=== PATIENT | female | born 1930 | race Caucasian/White ===

== ENCOUNTER 2018-01-26 18:44 | Inpatient (IN) | payer MEDICARE ==
[2018-01-26] MEDS ORDERED: Albuterol Sulfate 2.5 mg/3 ml Neb ONE ×2 (19:44→19:45)
[2018-01-26] MEDS ORDERED: predniSONE 20 MG TAB ONE (19:54)
--- NOTE | 2018-01-26 20:05 | RAD ---
UPRIGHT PORTABLE CHEST ONE VIEW: HISTORY: An 87-year-old female with a history of cough and shortness of breath. COMPARISON: No prior studies. FINDINGS: Minimal cardiomegaly. Mild bilateral vascular congestion with some increased linear and interstitial markings bilaterally, nonspecific. Evidence for hiatal hernia. No confluent pneumonia. IMPRESSION: 1. Cardiomegaly with mild vascular congestion. 2. Old granulomatous disease. 3. Evidence for a hiatal hernia. 4. Atherosclerosis of the aorta. POS: [facility]
[2018-01-26 21:19] LABS: Hemoglobin 9.7 g/dL (12.0-16.0); Mean Corpuscular HGB CONC 29.7 g/dL (32.0-36.0); Mean Corpuscular Hemoglobin 23.7 pg (27.0-31.0); Mean Corpuscular Volume 79.7 fL (78.0-98.0); Mean Platelet Volume 9.7 fL (7.4-10.4); Platelet Count 125 thou/uL (130-400); RBC Distribution Width 15.4 % (11.5-14.5); Red Blood Cell (RBC) Count 4.11 mill/uL (4.20-5.40)
[2018-01-26 21:37] LABS: #Lymphocytes 1.1 thou/uL (1.20-3.40); #Monocytes 0.5 thou/uL (0.11-0.59); #Neutrophils 3.3 thou/uL (1.40-6.50); %Eosinophils 0.7 % (0.0-10.0); %Lymphocytes 22.1 % (21.0-51.0); %Monocytes 10.7 % (0.0-10.0); %Neutrophils 66.6 % (42.0-75.0); Anisocytosis SLIGHT = 6-15 cells (100X) (0-5/hpf); MDiff Complete? YES; PLT Morphology Comment Appears Decreased; Poikilocytosis SLIGHT = 6-15 cells (100X) (0-5/hpf)
[2018-01-26 21:38] LABS: ALT (SGPT) 11 U/L (8-55); AST (SGOT) 17 U/L (5-34); Albumin 3.9 g/dL (3.4-4.8); Alkaline Phosphatase 79 U/L (40-150); Anion Gap 15 mmol/L (10-20); BUN (Urea Nitrogen) 9 mg/dL (9.8-20.1); Calc. Creatinine Clearance 0 mL/min (70-130); Calcium 9.3 mg/dL (7.8-10.44); Carbon Dioxide 21 mmol/L (23-31); Chloride 106 mmol/L (98-107); Estimated GFR-MDRD 79; Globulin 2.5 g/dL (2.4-3.5); Glucose 143 mg/dL (83-110); Potassium 3.8 mmol/L (3.5-5.1); Protein, Total 6.4 g/dL (6.0-8.3); Sodium 138 mmol/L (136-145)
[2018-01-26 21:42] LABS: Troponin I Less than 0.010 ng/mL (< 0.028)
[2018-01-26] MEDS ORDERED: Furosemide 20 MG/2 ML VIAL ONE (22:38)
[2018-01-27 00:15] LABS: Troponin I 0.017 ng/mL (< 0.028)
[2018-01-27 00:38] VITALS: BMI 44.3
[2018-01-27 03:39] LABS: Troponin I 0.033 ng/mL (< 0.028)
[2018-01-27] MEDS: Benzonatate 100 MG CAP PO PRN ×3 (07:14→20:56)
[2018-01-27] MEDS ORDERED: traMADol HCl 50 MG TAB PO PRN (09:16)
[2018-01-27] MEDS ORDERED: Aspirin 81 mg Enteric Coated Tablet PO SCH (10:00)
[2018-01-27] MEDS: methylPREDNISolone Sod Succ/PF 125 MG/2 ML VIAL IVP SCH ×3 (10:09→22:52)
[2018-01-27] MEDS ORDERED: Furosemide 40 MG/4 ML VIAL SLOW IVP SCH (11:00)
[2018-01-27 11:23] LABS: Troponin I 0.066 ng/mL (< 0.028)
--- NOTE | 2018-01-27 11:49 | HP ---
DATE OF ADMISSION: 01/26/2018 PRIMARY CARE PHYSICIAN: Dr. Babin CHIEF COMPLAINT: Cough, shortness of breath, worse with exertion and generalized weakness. HISTORY OF PRESENT ILLNESS: Ms. Gamble is a pleasant 87-year-old female who presented to the emergency room on 01/26/2018 for cough that started yesterday morning, nonproductive, shortness of breath, which was exacerbated by exertion and generalized weakness. The patient's niece reports that she had bronchitis recently and believes that her aunt may have caught it from her. The patient denies any sore throat or rhinorrhea, just reports that she has got lower leg edema, which is worse than normal. Denies any chest pain. The patient reports that she takes Lasix at home for chronic lymphedema. Denies history of CHF. The patient was found to have wheezes diffusely, pulse ox in 90-91 on room air. She was placed on 2 liters nasal cannula in the emergency room. She was admitted to the observation unit for further evaluation. PAST MEDICAL HISTORY: Hypertension, hyperlipidemia, lymphedema, hypothyroidism. PAST SURGICAL HISTORY: Appendectomy, hysterectomy. FAMILY HISTORY: Noncontributory. SOCIAL HISTORY: The patient lives at home, lives with her niece. Denies smoking history. Denies alcohol or drug use. REVIEW OF SYSTEMS: CONSTITUTIONAL: The patient denies chills, denies a low grade fever yesterday. Reports some generalized weakness. EYES: Denies any eye pain or vision changes. ENT: Denies rhinorrhea, sore throat, voice changes. CARDIOVASCULAR: Denies any chest pain or palpitations. RESPIRATORY: The patient reports a nonproductive cough or shortness of breath. GASTROINTESTINAL: Denies any abdominal pain, nausea, vomiting, diarrhea, constipation. GENITOURINARY: FEMALE: Denies any dysuria or increased frequency. MUSCULOSKELETAL: Denies any back pain, fall, or injury. SKIN: Denies rash or skin changes. NEUROLOGIC: Denies a headache, any mental status changes, paresthesias, sensory changes. HEME/LYMPHATIC: Denies any abnormal blood clotting. IMMUNOLOGIC: The patient denies any frequent infections. PHYSICAL EXAMINATION: VITAL SIGNS: Temperature 97.9, pulse 83, respirations 18, blood pressure 136/71 , pulse ox 91 on room air, 94 on 2 liters. CONSTITUTIONAL: The patient appears in no distress. She is oriented to person , place, and time. HEAD: Normocephalic, atraumatic. EYES: Pupils are equally round and reactive to light. Extraocular muscles are intact. No nystagmus. ENT: Mouth exam is normal. Mucous membranes are moist. Neck is supple, normal range of motion. Trachea is midline. RESPIRATORY: Chest, diffuse wheezing, no respiratory distress, no accessory muscle use. CARDIOVASCULAR: Heart, rate and rhythm. Heart sounds are normal. ABDOMEN: FEMALE: Abdomen is soft, nontender. Bowel sounds are heard x4. BACK: Normal inspection, normal range of motion, no tenderness. EXTREMITIES: Normal inspection, normal range of motion. Motor strength is normal. Sensation is intact. Radial pulses normal. Lower extremities, normal range of motion. Motor strength is normal. Sensation intact. +2 edema noted to lower extremities. NEUROLOGIC: The patient is alert to person, place, and time. Speech is normal. No focal or sensory deficits. SKIN: Dry, warm, and normal in color. PSYCHIATRIC: The patient is a normal affect. LABORATORY DATA: EKG in the emergency room showed a normal sinus rhythm, beats per minute, 92. ST segments normal, T waves normal, axis normal. Labs and x- ray; the patient had a chest x-ray, which showed cardiomegaly with mild vascular congestion, evidence of hiatal hernia, atherosclerosis of the aorta. Labs, sodium 138, potassium 3.8, chloride 106, carbon dioxide 21, anion gap is 15, BUN is 9, creatinine is 0.70, estimated GFR is 79, glucose 143, AST is 17, ALT is 11. Troponin, first two are undetectable, third one elevated at 0.033. BNP is 201.5. White blood cell count is 5, hemoglobin 9.7, hematocrit 32.8, and platelet count is 125. ASSESSMENT AND PLAN: 1. Congestive heart failure exacerbation: We will give some Lasix. Order an echocardiogram. Consult Cardiology. 2. Bronchitis. We will order neb treatments, Solu-Medrol. 3. Hyperlipidemia. We will continue home medications. 4. Hypothyroidism. We will continue home medications. 5. Deep venous thrombosis and gastrointestinal prophylaxis will be started. Hospital course will depend on clinical findings. [facility]ITAL[facility]
[2018-01-27] MEDS ORDERED: methylPREDNISolone Sod Succ/PF 125 MG/2 ML VIAL IVP SCH (12:00)
[2018-01-27] MEDS ORDERED: Sterile Water 10 ML ONE (16:11)
--- NOTE | 2018-01-27 16:16 | PDOC.EVN ---
Event Note - Event Note Event Note: Reviewed chart, saw patient. Collaborated with Lucia Lyn SENIOR WRITER. Agree with assessment and plan as documented.
--- NOTE | 2018-01-27 16:54 | PDOC.EVN ---
Event Note - Event Note Event Note: Patient went into A fib with RVR, Stat EKG ordered, Cardizem 10mg IVP now, Cardizem drip 5mg/hr, BP 136/[address] Domingo already consulted and asked us to bolus and start cardizem. She will see patient.
[2018-01-27] MEDS ORDERED: Digoxin 0.5 MG/2 ML AMP SLOW IVP SCH (17:00)
[2018-01-27] MEDS ORDERED: Diltiazem 125 MG in Sodium Chloride 0.9% 100 ML IVPB SCH (17:00)
[2018-01-27 18:30] LABS: Free T4 (Free Thyroxine) 1.07 ng/dL (0.70-1.48); Thyroid Stimulating Hormone 0.4151 uIU/mL (0.35-4.94)
[2018-01-27] MEDS: Atorvastatin Calcium 40 MG TAB PO SCH (21:15)
[2018-01-28] MEDS: Levothyroxine Sodium 100 MCG TAB PO SCH (03:01)
[2018-01-28] MEDS: Benzonatate 100 MG CAP PO PRN ×3 (03:01→22:06)
[2018-01-28] MEDS: methylPREDNISolone Sod Succ/PF 125 MG/2 ML VIAL IVP SCH ×3 (04:09→17:12)
[2018-01-28] MEDS ORDERED: Furosemide 40 MG TAB PO SCH (09:00)
[2018-01-28] MEDS: Potassium Chloride 20 MEQ TAB PO SCH (09:09)
[2018-01-28] MEDS: Aspirin 81 mg Enteric Coated Tablet PO SCH (09:10)
[2018-01-28] MEDS: Diltiazem 125 MG in Sodium Chloride 0.9% 100 ML IVPB SCH (09:11)
[2018-01-28] MEDS ORDERED: Furosemide 40 MG/4 ML VIAL SLOW IVP SCH (09:15)
--- NOTE | 2018-01-28 09:15 | PDOC.CTH ---
<Jelena Rivera - Last Filed: 01/28/18 14:15> Cardiology Progress Note - Subjective The pt seen and examined. No overnight events. She complains of worsening of SOB this AM. - Objective Vital Signs Temp Pulse Resp BP BP Pulse Ox 01/28/18 07:43 97.8 F 72 20 136/63 98 01/28/18 07:38 92 L 01/28/18 07:36 72 20 92 L 01/28/18 03:02 96.6 F L 117 H 18 136/81 94 L Weight 262 lb 11.2 oz 01/27/18 01/28/18 01/29/18 06:59 06:59 06:59 Intake Total 200 1230.8 Output Total 250 2100 Balance -50 -869.2 - Physical Examination General/Neuro: alert & oriented x3 Neck: no JVD present Lungs: other: (wheezing) Heart: RRR Abdomen: soft Extremities: other: (No edema) - Telemetry Telemetry Rhythm: SR - Labs Result Diagrams: 01/28/18 12:43 01/28/18 12:43 Troponin/CKMB Troponin I 0.066 ng/mL (< 0.028) H 01/27/18 10:50 - Assessment/Plan 1. Acute on Chronic Diastolic HF - wheezing and complains of worsening of SOB today. another Lasix IV 40mg today and start Lasix 40mg PO BID from this PM. Start Coreg 3.125mg BID from this AM. On RUSSELL. 2. New onset Afib from 01/27/18 and converted back to SR around 0330 on - Remains in SR with Cardizem 10mg/h; will start Coreg 3.125mg BID from this AM; on ASA 81mg qd. 3. Mod /severe MR - Echo result is pending at this time 4. Hyperlipidemia - on Statin 5. Hypothyroidism 6. Bronchitis - managed by PCP SIMON reviewed * Will start Eliquis 5mg BID for Afib. Review of Systems - Review of Systems Constitutional: reports: weakness EENTM: reports: no symptoms reported Respiratory: reports: see HPI Cardiac (ROS): reports: no symptoms reported ABD/GI: reports: no symptoms reported : reports: no symptoms reported Musculoskeletal: reports: no symptoms reported <Shantelle Domingo - Last Filed: 01/28/18 22:23> Cardiology Progress Note - Objective Vital Signs Temp Pulse Resp BP Pulse Ox 01/28/18 17:05 72 22 H 119/80 95 01/28/18 12:13 76 20 01/28/18 11:23 98.4 F 88 22 H 129/60 94 L Weight 262 lb 11.2 oz 01/27/18 01/28/18 01/29/18 06:59 06:59 06:59 Intake Total 200 1230.8 1040 Output Total 250 2100 500 Balance -50 -869.2 540 - Labs Result Diagrams: 01/28/18 17:24 01/28/18 17:24 Troponin/CKMB Troponin I 0.066 ng/mL (< 0.028) H 01/27/18 10:50 - Assessment/Plan pt.seen and eval.byme.I agree with the A/Pby the INTERNAL MEDICINE PHYSICIAN.She does not tolerate the atrial fibrillation well.This is likely worsened by the and MR.?if she is a candidatefor TAVR.
[2018-01-28] MEDS ORDERED: Carvedilol 3.125 MG TAB PO SCH (10:00)
[2018-01-28 12:49] LABS: #Lymphocytes 0.7 thou/uL (1.20-3.40); #Monocytes 0.4 thou/uL (0.11-0.59); #Neutrophils 6.7 thou/uL (1.40-6.50); %Basophils 0.4 % (0.0-1.0); %Eosinophils 0.3 % (0.0-10.0); %Lymphocytes 8.9 % (21.0-51.0); %Monocytes 5.1 % (0.0-10.0); %Neutrophils 85.3 % (42.0-75.0); Hemoglobin 9.8 g/dL (12.0-16.0); Mean Corpuscular HGB CONC 31.1 g/dL (32.0-36.0); Mean Corpuscular Hemoglobin 24.6 pg (27.0-31.0); Mean Corpuscular Volume 79.1 fL (78.0-98.0); Mean Platelet Volume 9.8 fL (7.4-10.4); Platelet Count 138 thou/uL (130-400); RBC Distribution Width 15.6 % (11.5-14.5); Red Blood Cell (RBC) Count 3.97 mill/uL (4.20-5.40); White Blood Cell (WBC) Count 7.8 thou/uL (4.8-10.8)
[2018-01-28 13:09] LABS: Anion Gap 15 mmol/L (10-20); BUN (Urea Nitrogen) 21 mg/dL (9.8-20.1); Calc. Creatinine Clearance 88 mL/min (70-130); Calcium 9.8 mg/dL (7.8-10.44); Carbon Dioxide 22 mmol/L (23-31); Chloride 105 mmol/L (98-107); Estimated GFR-MDRD 65; Glucose 143 mg/dL (83-110); Potassium 3.8 mmol/L (3.5-5.1); Sodium 138 mmol/L (136-145)
--- NOTE | 2018-01-28 13:30 | PDOC.PN ---
- Subjective Encounter Start Date: 01/28/18 (f/u dyspnea) Encounter Start Time: 13:28 Subjective: Pt reports breathing is not as good today. Denies any chest tightness -: or pain. Denies n/v. Zabfvtge-qm-[id number] notes it as well - Objective Vital Signs & Weight: Vital Signs (12 hours) Temp Pulse Resp BP BP Pulse Ox 01/28/18 12:13 76 20 01/28/18 11:23 98.4 F 88 22 H 129/60 94 L 01/28/18 07:43 97.8 F 72 20 136/63 98 01/28/18 07:38 92 L 01/28/18 07:36 72 20 92 L 01/28/18 03:02 96.6 F L 117 H 18 136/81 94 L Weight Weight 262 lb 11.2 oz I&O: 01/27/18 01/28/18 01/29/18 06:59 06:59 06:59 Intake Total 200 1230.8 Output Total 250 2100 Balance -50 -869.2 Result Diagrams: 01/28/18 17:24 01/28/18 17:24 EKG Reviewed by me: Yes (intermittent a fit, currently in sinus 75.) Phys Exam - Physical Examination Constitutional: NAD prolonged exhalation/wheezing, no audible rales/rhonchi Cardiovascular: RRR 3/6 FERNANDO throughout Gastrointestinal: soft, non-tender, no distention, positive bowel sounds Musculoskeletal: no edema Neurological: non-focal, moves all 4 limbs Psychiatric: normal affect, A&O x 3 Dx/Plan (1) Shortness of breath Code(s): R06.02 - SHORTNESS OF BREATH Status: Acute (2) Paroxysmal atrial fibrillation Code(s): I48.0 - PAROXYSMAL ATRIAL FIBRILLATION Status: Acute (3) Diastolic heart failure Code(s): I50.30 - UNSPECIFIED DIASTOLIC (CONGESTIVE) HEART FAILURE Status: Acute Qualifiers: Heart failure chronicity: acute on chronic Qualified Code(s): I50.33 - Acute on chronic diastolic (congestive) heart failure (4) Severe mitral regurgitation Code(s): I34.0 - NONRHEUMATIC MITRAL (VALVE) INSUFFICIENCY Status: Chronic (5) Hyperlipidemia Code(s): E78.5 - HYPERLIPIDEMIA, UNSPECIFIED Status: Chronic Qualifiers: Hyperlipidemia type: unspecified Qualified Code(s): E78.5 - Hyperlipidemia , unspecified (6) Hypothyroid Code(s): E03.9 - HYPOTHYROIDISM, UNSPECIFIED Status: Chronic Qualifiers: Hypothyroidism type: unspecified Qualified Code(s): E03.9 - Hypothyroidism , unspecified (7) Anemia Code(s): D64.9 - ANEMIA, UNSPECIFIED Status: Chronic - Plan * Appreciate Cardiology consult - pt on cardizem, addition of coreg today, and received another dose of lasix IV with plan to change to PO lasix * Will discuss anticoagulation with Cardiology as pt only on low dose aspirin now * Pt remains fairly tachypneic - check d-dimer and anticipate VQ or CT-A if positive * continue IV steroids and scheduled nebs. * continue home meds as ordered * * dvt prophy - scd's * gi prophy - not indicated * code status full - confirmed with patient and ashyyoob-hu-wnl present. * * 21:30- VQ scan unremarkable and pt started on eliquis by cardiology. Breathing without significant change despite steroids, diuresis, nebs. Will consult Pulmonology in AM for further recommendations. Pt tearful this evening - states she is tired and wants to go home. will change nebs to While awake, and RN to assist with protecting pt's sleep and minimizing unnecessary disruptions. Will change solumedrol to prednisone in AM.
--- NOTE | 2018-01-28 14:44 | CON ---
DATE OF CONSULTATION: 01/27/2018 ROOM #[id number] PRIMARY CARE PHYSICIAN: Ace Babin MD. PRIMARY MANAGER RAIL: Henok Rider MD. REFERRING PHYSICIAN: Ms. Tracy Manzanares. REASON FOR CARDIOLOGY CONSULTATION: Shortness of breath, CHF exacerbation, elevated troponin. HISTORY OF PRESENT ILLNESS: Ms. Gamble is a very pleasant 87-year-old female with a sig nificant history of hypertension, history of DVT in 2014, hyperlipidemia, aortic valve stenosis and m itral valve regurgitation, and lymphedema in the bilateral lower extremities. Her niece reports that the patient was doing well until yesterday morning when she started having shortness of breath and c ough , morning. She was complaining of severe worsening coughing and ach iness. They tried to reach the patient's primary care doctor, which was yesterday, so the ramu ent decided to present to the emergency department today for further evaluation and treatment. Patie nt denied any cardiac complaints. She pillows. She denies shortness of breath except that sin ce 2 days ago, abdominal bloating, decreasing of appetite, edema in the lower extremities. The patient lives with her niece who is watching the patient's salt intake. She usually drinks a glass of fluid a day. She does not exercise, she has a sedative lifestyle. The niece noticed the patient complains of fatigue possibly due to lack of sleep at night and tired and sleeping at the daytime. The patient had a stress test in 2013, which shows no reversible ischemia. Patient had a vein study in 2013, shows positive varicose vein to the left lower extremities. The patient has a long history of aortic valve stenosis. Last echo was done in August 2017, which shows EF of 60-65%, normal LV size and function, severe mitral valve regurgitation, moderate aortic valve stenosis, moderate aortic valv e regurgitation, zjyczzpo-ni-gbsocp tricuspid regurgitation, moderate pulmonary valve regurgitation, aortic valve mean gradient 19.18. PAST MEDICAL HISTORY: 1. Hypertension. 2. Aortic valve stenosis. 3. Mitral valve regurgitation. 4. Hyperlipidemia. 5. History of DVT in 2014. 6. Hypothyroidism. 7. . PAST SURGICAL HISTORY: 1. Total hysterectomy. 2. Right varicose vein ablation in 2010. 3. Right carpal tunnel surgery in 2014. 4. Bilateral cataract surgery in 2014. 5. Appendectomy. 6. Left wrist fracture and plate placement. FAMILY HISTORY: The patient's older sister due to CVA and congestive heart failure. Norberto haines's mother due to the complication from congestive heart failure. Patient's younger sister due to cancer. She also has a history of diabetes. Patient's paternal side has no signific ant cardiac related diseases. SOCIAL HISTORY: Patient lives with her niece. Again, patient has sedative lifestyle. She uses a wa lker for stability. She denies ETOH, tobacco, or illicit drug abuse. She drinks one tea a day and a glass of fluid a day. REVIEW OF SYSTEMS: A 12-point review of systems is negative, unless otherwise mentioned in the HPI. PHYSICAL EXAMINATION: VITAL SIGNS: Blood pressure 134/74, temperature 97.6, pulse is 96 sinus rhythm, respiratory rate 20, and O2 sat 97% with 2 liters nasal cannula. GENERAL: Patient is alert and oriented x4, not in acute distress. HEAD: Normocephalic, atraumatic. EYES: Extraocular muscle movement intact. ENT AND MOUTH: Oral and nasal mucosa are moist without lesion. NECK: Normal range of motion. No JVD. Supple. RESPIRATORY: bilateral especially to the left side, but no wheezing or rales noted. CARDIOVASCULAR: Regular rate and rhythm. Normal S1 and S2. There is no S3 or S4. murmur to right mid sternal border systolic, but unable to auscultate heart sound to the left fifth cost al area due to the patient's obesity. EXTREMITIES: A 2+ pulses in the upper and lower bilateral extremities. No significant edema in the lower extremities. The patient is able to move all extremities without difficulties. The patient de nied any calcifications. SKIN: No hematoma, lesion, or rash noted. NEUROLOGIC: The patient is alert and oriented x4, nonfocal. PSYCHIATRIC: The patient's mood is appropriate. IMAGING STUDIES: The patient's 12-lead EKG at the ER showed sinus rhythm with no significant ST elev ation or T-wave depression. Patient's chest x-ray shows cardiomegaly with mild vascular congestion, old granulomatous disease, evidence of hiatal hernia, atherosclerosis of aorta. LABORATORY DATA: WBC 5.0, hemoglobin 9.7, hematocrit 32.8, platelets 125. Sodium of 138, potassium of 3.8, creatinine 0.7, AST 17, ALT 11. Troponins are 0.017, 0.033 and 0.066. BNP is 201.5. ASSESSMENT AND PLAN: 1. Elevated troponin, demand ischemia secondary to the severe cough from bronchitis/flu. Inf luenza test was negative, so the patient has a severe bronchitis and no EKG change at this moment. W e would like to continue to monitor. 2. Possible congestive heart failure. The patient's BNP is slightly elevated. Patient is going to have another echocardiogram today to determine whether the patient has congestive heart failure . 3. Aortic valve stenosis and severe mitral valve regurgitation. The echocardiogram in August 2017 as an outpatient shows the patient has moderate aortic valve stenosis and severe mitral valve regurgitat ion. Patient is going to have another echocardiogram today. Patient's symptoms of the chronic fatig ue could be possibly from this result or something else. We would like to find out to determine with echocardiogram. At this moment, the patient's condition is stable. 4. Hypertension. Patient's blood pressure is stable at this moment with current medication. 5. Hypothyroidism. The patient is on levothyroxine. 6. Hyperlipidemia. The patient is on atorvastatin 40 mg once a day. 7. Bronchitis. Patient's influenza test was negative. Patient is on Solu-Medrol every 6 hours, whi ch managed by primary care doctor. 8. Anemia. Hemoglobin level is 9.7, which was more than 10 in March 2017, which might cause the p atient's chronic fatigue. We would like to continue to monitor. Thank you for allowing the Cardiology Service to participate in the care of this patient. We will fo llow along the patient care team and make further recommendation as appropriate.
--- NOTE | 2018-01-28 14:46 | ADD-CON ---
ADDENDUM DATE OF CONSULTATION: 01/27/2018 INDICATION FOR CONSULTATION: An 87-year-old female with a history of aortic valve stenosis who prese nted with coughing, shortness of breath and overall just not feeling well. She denied any fevers, bu t she has been more short of breath than usual. She does have anemia. She was noted to have an elev ated BNP and was felt to have a CHF exacerbation. We were asked to see her. HISTORY OF PRESENT ILLNESS: This is a very unfortunate 87-year-old female who has been followed by Desi Rider for quite some time. She did have a recent echocardiogram in 08/2017, which showed a mod erate aortic valve stenosis as well as moderate aortic valve regurgitation, but a normal left ventric ular systolic function. She also had vbguosle-fo-bcffxe tricuspid valve regurgitation and severe curt ral valve regurgitation. She denies any chest pain. She does have shortness of breath and this has continued to worsen as she has developed this cough. She has also had a family member who recently h ad an upper respiratory tract infection. She also has a history of diastolic dysfunction. At this t rhys, her BNP was elevated. She is obese. The enzymes are negative for any evidence of myocardial in farction. For her past medical history, social history, family history, review of systems, medications, and all ergies, please refer to the notes dictated by the nurse practitioner, Jelena. PHYSICAL EXAMINATION: GENERAL: Reveals an elderly female, who is in no acute distress at this time. She is alert and orie nted. VITAL SIGNS: Stable. HEENT: Shows head to be normocephalic, atraumatic. Her carotid pulses are present. I cannot hear a ny bruits. RESPIRATORY: Her chest has some late expiratory wheezing. I did not hear any significant rales or r honchi at this time. CARDIOVASCULAR: Reveals a harsh systolic murmur heard over the entire precordium, loudest over the a ortic area. Also significant murmur at the apex, but this appears to be a radiation from the aortic area. There were no heaves or thrills noted. She appears to have a regular rhythm at this time. ABDOMEN: Shows morbid obesity. Positive bowel sounds are present. I cannot palpate any masses. Sh e has no tenderness. EXTREMITIES: Showed 1+ lower extremity edema. Pedal pulses are present. NEUROLOGIC: She appears to be intact. IMPRESSION AND PLAN: 1. Congestive heart failure exacerbation associated with upper respiratory tract infection. She is scheduled to have another echocardiogram performed. This has not yet been done. We will need to loo k at that to determine whether or not the aortic valve stenosis has worsened. Would continue her ant ibiotics. We will continue low dose of diuretics. She does appear to be slightly volume overloaded, but we would be careful not to lower the blood pressure with her aortic valve stenosis. 2. Hypertension. This is under reasonable control at this time. 3. History of diastolic dysfunction. This will also contribute to her shortness of breath and eleva vanessa BNP. We will continue to follow her very carefully. We will treat her appropriately and hopeful ly she will improve in her symptoms over the next few days. If the aortic valve stenosis has worsene d, she may be a candidate to undergo a TAVR procedure. We will discuss this with Dr. Rider when tyrese dutton returns on Monday. 4. Please note she does have hypercholesterolemia. Would continue her statin medications. She had been on atorvastatin in the past. 5. She also has hypothyroidism. We will need to continue her levothyroxine.
--- NOTE | 2018-01-28 17:00 | NM ---
NUCLEAR MEDICINE VENTILATION PERFUSION SCAN: History: Shortness of breath, elevated D-Dimer. Technique: Patient was administered 6.5 mCi Technetium 99M MAA intravenously. FINDINGS: There is essentially homogeneous distribution of the radiotracer in the lung parenchyma. No significa nt defects. IMPRESSION: Essentially homogeneous distribution of the radiotracer. POS: [facility]
[2018-01-28] MEDS: Furosemide 40 MG TAB PO SCH (17:12)
[2018-01-28] MEDS: Carvedilol 3.125 MG TAB PO SCH (17:13)
--- NOTE | 2018-01-28 17:19 | RAD ---
CHEST TWO VIEWS: History: Correlate with VQ scan. Comparison: 01-26-18 FINDINGS: Enlarged cardiac silhouette. Increased density projects over the cardiac silhouette due to hiatal her shannan. There is atherosclerosis of the aorta. Pulmonary vessels are prominent. Hyperinflation with superintendent pressure juarez changes. No consolidation or mass. No pneumothorax or osseous abnormality. IMPRESSION: 1. Cardiomegaly. 2. Hiatal hernia. POS: [facility]
--- NOTE | 2018-01-28 17:23 | PDOC.PN ---
- Subjective Encounter Start Date: 01/27/18 Encounter Start Time: 14:00 (late entry) patient seen re: CHF exacerbation and elevated troponin. No chest pain. - Objective Resuscitation Status: Resuscitation Status FULL:Full Resuscitation MAR Reviewed: Yes Vital Signs & Weight: Vital Signs (12 hours) Temp Pulse Resp BP Pulse Ox 01/28/18 17:05 72 22 H 119/80 95 01/28/18 12:13 76 20 01/28/18 11:23 98.4 F 88 22 H 129/60 94 L 01/28/18 07:43 97.8 F 72 20 136/63 98 01/28/18 07:38 92 L 01/28/18 07:36 72 20 92 L Weight Weight 262 lb 11.2 oz I&O: 01/27/18 01/28/18 01/29/18 06:59 06:59 06:59 Intake Total 200 1230.8 Output Total 250 2100 Balance -50 -869.2 Result Diagrams: 01/28/18 12:43 01/28/18 12:43 EKG Reviewed by me: Yes (Tele: NSR) Phys Exam - Physical Examination Constitutional: NAD HEENT: moist MMs Respiratory: clear to auscultation bilateral Cardiovascular: RRR Neurological: moves all 4 limbs Psychiatric: normal affect Dx/Plan (1) CHF exacerbation Code(s): I50.9 - HEART FAILURE, UNSPECIFIED Status: Acute Comment: cardiology consulted, continue diuretics - Plan * . Reviewed chart, saw patient. Collaborated with Lucia Lyn YARD COUPLER. Agree with assessment and plan as documented. Review of Systems - Medications/Allergies Allergies/Adverse Reactions: Allergies Allergy/AdvReac Type Severity Reaction Status Date / Time No Known Allergies Allergy Unverified 01/27/18 00:52 Medications: Current Medications Albuterol/Ipratropium (Duoneb) 3 ml NEB [id number] [facility] Last Admin: 01/28/18 15:47 Dose: Not Given Apixaban (Eliquis) 5 mg PO BID [facility] Aspirin (Ecotrin) 81 mg PO DAILY [facility] Last Admin: 01/28/18 09:10 Dose: 81 mg Atorvastatin Calcium (Lipitor) 40 mg PO HS [facility] Last Admin: 01/27/18 21:15 Dose: 40 mg Benzonatate (Tessalon) 200 mg PO Q6H PRN PRN Reason: Cough Last Admin: 01/28/18 09:08 Dose: 200 mg Carvedilol (Coreg) 3.125 mg PO BID-[facility] Last Admin: 01/28/18 17:13 Dose: Not Given Enalapril Maleate (Vasotec) 5 mg PO DAILY [facility] Last Admin: 01/28/18 09:09 Dose: 5 mg Furosemide (Lasix) 40 mg PO 0900,1400 [facility] Last Admin: 01/28/18 17:12 Dose: 40 mg Diltiazem HCl 125 mg/ Sodium (Chloride) 125 mls @ 10 mls/hr IVPB INF [facility]; Protocol Last Admin: 01/28/18 09:11 Dose: 125 mls Levothyroxine Sodium (Synthroid) 100 mcg PO 0600 [facility] Last Admin: 01/28/18 03:01 Dose: 100 mcg Methylprednisolone Sodium Succinate (Solu-Medrol) 40 mg IVP 0400,1000,1600, 2200 [facility] Last Admin: 01/28/18 17:12 Dose: 40 mg Potassium Chloride (K-Dur) 20 meq PO DAILY [facility] Last Admin: 01/28/18 09:09 Dose: 20 meq Tramadol HCl (Ultram) 50 mg PO BIDPRN PRN PRN Reason: Pain Last Admin: 01/27/18 11:25 Dose: 50 mg
[2018-01-28 17:29] LABS: Hemoglobin 9.3 g/dL (12.0-16.0); Platelet Count 148 thou/uL (130-400)
[2018-01-28] MEDS: Apixaban 5 MG TAB PO SCH (22:06)
[2018-01-28] MEDS: Atorvastatin Calcium 40 MG TAB PO SCH (22:06)
[2018-01-29] MEDS: Diltiazem 125 MG in Sodium Chloride 0.9% 100 ML IVPB SCH ×2 (00:37→18:47)
[2018-01-29] MEDS: Benzonatate 100 MG CAP PO PRN (03:35)
[2018-01-29] MEDS: Levothyroxine Sodium 100 MCG TAB PO SCH (03:35)
[2018-01-29 04:45] LABS: #Lymphocytes 0.7 thou/uL (1.20-3.40); #Monocytes 0.5 thou/uL (0.11-0.59); #Neutrophils 7.3 thou/uL (1.40-6.50); %Basophils 0.1 % (0.0-1.0); %Eosinophils 0.2 % (0.0-10.0); %Lymphocytes 7.6 % (21.0-51.0); %Monocytes 6.3 % (0.0-10.0); %Neutrophils 85.7 % (42.0-75.0); Hemoglobin 9.2 g/dL (12.0-16.0); Mean Corpuscular HGB CONC 31.1 g/dL (32.0-36.0); Mean Corpuscular Hemoglobin 24.5 pg (27.0-31.0); Mean Corpuscular Volume 78.9 fL (78.0-98.0); Mean Platelet Volume 10.5 fL (7.4-10.4); Platelet Count 143 thou/uL (130-400); RBC Distribution Width 15.8 % (11.5-14.5); Red Blood Cell (RBC) Count 3.75 mill/uL (4.20-5.40); White Blood Cell (WBC) Count 8.5 thou/uL (4.8-10.8)
[2018-01-29 05:06] LABS: Anion Gap 13 mmol/L (10-20); BUN (Urea Nitrogen) 28 mg/dL (9.8-20.1); Calc. Creatinine Clearance 98 mL/min (70-130); Calcium 9.4 mg/dL (7.8-10.44); Carbon Dioxide 21 mmol/L (23-31); Chloride 106 mmol/L (98-107); Estimated GFR-MDRD 73; Glucose 152 mg/dL (83-110); Sodium 136 mmol/L (136-145)
[2018-01-29] MEDS: Aspirin 81 mg Enteric Coated Tablet PO SCH (08:58)
[2018-01-29] MEDS: Apixaban 5 MG TAB PO SCH ×2 (08:58→21:29)
[2018-01-29] MEDS: Furosemide 40 MG TAB PO SCH ×2 (08:58→15:13)
[2018-01-29] MEDS: predniSONE 20 MG TAB PO SCH (08:59)
[2018-01-29] MEDS: Potassium Chloride 20 MEQ TAB PO SCH (08:59)
[2018-01-29] MEDS: Carvedilol 3.125 MG TAB PO SCH ×2 (08:59→18:29)
[2018-01-29] MEDS ORDERED: Azithromycin 250 MG TAB PO SCH (11:45)
--- NOTE | 2018-01-29 12:27 | CON ---
DATE OF CONSULTAITON: 01/29/2018 This is a 70 minutes time, of that time, greater than 50% of the time was spent with the patient and/ or on the patient's unit in the hospital. REASON FOR CONSULTATION: Cough and congestion. CONSULTING PHYSICIAN: Dr. Christie Manzo. HISTORY OF PRESENT ILLNESS: Ms. Gamble is a wonderfully pleasant 87-year-old female who was admit vanessa to this facility on 01/27/2018 with acute onset of cough and shortness of breath. The patient sa ys she typically has heart failure issues for which she takes Lasix at night, but she does not typica lly have shortness of breath with exertion. On the night of admission, she noticed shortness of nicky th when walking from the bathroom to the bed and she subsequently presented here for further evaluati on. She says her niece has been sick with bronchitis and she thinks she has caught that. She has de veloped a cough that is nonproductive. She has no previous history of lung problems, including no history of bronchitis, pneumonia, COPD, as thma or pulmonary fibrosis. PAST MEDICAL HISTORY: 1. Hypertension. 2. Hyperlipidemia. 3. Diastolic heart dysfunction. 4. Hypothyroidism. 5. Lower extremity edema. 6. Aortic stenosis. PAST SURGICAL HISTORY: Appendectomy and hysterectomy. FAMILY MEDICAL HISTORY: Unremarkable. SOCIAL HISTORY: Never a smoker. Does not consume alcohol, does not use illicit drugs. REVIEW OF SYSTEMS: Current echo from 08/2017 showed moderate aortic stenosis, normal LV function, bu t severe mitral valve regurgitation, severe tricuspid valve regurgitation. A 12 point review of syst ems otherwise negative. PHYSICAL EXAMINATION: VITAL SIGNS: Temperature 97.8 with no documented fever since admission, pulse 83, respirations 16, O 2 sat 93% on 3 liters, blood pressure 127/77. GENERAL: She is awake and alert and in no acute distress. HEENT: Pupils reactive, sclerae are anicteric. Oropharynx clear. NECK: Without adenopathy, JVD, or bruits. LUNGS: Bilateral expiratory and inspiratory rhonchi, some crackles at both bases. CARDIAC: S1, S2 regular without audible murmur, rub or gallop. ABDOMEN: Soft, nontender, nondistended. EXTREMITIES: No clubbing, cyanosis. She has trace pedal edema in her legs. X-RAY FINDINGS: Her chest x-ray shows slight cardiomegaly, some increased interstitial changes bilat erally. Pulmonary perfusing imaging was negative for evidence of clot. LABORATORY DATA: D-dimer 1.05. White blood cell count 8.5, hemoglobin 9.2, hematocrit 29.6, platele t count 143 with a slight left shift. Her BNP value was 201. ASSESSMENT: 1. The patient probably has bronchopneumonia versus asthmatic bronchitis. 2. Aortic stenosis with mitral regurgitation. I cannot fully rule out both as these problems might be decompensated, but her x-ray and D-dimer really do not support overt failure at this time. RECOMMENDATIONS: 1. I would continue with the steroids, nebulization treatments. Additionally, I would add antibioti cs to her medication regimen. I would probably choose Zithromax and Omnicef. 2. Guaifenesin as needed for cough. Thank you for the referral.
[2018-01-29] MEDS ORDERED: Mometasone/Formoterol 120 PUFF INHALER INH SCH (12:45)
[2018-01-29] MEDS: Cefdinir 300 MG CAP PO SCH (15:13)
[2018-01-29] MEDS ORDERED: Carvedilol 3.125 MG TAB PO SCH (16:00)
[2018-01-29] MEDS ORDERED: Diltiazem 125 MG in Sodium Chloride 0.9% 100 ML IVPB SCH (18:05)
--- NOTE | 2018-01-29 19:40 | PDOC.PN ---
- Subjective Encounter Start Date: 01/29/18 Encounter Start Time: 10:00 Subjective: f/u for dyspnea and hypoxia with ? CHF, bronchitis/PNA. Still SOB with -: minimal exertion. Tolerating Duonebs. - Objective Resuscitation Status: Resuscitation Status FULL:Full Resuscitation MAR Reviewed: Yes Vital Signs & Weight: Vital Signs (12 hours) Temp Pulse Resp BP Pulse Ox 01/29/18 19:25 80 125/77 01/29/18 18:46 109 H 132/77 01/29/18 18:45 155 H 125/80 01/29/18 18:23 121 H 131/87 01/29/18 17:13 98.3 F 73 20 153/75 H 97 01/29/18 15:21 97.8 F 104 H 16 125/69 92 L 01/29/18 14:42 102 H 16 01/29/18 13:50 102 H 16 01/29/18 11:59 97.9 F 102 H 20 132/90 93 L 01/29/18 10:36 83 16 01/29/18 07:55 97.8 F 108 H 22 H 127/77 93 L Weight Weight 264 lb 8 oz I&O: 01/28/18 01/29/18 01/30/18 06:59 06:59 06:59 Intake Total 1230.8 1677 Output Total 2100 900 1400 Balance -869.2 777 -1400 Result Diagrams: 01/29/18 03:51 01/29/18 03:51 Additional Labs: Laboratory Tests 01/26/18 01/27/18 01/28/18 20:02 17:40 12:43 Hgb 9.7 L BUN 21 H Creatinine 0.83 Free T4 1.07 Free T3 1.74 TSH 3rd Generation 0.4151 01/28/18 01/28/18 01/28/18 12:43 17:24 17:24 Hgb 9.8 L 9.3 L BUN Creatinine 0.81 Free T4 Free T3 TSH 3rd Generation Radiology Reviewed by me: Yes (V/Q scan - low prob for PE) EKG Reviewed by me: Yes (Tele - A-fib in 120's) Phys Exam - Physical Examination Constitutional: NAD alert, smiling, responsive HEENT: PERRLA, sclera anicteric, oral pharynx no lesions Neck: no nodes, no JVD, supple, full ROM coarse sounds bilat, exp wheezes S1, S2 Cardiovascular: no significant murmur, no rub, irregular Gastrointestinal: soft, non-tender, no distention, positive bowel sounds Musculoskeletal: pulses present, edema present Neurological: normal sensation, moves all 4 limbs Psychiatric: A&O x 3 Skin: normal turgor, cap refill <2 seconds Dx/Plan (1) Acute respiratory failure with hypoxia Code(s): J96.01 - ACUTE RESPIRATORY FAILURE WITH HYPOXIA Status: Acute Comment: Suspect multifactorial, continue pulm support, may need home O2 (2) Diastolic heart failure Code(s): I50.30 - UNSPECIFIED DIASTOLIC (CONGESTIVE) HEART FAILURE Status: Chronic Qualifiers: Heart failure chronicity: acute on chronic Qualified Code(s): I50.33 - Acute on chronic diastolic (congestive) heart failure Comment: Echo pending, Lasix 40mg po BID (3) Paroxysmal atrial fibrillation Code(s): I48.0 - PAROXYSMAL ATRIAL FIBRILLATION Status: Acute Comment: Persistent RVR, resume Cardizem gtt (4) Hypothyroid Code(s): E03.9 - HYPOTHYROIDISM, UNSPECIFIED Status: Chronic Qualifiers: Hypothyroidism type: unspecified Qualified Code(s): E03.9 - Hypothyroidism , unspecified Comment: Continue Levothyroxine 100mcg daily (5) Severe mitral regurgitation Code(s): I34.0 - NONRHEUMATIC MITRAL (VALVE) INSUFFICIENCY Status: Chronic Comment: Likely med mgmt give overall co-morbid status - Plan plan discussed w/ family, continue antibiotics, PT/OT, manager social, respiratory therapy, DVT proph w/SCDs Stable currently -: Continue Lasix 40mg po BID -: continue Omnicef, Duonebs -: Continue Prednisone 40mg daily -: AM lab: H/H, creatinine * .
[2018-01-29] MEDS: Mometasone/Formoterol 120 PUFF INHALER INH SCH (20:46)
[2018-01-29] MEDS: Atorvastatin Calcium 40 MG TAB PO SCH (21:29)
[2018-01-30] MEDS: Levothyroxine Sodium 100 MCG TAB PO SCH (04:58)
[2018-01-30] MEDS: Mometasone/Formoterol 120 PUFF INHALER INH SCH ×2 (07:49→20:08)
[2018-01-30] MEDS: Potassium Chloride 20 MEQ TAB PO SCH (08:05)
[2018-01-30] MEDS: Carvedilol 6.25 MG TAB PO SCH ×2 (08:06→17:02)
[2018-01-30] MEDS: Azithromycin 250 MG TAB PO SCH (08:06)
[2018-01-30] MEDS: Furosemide 40 MG TAB PO SCH ×2 (08:06→14:44)
[2018-01-30] MEDS: predniSONE 20 MG TAB PO SCH (08:06)
[2018-01-30] MEDS: Aspirin 81 mg Enteric Coated Tablet PO SCH (08:06)
[2018-01-30] MEDS: Apixaban 5 MG TAB PO SCH ×2 (08:07→20:30)
[2018-01-30] MEDS ORDERED: HYDROcodone/Chlorphen Polis 5 ML UDCUP PO PRN (09:29)
[2018-01-30] MEDS ORDERED: Acetaminophen 325 MG TAB PO PRN (09:47)
--- NOTE | 2018-01-30 09:47 | PRG ---
DATE OF SERVICE: 01/30/2018 SUBJECTIVE: Patient is still having difficulty with congestion, cough, and excess mucoid production. PHYSICAL EXAMINATION: VITAL SIGNS: Temperature is 97.4, pulse 86, blood pressure 102/62, O2 sat 95% on 2.5 liters. HEENT: Unremarkable. NECK: No JVD. LUNGS: Diffuse bilateral expiratory wheezing. CARDIAC: S1 and S2 regular. ABDOMEN: Soft. EXTREMITIES: No edema. ASSESSMENT: 1. Bronchopneumonia/asthmatic bronchitis. 2. Aortic stenosis and mitral regurgitation. PLAN: 1. Continue the antibiotics. 2. I will switch over to IV steroids to see if we get a better effect. 3. Continue the Dulera. 4. Try different antitussive medications to see if this helps her.
--- NOTE | 2018-01-30 10:10 | PDOC.PN ---
- Subjective Encounter Start Date: 01/30/18 Encounter Start Time: 10:09 Patient sitting up in chair. She reports some SOB this morning, but improving. Echo displaying LVEF 60-65%. She denies chest pain, palpitation. She reports some weakness and ambulates with walker. - Objective Resuscitation Status: Resuscitation Status FULL:Full Resuscitation MAR Reviewed: Yes Vital Signs & Weight: Vital Signs (12 hours) Temp Pulse Resp BP BP Pulse Ox 01/30/18 08:13 86 102/62 01/30/18 08:06 102/62 01/30/18 08:00 95 01/30/18 07:47 98 20 94 L 01/30/18 07:28 97.4 F L 61 20 124/65 95 Weight Weight 260 lb 11.2 oz I&O: 01/29/18 01/30/18 01/31/18 06:59 06:59 06:59 Intake Total 1677 Output Total 900 1400 Balance 777 -1400 Result Diagrams: 01/29/18 03:51 01/29/18 03:51 Radiology Reviewed by me: Yes EKG Reviewed by me: Yes Phys Exam - Physical Examination Constitutional: NAD Oxygen via nasal cannula HEENT: PERRLA, moist MMs, oral pharynx no lesions Neck: no nodes, no JVD, supple Course breath sounds, expiratory wheezes bilaterally noted Cardiovascular: RRR, no significant murmur, no rub Gastrointestinal: soft, non-tender, positive bowel sounds Obese Musculoskeletal: pulses present 2+ nonpitting edema Neurological: non-focal, normal sensation, moves all 4 limbs Lymphatic: no nodes Psychiatric: normal affect, A&O x 3 Skin: normal turgor, cap refill <2 seconds Dx/Plan (1) Acute respiratory failure with hypoxia Code(s): J96.01 - ACUTE RESPIRATORY FAILURE WITH HYPOXIA Status: Acute Comment: Suspect multifactorial, continue pulm support, may need home O2 (2) CHF exacerbation Code(s): I50.9 - HEART FAILURE, UNSPECIFIED Status: Acute Comment: cardiology consulted, continue diuretics (3) Paroxysmal atrial fibrillation Code(s): I48.0 - PAROXYSMAL ATRIAL FIBRILLATION Status: Acute Comment: Persistent RVR, resume Cardizem gtt (4) Diastolic heart failure Code(s): I50.30 - UNSPECIFIED DIASTOLIC (CONGESTIVE) HEART FAILURE Status: Chronic Qualifiers: Heart failure chronicity: acute on chronic Qualified Code(s): I50.33 - Acute on chronic diastolic (congestive) heart failure Comment: Echo pending, Lasix 40mg po BID - Plan cont current plan of care, continue antibiotics, PT/OT, DVT proph w/SCDs * Continue Carvedilol, Eliquis, cardiology services following. She remains on Cardizem drip, but hopeful for discontinuation * Order PT services to access ambulation and possible disposition need * Wean oxygen as tolerated, obtain home O2 eval * Pulmonology services following, continue steroids, duonebs and antibiotics at this time.
[2018-01-30] MEDS: Guaifenesin DM 100-10/5 ML UDCUP PO PRN ×2 (12:16→20:30)
[2018-01-30] MEDS: Cefdinir 300 MG CAP PO SCH (12:16)
[2018-01-30] MEDS ORDERED: Diltiazem 125 MG in Sodium Chloride 0.9% 100 ML IVPB SCH (12:35)
[2018-01-30] MEDS: Dronedarone HCl 400 MG TAB PO SCH (17:02)
[2018-01-30 19:15] LABS: Hemoglobin 10.2 g/dL (12.0-16.0); Platelet Count 130 thou/uL (130-400)
[2018-01-30] MEDS: Montelukast Sodium 10 mg Tablet PO SCH (20:30)
[2018-01-30] MEDS: Atorvastatin Calcium 40 MG TAB PO SCH (20:30)
--- NOTE | 2018-01-30 20:38 | EKG ---
Test Reason : Blood Pressure : / mmHG Vent. Rate : 110 BPM Atrial Rate : 094 BPM P-R Int : 000 ms QRS Dur : 088 ms QT Int : 312 ms P-R-T Axes : 000 016 041 degrees QTc Int : 422 ms Atrial fibrillation with rapid ventricular response Nonspecific ST and T wave abnormality , probably digitalis effect Abnormal ECG When compared with ECG of 26-JAN-2018 19:22, (Unconfirmed) Atrial fibrillation has replaced Sinus rhythm Confirmed by CHARLES SANDOVAL (2) on 01/30/2018 8:38:31 PM Referred By: ROSEANNA Confirmed By:CHARLES SANDOVAL
[2018-01-31] MEDS: Levothyroxine Sodium 100 MCG TAB PO SCH (05:40)
[2018-01-31] MEDS: Guaifenesin DM 100-10/5 ML UDCUP PO PRN (05:40)
[2018-01-31] MEDS: Mometasone/Formoterol 120 PUFF INHALER INH SCH ×2 (06:31→19:23)
[2018-01-31] MEDS: Potassium Chloride 20 MEQ TAB PO SCH (09:27)
[2018-01-31] MEDS: Carvedilol 6.25 MG TAB PO SCH ×2 (09:27→16:30)
[2018-01-31] MEDS: Dronedarone HCl 400 MG TAB PO SCH ×2 (09:28→16:30)
[2018-01-31] MEDS: Aspirin 81 mg Enteric Coated Tablet PO SCH (09:28)
[2018-01-31] MEDS: Azithromycin 250 MG TAB PO SCH (09:28)
[2018-01-31] MEDS: Apixaban 5 MG TAB PO SCH (09:28)
[2018-01-31] MEDS: Furosemide 40 MG TAB PO SCH ×2 (09:29→14:16)
[2018-01-31] MEDS: Cefdinir 300 MG CAP PO SCH (11:15)
--- NOTE | 2018-01-31 11:20 | PDOC.PN ---
- Subjective Encounter Start Date: 01/31/18 Encounter Start Time: 10:30 Subjective: still sob and wheezing -: has not amb beyond her room yet - Objective Resuscitation Status - Order Detail: 01/30/18 12:23 Resuscitation Status Routine Resuscitation Status: FULL: Full Resuscitation Discussed with: per previous orders MAR Reviewed: Yes Vital Signs & Weight: Vital Signs (12 hours) Temp Pulse Resp BP BP Pulse Ox 01/31/18 10:42 82 18 95 01/31/18 09:28 70 131/79 01/31/18 07:47 99.2 F 80 18 134/62 96 01/31/18 06:32 82 16 91 L 01/31/18 06:31 82 82 H 91 L 01/31/18 05:14 97.7 F 78 25 H 134/65 91 L Weight Weight 261 lb 8 oz I&O: 01/30/18 01/31/18 02/01/18 06:59 06:59 06:59 Intake Total 180 Output Total 1400 Balance -1400 180 Result Diagrams: 01/30/18 18:59 01/30/18 18:59 Phys Exam - Physical Examination HEENT: PERRLA, moist MMs Neck: no JVD, supple Respiratory: no rales, wheezing present Cardiovascular: no significant murmur, irregular Gastrointestinal: soft, non-tender, positive bowel sounds Musculoskeletal: pulses present, edema present Neurological: non-focal, moves all 4 limbs Psychiatric: A&O x 3 Dx/Plan (1) CHF exacerbation Code(s): I50.9 - HEART FAILURE, UNSPECIFIED Status: Acute Qualifiers: Heart failure type: diastolic Qualified Code(s): I50.33 - Acute on chronic diastolic (congestive) heart failure Comment: ef of 60% (2) Acute respiratory failure with hypoxia Code(s): J96.01 - ACUTE RESPIRATORY FAILURE WITH HYPOXIA Status: Acute Comment: multifactorial, continue pulm support, may need home O2 (3) Morbid obesity Code(s): E66.01 - MORBID (SEVERE) OBESITY DUE TO EXCESS CALORIES Status: Chronic (4) Hypoventilation associated with obesity syndrome Code(s): E66.2 - MORBID (SEVERE) OBESITY WITH ALVEOLAR HYPOVENTILATION Status : Chronic (5) Paroxysmal atrial fibrillation Code(s): I48.0 - PAROXYSMAL ATRIAL FIBRILLATION Status: Acute (6) Anemia Code(s): D64.9 - ANEMIA, UNSPECIFIED Status: Chronic Qualifiers: Anemia type: unspecified type Qualified Code(s): D64.9 - Anemia, unspecified (7) Hyperlipidemia Code(s): E78.5 - HYPERLIPIDEMIA, UNSPECIFIED Status: Chronic Qualifiers: Hyperlipidemia type: unspecified Qualified Code(s): E78.5 - Hyperlipidemia , unspecified (8) Hypothyroid Code(s): E03.9 - HYPOTHYROIDISM, UNSPECIFIED Status: Chronic Qualifiers: Hypothyroidism type: unspecified Qualified Code(s): E03.9 - Hypothyroidism , unspecified Comment: Continue Levothyroxine 100mcg daily (9) Bronchopneumonia Code(s): J18.0 - BRONCHOPNEUMONIA, UNSPECIFIED ORGANISM Status: Acute (10) Moderate aortic stenosis Code(s): I35.0 - NONRHEUMATIC AORTIC (VALVE) STENOSIS Status: Chronic - Plan is on nebs, solumedrol, omnicef and zithromax -: eliquis, asp, multaq, coreg and cardizem drip at 5mg/hr -: has diastolic dysfunction with ef of 60% -: PT/OT to mobilize patient current iv meds -: will need swing bed * . Review of Systems - Medications/Allergies Allergies/Adverse Reactions: Allergies Allergy/AdvReac Type Severity Reaction Status Date / Time No Known Allergies Allergy Unverified 01/27/18 00:52 Medications: Current Medications Acetaminophen (Tylenol) 650 mg PO Q6H PRN PRN Reason: Pain Albuterol/Ipratropium (Duoneb) 3 ml NEB [id number] [facility] Last Admin: 01/31/18 10:42 Dose: 3 ml Albuterol/Ipratropium (Duoneb) 3 ml NEB Q6H PRN PRN Reason: Dyspnea/Wheezing/SOB Apixaban (Eliquis) 2.5 mg PO BID [facility] Aspirin (Ecotrin) 81 mg PO DAILY [facility] Last Admin: 01/31/18 09:28 Dose: 81 mg Atorvastatin Calcium (Lipitor) 40 mg PO HS [facility] Last Admin: 01/30/18 20:30 Dose: 40 mg Azithromycin (Zithromax) 250 mg PO DAILY [facility] Stop: 02/02/18 09:01 Last Admin: 01/31/18 09:28 Dose: 250 mg Benzonatate (Tessalon) 200 mg PO Q6H PRN PRN Reason: Cough Last Admin: 01/29/18 03:35 Dose: 200 mg Carvedilol (Coreg) 6.25 mg PO BID-WM [facility] Last Admin: 01/31/18 09:27 Dose: 6.25 mg Cefdinir (Omnicef) 600 mg PO 1200 [facility] Last Admin: 01/30/18 12:16 Dose: 600 mg Chlorphenir/Hydrocodone Polistirex (Tussionex) 5 ml PO Q12H PRN PRN Reason: Cough Dronedarone (Multaq) 400 mg PO BID-WM [facility] Last Admin: 01/31/18 09:28 Dose: 400 mg Enalapril Maleate (Vasotec) 5 mg PO DAILY [facility] Last Admin: 01/31/18 09:28 Dose: 5 mg Furosemide (Lasix) 40 mg PO 0900,1400 [facility] Last Admin: 01/31/18 09:29 Dose: 40 mg Guaifenesin/Dextromethorphan (Robitussin Dm) 10 ml PO Q6H PRN PRN Reason: Cough Last Admin: 01/31/18 05:40 Dose: 10 ml Diltiazem HCl 125 mg/ Sodium (Chloride) 125 mls @ 5 mls/hr IVPB INF [facility]; Protocol Last Admin: 01/30/18 15:04 Dose: 125 mls Levothyroxine Sodium (Synthroid) 100 mcg PO 0600 [facility] Last Admin: 01/31/18 05:40 Dose: 100 mcg Methylprednisolone Sodium Succinate (Solu-Medrol) 40 mg IVP Q6HR [facility] Last Admin: 01/31/18 05:40 Dose: 40 mg Mometasone Furoate/Formoterol Fumar (Dulera 200 Mcg/5 Mcg Inhaler) 2 puff INH BID-RT [facility] Last Admin: 01/31/18 06:31 Dose: 2 puff Montelukast Sodium (Singulair) 10 mg PO QPM [facility] Last Admin: 01/30/18 20:30 Dose: 10 mg Potassium Chloride (K-Dur) 20 meq PO DAILY [facility] Last Admin: 01/31/18 09:27 Dose: 20 meq Tramadol HCl (Ultram) 50 mg PO BIDPRN PRN PRN Reason: Pain Last Admin: 01/27/18 11:25 Dose: 50 mg
--- NOTE | 2018-01-31 11:28 | PRG ---
DATE OF SERVICE: 01/31/2018 SUBJECTIVE: The patient is awake and alert and feels somewhat better. OBJECTIVE: VITAL SIGNS: On exam, temperature 99.2, pulse 70, blood pressure 131/79, O2 saturations 96% on 3 L. HEENT: Unremarkable. NECK: No JVD. LUNGS: She has diffuse mild wheezing. CARDIAC: S1 and S2, regular. ABDOMEN: Soft. EXTREMITIES: No edema. ASSESSMENT: Asthmatic bronchitis, which is slowly improving. PLAN: Continue corticosteroids, breathing treatments, and antibiotics. Job ID: [id number]
--- NOTE | 2018-01-31 20:10 | EKG ---
Test Reason : Blood Pressure : / mmHG Vent. Rate : 069 BPM Atrial Rate : 069 BPM P-R Int : 170 ms QRS Dur : 088 ms QT Int : 400 ms P-R-T Axes : 064 023 -03 degrees QTc Int : 428 ms Normal sinus rhythm Normal ECG When compared with ECG of 27-JAN-2018 16:43, Sinus rhythm has replaced Atrial fibrillation Vent. rate has decreased BY 41 BPM Confirmed by CHERY WICK, SRosalie (4) on 01/31/2018 8:10:27 PM Referred By: LORI Confirmed By:DR. Louise GOTTLIEB MD
[2018-01-31] MEDS: Atorvastatin Calcium 40 MG TAB PO SCH (20:50)
[2018-01-31] MEDS: Montelukast Sodium 10 mg Tablet PO SCH (20:50)
[2018-01-31] MEDS: Apixaban 2.5 MG TAB PO SCH (20:50)
[2018-02-01] MEDS: Levothyroxine Sodium 100 MCG TAB PO SCH (05:33)
[2018-02-01] MEDS: Mometasone/Formoterol 120 PUFF INHALER INH SCH (07:51)
[2018-02-01 08:15] LABS: #Lymphocytes 0.7 thou/uL (1.20-3.40); #Monocytes 0.3 thou/uL (0.11-0.59); #Neutrophils 6.1 thou/uL (1.40-6.50); %Basophils 0.1 % (0.0-1.0); %Eosinophils 0.3 % (0.0-10.0); %Lymphocytes 10.1 % (21.0-51.0); %Monocytes 4.5 % (0.0-10.0); %Neutrophils 84.9 % (42.0-75.0); Hemoglobin 8.8 g/dL (12.0-16.0); Mean Corpuscular HGB CONC 30.6 g/dL (32.0-36.0); Mean Corpuscular Hemoglobin 24.2 pg (27.0-31.0); Mean Corpuscular Volume 79.1 fL (78.0-98.0); Mean Platelet Volume 10.2 fL (7.4-10.4); Platelet Count 146 thou/uL (130-400); RBC Distribution Width 15.2 % (11.5-14.5); Red Blood Cell (RBC) Count 3.65 mill/uL (4.20-5.40); White Blood Cell (WBC) Count 7.2 thou/uL (4.8-10.8)
[2018-02-01 08:23] LABS: ALT (SGPT) 20 U/L (8-55); AST (SGOT) 22 U/L (5-34); Albumin 3.1 g/dL (3.4-4.8); Alkaline Phosphatase 64 U/L (40-150); Anion Gap 13 mmol/L (10-20); BUN (Urea Nitrogen) 30 mg/dL (9.8-20.1); Bilirubin, Total 0.8 mg/dL (0.2-1.2); Calc. Creatinine Clearance 85 mL/min (70-130); Calcium 8.7 mg/dL (7.8-10.44); Carbon Dioxide 26 mmol/L (23-31); Chloride 102 mmol/L (98-107); Estimated GFR-MDRD 62; Globulin 2.5 g/dL (2.4-3.5); Glucose 156 mg/dL (83-110); Potassium 3.6 mmol/L (3.5-5.1); Protein, Total 5.6 g/dL (6.0-8.3); Sodium 137 mmol/L (136-145)
--- NOTE | 2018-02-01 09:21 | PRG ---
DATE OF SERVICE: 02/01/2018 SUBJECTIVE: The patient continues to have difficulty with wheezing and shortness of breath. Overall, she said she is unchanged from yesterday. OBJECTIVE: VITAL SIGNS: On exam, temperature 98.2, pulse 77, respirations 20, O2 sat 91% on 2.5 L, and blood pressure 127/59. HEENT: Unremarkable. NECK: No JVD. LUNGS: Diffuse expiratory wheezing. CARDIAC: S1 and S2, regular. ABDOMEN: Soft. EXTREMITIES: No edema. LABORATORY DATA: White blood cell count 7.2, hematocrit 28.9, and platelet count 146. Sodium 136, potassium 3.6, BUN 30, creatinine 0.8, and glucose 156. ASSESSMENT: Asthmatic bronchitis versus bronchopneumonia - no real clinical improvement since the time of admission. PLAN: 1. I am going to go ahead and switch her over to Levaquin in case we are dealing with something resistant. 2. Continue breathing treatments. 3. Discontinue the Dulera and start Brovana and Pulmicort. 4. Continue IV methylprednisolone. Job ID: [id number]
[2018-02-01] MEDS: Aspirin 81 mg Enteric Coated Tablet PO SCH (09:22)
[2018-02-01] MEDS: Apixaban 2.5 MG TAB PO SCH ×2 (09:22→21:08)
[2018-02-01] MEDS: Carvedilol 6.25 MG TAB PO SCH ×2 (09:22→16:11)
[2018-02-01] MEDS: Dronedarone HCl 400 MG TAB PO SCH ×2 (09:22→16:12)
[2018-02-01] MEDS: Potassium Chloride 20 MEQ TAB PO SCH (09:23)
--- NOTE | 2018-02-01 10:40 | PDOC.PN ---
- Subjective Encounter Start Date: 02/01/18 Encounter Start Time: 09:40 Subjective: has sob and wheezing - Objective Resuscitation Status - Order Detail: 01/30/18 12:23 Resuscitation Status Routine Resuscitation Status: FULL: Full Resuscitation Discussed with: per previous orders MAR Reviewed: Yes Vital Signs & Weight: Vital Signs (12 hours) Temp Pulse Resp BP BP Pulse Ox 02/01/18 09:22 132/73 02/01/18 07:52 91 L 02/01/18 07:51 77 20 91 L 02/01/18 07:18 98.2 F 89 18 127/59 L 92 L 02/01/18 04:00 97.6 F 76 15 115/70 92 L Weight Weight 261 lb 14.4 oz I&O: 01/31/18 02/01/18 02/02/18 06:59 06:59 06:59 Intake Total 180 1160 Output Total 600 Balance 180 560 Result Diagrams: 02/01/18 07:39 02/01/18 07:39 Phys Exam - Physical Examination HEENT: PERRLA, moist MMs Neck: no JVD, supple Respiratory: no rales, wheezing present Cardiovascular: RRR, no significant murmur Gastrointestinal: soft, no distention, positive bowel sounds Musculoskeletal: no edema, pulses present Neurological: non-focal, moves all 4 limbs Psychiatric: normal affect, A&O x 3 Dx/Plan (1) CHF exacerbation Code(s): I50.9 - HEART FAILURE, UNSPECIFIED Status: Acute Qualifiers: Heart failure type: diastolic Qualified Code(s): I50.33 - Acute on chronic diastolic (congestive) heart failure Comment: ef of 60% (2) Acute respiratory failure with hypoxia Code(s): J96.01 - ACUTE RESPIRATORY FAILURE WITH HYPOXIA Status: Acute Comment: multifactorial, continue pulm support, may need home O2 (3) Morbid obesity Code(s): E66.01 - MORBID (SEVERE) OBESITY DUE TO EXCESS CALORIES Status: Chronic (4) Hypoventilation associated with obesity syndrome Code(s): E66.2 - MORBID (SEVERE) OBESITY WITH ALVEOLAR HYPOVENTILATION Status : Chronic (5) Paroxysmal atrial fibrillation Code(s): I48.0 - PAROXYSMAL ATRIAL FIBRILLATION Status: Acute (6) Anemia Code(s): D64.9 - ANEMIA, UNSPECIFIED Status: Chronic Qualifiers: Anemia type: unspecified type Qualified Code(s): D64.9 - Anemia, unspecified (7) Hyperlipidemia Code(s): E78.5 - HYPERLIPIDEMIA, UNSPECIFIED Status: Chronic Qualifiers: Hyperlipidemia type: unspecified Qualified Code(s): E78.5 - Hyperlipidemia , unspecified (8) Hypothyroid Code(s): E03.9 - HYPOTHYROIDISM, UNSPECIFIED Status: Chronic Qualifiers: Hypothyroidism type: unspecified Qualified Code(s): E03.9 - Hypothyroidism , unspecified Comment: Continue Levothyroxine 100mcg daily (9) Bronchopneumonia Code(s): J18.0 - BRONCHOPNEUMONIA, UNSPECIFIED ORGANISM Status: Acute (10) Moderate aortic stenosis Code(s): I35.0 - NONRHEUMATIC AORTIC (VALVE) STENOSIS Status: Chronic - Plan is on levaquin now along with steroids, nebs -: needs to ambulate and be oob -: sob is multifactorial with obesity contributing a lot to it -: continue eliquis, multaq, asp, lipitor, coreg and lasix -: is off cardizem drip from yesterday, afib is rate controlled * . Review of Systems - Medications/Allergies Allergies/Adverse Reactions: Allergies Allergy/AdvReac Type Severity Reaction Status Date / Time No Known Allergies Allergy Unverified 01/27/18 00:52 Medications: Current Medications Acetaminophen (Tylenol) 650 mg PO Q6H PRN PRN Reason: Pain Albuterol/Ipratropium (Duoneb) 3 ml NEB [id number] Last Admin: 02/01/18 07:51 Dose: 3 ml Albuterol/Ipratropium (Duoneb) 3 ml NEB Q6H PRN PRN Reason: Dyspnea/Wheezing/SOB Apixaban (Eliquis) 2.5 mg PO BID [facility] Last Admin: 02/01/18 09:22 Dose: 2.5 mg Arformoterol Tartrate (Brovana) 15 mcg NEB BID-RT [facility] Aspirin (Ecotrin) 81 mg PO DAILY [facility] Last Admin: 02/01/18 09:22 Dose: 81 mg Atorvastatin Calcium (Lipitor) 40 mg PO HS [facility] Last Admin: 01/31/18 20:50 Dose: 40 mg Benzonatate (Tessalon) 200 mg PO Q6H PRN PRN Reason: Cough Last Admin: 01/29/18 03:35 Dose: 200 mg Budesonide (Pulmicort Neb Solution) 0.5 mg INH BID-RT [facility] Carvedilol (Coreg) 6.25 mg PO BID-WM [facility] Last Admin: 02/01/18 09:22 Dose: 6.25 mg Cefdinir (Omnicef) 600 mg PO 1200 [facility] Last Admin: 01/31/18 11:15 Dose: 600 mg Chlorphenir/Hydrocodone Polistirex (Tussionex) 5 ml PO Q12H PRN PRN Reason: Cough Dronedarone (Multaq) 400 mg PO BID-[facility] Last Admin: 02/01/18 09:22 Dose: 400 mg Enalapril Maleate (Vasotec) 5 mg PO DAILY [facility] Last Admin: 02/01/18 09:22 Dose: 5 mg Furosemide (Lasix) 40 mg PO DAILY-AC [facility] Guaifenesin/Dextromethorphan (Robitussin Dm) 10 ml PO Q6H PRN PRN Reason: Cough Last Admin: 01/31/18 05:40 Dose: 10 ml Levofloxacin (Levaquin) 750 mg PO 0900 [facility] Last Admin: 02/01/18 09:22 Dose: 750 mg Levothyroxine Sodium (Synthroid) 100 mcg PO 0600 [facility] Last Admin: 02/01/18 05:33 Dose: 100 mcg Methylprednisolone Sodium Succinate (Solu-Medrol) 40 mg IVP Q6HR [facility] Last Admin: 02/01/18 05:33 Dose: 40 mg Montelukast Sodium (Singulair) 10 mg PO QPM [facility] Last Admin: 01/31/18 20:50 Dose: 10 mg Potassium Chloride (K-Dur) 20 meq PO DAILY [facility] Last Admin: 02/01/18 09:23 Dose: 20 meq Tramadol HCl (Ultram) 50 mg PO BIDPRN PRN PRN Reason: Pain Last Admin: 01/27/18 11:25 Dose: 50 mg
[2018-02-01] MEDS: Cefdinir 300 MG CAP PO SCH (11:13)
[2018-02-01 17:46] LABS: Hemoglobin 9.3 g/dL (12.0-16.0); Platelet Count 168 thou/uL (130-400)
[2018-02-01] MEDS: Arformoterol 15 MCG/2 ML NEB NEB SCH (18:51)
[2018-02-01] MEDS: Budesonide 0.5 MG/2 ML NEB INH SCH (18:51)
[2018-02-01] MEDS: Atorvastatin Calcium 40 MG TAB PO SCH (21:08)
[2018-02-01] MEDS: Montelukast Sodium 10 mg Tablet PO SCH (21:08)
[2018-02-02] MEDS: Levothyroxine Sodium 100 MCG TAB PO SCH (06:03)
[2018-02-02] MEDS: Budesonide 0.5 MG/2 ML NEB INH SCH ×3 (06:24→19:30)
[2018-02-02] MEDS: Arformoterol 15 MCG/2 ML NEB NEB SCH ×2 (06:27→18:22)
[2018-02-02] MEDS: Dronedarone HCl 400 MG TAB PO SCH ×2 (08:35→17:47)
[2018-02-02] MEDS: Carvedilol 6.25 MG TAB PO SCH ×2 (08:36→17:47)
[2018-02-02] MEDS: Furosemide 40 MG TAB PO SCH (08:36)
[2018-02-02] MEDS: Aspirin 81 mg Enteric Coated Tablet PO SCH (08:36)
[2018-02-02] MEDS: Apixaban 2.5 MG TAB PO SCH ×2 (08:36→21:40)
[2018-02-02] MEDS: Potassium Chloride 20 MEQ TAB PO SCH (08:36)
--- NOTE | 2018-02-02 11:21 | PRG ---
DATE OF SERVICE: 02/02/2018 SUBJECTIVE: After a good day yesterday, the patient says she feels worse today. Apparently, her ventricular responses increased with her atrial fibrillation. OBJECTIVE: VITAL SIGNS: On exam, temperature is 97.0, pulse running in the 90s, blood pressure 126/77, and O2 sat 91% on room air. HEENT: Unremarkable. NECK: No JVD. LUNGS: She has coarse expiratory wheezes bilaterally. CARDIOVASCULAR: S1 and S2, irregularly irregular. ABDOMEN: Soft, nontender. EXTREMITIES: No edema. LABORATORY DATA: No new labs were done today. ASSESSMENT: 1. Asthmatic bronchitis with continued severe bronchospasm. 2. Possible concurrent heart failure. PLAN: 1. Noted that she was given a big dose of Lasix this morning. 2. Continue the antibiotics, steroid nebulization treatment. Unfortunately, this is just going to take an extended amount of time to get better. Job ID: [id number]
--- NOTE | 2018-02-02 11:40 | PDOC.PN ---
- Subjective Encounter Start Date: 02/02/18 Encounter Start Time: 10:45 Subjective: breathing better this am, is able to talk in full sentences -: feels a bit down due to afib with rvr overnight, currently rate controlled -: no chest pain - Objective Resuscitation Status - Order Detail: 01/30/18 12:23 Resuscitation Status Routine Resuscitation Status: FULL: Full Resuscitation Discussed with: per previous orders MAR Reviewed: Yes Vital Signs & Weight: Vital Signs (12 hours) Temp Pulse Resp BP BP Pulse Ox 02/02/18 10:20 75 18 91 L 02/02/18 08:35 95 126/77 02/02/18 07:17 97 F L 95 12 126/77 02/02/18 06:24 79 18 90 L 02/02/18 04:00 97.4 F L 71 17 120/59 L 92 L Weight Weight 262 lb 12.8 oz I&O: 02/01/18 02/02/18 02/03/18 06:59 06:59 06:59 Intake Total 1160 1130 Output Total 600 Balance 560 1130 Result Diagrams: 02/01/18 17:35 02/01/18 17:35 Phys Exam - Physical Examination HEENT: PERRLA, moist MMs Neck: no JVD, supple Respiratory: no wheezing, no rales rhonchi+ Cardiovascular: RRR, no significant murmur Gastrointestinal: soft, non-tender, positive bowel sounds Musculoskeletal: no edema, pulses present Neurological: non-focal, moves all 4 limbs Psychiatric: normal affect, A&O x 3 Dx/Plan (1) CHF exacerbation Code(s): I50.9 - HEART FAILURE, UNSPECIFIED Status: Acute Qualifiers: Heart failure type: diastolic Qualified Code(s): I50.33 - Acute on chronic diastolic (congestive) heart failure Comment: ef of 60% (2) Acute respiratory failure with hypoxia Code(s): J96.01 - ACUTE RESPIRATORY FAILURE WITH HYPOXIA Status: Acute Comment: multifactorial, continue pulm support, may need home O2 (3) Morbid obesity Code(s): E66.01 - MORBID (SEVERE) OBESITY DUE TO EXCESS CALORIES Status: Chronic (4) Hypoventilation associated with obesity syndrome Code(s): E66.2 - MORBID (SEVERE) OBESITY WITH ALVEOLAR HYPOVENTILATION Status : Chronic (5) Paroxysmal atrial fibrillation Code(s): I48.0 - PAROXYSMAL ATRIAL FIBRILLATION Status: Acute (6) Anemia Code(s): D64.9 - ANEMIA, UNSPECIFIED Status: Chronic Qualifiers: Anemia type: unspecified type Qualified Code(s): D64.9 - Anemia, unspecified (7) Hyperlipidemia Code(s): E78.5 - HYPERLIPIDEMIA, UNSPECIFIED Status: Chronic Qualifiers: Hyperlipidemia type: unspecified Qualified Code(s): E78.5 - Hyperlipidemia , unspecified (8) Hypothyroid Code(s): E03.9 - HYPOTHYROIDISM, UNSPECIFIED Status: Chronic Qualifiers: Hypothyroidism type: unspecified Qualified Code(s): E03.9 - Hypothyroidism , unspecified Comment: Continue Levothyroxine 100mcg daily (9) Bronchopneumonia Code(s): J18.0 - BRONCHOPNEUMONIA, UNSPECIFIED ORGANISM Status: Acute (10) Moderate aortic stenosis Code(s): I35.0 - NONRHEUMATIC AORTIC (VALVE) STENOSIS Status: Chronic - Plan is slowly getting better with her breathing -: has amb 50ft with rw -: d/w patient about going to swing bed to recuperate prior to going home, she -: is thinking about it, could be even [facility] if she likes it -: is on multaq, coreg, eliquis, asp. * . On omnicef, levaquin, nebs, steroids to ambulate more as tolerated. Review of Systems - Medications/Allergies Allergies/Adverse Reactions: Allergies Allergy/AdvReac Type Severity Reaction Status Date / Time No Known Allergies Allergy Unverified 01/27/18 00:52 Medications: Current Medications Acetaminophen (Tylenol) 650 mg PO Q6H PRN PRN Reason: Pain Albuterol/Ipratropium (Duoneb) 3 ml NEB [id number] [facility] Last Admin: 02/02/18 10:20 Dose: 3 ml Albuterol/Ipratropium (Duoneb) 3 ml NEB Q6H PRN PRN Reason: Dyspnea/Wheezing/SOB Apixaban (Eliquis) 2.5 mg PO BID [facility] Last Admin: 02/02/18 08:36 Dose: 2.5 mg Arformoterol Tartrate (Brovana) 15 mcg NEB BID-RT [facility] Last Admin: 02/02/18 06:27 Dose: 15 mcg Aspirin (Ecotrin) 81 mg PO DAILY [facility] Last Admin: 02/02/18 08:36 Dose: 81 mg Atorvastatin Calcium (Lipitor) 40 mg PO HS [facility] Last Admin: 02/01/18 21:08 Dose: 40 mg Benzonatate (Tessalon) 200 mg PO Q6H PRN PRN Reason: Cough Last Admin: 01/29/18 03:35 Dose: 200 mg Budesonide (Pulmicort Neb Solution) 0.5 mg INH BID-RT [facility] Last Admin: 02/02/18 06:27 Dose: 0.5 mg Carvedilol (Coreg) 6.25 mg PO BID-WM [facility] Last Admin: 02/02/18 08:36 Dose: 6.25 mg Cefdinir (Omnicef) 600 mg PO 1200 [facility] Last Admin: 02/01/18 11:13 Dose: 600 mg Chlorphenir/Hydrocodone Polistirex (Tussionex) 5 ml PO Q12H PRN PRN Reason: Cough Dronedarone (Multaq) 400 mg PO BID-[facility] Last Admin: 02/02/18 08:35 Dose: 400 mg Enalapril Maleate (Vasotec) 5 mg PO DAILY [facility] Last Admin: 02/02/18 08:35 Dose: 5 mg Furosemide (Lasix) 40 mg PO DAILY-AC [facility] Last Admin: 02/02/18 08:36 Dose: 40 mg Guaifenesin/Dextromethorphan (Robitussin Dm) 10 ml PO Q6H PRN PRN Reason: Cough Last Admin: 01/31/18 05:40 Dose: 10 ml Levofloxacin (Levaquin) 750 mg PO 0900 [facility] Last Admin: 02/02/18 08:35 Dose: 750 mg Levothyroxine Sodium (Synthroid) 100 mcg PO 0600 [facility] Last Admin: 02/02/18 06:03 Dose: 100 mcg Methylprednisolone Sodium Succinate (Solu-Medrol) 40 mg IVP Q6HR [facility] Last Admin: 02/02/18 06:03 Dose: 40 mg Montelukast Sodium (Singulair) 10 mg PO QPM [facility] Last Admin: 02/01/18 21:08 Dose: 10 mg Potassium Chloride (K-Dur) 20 meq PO DAILY [facility] Last Admin: 02/02/18 08:36 Dose: 20 meq Sodium Chloride (Flush - Normal Saline) 10 ml IVF Q12HR [facility] Sodium Chloride (Flush - Normal Saline) 10 ml IVF PRN PRN PRN Reason: Saline Flush Tramadol HCl (Ultram) 50 mg PO BIDPRN PRN PRN Reason: Pain Last Admin: 01/27/18 11:25 Dose: 50 mg
[2018-02-02] MEDS: Cefdinir 300 MG CAP PO SCH (11:44)
[2018-02-02] MEDS: Montelukast Sodium 10 mg Tablet PO SCH (21:40)
[2018-02-02] MEDS: Atorvastatin Calcium 40 MG TAB PO SCH (21:40)
[2018-02-03] MEDS: Levothyroxine Sodium 100 MCG TAB PO SCH (05:06)
[2018-02-03 05:44] LABS: Anion Gap 14 mmol/L (10-20); BUN (Urea Nitrogen) 35 mg/dL (9.8-20.1); Calc. Creatinine Clearance 78 mL/min (70-130); Calcium 8.5 mg/dL (7.8-10.44); Carbon Dioxide 25 mmol/L (23-31); Chloride 100 mmol/L (98-107); Estimated GFR-MDRD 56; Glucose 165 mg/dL (83-110); Potassium 3.6 mmol/L (3.5-5.1); Sodium 135 mmol/L (136-145)
[2018-02-03] MEDS: Guaifenesin DM 100-10/5 ML UDCUP PO PRN ×2 (05:54→20:59)
[2018-02-03] MEDS: Arformoterol 15 MCG/2 ML NEB NEB SCH ×2 (07:20→18:01)
[2018-02-03] MEDS: Budesonide 0.5 MG/2 ML NEB INH SCH ×2 (07:25→18:01)
[2018-02-03] MEDS: Potassium Chloride 20 MEQ TAB PO SCH (08:29)
[2018-02-03] MEDS: Carvedilol 6.25 MG TAB PO SCH ×2 (08:30→17:59)
[2018-02-03] MEDS: Aspirin 81 mg Enteric Coated Tablet PO SCH (08:30)
[2018-02-03] MEDS: Furosemide 40 MG TAB PO SCH (08:30)
[2018-02-03] MEDS: Dronedarone HCl 400 MG TAB PO SCH ×2 (08:30→17:59)
[2018-02-03] MEDS: Apixaban 2.5 MG TAB PO SCH (08:30)
[2018-02-03] MEDS: Cefdinir 300 MG CAP PO SCH (11:53)
--- NOTE | 2018-02-03 13:33 | PDOC.PN ---
- Subjective Encounter Start Date: 02/03/18 Encounter Start Time: 11:20 Subjective: breathing better, no palp or chest pain -: is amb in room, currently sitting in chair - Objective Resuscitation Status - Order Detail: 01/30/18 12:23 Resuscitation Status Routine Resuscitation Status: FULL: Full Resuscitation Discussed with: per previous orders MAR Reviewed: Yes Vital Signs & Weight: Vital Signs (12 hours) Temp Pulse Resp BP BP BP Pulse Ox 02/03/18 11:45 113 H 14 91/52 L 02/03/18 10:35 125 H 20 98 02/03/18 08:30 84 20 113/77 94 L 02/03/18 07:00 97.9 F 105 H 12 113/77 02/03/18 03:05 97.9 F 88 16 125/80 97 Weight Weight 261 lb 12.8 oz I&O: 02/02/18 02/03/18 02/04/18 06:59 06:59 06:59 Intake Total 1130 1300 Balance 1130 1300 Result Diagrams: 02/01/18 17:35 02/03/18 04:53 Phys Exam - Physical Examination HEENT: PERRLA, moist MMs Neck: no JVD, supple Respiratory: no wheezing, no rales rhonchi+ Cardiovascular: RRR, no significant murmur Gastrointestinal: soft, non-tender, positive bowel sounds Musculoskeletal: no edema, pulses present Neurological: non-focal, moves all 4 limbs Psychiatric: normal affect, A&O x 3 Dx/Plan (1) CHF exacerbation Code(s): I50.9 - HEART FAILURE, UNSPECIFIED Status: Acute Qualifiers: Heart failure type: diastolic Qualified Code(s): I50.33 - Acute on chronic diastolic (congestive) heart failure Comment: ef of 60% (2) Acute respiratory failure with hypoxia Code(s): J96.01 - ACUTE RESPIRATORY FAILURE WITH HYPOXIA Status: Resolved Comment: multifactorial, continue pulm support, is off oxygen now (3) Morbid obesity Code(s): E66.01 - MORBID (SEVERE) OBESITY DUE TO EXCESS CALORIES Status: Chronic (4) Hypoventilation associated with obesity syndrome Code(s): E66.2 - MORBID (SEVERE) OBESITY WITH ALVEOLAR HYPOVENTILATION Status : Suspected (5) Paroxysmal atrial fibrillation Code(s): I48.0 - PAROXYSMAL ATRIAL FIBRILLATION Status: Acute (6) Anemia Code(s): D64.9 - ANEMIA, UNSPECIFIED Status: Chronic Qualifiers: Anemia type: unspecified type Qualified Code(s): D64.9 - Anemia, unspecified (7) Hyperlipidemia Code(s): E78.5 - HYPERLIPIDEMIA, UNSPECIFIED Status: Chronic Qualifiers: Hyperlipidemia type: unspecified Qualified Code(s): E78.5 - Hyperlipidemia , unspecified (8) Hypothyroid Code(s): E03.9 - HYPOTHYROIDISM, UNSPECIFIED Status: Chronic Qualifiers: Hypothyroidism type: unspecified Qualified Code(s): E03.9 - Hypothyroidism , unspecified Comment: Continue Levothyroxine 100mcg daily (9) Bronchopneumonia Code(s): J18.0 - BRONCHOPNEUMONIA, UNSPECIFIED ORGANISM Status: Acute (10) Moderate aortic stenosis Code(s): I35.0 - NONRHEUMATIC AORTIC (VALVE) STENOSIS Status: Chronic - Plan viral pcr, initial flu screen was -ve -: fritz luna is breathing better now -: has paroxysmal afib on exertion -: sbp around 90's will dc lasix -: is on multaq, coreg, eliquis, enalapril, eliquis, lipitor and asp * . on omnicef and levaquin, oral prednisone. Is off nasal canula oxygen supplement. Has ambulated 60ft with PT, she doesn't feel like she wants HH or PT on discharge. Review of Systems - Medications/Allergies Allergies/Adverse Reactions: Allergies Allergy/AdvReac Type Severity Reaction Status Date / Time No Known Allergies Allergy Unverified 01/27/18 00:52 Medications: Current Medications Acetaminophen (Tylenol) 650 mg PO Q6H PRN PRN Reason: Pain Albuterol/Ipratropium (Duoneb) 3 ml NEB [id number] [facility] Last Admin: 02/03/18 10:35 Dose: 3 ml Albuterol/Ipratropium (Duoneb) 3 ml NEB Q6H PRN PRN Reason: Dyspnea/Wheezing/SOB Apixaban (Eliquis) 2.5 mg PO BID [facility] Last Admin: 02/03/18 08:30 Dose: 2.5 mg Arformoterol Tartrate (Brovana) 15 mcg NEB BID-RT [facility] Last Admin: 02/03/18 07:20 Dose: Not Given Aspirin (Ecotrin) 81 mg PO DAILY [facility] Last Admin: 02/03/18 08:30 Dose: 81 mg Atorvastatin Calcium (Lipitor) 40 mg PO HS [facility] Last Admin: 02/02/18 21:40 Dose: 40 mg Benzonatate (Tessalon) 200 mg PO Q6H PRN PRN Reason: Cough Last Admin: 01/29/18 03:35 Dose: 200 mg Budesonide (Pulmicort Neb Solution) 0.5 mg INH BID-RT [facility] Last Admin: 02/03/18 07:25 Dose: Not Given Carvedilol (Coreg) 6.25 mg PO BID-[facility] Last Admin: 02/03/18 08:30 Dose: 6.25 mg Cefdinir (Omnicef) 600 mg PO 1200 [facility] Last Admin: 02/03/18 11:53 Dose: 600 mg Chlorphenir/Hydrocodone Polistirex (Tussionex) 5 ml PO Q12H PRN PRN Reason: Cough Dronedarone (Multaq) 400 mg PO BID-[facility] Last Admin: 02/03/18 08:30 Dose: 400 mg Enalapril Maleate (Vasotec) 5 mg PO DAILY [facility] Last Admin: 02/03/18 08:30 Dose: 5 mg Furosemide (Lasix) 40 mg PO DAILY-AC [facility] Last Admin: 02/03/18 08:30 Dose: 40 mg Guaifenesin/Dextromethorphan (Robitussin Dm) 10 ml PO Q6H PRN PRN Reason: Cough Last Admin: 02/03/18 05:54 Dose: 10 ml Levofloxacin (Levaquin) 750 mg PO 0900 [facility] Last Admin: 02/03/18 08:29 Dose: 750 mg Levothyroxine Sodium (Synthroid) 100 mcg PO 0600 [facility] Last Admin: 02/03/18 05:06 Dose: 100 mcg Montelukast Sodium (Singulair) 10 mg PO QPM [facility] Last Admin: 02/02/18 21:40 Dose: 10 mg Potassium Chloride (K-Dur) 20 meq PO DAILY [facility] Last Admin: 02/03/18 08:29 Dose: 20 meq Prednisone (Prednisone) 40 mg PO BID [facility] Sodium Chloride (Flush - Normal Saline) 10 ml IVF PRN PRN PRN Reason: Saline Flush Tramadol HCl (Ultram) 50 mg PO BIDPRN PRN PRN Reason: Pain Last Admin: 01/27/18 11:25 Dose: 50 mg
--- NOTE | 2018-02-03 14:06 | PRG ---
DATE OF SERVICE: 02/03/2018 SUBJECTIVE: The patient feels much better. OBJECTIVE: VITAL SIGNS: On exam, temperature 97.9, pulse 113, respirations 14, O2 sat 98% on room air, and blood pressure 91/52. HEENT: Unremarkable. NECK: No JVD. LUNGS: She has no wheezing that I heard today. CARDIAC: S1 and S2, regular. ABDOMEN: Soft. EXTREMITIES: No edema. ASSESSMENT: Asthmatic bronchitis, which appears to be better. PLAN: Try to cycle her over to oral prednisone tonight. I am not sure if we are not dealing with improvement solely because of the diuretic she was given yesterday. Hopefully, she can go home tomorrow if things are going okay. Job ID: [id number]
[2018-02-03 17:53] LABS: Hemoglobin 9.8 g/dL (12.0-16.0); Platelet Count 235 thou/uL (130-400)
[2018-02-03] MEDS: predniSONE 20 MG TAB PO SCH (20:53)
[2018-02-03] MEDS: Montelukast Sodium 10 mg Tablet PO SCH (20:53)
[2018-02-03] MEDS: Atorvastatin Calcium 40 MG TAB PO SCH (20:54)
[2018-02-03] MEDS: Apixaban 5 MG TAB PO SCH (20:54)
[2018-02-04] MEDS: Levothyroxine Sodium 100 MCG TAB PO SCH (05:44)
[2018-02-04] MEDS: Budesonide 0.5 MG/2 ML NEB INH SCH (06:58)
[2018-02-04] MEDS: Arformoterol 15 MCG/2 ML NEB NEB SCH (07:23)
[2018-02-04 08:38] VITALS: BP 116/77; TEMP 97.9
[2018-02-04] MEDS: Carvedilol 6.25 MG TAB PO SCH (08:56)
[2018-02-04] MEDS: Dronedarone HCl 400 MG TAB PO SCH (08:56)
[2018-02-04] MEDS: Apixaban 5 MG TAB PO SCH (08:57)
[2018-02-04] MEDS: Aspirin 81 mg Enteric Coated Tablet PO SCH (08:57)
[2018-02-04] MEDS: predniSONE 20 MG TAB PO SCH (08:58)
[2018-02-04] MEDS: Potassium Chloride 20 MEQ TAB PO SCH (08:58)
[2018-02-04] MEDS: Cefdinir 300 MG CAP PO SCH (11:21)
--- NOTE | 2018-02-04 12:39 | PDOC.PN ---
- Subjective Encounter Start Date: 02/04/18 Encounter Start Time: 11:00 Subjective: no new complaints -: is amb 60ft with rw, feels good -: no c/o sob or palp or chest pain - Objective Resuscitation Status - Order Detail: 01/30/18 12:23 Resuscitation Status Routine Resuscitation Status: FULL: Full Resuscitation Discussed with: per previous orders MAR Reviewed: Yes Vital Signs & Weight: Vital Signs (12 hours) Temp Pulse Resp BP BP Pulse Ox 02/04/18 11:12 84 20 02/04/18 08:58 106 H 116/77 94 L 02/04/18 08:56 116/77 02/04/18 08:37 97.9 F 106 H 16 116/77 94 L 02/04/18 07:23 73 20 91 L 02/04/18 06:59 91 L 02/04/18 06:58 73 20 91 L 02/04/18 06:57 73 20 91 L 02/04/18 04:00 98.0 F 79 18 124/59 L 92 L Weight Weight 264 lb 6.4 oz I&O: 02/03/18 02/04/18 02/05/18 06:59 06:59 06:59 Intake Total 1300 810 Output Total 100 Balance 1300 710 Result Diagrams: 02/03/18 17:45 02/03/18 17:45 Phys Exam - Physical Examination HEENT: PERRLA, moist MMs Neck: no JVD, supple Respiratory: no wheezing, no rhonchi Cardiovascular: no significant murmur, irregular Gastrointestinal: soft, non-tender, positive bowel sounds Musculoskeletal: no edema, pulses present Neurological: non-focal, moves all 4 limbs Psychiatric: normal affect, A&O x 3 Dx/Plan (1) CHF exacerbation Code(s): I50.9 - HEART FAILURE, UNSPECIFIED Status: Acute Qualifiers: Heart failure type: diastolic Qualified Code(s): I50.33 - Acute on chronic diastolic (congestive) heart failure Comment: ef of 60% (2) Acute respiratory failure with hypoxia Code(s): J96.01 - ACUTE RESPIRATORY FAILURE WITH HYPOXIA Status: Resolved Comment: multifactorial, continue pulm support, is off oxygen now (3) Morbid obesity Code(s): E66.01 - MORBID (SEVERE) OBESITY DUE TO EXCESS CALORIES Status: Chronic (4) Hypoventilation associated with obesity syndrome Code(s): E66.2 - MORBID (SEVERE) OBESITY WITH ALVEOLAR HYPOVENTILATION Status : Suspected (5) Paroxysmal atrial fibrillation Code(s): I48.0 - PAROXYSMAL ATRIAL FIBRILLATION Status: Acute (6) Anemia Code(s): D64.9 - ANEMIA, UNSPECIFIED Status: Chronic Qualifiers: Anemia type: unspecified type Qualified Code(s): D64.9 - Anemia, unspecified (7) Hyperlipidemia Code(s): E78.5 - HYPERLIPIDEMIA, UNSPECIFIED Status: Chronic Qualifiers: Hyperlipidemia type: unspecified Qualified Code(s): E78.5 - Hyperlipidemia , unspecified (8) Hypothyroid Code(s): E03.9 - HYPOTHYROIDISM, UNSPECIFIED Status: Chronic Qualifiers: Hypothyroidism type: unspecified Qualified Code(s): E03.9 - Hypothyroidism , unspecified Comment: Continue Levothyroxine 100mcg daily (9) Bronchopneumonia Code(s): J18.0 - BRONCHOPNEUMONIA, UNSPECIFIED ORGANISM Status: Acute (10) Moderate aortic stenosis Code(s): I35.0 - NONRHEUMATIC AORTIC (VALVE) STENOSIS Status: Chronic - Plan hemostable -: dc pt home -: to f/u with PCP in 1 week -: has refused placement and even HH * .
--- NOTE | 2018-02-05 07:49 | PRG ---
DATE OF SERVICE: 02/04/2018 SUBJECTIVE: She is walking in the room. She says she feels better. She is ready to go home. OBJECTIVE: VITAL SIGNS: On exam; temperature 97.9, pulse 106, respirations 16, and O2 saturation 91% on room air. HEENT: Unremarkable. NECK: No adenopathy or JVD. CHEST: Clear without wheezing. CARDIAC: S1 and S2. Regular. ABDOMEN: Soft. EXTREMITIES: No edema. ASSESSMENT: Asthmatic bronchitis, which is better. PLAN: Discharge home. Taper steroids and antibiotics. Job ID: [id number]
--- NOTE | 2018-02-05 07:51 | DIS ---
DATE OF ADMISSION: 01/27/2018 DATE OF DISCHARGE: 02/04/2018 DISCHARGE DISPOSITION: Is to home. PRIMARY DISCHARGE DIAGNOSES: Bronchopneumonia; atrial fibrillation with rapid ventricular response; congestive heart failure exacerbation with diastolic dysfunction; acute respiratory failure with hypoxia, resolved; hypoventilation associated with morbid obesity; hypothyroidism; dyslipidemia; chronic anemia; moderate aortic stenosis. PROCEDURES DONE DURING HOSPITALIZATION: The patient has had chest x-ray done on the day of admission, which showed cardiomegaly with mild pulmonary vascular congestion. There was hiatal hernia seen. A V/Q scan done showed homogeneous distribution of radiotracer with no significant defect. Echo with 2D Doppler showed EF of 60% to 65%, diastolic dysfunction, [id number] aortic stenosis, moderate aortic regurgitation. Influenza A and B antigens were negative. Respiratory virus panel by PCR done was positive for human metapneumovirus. DISCHARGE MEDICATIONS: 1. Aspirin 81 mg p.o. daily. 2. Lipitor 40 mg p.o. at bedtime. 3. Enalapril 5 mg p.o. daily. 4. Levothyroxine 100 mcg p.o. daily. 5. Potassium chloride 20 mEq p.o. daily. 6. Ultram p.r.n. for pain. 7. Albuterol inhaler q.6 hourly p.r.n. 8. Eliquis 5 mg p.o. twice daily. 9. Coreg 6.25 mg p.o. twice daily. 10. Omnicef 600 mg p.o. daily for a total of 5 days daily. 11. Multaq 400 mg p.o. twice daily. 12. Lasix 40 mg daily to start after 3 days. 13. Prednisone 10 mg three times daily for 3 days, then twice daily for 3 days, then daily for 3 days, then half a tablet for 4 days, and to discontinue. ALLERGIES: NO KNOWN DRUG ALLERGIES. INPATIENT CONSULT: Dr. Delgado for Pulmonology, Dr. Domingo for Cardiology. DISCHARGE PLAN: The patient to follow up with primary care physician in one week. BRIEF COURSE DURING HOSPITALIZATION: The patient initially got admitted on the with complaints of cough, shortness of breath, and AFib with RVR. The patient was essentially admitted for acute on chronic diastolic dysfunction and AFib with RVR. She has had consultation with Dr. Domingo. She was gently diuresed initially. She was also placed on Cardizem drip and later switched over to Multaq. The patient has had paroxysmal atrial fibrillation with off and on RVRs. She had human metapneumovirus viral infection with secondary bacterial infection as well. She was on Levaquin and ceftriaxone during her stay and was transitioned to Omnicef at the time of discharge. The patient was also placed on prednisone due to her persistent wheezing. She has been able to ambulate 60 feet with a rolling walker. The patient has refused placement and did not want home health as well. The patient has been cleared by all specialists for discharge. Please see a [id number] documentation [facility] The patient needs followup with her primary care physician in one week. Job ID: [id number] MTDD
== END 2018-02-04 11:53 | disposition home or self-care (01) | DRG 291 ==
LOC: ERS 18:44 → ERHOLD 22:50 → 2SW 01-27 00:12 → OBSVTOIN 01-27 18:14 → 2NO 01-30 17:07
PROVIDERS: ADMIT Hospitalist; ATTEND Hospitalist
DX: I11.0 Hypertensive heart disease with heart failure (principal); J18.0 Bronchopneumonia, unspecified organism; J96.01 Acute respiratory failure with hypoxia; E66.2 Morbid (severe) obesity with alveolar hypoventilation; Z68.41 Body mass index [BMI] 40.0-44.9, adult; I24.8 Other forms of acute ischemic heart disease; I50.33 Acute on chronic diastolic (congestive) heart failure; E03.9 Hypothyroidism, unspecified; E78.5 Hyperlipidemia, unspecified; D64.9 Anemia, unspecified; I08.0 Rheumatic disorders of both mitral and aortic valves; E78.00 Pure hypercholesterolemia, unspecified; Z82.49 Family history of ischemic heart disease and other diseases of the circulatory system; I48.0 Paroxysmal atrial fibrillation
CPT/HCPCS: 36415; 36416; 71045; 71046; 78582; 80048; 80053; 82565; 83880; 84439; 84443; 84481; 84484; 85014; 85018; 85025; 85049; 85379; 87633; 87804; 93005; 93010; 93306; 93798; 94640; 94664; 96374; A4216; A9540; A9558; G8978-GP-CJ; G8978-GP-CK; G8979-GP-CJ; G8979-GP-CK; G8980-GP-CJ; G8980-GP-CK; G8987-GO-CI; G8988-GO-CI; G8989-GO-CI; J1160; J1940; J2920; J2930; J7050; J7506; J7611; J7620; J7626

== ENCOUNTER 2018-02-05 03:46 | Inpatient (IN) | payer MEDICARE ==
[2018-02-05] MEDS ORDERED: Morphine 4 MG/ML VIAL ONE (04:31)
[2018-02-05 04:39] LABS: #Lymphocytes 1.3 thou/uL (1.20-3.40); #Neutrophils 8.7 thou/uL (1.40-6.50); %Basophils 0.1 % (0.0-1.0); %Monocytes 9.3 % (0.0-10.0); %Neutrophils 78.7 % (42.0-75.0); Hemoglobin 9.2 g/dL (12.0-16.0); Mean Corpuscular HGB CONC 30.5 g/dL (32.0-36.0); Mean Corpuscular Hemoglobin 24.3 pg (27.0-31.0); Mean Corpuscular Volume 79.4 fL (78.0-98.0); Mean Platelet Volume 9.2 fL (7.4-10.4); Platelet Count 258 thou/uL (130-400); RBC Distribution Width 15.7 % (11.5-14.5); Red Blood Cell (RBC) Count 3.81 mill/uL (4.20-5.40); White Blood Cell (WBC) Count 11.1 thou/uL (4.8-10.8)
[2018-02-05 04:57] LABS: ALT (SGPT) 29 U/L (8-55); AST (SGOT) 28 U/L (5-34); Albumin 3.2 g/dL (3.4-4.8); Alkaline Phosphatase 68 U/L (40-150); Anion Gap 14 mmol/L (10-20); BUN (Urea Nitrogen) 36 mg/dL (9.8-20.1); Bilirubin, Total 1.5 mg/dL (0.2-1.2); Calc. Creatinine Clearance 0 mL/min (70-130); Calcium 8.6 mg/dL (7.8-10.44); Carbon Dioxide 23 mmol/L (23-31); Chloride 103 mmol/L (98-107); Estimated GFR-MDRD 60; Globulin 2.4 g/dL (2.4-3.5); Glucose 159 mg/dL (83-110); Lipase 66 U/L (8-78); Potassium 3.8 mmol/L (3.5-5.1); Protein, Total 5.6 g/dL (6.0-8.3); Sodium 136 mmol/L (136-145)
[2018-02-05 05:01] LABS: CKMB 3.2 ng/mL (0-6.6)
[2018-02-05 05:10] LABS: Troponin I 0.033 ng/mL (< 0.028)
[2018-02-05] MEDS ORDERED: Metoprolol Tartrate 5 MG/5 ML VIAL ONE (05:50)
[2018-02-05] MEDS ORDERED: Phytonadione 10 MG in Sodium Chloride 0.9% 50 ML IVPB SCH (07:15)
[2018-02-05 07:25] LABS: INR-International Normal Ratio 1.7; PTT 25.8 SEC (22.9-36.1); Prothrombin Time 20.3 SEC (12.0-14.7)
[2018-02-05 08:11] LABS: #Basophils 0.1 thou/uL (0.0-0.2); #Lymphocytes 1.4 thou/uL (1.20-3.40); #Neutrophils 11.8 thou/uL (1.40-6.50); %Basophils 0.4 % (0.0-1.0); %Lymphocytes 9.7 % (21.0-51.0); %Monocytes 7.2 % (0.0-10.0); %Neutrophils 82.6 % (42.0-75.0); Hemoglobin 8.9 g/dL (12.0-16.0); Mean Corpuscular HGB CONC 31.2 g/dL (32.0-36.0); Mean Corpuscular Hemoglobin 24.5 pg (27.0-31.0); Mean Corpuscular Volume 78.6 fL (78.0-98.0); Mean Platelet Volume 9.3 fL (7.4-10.4); Platelet Count 243 thou/uL (130-400); RBC Distribution Width 15.4 % (11.5-14.5); Red Blood Cell (RBC) Count 3.61 mill/uL (4.20-5.40); White Blood Cell (WBC) Count 14.3 thou/uL (4.8-10.8)
[2018-02-05] MEDS ORDERED: Phytonadione 10 MG/ML AMP ONE (08:25)
--- NOTE | 2018-02-05 08:38 | CT ---
PRELIMINARY REPORT/[facility]/EMERGENTY AFTER-HOURS PROCEDURE CT Abdomen and Pelvis With Intravenous Contrast EXAM DATE/TIME: 02/05/2018 6:08 AM CLINICAL HISTORY: 87 years old, female; Pain; Abdominal pain; Localized; Left lower quadrant (llq); Prior surgery; Jody ent HX: Er 1; 87 yo f presents to ed with abdominal pain. PT reports llq pain that started earlier to night, with associated nausea, generalized weakness, cough, and SOB. PT denies fever, denies vomiting , denies diarrhea, denies constipation. Surgical history of appendectomy, surgical history of hystere ctomy. TECHNIQUE: Axial computed tomography images of the abdomen and pelvis with intravenous contrast. Coronal reformatted images were created and reviewed. COMPARISON: No relevant prior studies available. FINDINGS: Lower thorax: Probable mild atelectasis in the lungs. No pleural fluid. Moderate cardiomegaly. Large hiatal hernia, measuring up to 10 cm in transverse diameter. ABDOMEN: Liver: There is fatty infiltration of the liver. Gallbladder and bile ducts: No definite gallbladder abnormality by CT. No biliary tree dilation. Pancreas: Unremarkable. Spleen: Unremarkable. Adrenals: Unremarkable. Kidneys and ureters: Small subcentimeter probable cyst in the left kidney. No hydronephrosis of either kidney. No visible ureteral calculus. Stomach and bowel: There are no CT findings to strongly suggest diverticulitis. Appendix: Reportedly, there has been prior appendectomy. PELVIS: Bladder: Some compression and displacement of the urinary bladder to the right by the left rectus she ath hematoma. Reproductive: Unremarkable as visualized. ABDOMEN and PELVIS: Intraperitoneal space: No free air, ascites, or bowel distention. Bones/joints: No significant acute finding. Soft tissues: Fusiform asymmetric enlargement of the left rectus abdominis muscle, beginning at about the level of the umbilicus and extending inferiorly into the pelvis. The appearance is compatible to acute rectus sheath hematoma. Maximum transverse and AP dimensions approximately 8 x 6 cm. Hematoma extends for a longitudinal length of about 11 cm. Small areas of serpiginous high attenuation within the hematoma likely represent extravasated contras t/active bleeding within the hematoma. Vasculature: Prominent aortic and other vascular calcifications. No evidence for abdominal aortic ane urysm. Lymph nodes: No retroperitoneal adenopathy. IMPRESSION: 1. Left rectus sheath hematoma, with small areas of active bleeding. See above details/discussion. 2. No free air or bowel distention. 3. No diverticulitis. 4. Large hiatal hernia. 5. Other findings discussed above. Thank you for allowing us to participate in the care of your patient. Dictated and Authenticated by: Ace Lai MD 02/05/2018 6:48 AM Central Time ([place] & [place]) EMERGENT AFTER HOURS CT ABDOMEN AND PELVIS WITH IV CONTRAST: Date: 02-05-18 History: Left lower quadrant abdominal pain that started earlier tonight with associated nausea and g eneralized weakness, shortness of breath. Comparison: None available. IMPRESSION: 1. Left rectus sheath hematoma with focal areas of greater increased density suggesting active areas of extravasation. 2. Tiny amount of free fluid in the pelvis with associated stranding. 3. Large hiatal hernia with the majority of the stomach above the level of the hemidiaphragms. 4. Basilar atelectasis and/or scarring. 5. Colonic diverticulosis. 6. Hysterectomy. 7. Displaced urinary bladder due to presumed large left rectus sheath hematoma. 8. Subcentimeter too small to characterize hypodense lesion left kidney. 9. Degenerative changes in the spine. 10. Prominent vascular calcifications. 11. Findings are in agreement with the preliminary report by JORGE. Code QA. POS: [facility]
--- NOTE | 2018-02-05 08:46 | RAD ---
RADIOGRAPH CHEST 1 VIEW: HISTORY: 87-year-old female with dyspnea. FINDINGS: There is no air space density, pulmonary edema, or pneumothorax. The lateral costophrenic angles are sharp. IMPRESSION: No acute pulmonary findings. jn [] POS: [facility]
[2018-02-05 09:01] LABS: Troponin I 0.038 ng/mL (< 0.028)
[2018-02-05 12:42] LABS: Troponin I 0.027 ng/mL (< 0.028)
[2018-02-05] MEDS ORDERED: Iopamidol 370 76% 100 ML VIAL ONE (12:42)
[2018-02-05] MEDS ORDERED: PROVENTIL INHALER 6.7 G (200 INHALATIONS) INH PRN (14:31)
[2018-02-05] MEDS ORDERED: hydrALAZINE 20 MG/ML VIAL SLOW IVP PRN (14:31)
[2018-02-05] MEDS ORDERED: Acetaminophen 500 MG TAB PO PRN (14:31)
[2018-02-05] MEDS ORDERED: HYDROcodone/Acetaminophen 5/325 mg Tablet PO PRN (14:31)
[2018-02-05] MEDS ORDERED: traMADol HCl 50 MG TAB PO PRN (14:31)
[2018-02-05 16:50] VITALS: BMI 45.5
[2018-02-05] MEDS: Carvedilol 6.25 MG TAB PO SCH (17:41)
[2018-02-05] MEDS: Dronedarone HCl 400 MG TAB PO SCH (17:41)
[2018-02-05] MEDS: Famotidine 20 MG TAB PO SCH (20:35)
[2018-02-05] MEDS: Atorvastatin Calcium 40 MG TAB PO SCH (20:35)
[2018-02-05] MEDS: Diabetic Tussin 200 MG/10 ML UDCUP PO PRN (20:36)
[2018-02-05] MEDS: Benzonatate 100 MG CAP PO PRN (20:36)
--- NOTE | 2018-02-05 21:03 | HP ---
PRIMARY CARE PROVIDER: Dr. Ace Babin. CHIEF COMPLAINT: Abdominal pain. HISTORY OF PRESENT ILLNESS: This is an 87-year-old female, who initially presented to [facility] Emergency Department after a recent discharge on 02/04/2018 for recent 8-day hospital stay related to bronchopneumonia as well as atrial fibrillation with rapid ventricular response and diastolic congestive heart failure exacerbation. The patient was treated for the prior conditions and released home on 02/04/2018 in addition to a prescription for Eliquis. The patient states she had been compliant with her medications and had been ambulating at home. The patient states she had no specific fall, injury, or trauma, but went to bed and woke up at approximately at 2 a.m. to 3 a.m. on 02/05/2018 with severe left-sided abdominal pain. The patient got out of bed, sat on her recliner thinking that resting in a different position would help her symptoms. The pain progressed and was unbearable at which point she notified her niece, who called EMS. The patient was transported to the Emergency Department, undergoing CT imaging of the abdomen and pelvis showing a large left lower quadrant abdominal wall/rectus sheath hematoma up to 11 cm. The patient was discontinued on Eliquis and received vitamin K in the emergency room. Initial hemoglobin was noted at 9.2 with previously noted value on 02/03/2018 of 9.8. Subsequent evaluation of the hemoglobin showed decreased level to 8.9 during the emergency room course. The patient denied any blood in her urine or stool. She states that she had been home only for approximately 12 to 16 hours when she returned back to the emergency room. The patient denies any increased shortness of breath, persistent or productive cough, fever or chills. PAST MEDICAL HISTORY: 1. Diastolic congestive heart failure with recent acute exacerbation. 2. Status post acute hypoxic respiratory failure. 3. Hypoventilation syndrome in the context of morbid obesity. 4. Hypothyroidism. 5. Dyslipidemia. 6. Chronic anemia. 7. Moderate aortic stenosis. 8. Bronchopneumonia with current treatment with Omnicef. 9. Atrial fibrillation with rapid ventricular response on Eliquis. PAST SURGICAL HISTORY: 1. Status post appendectomy. 2. Status post hysterectomy. CURRENT MEDICATIONS: Based on recent discharge 02/04/2018: 1. Enteric-coated aspirin 81 mg one tab p.o. daily. 2. Lipitor 40 mg p.o. at bedtime. 3. Enalapril 5 mg p.o. daily. 4. Levothyroxine 100 mcg p.o. daily. 5. Potassium chloride 20 mEq p.o. b.i.d. 6. Tramadol 50 mg p.o. b.i.d. 7. Albuterol sulfate HFA 2 puffs inhaled q.4 hours p.r.n. 8. Eliquis 5 mg p.o. b.i.d. 9. Carvedilol 6.25 mg p.o. b.i.d. 10. Omnicef 600 mg p.o. daily. 11. Multaq 400 mg p.o. b.i.d. 12. Lasix 40 mg p.o. daily. 13. Prednisone taper. ALLERGIES: NO KNOWN DRUG ALLERGIES. FAMILY HISTORY: No inheritable disease per patient report. SOCIAL HISTORY: The patient resides in [facility] with her niece. No current alcohol, tobacco, or illicit drug use. Ambulates with the rolling walker. REVIEW OF SYSTEMS: CONSTITUTIONAL: Negative for weight loss or gain, ability to conduct usual activities. SKIN: Negative for rash, itching. EYES: Negative for double vision, pain. ENT/MOUTH: Negative for nose bleeding, neck stiffness, pain, tenderness. CARDIOVASCULAR: Negative for palpitations, dyspnea on exertion, orthopnea. RESPIRATORY: Negative for shortness of breath, wheezing, cough, hemoptysis, fever or night sweats. GASTROINTESTINAL: Negative for poor appetite, abdominal pain, heartburn, nausea, vomiting, constipation, or diarrhea. GENITOURINARY: Negative for urgency, frequency, dysuria, nocturia. MUSCULOSKELETAL: Negative for pain, swelling. NEUROLOGIC/PSYCHIATRIC: Negative for anxiety, depression. ALLERGY/IMMUNOLOGIC: Negative for skin rash, bleeding tendency. Otherwise negative except as stated per HPI. PHYSICAL EXAMINATION: VITAL SIGNS: On admission, blood pressure 136/71, pulse 90, respiratory rate is 16, temperature 98.0 degrees Fahrenheit, O2 saturation 95% on 2 L/minute via nasal cannula. GENERAL APPEARANCE: This is an 87-year-old female, pale appearing, alert and smiling, in no acute distress. HEENT: Pupils are equal, round, and reactive to light and accommodation. Extraocular muscles are intact. No scleral icterus. No conjunctival injection. Nares are patent. OP is clear. Teeth in fair repair. NECK: Supple. No cervical adenopathy. No thyromegaly. No carotid bruits. No JVD appreciated. Cervical spine with full active and passive range of motion. No meningeal signs appreciated. CHEST: Diminished breath sounds in the bases bilaterally. CARDIOVASCULAR: S1 and S2 with irregular rate and rhythm, 2/6 systolic ejection murmur in the right upper sternal border. ABDOMEN: Obese and soft with mild tenderness to palpation in the left lower quadrant. Ecchymosis noted in the suprapubic region. Bowel sounds positive. EXTREMITIES: Warm and dry with fair turgor. Nonpitting edema of the lower extremities. Pulses palpable distally at the dorsalis pedis and posterior tibial arteries. Capillary refill less than 2 seconds. NEUROLOGIC: Cranial nerves 2 through 12 were grossly intact. No focal or lateralizing signs appreciated. The patient now observed ambulatory during the exam. PERTINENT LAB FINDINGS: Sodium 136, potassium 3.8, chloride 103, CO2 of 23, BUN 36, creatinine 0.89, estimated GFR 60, glucose 159, calcium 8.6, total bilirubin 1.5. Troponin I ranged between 0.027 to 0.038. BNP 362, previously noted 111 on 02/01/2018. Lipase 66. CBC showed a white blood cell count of 14.3, hemoglobin ranged between 8.9 to 9.2, and platelet count ranged between 243 to 258. PT 20.3, INR 1.7, and PTT 25.8. DIAGNOSTIC DATA: Portable chest x-ray dated 02/05/2018 showed no acute cardiopulmonary process. CT of the abdomen and pelvis dated 02/05/2018 showed left rectus sheath hematoma with a small area of active bleeding, 8 x 6 cm x 11 cm dimensions. No free air noted. Large hiatal hernia. Telemetry monitoring shows atrial fibrillation with heart rates in the 90s to low 100. ASSESSMENT AND PLAN: 1. Left rectus sheath hematoma. The patient will be admitted to the telemetry unit. Suspect directly correlated with Eliquis therapy. Discontinue all anticoagulation and nonsteroidal anti-inflammatory therapy. Serial hemoglobin and hematocrit monitoring q.4 hours. Anticipate conservative management without acute surgical intervention. Symptomatic and supportive management. 2. Acute blood loss anemia. We will continue serial hemoglobin and hematocrit monitoring as stated previously. Recheck CBC in the a.m. Avoid all anticoagulation. 3. Atrial fibrillation with variable rate. We will continue telemetry monitoring. Resume home regimen to include Multaq 400 mg b.i.d. and Coreg 6.25 mg b.i.d. The patient not a further candidate for any future anticoagulation. May consider low-dose aspirin therapy after discharge. 4. Diastolic congestive heart failure. Appears compensated currently. We will resume Lasix 40 mg daily. Overall ejection fraction preserved from recent 2D transthoracic echocardiogram between 60% to 65%. 5. Hypertension. Resume home antihypertensive regimen and monitor clinical response. 6. Hypothyroidism. Stable. Resume levothyroxine 100 mcg daily. 7. Prophylaxis. SCDs while in bed. Avoid anticoagulation. Pepcid 20 mg p.o. b.i.d. PT evaluation for functional assessment. 8. Code status is full. Surrogate medical decision maker is the patient's son. Job ID: [id number]
[2018-02-06] MEDS: Levothyroxine Sodium 100 MCG TAB PO SCH (06:23)
[2018-02-06 07:36] LABS: Hemoglobin 8.1 g/dL (12.0-16.0); Mean Corpuscular HGB CONC 31.4 g/dL (32.0-36.0); Mean Corpuscular Hemoglobin 24.6 pg (27.0-31.0); Mean Corpuscular Volume 78.3 fL (78.0-98.0); Mean Platelet Volume 9.3 fL (7.4-10.4); Platelet Count 209 thou/uL (130-400); RBC Distribution Width 15.3 % (11.5-14.5); Red Blood Cell (RBC) Count 3.27 mill/uL (4.20-5.40); White Blood Cell (WBC) Count 9.2 thou/uL (4.8-10.8)
[2018-02-06 07:45] LABS: Anion Gap 9 mmol/L (10-20); BUN (Urea Nitrogen) 31 mg/dL (9.8-20.1); Calc. Creatinine Clearance 95 mL/min (70-130); Calcium 8.2 mg/dL (7.8-10.44); Carbon Dioxide 29 mmol/L (23-31); Chloride 103 mmol/L (98-107); Estimated GFR-MDRD 68; Glucose 115 mg/dL (83-110); Potassium 3.6 mmol/L (3.5-5.1); Sodium 137 mmol/L (136-145)
[2018-02-06] MEDS: Carvedilol 6.25 MG TAB PO SCH ×2 (08:32→17:10)
[2018-02-06] MEDS: Dronedarone HCl 400 MG TAB PO SCH ×2 (08:32→17:10)
[2018-02-06] MEDS: Potassium Chloride 20 MEQ TAB PO SCH (08:32)
[2018-02-06] MEDS: Famotidine 20 MG TAB PO SCH ×2 (08:32→20:57)
[2018-02-06 09:35] LABS: Hypochromia SLIGHT = 6-15 cells (100X) (0-5/hpf); Lymphocytes 16 % (21-51); MDiff Complete? YES; Microcytosis SLIGHT = 6-15 cells (100X) (0-5/hpf); Monocytes 9 % (0-10); Neutrophil 75 % (42-75); PLT Morphology Comment Appears Adequate; Polychromasia SLIGHT = 2-3 cells (100X) (0-2/hpf)
[2018-02-06] MEDS: Cefdinir 300 MG CAP PO SCH (12:36)
--- NOTE | 2018-02-06 14:30 | PDOC.PN ---
- Subjective Encounter Start Date: 02/06/18 Encounter Start Time: 13:55 Subjective: f/u for abd wall/rectus sheath hematoma secondary to Eliquis. -: Hgb 8.1 down from 8.9. Feels ok overall except for residual cough. -: No CP, fever. - Objective Resuscitation Status - Order Detail: 02/05/18 13:16 Resuscitation Status Routine Resuscitation Status: FULL: Full Resuscitation MAR Reviewed: Yes Vital Signs & Weight: Vital Signs (12 hours) Temp Pulse Pulse Pulse Resp BP BP 02/06/18 12:00 97.7 F 68 18 02/06/18 11:14 69 67 115/63 108/53 L 02/06/18 08:32 81 02/06/18 08:00 02/06/18 07:43 98.1 F 81 18 02/06/18 04:00 98.8 F 95 18 BP Pulse Ox Pulse Ox 02/06/18 12:00 115/63 96 02/06/18 11:14 96 02/06/18 08:32 02/06/18 08:00 95 02/06/18 07:43 135/76 95 02/06/18 04:00 127/72 97 Weight Weight 273 lb 8 oz Result Diagrams: 02/06/18 07:09 02/06/18 07:09 Additional Labs: Laboratory Tests 01/26/18 01/27/18 01/28/18 20:02 17:40 12:43 WBC Hgb 9.7 L BUN 21 H Creatinine 0.83 Free T4 1.07 Free T3 1.74 TSH 3rd Generation 0.4151 01/28/18 01/28/18 01/28/18 12:43 17:24 17:24 WBC Hgb 9.8 L 9.3 L BUN Creatinine 0.81 Free T4 Free T3 TSH 3rd Generation 02/05/18 02/05/18 04:31 07:40 WBC 11.1 H 14.3 H Hgb 9.2 L 8.9 L BUN Creatinine Free T4 Free T3 TSH 3rd Generation EKG Reviewed by me: Yes (Tele - SR currently(converted today)) Phys Exam - Physical Examination Constitutional: NAD pale, alert, smiling HEENT: PERRLA, sclera anicteric, oral pharynx no lesions Neck: no nodes, no JVD, supple, full ROM coarse sounds bilat, few exp wheezes II/ FERNANDO S1, S2 Cardiovascular: no rub, irregular ecchymosis in suprapubic region Gastrointestinal: soft, no distention, positive bowel sounds Musculoskeletal: pulses present, edema present Neurological: normal sensation, moves all 4 limbs Psychiatric: A&O x 3 Skin: normal turgor, cap refill <2 seconds Dx/Plan (1) Rectus sheath hematoma Code(s): S30.1XXA - CONTUSION OF ABDOMINAL WALL, INITIAL ENCOUNTER Status: Acute Comment: Secondary to recent coughing and Eliquis therapy, supportive mgmt, limit cough with antitussives (2) Acute blood loss anemia Code(s): D62 - ACUTE POSTHEMORRHAGIC ANEMIA Status: Acute Comment: Stable currently, continue serial H/H monitoring, avoid anticoagulation, CBC in am (3) Atrial fibrillation Code(s): I48.91 - UNSPECIFIED ATRIAL FIBRILLATION Status: Chronic Comment: Rate controlled and converting to SR currently, continue rate-control measures, no anticoagulation due to rectus sheath hematoma (4) Chronic respiratory failure with hypoxia Code(s): J96.11 - CHRONIC RESPIRATORY FAILURE WITH HYPOXIA Status: Acute (5) Bronchopneumonia Code(s): J18.0 - BRONCHOPNEUMONIA, UNSPECIFIED ORGANISM Status: Acute Comment: Improved, continue Omnicef, Duonebs, Tessalon - Plan plan discussed w/ family, continue antibiotics, PT/OT, executive secretary social welfare, respiratory therapy, out of bed/ambulate Stable currently -: Check H/H today -: Start Duonebs q4h -: Lasix 20mg IV x 1 dose -: OOB/ambulate * AM lab: CBC * Likely home in am
[2018-02-06] MEDS ORDERED: Furosemide 20 MG/2 ML VIAL SLOW IVP SCH (14:45)
[2018-02-06 16:55] LABS: #Basophils 0.2 thou/uL (0.0-0.2); #Lymphocytes 1.1 thou/uL (1.20-3.40); #Monocytes 0.8 thou/uL (0.11-0.59); #Neutrophils 10.7 thou/uL (1.40-6.50); %Basophils 1.3 % (0.0-1.0); %Eosinophils 0.3 % (0.0-10.0); %Lymphocytes 8.3 % (21.0-51.0); %Monocytes 6.2 % (0.0-10.0); %Neutrophils 83.9 % (42.0-75.0); Mean Corpuscular HGB CONC 31.3 g/dL (32.0-36.0); Mean Corpuscular Hemoglobin 24.4 pg (27.0-31.0); Mean Platelet Volume 9.1 fL (7.4-10.4); Platelet Count 212 thou/uL (130-400); RBC Distribution Width 15.6 % (11.5-14.5); Red Blood Cell (RBC) Count 3.26 mill/uL (4.20-5.40); White Blood Cell (WBC) Count 12.7 thou/uL (4.8-10.8)
[2018-02-06] MEDS: Atorvastatin Calcium 40 MG TAB PO SCH (20:57)
[2018-02-06] MEDS: Benzonatate 100 MG CAP PO PRN (20:57)
[2018-02-06] MEDS: Diabetic Tussin 200 MG/10 ML UDCUP PO PRN (20:58)
[2018-02-06 22:54] LABS: #Eosinphils 0.1 thou/uL (0.0-0.7); #Lymphocytes 1.3 thou/uL (1.20-3.40); #Monocytes 0.7 thou/uL (0.11-0.59); #Neutrophils 10.2 thou/uL (1.40-6.50); %Basophils 0.4 % (0.0-1.0); %Eosinophils 0.5 % (0.0-10.0); %Lymphocytes 10.8 % (21.0-51.0); %Monocytes 5.9 % (0.0-10.0); %Neutrophils 82.5 % (42.0-75.0); Mean Corpuscular HGB CONC 31.5 g/dL (32.0-36.0); Mean Corpuscular Hemoglobin 24.5 pg (27.0-31.0); Mean Corpuscular Volume 77.7 fL (78.0-98.0); Mean Platelet Volume 9.4 fL (7.4-10.4); Platelet Count 206 thou/uL (130-400); RBC Distribution Width 15.5 % (11.5-14.5); Red Blood Cell (RBC) Count 3.28 mill/uL (4.20-5.40); White Blood Cell (WBC) Count 12.4 thou/uL (4.8-10.8)
[2018-02-07 02:16] LABS: Eosinophils 2 % (0-10); Hemoglobin 8.3 g/dL (12.0-16.0); Lymphocytes 16 % (21-51); MDiff Complete? YES; Mean Corpuscular HGB CONC 33.4 g/dL (32.0-36.0); Mean Corpuscular Hemoglobin 25.8 pg (27.0-31.0); Mean Corpuscular Volume 77.1 fL (78.0-98.0); Monocytes 2 % (0-10); Neutrophil 80 % (42-75); PLT Morphology Comment Appears Adequate; Platelet Count 164 thou/uL (130-400); RBC Distribution Width 15.9 % (11.5-14.5); Red Blood Cell (RBC) Count 3.22 mill/uL (4.20-5.40); White Blood Cell (WBC) Count 12.7 thou/uL (4.8-10.8)
[2018-02-07] MEDS: Levothyroxine Sodium 100 MCG TAB PO SCH (05:38)
[2018-02-07] MEDS: Carvedilol 6.25 MG TAB PO SCH (08:46)
[2018-02-07] MEDS: Dronedarone HCl 400 MG TAB PO SCH (08:46)
[2018-02-07] MEDS: Famotidine 20 MG TAB PO SCH (08:47)
[2018-02-07] MEDS: Potassium Chloride 20 MEQ TAB PO SCH (08:47)
[2018-02-07 12:03] VITALS: BP 107/53; TEMP 99.1
[2018-02-07] MEDS: Cefdinir 300 MG CAP PO SCH (12:03)
--- NOTE | 2018-02-08 07:10 | DIS ---
DATE OF ADMISSION: 02/05/2018 DATE OF DISCHARGE: 02/07/2018 DISCHARGE DIAGNOSES: 1. Rectus sheath hematoma secondary to Eliquis therapy. 2. Acute blood loss anemia secondary to #1, stable. 3. Atrial fibrillation with variable rate control, converting to sinus rhythm. 4. Acute hypoxic respiratory failure, improved. 5. Bronchopneumonia, improved. 6. Deconditioning. 7. Diastolic congestive heart failure without acute exacerbation. 8. Morbid obesity. 9. Hypothyroidism. CONSULTATIONS: None. PERTINENT LAB AND X-RAY FINDINGS: Troponin I ranged between 0.027 to 0.038. BNP is 362, previously noted 111 on 02/01/2018. Lipase 66. CBC showed white blood cell count ranged between 9.2 to 14.3, hemoglobin ranged between 8.0 to 9.2. PT 20.3, INR 1.7, PTT 25.8. CT of the abdomen and pelvis dated 02/05/2018 showed left rectus sheath hematoma. No free air or bowel distension. Large hiatal hernia noted. Portable chest x-ray dated 02/05/2018, showed no acute cardiopulmonary process. HOSPITAL COURSE: The patient was initially admitted to the telemetry unit after presenting with increasing abdominal pain with CT of the abdomen and pelvis showing evidence of a left rectus sheath hematoma in the context of recent prescription for Eliquis due to atrial fibrillation. The patient was managed conservatively without surgical intervention with serial hemoglobins showing overall stable trend during the hospital course. The patient was given symptomatic management and overall abdominal pain improved with supportive care. Telemetry monitoring did show patient converting from atrial fibrillation to sinus mechanism where the patient is currently remaining in sinus mechanism at the time of discharge. Due to patient's large rectus sheath hematoma, the patient was discontinued on anticoagulation with recommendations to avoid anticoagulation in the future. The patient received general pulmonary supportive measures through the remainder of the hospital course, tolerating regular oral intake, voiding appropriately with stable vital signs. I have examined the patient at the time of discharge and discussed followup instructions, at which point, the patient verbalized understanding and in agreement. The patient overall clinically stable and ready for discharge on 02/07/2018. DISCHARGE MEDICATIONS: 1. Enteric-coated aspirin 81 mg one tab p.o. daily. 2. Lipitor 40 mg p.o. at bedtime. 3. Enalapril 5 mg p.o. daily. 4. Levothyroxine 100 mcg p.o. daily. 5. Klor-Con 20 mEq p.o. daily. 6. Tramadol 50 mg p.o. b.i.d. p.r.n. 7. Proventil HFA two puffs inhaled q.6 hours p.r.n. 8. Coreg 6.25 mg p.o. b.i.d. 9. Omnicef 600 mg p.o. daily. 10. Multaq 400 mg p.o. b.i.d. 11. Lasix 40 mg p.o. daily. 12. Prednisone 10 mg p.o. t.i.d. x3 days, followed by 1 tab p.o. b.i.d. x3 days, followed by 1 tab p.o. daily x3 days, followed by half tab p.o. daily x4 days. FOLLOWUP: The patient may follow up with her primary care provider, Dr. Ace Babin on 02/09/2018 at 9:15 a.m. The patient will follow up with Dr. Henok Rider with [facility]. CONDITION ON DISCHARGE: Fair. ACTIVITY: Rolling walker for ambulation. SPECIAL INSTRUCTIONS: Home health services will be set up including PT and OT for home. DIET: Regular. CODE STATUS: Full. DISPOSITION: Home with home health services including physical/occupational therapy on 02/07/2018. TIME SPENT: Total time in preparing and coordinating discharge was 33 minutes. Job ID: [id number]
[2018-02-08] MEDS ORDERED: Furosemide 40 MG TAB PO SCH (09:00)
--- NOTE | 2018-02-10 13:02 | EKG ---
Test Reason : Blood Pressure : / mmHG Vent. Rate : 103 BPM Atrial Rate : 092 BPM P-R Int : 000 ms QRS Dur : 080 ms QT Int : 298 ms P-R-T Axes : 000 013 041 degrees QTc Int : 390 ms Atrial fibrillation with rapid ventricular response Nonspecific ST and T wave abnormality , probably digitalis effect Abnormal ECG Confirmed by MARIE BELTRAN ([id number]), newspaper editor managing VERONIQUE FORD ([id number]) on 02/10/2018 1:02:24 PM Referred By: Confirmed By:MARIE BELTRAN
== END 2018-02-07 14:28 | disposition home health service (06) | DRG 555 ==
LOC: ERS 03:46 → ERHOLD 08:53 → 2NO 16:39
PROVIDERS: ADMIT Family Medicine; ATTEND Family Medicine
DX: M79.81 Nontraumatic hematoma of soft tissue (principal); J18.0 Bronchopneumonia, unspecified organism; J96.21 Acute and chronic respiratory failure with hypoxia; I50.32 Chronic diastolic (congestive) heart failure; E66.2 Morbid (severe) obesity with alveolar hypoventilation; Z68.42 Body mass index [BMI] 45.0-49.9, adult; D62 Acute posthemorrhagic anemia; T45.515A Adverse effect of anticoagulants, initial encounter; E03.9 Hypothyroidism, unspecified; E78.5 Hyperlipidemia, unspecified; I35.0 Nonrheumatic aortic (valve) stenosis; K44.9 Diaphragmatic hernia without obstruction or gangrene; I11.0 Hypertensive heart disease with heart failure; I48.2 Chronic atrial fibrillation; Z79.82 Long term (current) use of aspirin
CPT/HCPCS: 36415; 71045; 74177; 80048; 80053; 82553; 83690; 83880; 84484; 85007; 85025; 85027; 85610; 85730; 86850; 86900; 86901; 90471; 90662; 93005; 94640; 94760; 96374; 96375; G0008; G8978-GP-CK; G8979-GP-CI; J1940; J2270; J3430; J7050; J7620

== ENCOUNTER 2018-02-25 15:48 | Inpatient (IN) | payer MEDICARE ==
[2018-02-25 16:39] LABS: Hemoglobin 8.5 g/dL (12.0-16.0); Mean Corpuscular HGB CONC 30.4 g/dL (32.0-36.0); Mean Corpuscular Hemoglobin 24.6 pg (27.0-31.0); Mean Corpuscular Volume 80.8 fL (78.0-98.0); RBC Distribution Width 19.2 % (11.5-14.5); Red Blood Cell (RBC) Count 3.47 mill/uL (4.20-5.40); White Blood Cell (WBC) Count 4.1 thou/uL (4.8-10.8)
[2018-02-25 16:54] LABS: ALT (SGPT) 11 U/L (8-55); AST (SGOT) 15 U/L (5-34); Albumin 3.5 g/dL (3.4-4.8); Alkaline Phosphatase 79 U/L (40-150); Anion Gap 13 mmol/L (10-20); BUN (Urea Nitrogen) 15 mg/dL (9.8-20.1); Bilirubin, Total 1.4 mg/dL (0.2-1.2); Calc. Creatinine Clearance 0 mL/min (70-130); Calcium 8.8 mg/dL (7.8-10.44); Carbon Dioxide 25 mmol/L (23-31); Chloride 107 mmol/L (98-107); Estimated GFR-MDRD 63; Globulin 2.1 g/dL (2.4-3.5); Glucose 94 mg/dL (83-110); Potassium 3.7 mmol/L (3.5-5.1); Protein, Total 5.6 g/dL (6.0-8.3); Sodium 141 mmol/L (136-145)
[2018-02-25 16:56] LABS: Acanthocytes SLIGHT = 1-5 cells (100X) (None Seen); Anisocytosis SLIGHT = 6-15 cells (100X) (0-5/hpf); Band 3 % (5-11); Elliptocytes SLIGHT = 2-5 cells (100X) (0-1/hpf); Eosinophils 2 % (0-10); Hypochromia SLIGHT = 6-15 cells (100X) (0-5/hpf); Lymphocytes 19 % (21-51); MDiff Complete? YES; Mean Platelet Volume 10.6 fL (7.4-10.4); Monocytes 4 % (0-10); Neutrophil 72 % (42-75); PLT Morphology Comment Appears Decreased; Platelet Count 110 thou/uL (130-400); Poikilocytosis SLIGHT = 6-15 cells (100X) (0-5/hpf)
--- NOTE | 2018-02-25 17:11 | RAD ---
PORTABLE CHEST: HISTORY: Dyspnea. COMPARISON: 02/05/2018 FINDINGS: Heart size is enlarged. Some mild vascular prominence but no overt interstitial edema. There are so me chronic appearing lung changes. IMPRESSION: Cardiomegaly with mild vascular engorgement. POS: [facility]
[2018-02-25] MEDS ORDERED: Furosemide 40 MG/4 ML VIAL ONE (18:02)
[2018-02-25 20:10] LABS: Troponin I 0.021 ng/mL (< 0.028)
[2018-02-25 23:07] LABS: Troponin I 0.017 ng/mL (< 0.028)
[2018-02-26] MEDS: Nystatin Powder 15 GM BOT TOP PRN ×2 (00:44→22:02)
[2018-02-26] MEDS ORDERED: Ondansetron ODT 4 MG TAB PO PRN (07:36)
[2018-02-26] MEDS ORDERED: Acetaminophen 325 MG TAB PO PRN (07:36)
[2018-02-26] MEDS ORDERED: Bisacodyl 5 MG TAB PO PRN (07:36)
[2018-02-26] MEDS: Aspirin 81 mg Enteric Coated Tablet PO SCH (09:12)
[2018-02-26] MEDS: Dronedarone HCl 400 MG TAB PO SCH ×2 (09:13→17:41)
[2018-02-26] MEDS: Carvedilol 6.25 MG TAB PO SCH (09:13)
[2018-02-26 11:28] LABS: Bilirubin Negative (Negative); Blood, Urine Negative (Negative); Clarity CLEAR (Clear); Glucose, Urine (Dipstick) Negative (Negative); Leukocyte Negative (Negative); Nitrite Negative (Negative); Protein, Urine (Dipstick) Negative (Neg-Trace); Specific Gravity, Urine 1.017 (1.002-1.036)
[2018-02-26 11:33] LABS: Bacteria/HPF None Seen HPF (None Seen); Hyaline Casts/LPF 7-10 HYALINE CAST LPF (0-3 Hyaline); Pathc Cast-AUWi Flag 1.59 (0-2.49); RBC/HPF 0-3 HPF (0-3); WBC/HPF 0-3 HPF (0-3)
[2018-02-26] MEDS: Furosemide 100 MG/10 ML VIAL SLOW IVP SCH (14:57)
--- NOTE | 2018-02-26 16:16 | HP ---
CHIEF COMPLAINT: Increasing shortness of breath. HISTORY OF PRESENTING ILLNESS: This is an 87-year-old female with a history of congestive heart failure and paroxysmal atrial fibrillation, presented to the ER with evaluation of increasing shortness of breath. The patient persistently has bilateral lower extremity edema, which has increased significantly and has been weeping. The patient was brought by the family members once they noted that the patient had a weeping lower extremity edema. The patient is usually independent, walks around, drives, takes care of herself. A niece and her two children lives with the patient. PAST MEDICAL HISTORY: Significant for hypertension, congestive heart failure, paroxysmal atrial fibrillation, lymphedema, hypothyroidism, diabetes, hyperlipidemia. SURGICAL HISTORY: Significant for hysterectomy and appendectomy. PSYCHIATRIC HISTORY: Denies any psychiatric history. SOCIAL HISTORY: Denies any alcohol, drug, or smoking history. KNOWN ALLERGIES: The patient is not allergic, but cannot tolerate Eliquis because of the internal bleeding. REVIEW OF SYSTEMS: CONSTITUTIONAL: No complaints of fever or chills. HEENT: No complaints of headache. Denies any eye pain or discharge from the eyes. No vision changes. Denies any ear pain or discharge from the ears. No rhinorrhea. No sore throat. Denies any voice changes. RESPIRATORY: Complaints of shortness of breath. CARDIOVASCULAR: Denies any chest pain or palpitations. GI: Denies any abdominal pain, diarrhea, nausea, or vomiting. MUSCULOSKELETAL: Please see HPI. NEUROLOGIC: Denies any neurological deficits. No motor or sensory deficit expressed. PSYCHIATRIC HISTORY: Denies any history of depression or anxiety. MEDICATIONS: 1. Furosemide 40 mg p.o. daily. 2. Atorvastatin 40 mg p.o. daily. 3. Aspirin 81 mg p.o. daily. 4. Potassium 20 mEq one tablet once a day. 5. Enalapril 5 mg p.o. daily. 6. Levothyroxine 100 mcg p.o. daily. 7. Tramadol 50 mg p.o. q.12 hours p.r.n. for pain. 8. Carvedilol 6.25 mg p.o. b.i.d. 9. Multaq 400 mg p.o. b.i.d. 10. Prednisone 10 mg p.o. t.i.d. 11. Albuterol 90 mcg per inhalation one puff q.i.d. p.r.n. PHYSICAL EXAMINATION: VITAL SIGNS: Vital signs are stable with BP around 145/60, pulse 70, respiratory rate 22, temperature 97.7, pain 0, O2 sats on room air are around 99%. Vital signs are within normal limits. CONSTITUTIONAL: The patient appears in respiratory distress. HEENT: Normocephalic, atraumatic head. Eyelids and conjunctivae are within normal limits. Pupils are equally round and reactive to light. External ear and tympanic membranes are within normal limits. Pharynx examination is within normal limits. Tonsil exams are within normal limits. Trachea is midline. No nodes are felt. RESPIRATORY: Mild respiratory distress is noted. Breath sounds are clear. Good air entry in both lung [place]ber[place]. CARDIOVASCULAR: Regular rate and rhythm. Positive for murmurs. ABDOMEN: Soft, NT, ND. Positive for bowel sounds. MUSCULOSKELETAL: Bilateral lower extremity 3+ pitting edema with chronic vascular changes and redness of the overlying skin. Positive for serous discharge. NEUROLOGIC: Neurological examination is within normal limits. Alert and oriented x3. Cranial nerves are intact. No focal or mental deficits are noted. PSYCHIATRIC: Within normal limits. Normal affect. ASSESSMENT AND PLAN: 1. Acute on chronic diastolic heart . Admit the patient for aggressive diuresis and follow up on electrolytes. If the patient cannot tolerate aggressive diuresis because of the aortic stenosis, we will back off on the amount of Lasix given. We will use the Estes right now to help the patient urinate comfortably without having to get up to go to the restroom repeatedly. 2. Atrial fibrillation. The patient is in normal sinus rhythm. Please continue Multaq. The patient cannot tolerate Eliquis because of the internal bleeding. We will continue low-dose baby aspirin for now. 3. Hypertension. Continue home medications. 4. History of hyperlipidemia. We will continue home atorvastatin. 5. History of hypothyroidism. We will continue home levothyroxine. We will also institute heart-healthy diet with low sodium and fluid restrict for 1500 mL per day. Job ID: [id number]
[2018-02-26] MEDS: Atorvastatin Calcium 40 MG TAB PO SCH (21:58)
[2018-02-27 05:41] LABS: Anion Gap 10 mmol/L (10-20); BUN (Urea Nitrogen) 12 mg/dL (9.8-20.1); Calc. Creatinine Clearance 108 mL/min (70-130); Calcium 8.4 mg/dL (7.8-10.44); Carbon Dioxide 27 mmol/L (23-31); Chloride 105 mmol/L (98-107); Estimated GFR-MDRD 75; Glucose 92 mg/dL (83-110); Potassium 3.4 mmol/L (3.5-5.1); Sodium 139 mmol/L (136-145)
[2018-02-27] MEDS: Levothyroxine Sodium 100 MCG TAB PO SCH (06:08)
[2018-02-27] MEDS: Furosemide 100 MG/10 ML VIAL SLOW IVP SCH ×2 (06:08→13:54)
[2018-02-27] MEDS: Dronedarone HCl 400 MG TAB PO SCH ×2 (08:36→16:41)
[2018-02-27] MEDS: Carvedilol 6.25 MG TAB PO SCH (08:36)
[2018-02-27] MEDS: Aspirin 81 mg Enteric Coated Tablet PO SCH (08:36)
[2018-02-27] MEDS ORDERED: Potassium Chloride 20 MEQ TAB PO SCH (09:00)
[2018-02-27] MEDS ORDERED: Clindamycin 150 MG CAP PO SCH (10:45)
--- NOTE | 2018-02-27 10:49 | PDOC.PN ---
- Subjective Encounter Start Date: 02/27/18 Encounter Start Time: 10:47 Subjective: reduced SOB. - Objective MAR Reviewed: Yes Vital Signs & Weight: Vital Signs (12 hours) Temp Pulse Resp BP Pulse Ox 02/27/18 07:17 98.4 F 63 20 152/57 H 93 L 02/27/18 04:13 98.4 F 63 17 125/57 L 99 02/27/18 00:05 98.4 F 65 16 119/59 L 97 Weight Admit Weight 284 lb 3.2 oz Weight 280 lb 1.6 oz I&O: 02/26/18 02/27/18 02/28/18 06:59 06:59 06:59 Intake Total 510 1090 Output Total 2250 2125 Balance -8100 -2859 Result Diagrams: 02/25/18 16:29 02/27/18 04:41 Phys Exam - Physical Examination HEENT: PERRLA, moist MMs, sclera anicteric, TM's clear, oral pharynx no lesions , 2+ tonsils Neck: no nodes, no JVD, supple, full ROM Respiratory: no wheezing, no rales Cardiovascular: RRR, no rub +mumur Gastrointestinal: soft, non-tender, no distention 2+ pedal edema. Neurological: non-focal, normal sensation, moves all 4 limbs Psychiatric: normal affect, A&O x 3 Deviation from normal: Red macular rash of lower extremity Dx/Plan - Plan * .
[2018-02-27] MEDS: Clindamycin 150 MG CAP PO SCH ×2 (11:57→20:24)
[2018-02-27] MEDS: Atorvastatin Calcium 40 MG TAB PO SCH (20:25)
[2018-02-27] MEDS: Clotrimazole 1 % Cream 30 GM TUBE TOP SCH (20:27)
[2018-02-27] MEDS: Nystatin Powder 15 GM BOT TOP PRN (20:31)
[2018-02-28] MEDS: Levothyroxine Sodium 100 MCG TAB PO SCH (05:23)
[2018-02-28] MEDS: Clindamycin 150 MG CAP PO SCH ×3 (05:24→20:33)
[2018-02-28] MEDS: Furosemide 100 MG/10 ML VIAL SLOW IVP SCH ×2 (05:24→14:31)
[2018-02-28] MEDS: Dronedarone HCl 400 MG TAB PO SCH ×2 (08:18→16:02)
[2018-02-28] MEDS: Carvedilol 6.25 MG TAB PO SCH (08:19)
[2018-02-28] MEDS: Clotrimazole 1 % Cream 30 GM TUBE TOP SCH ×2 (08:19→20:35)
[2018-02-28] MEDS: Aspirin 81 mg Enteric Coated Tablet PO SCH (08:19)
--- NOTE | 2018-02-28 09:13 | PDOC.PN ---
- Subjective Encounter Start Date: 02/28/18 Encounter Start Time: 09:45 Subjective: Patient reports feeling better. Swelling improved. Breathing -: well. - Objective MAR Reviewed: Yes Vital Signs & Weight: Vital Signs (12 hours) Temp Pulse Resp BP Pulse Ox 02/28/18 07:19 98.2 F 66 18 117/55 L 93 L 02/28/18 03:28 98.5 F 69 15 112/53 L 92 L 02/28/18 00:00 98.2 F 70 14 132/66 91 L Weight Admit Weight 284 lb 3.2 oz Weight 278 lb 9.6 oz I&O: 02/27/18 02/28/18 03/01/18 06:59 06:59 06:59 Intake Total 1090 1110 Output Total 0618 4225 Balance -2662 -6768 Result Diagrams: 02/25/18 16:29 02/27/18 04:41 Phys Exam - Physical Examination Constitutional: NAD HEENT: moist MMs Respiratory: no wheezing, no rales, no rhonchi Cardiovascular: RRR, no significant murmur Gastrointestinal: soft, positive bowel sounds Musculoskeletal: edema present Neurological: non-focal Psychiatric: normal affect, A&O x 3 Dx/Plan (1) Acute diastolic congestive heart failure due to valvular disease Code(s): I50.31 - ACUTE DIASTOLIC (CONGESTIVE) HEART FAILURE; I38 - ENDOCARDITIS , VALVE UNSPECIFIED Status: Acute Comment: Moderate Aortic Stenosis, diuresing well (2) Acute blood loss anemia Code(s): D62 - ACUTE POSTHEMORRHAGIC ANEMIA Status: Acute Comment: Rectus hematoma last month on Elliquis, will recheck CBC (3) Hypertension Code(s): I10 - ESSENTIAL (PRIMARY) HYPERTENSION Status: Chronic Qualifiers: Hypertension type: essential hypertension Qualified Code(s): I10 - Essential (primary) hypertension Comment: on the low side, monitor closely with diuresis (4) Paroxysmal atrial fibrillation Code(s): I48.0 - PAROXYSMAL ATRIAL FIBRILLATION Status: Chronic (5) Hyperlipidemia Code(s): E78.5 - HYPERLIPIDEMIA, UNSPECIFIED Status: Chronic Qualifiers: Hyperlipidemia type: unspecified Qualified Code(s): E78.5 - Hyperlipidemia , unspecified (6) Hypothyroid Code(s): E03.9 - HYPOTHYROIDISM, UNSPECIFIED Status: Chronic Qualifiers: Hypothyroidism type: unspecified Qualified Code(s): E03.9 - Hypothyroidism , unspecified Comment: Continue Levothyroxine 100mcg daily (7) Moderate aortic stenosis Code(s): I35.0 - NONRHEUMATIC AORTIC (VALVE) STENOSIS Status: Chronic (8) Hypoventilation associated with obesity syndrome Code(s): E66.2 - MORBID (SEVERE) OBESITY WITH ALVEOLAR HYPOVENTILATION Status : Chronic - Plan cont current plan of care, DVT proph w/SCDs BP lower 100s now, continue Lasix for now, may need to back off tomorrow. * . - Discharge Day Encounter end time: 10:00
--- NOTE | 2018-02-28 16:36 | PQF ---
CLINICAL DOCUMENTATION IMPROVEMENT CLARIFICATION FORM: ICD-10 Updated PLEASE DO AN ADDENDUM TO THE PROGRESS NOTE WITH ANY DOCUMENTATION UPDATES OR ADDITIONS AND CARRY THROUGH TO DC SUMMARY. THANK YOU. DATE: 02/28/18 ATTN: Dr. Mendez Please exercise your independent, professional judgment in responding to the clarification form. Clinical indicators are provided on the bottom of this form for your review Please check appropriate box(s): I (concur) with the Nursing Assessment findings as stated below. [ X ] Pressure Ulcer: (Stage I: Erythema; Stage II: Partial thickness; Stage III : Full thickness; Stage IV: Necrosis to muscle/bone) [ X ] Location: _posterior perineum POA: [ X ] Yes [ ] No [ ] Unable to determine Stage (I to IV): ____(Left____Right___Bilateral____N/A____) [ ] Location: POA: [ ] Yes [ ] No [ ] Unable to determine Stage (I to IV): ____(Left____ Right___Bilateral____ N/A___) [ ] No pressure ulcer diagnosis [ ] Other diagnosis [ ] Unable to determine In addition, please specify: Present on Admission (POA): [ X ] Yes [ ] No [ ] Unable to determine For continuity of documentation, please document condition throughout progress notes and discharge summary. Thank You. CLINICAL INDICATORS - SIGNS / SYMPTOMS / LABS NURSING ASSESSMENT 02/25 @ 1920: POSTERIOR PERINEUM PRESSURE ULCER. STAGE II RISKS: H&P 02/25:HX CHF, HTN, DM. BILATERAL LE 3+ PITTING EDEMA WITH CHRONIC VASCULAR CHANGES AND REDNESS OF THE OVERLYING SKIN. TREATMENT: SKIN INTERVENTIONS PER NURSING PROTOCOL: POSITION CHANGES: Q2 H IN BED; Q1 HR IN CHAIR SKIN KEPT FROM EXCESSIVE MOISTURE WAFFLE MATTRESS IS PLACED 02/26: WOUND CARE EVAL/ TREAT Pre-ulcer skin changes limited to persistent focal edema (Stage 1) Abrasion, blister, partial thickness skin loss involving epidermis and/or dermis (Stage 2) Full thickness skin loss involving damage or necrosis of SQ tissue. (Stage 3) Necrosis of soft tissue through to underlying muscle, tendon, or bone. (Stage 4) Purple or maroon discolored skin or blood filled blister Thank you, Latesha (This form is maintained as a part of the permanent medical record) 2015 [employer] All Rights Reserved Latesha Reyna RN, BSN [email or web address] Office: [phone] [facility] SYSTEM[facility]
[2018-02-28] MEDS: Atorvastatin Calcium 40 MG TAB PO SCH (20:33)
[2018-02-28] MEDS: Nystatin Powder 15 GM BOT TOP PRN (20:35)
[2018-03-01] MEDS: Clindamycin 150 MG CAP PO SCH ×3 (04:53→20:53)
[2018-03-01] MEDS: Levothyroxine Sodium 100 MCG TAB PO SCH (05:08)
[2018-03-01] MEDS: Furosemide 100 MG/10 ML VIAL SLOW IVP SCH ×2 (05:08→14:50)
[2018-03-01 06:06] LABS: Anion Gap 12 mmol/L (10-20); BUN (Urea Nitrogen) 14 mg/dL (9.8-20.1); Calc. Creatinine Clearance 99 mL/min (70-130); Calcium 8.6 mg/dL (7.8-10.44); Carbon Dioxide 26 mmol/L (23-31); Chloride 104 mmol/L (98-107); Estimated GFR-MDRD 70; Glucose 107 mg/dL (83-110); Potassium 3.3 mmol/L (3.5-5.1); Sodium 139 mmol/L (136-145)
[2018-03-01 06:18] LABS: Band 5 % (5-11); Eosinophils 3 % (0-10); Hemoglobin 7.6 g/dL (12.0-16.0); Lymphocytes 23 % (21-51); MDiff Complete? YES; Mean Corpuscular HGB CONC 31.4 g/dL (32.0-36.0); Mean Corpuscular Hemoglobin 25.4 pg (27.0-31.0); Mean Corpuscular Volume 80.8 fL (78.0-98.0); Mean Platelet Volume 9.5 fL (7.4-10.4); Monocytes 6 % (0-10); Neutrophil 63 % (42-75); Platelet Count 148 thou/uL (130-400); RBC Distribution Width 18.5 % (11.5-14.5); Red Blood Cell (RBC) Count 2.98 mill/uL (4.20-5.40); White Blood Cell (WBC) Count 3.9 thou/uL (4.8-10.8)
--- NOTE | 2018-03-01 07:42 | PDOC.PN ---
- Subjective Encounter Start Date: 03/01/18 Encounter Start Time: 14:15 Subjective: Patient reports improved breathing. Better energy level. Wants -: to go home soon. Lives a home with niece and usually ambulates -: independently. - Objective MAR Reviewed: Yes Vital Signs & Weight: Vital Signs (12 hours) Temp Pulse Resp BP BP Pulse Ox 03/01/18 04:00 98.8 F 71 20 120/54 L 93 L 03/01/18 00:00 98.3 F 69 20 113/53 L 92 L 02/28/18 20:05 98.7 F 69 18 101/46 L 95 Weight Admit Weight 284 lb 3.2 oz Weight 276 lb 1.6 oz I&O: 02/28/18 03/01/18 03/02/18 06:59 06:59 06:59 Intake Total 1110 1508 Output Total 4221 2750 Balance -9928 -3798 Result Diagrams: 03/01/18 04:47 03/01/18 04:47 Phys Exam - Physical Examination Constitutional: NAD HEENT: moist MMs Respiratory: no wheezing, no rales, no rhonchi Cardiovascular: irregular 3/6 holosystolic murmur Gastrointestinal: soft, non-tender Neurological: non-focal, moves all 4 limbs Psychiatric: normal affect, A&O x 3 Dx/Plan (1) Acute diastolic congestive heart failure due to valvular disease Code(s): I50.31 - ACUTE DIASTOLIC (CONGESTIVE) HEART FAILURE; I38 - ENDOCARDITIS , VALVE UNSPECIFIED Status: Acute Comment: Moderate Aortic Stenosis, diuresing well (2) Acute blood loss anemia Code(s): D62 - ACUTE POSTHEMORRHAGIC ANEMIA Status: Acute Comment: Rectus hematoma last month on Elliquis, mild drop in H/H inspite of significant diuresis. Will trend CBC and transfuse if necessary. Still above 7 at this time. (3) Hypertension Code(s): I10 - ESSENTIAL (PRIMARY) HYPERTENSION Status: Chronic Qualifiers: Hypertension type: essential hypertension Qualified Code(s): I10 - Essential (primary) hypertension Comment: on the low side, monitor closely with diuresis (4) Paroxysmal atrial fibrillation Code(s): I48.0 - PAROXYSMAL ATRIAL FIBRILLATION Status: Chronic (5) Hyperlipidemia Code(s): E78.5 - HYPERLIPIDEMIA, UNSPECIFIED Status: Chronic Qualifiers: Hyperlipidemia type: unspecified Qualified Code(s): E78.5 - Hyperlipidemia , unspecified (6) Hypothyroid Code(s): E03.9 - HYPOTHYROIDISM, UNSPECIFIED Status: Chronic Qualifiers: Hypothyroidism type: unspecified Qualified Code(s): E03.9 - Hypothyroidism , unspecified Comment: Continue Levothyroxine 100mcg daily (7) Moderate aortic stenosis Code(s): I35.0 - NONRHEUMATIC AORTIC (VALVE) STENOSIS Status: Chronic (8) Hypoventilation associated with obesity syndrome Code(s): E66.2 - MORBID (SEVERE) OBESITY WITH ALVEOLAR HYPOVENTILATION Status : Chronic (9) Hypokalemia Code(s): E87.6 - HYPOKALEMIA Status: Acute Comment: Replace orally - Plan cont current plan of care, PT/OT Continuing to diurese well. Likely home tomorrow. Will recheck CBC -: before discharge. Will need PT to reassess strength as well, if not -: able to walk independently may need SNF. * . - Discharge Day Encounter end time: 14:40
[2018-03-01] MEDS: Aspirin 81 mg Enteric Coated Tablet PO SCH (09:45)
[2018-03-01] MEDS: Potassium Chloride 20 MEQ TAB PO SCH ×2 (09:45→18:19)
[2018-03-01] MEDS: Dronedarone HCl 400 MG TAB PO SCH ×2 (09:46→18:19)
[2018-03-01] MEDS: Clotrimazole 1 % Cream 30 GM TUBE TOP SCH ×2 (09:53→20:53)
[2018-03-01] MEDS: Carvedilol 6.25 MG TAB PO SCH (09:53)
[2018-03-01] MEDS: Nystatin Powder 15 GM BOT TOP PRN (09:54)
[2018-03-01 14:59] VITALS: BMI 45.9
[2018-03-01] MEDS: Atorvastatin Calcium 40 MG TAB PO SCH (20:53)
[2018-03-02] MEDS: Clindamycin 150 MG CAP PO SCH ×3 (04:00→20:19)
[2018-03-02 05:31] LABS: #Basophils 0.1 thou/uL (0.0-0.2); #Eosinphils 0.2 thou/uL (0.0-0.7); #Lymphocytes 1.2 thou/uL (1.20-3.40); #Monocytes 0.4 thou/uL (0.11-0.59); #Neutrophils 1.8 thou/uL (1.40-6.50); %Basophils 1.7 % (0.0-1.0); %Eosinophils 4.7 % (0.0-10.0); %Lymphocytes 31.7 % (21.0-51.0); %Monocytes 11.5 % (0.0-10.0); %Neutrophils 50.4 % (42.0-75.0); Hemoglobin 7.6 g/dL (12.0-16.0); Mean Corpuscular HGB CONC 30.4 g/dL (32.0-36.0); Mean Corpuscular Hemoglobin 24.9 pg (27.0-31.0); Mean Corpuscular Volume 81.7 fL (78.0-98.0); Mean Platelet Volume 9.8 fL (7.4-10.4); Platelet Count 149 thou/uL (130-400); RBC Distribution Width 18.4 % (11.5-14.5); Red Blood Cell (RBC) Count 3.07 mill/uL (4.20-5.40); White Blood Cell (WBC) Count 3.6 thou/uL (4.8-10.8)
[2018-03-02 05:54] LABS: Anion Gap 12 mmol/L (10-20); BUN (Urea Nitrogen) 17 mg/dL (9.8-20.1); Calc. Creatinine Clearance 88 mL/min (70-130); Calcium 8.6 mg/dL (7.8-10.44); Carbon Dioxide 25 mmol/L (23-31); Chloride 105 mmol/L (98-107); Estimated GFR-MDRD 61; Glucose 93 mg/dL (83-110); Potassium 4.5 mmol/L (3.5-5.1); Sodium 137 mmol/L (136-145)
[2018-03-02] MEDS: Levothyroxine Sodium 100 MCG TAB PO SCH (06:26)
[2018-03-02] MEDS: Furosemide 100 MG/10 ML VIAL SLOW IVP SCH (06:32)
--- NOTE | 2018-03-02 07:55 | PDOC.PN ---
- Subjective Encounter Start Date: 03/02/18 Encounter Start Time: 11:00 Subjective: Patient without complaints. Just gets very SOB with exertion. -: Patient and family think she needs more help than can get at -: home. Arranging SNF. - Objective MAR Reviewed: Yes Vital Signs & Weight: Vital Signs (12 hours) Temp Pulse Resp BP Pulse Ox 03/02/18 06:32 120/56 L 03/02/18 04:00 98.5 F 61 14 112/50 L 93 L 03/01/18 20:00 97.7 F 65 21 H 103/46 L 94 L Weight Admit Weight 284 lb 3.2 oz Weight 277 lb 14.4 oz I&O: 03/01/18 03/02/18 03/03/18 06:59 06:59 06:59 Intake Total 1508 610 Output Total 4800 1825 Balance -1242 -7497 Result Diagrams: 03/02/18 04:44 03/02/18 04:44 Phys Exam - Physical Examination Constitutional: NAD HEENT: moist MMs Respiratory: no wheezing, no rales, no rhonchi Cardiovascular: RRR, no significant murmur Gastrointestinal: soft, positive bowel sounds Musculoskeletal: pulses present Neurological: non-focal, moves all 4 limbs Psychiatric: normal affect, A&O x 3 Dx/Plan (1) Acute diastolic congestive heart failure due to valvular disease Code(s): I50.31 - ACUTE DIASTOLIC (CONGESTIVE) HEART FAILURE; I38 - ENDOCARDITIS , VALVE UNSPECIFIED Status: Acute Comment: Moderate Aortic Stenosis, diuresing well (2) Acute blood loss anemia Code(s): D62 - ACUTE POSTHEMORRHAGIC ANEMIA Status: Acute Comment: Rectus hematoma last month on Elliquis, mild drop in H/H inspite of significant diuresis. Will trend CBC and transfuse if necessary. Still above 7 at this time. (3) Hypertension Code(s): I10 - ESSENTIAL (PRIMARY) HYPERTENSION Status: Chronic Qualifiers: Hypertension type: essential hypertension Qualified Code(s): I10 - Essential (primary) hypertension Comment: on the low side, monitor closely with diuresis (4) Paroxysmal atrial fibrillation Code(s): I48.0 - PAROXYSMAL ATRIAL FIBRILLATION Status: Chronic (5) Hyperlipidemia Code(s): E78.5 - HYPERLIPIDEMIA, UNSPECIFIED Status: Chronic Qualifiers: Hyperlipidemia type: unspecified Qualified Code(s): E78.5 - Hyperlipidemia , unspecified (6) Hypothyroid Code(s): E03.9 - HYPOTHYROIDISM, UNSPECIFIED Status: Chronic Qualifiers: Hypothyroidism type: unspecified Qualified Code(s): E03.9 - Hypothyroidism , unspecified Comment: Continue Levothyroxine 100mcg daily (7) Moderate aortic stenosis Code(s): I35.0 - NONRHEUMATIC AORTIC (VALVE) STENOSIS Status: Chronic (8) Hypoventilation associated with obesity syndrome Code(s): E66.2 - MORBID (SEVERE) OBESITY WITH ALVEOLAR HYPOVENTILATION Status : Chronic (9) Hypokalemia Code(s): E87.6 - HYPOKALEMIA Status: Acute Comment: Replace orally - Plan cont current plan of care, PT/OT Patient diuresed well. Some low BP yest evening, so will switch back to -: oral Furosemide. PT. Evaluate for SNF placement. * . - Discharge Day Encounter end time: 11:15
[2018-03-02] MEDS: Carvedilol 6.25 MG TAB PO SCH (09:00)
[2018-03-02] MEDS: Potassium Chloride 20 MEQ TAB PO SCH ×2 (09:00→17:32)
[2018-03-02] MEDS: Furosemide 20 MG TAB PO SCH ×2 (09:00→15:16)
[2018-03-02] MEDS: Clotrimazole 1 % Cream 30 GM TUBE TOP SCH ×2 (09:01→21:43)
[2018-03-02] MEDS: Dronedarone HCl 400 MG TAB PO SCH ×2 (09:01→17:32)
[2018-03-02] MEDS: Nystatin Powder 15 GM BOT TOP PRN ×2 (09:01→21:43)
[2018-03-02] MEDS: Aspirin 81 mg Enteric Coated Tablet PO SCH (09:01)
[2018-03-02] MEDS: Atorvastatin Calcium 40 MG TAB PO SCH (21:43)
[2018-03-03] MEDS: Clindamycin 150 MG CAP PO SCH ×2 (05:31→13:53)
[2018-03-03] MEDS: Levothyroxine Sodium 100 MCG TAB PO SCH (05:31)
--- NOTE | 2018-03-03 07:34 | PDOC.PN ---
- Subjective Encounter Start Date: 03/03/18 Encounter Start Time: 10:45 Subjective: Patient with some nausea this morning. Otherwise without -: complaint. Transitioned to oral meds and bell out. - Objective MAR Reviewed: Yes Vital Signs & Weight: Vital Signs (12 hours) Temp Pulse Resp BP Pulse Ox 03/03/18 04:00 97.8 F 63 18 109/54 L 92 L 03/02/18 20:00 97.6 F 61 20 95/54 L 95 Weight Admit Weight 284 lb 3.2 oz Weight 277 lb 14.4 oz I&O: 03/02/18 03/03/18 03/04/18 06:59 06:59 06:59 Intake Total 610 1120 Output Total 1825 800 Balance -1215 320 Result Diagrams: 03/02/18 04:44 03/02/18 04:44 Phys Exam - Physical Examination Constitutional: NAD HEENT: moist MMs Respiratory: no wheezing, no rales, no rhonchi Cardiovascular: RRR, no significant murmur Gastrointestinal: soft, positive bowel sounds Musculoskeletal: pulses present trace edema Neurological: non-focal, moves all 4 limbs Psychiatric: normal affect, A&O x 3 Dx/Plan (1) Acute diastolic congestive heart failure due to valvular disease Code(s): I50.31 - ACUTE DIASTOLIC (CONGESTIVE) HEART FAILURE; I38 - ENDOCARDITIS , VALVE UNSPECIFIED Status: Acute Comment: Moderate Aortic Stenosis, diuresing well (2) Acute blood loss anemia Code(s): D62 - ACUTE POSTHEMORRHAGIC ANEMIA Status: Acute Comment: Rectus hematoma last month on Elliquis, mild drop in H/H inspite of significant diuresis. Will trend CBC and transfuse if necessary. Still above 7 at this time. (3) Hypertension Code(s): I10 - ESSENTIAL (PRIMARY) HYPERTENSION Status: Chronic Qualifiers: Hypertension type: essential hypertension Qualified Code(s): I10 - Essential (primary) hypertension Comment: on the low side, monitor closely with diuresis (4) Paroxysmal atrial fibrillation Code(s): I48.0 - PAROXYSMAL ATRIAL FIBRILLATION Status: Chronic (5) Hyperlipidemia Code(s): E78.5 - HYPERLIPIDEMIA, UNSPECIFIED Status: Chronic Qualifiers: Hyperlipidemia type: unspecified Qualified Code(s): E78.5 - Hyperlipidemia , unspecified (6) Hypothyroid Code(s): E03.9 - HYPOTHYROIDISM, UNSPECIFIED Status: Chronic Qualifiers: Hypothyroidism type: unspecified Qualified Code(s): E03.9 - Hypothyroidism , unspecified Comment: Continue Levothyroxine 100mcg daily (7) Moderate aortic stenosis Code(s): I35.0 - NONRHEUMATIC AORTIC (VALVE) STENOSIS Status: Chronic (8) Hypoventilation associated with obesity syndrome Code(s): E66.2 - MORBID (SEVERE) OBESITY WITH ALVEOLAR HYPOVENTILATION Status : Chronic (9) Hypokalemia Code(s): E87.6 - HYPOKALEMIA Status: Acute Comment: Replace orally - Plan cont current plan of care Patient's rodriguez has physical problems and has a hard -: time getting around herself and can't help pt mobilize. Patient -: agreeable to SNF stay now. * . - Discharge Day Encounter end time: 11:00
[2018-03-03] MEDS: Carvedilol 6.25 MG TAB PO SCH (08:57)
[2018-03-03] MEDS: Aspirin 81 mg Enteric Coated Tablet PO SCH (08:57)
[2018-03-03] MEDS: Furosemide 20 MG TAB PO SCH ×2 (08:57→13:54)
[2018-03-03] MEDS: Potassium Chloride 20 MEQ TAB PO SCH (08:58)
[2018-03-03] MEDS: Dronedarone HCl 400 MG TAB PO SCH ×2 (08:58→17:03)
[2018-03-03] MEDS: Clotrimazole 1 % Cream 30 GM TUBE TOP SCH ×2 (08:59→22:58)
[2018-03-03] MEDS: Nystatin Powder 15 GM BOT TOP PRN (08:59)
[2018-03-03 16:52] LABS: Hemoglobin 8.7 g/dL (12.0-16.0)
[2018-03-03] MEDS ORDERED: Potassium Chloride 20 MEQ TAB PO SCH (17:00)
[2018-03-03 17:08] VITALS: BP 119/58; TEMP 97.8
--- NOTE | 2018-03-03 17:43 | EKG ---
Test Reason : Blood Pressure : / mmHG Vent. Rate : 071 BPM Atrial Rate : 072 BPM P-R Int : 000 ms QRS Dur : 074 ms QT Int : 408 ms P-R-T Axes : 000 016 012 degrees QTc Int : 443 ms Accelerated Junctional rhythm Anterior infarct , age undetermined Abnormal ECG Confirmed by JOSÉ DONIS ([id number]), primer expeditor and drier KENA BETTENCOURT ([id number]) on 03/03/2018 5:42:45 PM Referred By: Confirmed By:JOSÉ DONIS
[2018-03-03] MEDS: Atorvastatin Calcium 40 MG TAB PO SCH (22:58)
--- NOTE | 2018-03-04 05:36 | DIS ---
DATE OF ADMISSION: 02/25/2018 DATE OF DISCHARGE: 03/03/2018 PRIMARY CARE PHYSICIAN: Dr. Ace Babin. REASON FOR ADMISSION: Acute on chronic congestive heart failure. DIAGNOSES AT DISCHARGE: 1. Acute on chronic diastolic congestive heart failure. 2. Acute blood loss anemia. 3. Hypertension. 4. Paroxysmal atrial fibrillation. 5. Hyperlipidemia. 6. Hypothyroidism. 7. Moderate aortic stenosis. 8. Obesity hypoventilation syndrome. CONSULTATIONS: None. PROCEDURES: None. HISTORY OF HOSPITAL COURSE: This is an 87-year-old white female with a known history of congestive heart failure due to valvular disease as well as paroxysmal atrial fibrillation. She presented with increasing shortness of breath. In the ER, found to have weeping lower extremity edema. The patient is usually independent, walks around, drives and takes care of herself. The niece was with the patient, but she is physically debilitated and cannot really help around much. The patient was in the hospital on diuresis. She diuresed well with IV Lasix with a large amount of urine output and an increase in energy level, decreased shortness of breath. She was doing much better by the end of the hospitalization. She was asymptomatic, but still weak from being in bed for so many days and so she will need to go to rehab to regain her strength for return to home. The patient was recently hospitalized for a rectus sheath hematoma on Eliquis last month. This had to be stopped and she was put on Multaq with conversion of her atrial fibrillation to normal sinus rhythm. She continues to have anemia, it did drop from mid 8s to mid 7s here, but was stable afterward with no evidence of continued bleeding. The patient did have a drop in her potassium while she was here, was replaced orally and she had been converted to oral Lasix and potassium at the time of discharge. DISCHARGE MANAGEMENT: Discharged to [facility]. ACTIVITY: As tolerated. DIET: Healthy heart. Low-sodium, fluid-restricted diet. THERAPIES: Occupational and physical therapy, oxygen as needed. MEDICATIONS: 1. Carvedilol 6.25 mg daily. 2. Levothyroxine 100 mcg daily. 3. Atorvastatin 40 mg at night. 4. Aspirin 81 mg daily. 5. Enalapril 5 mg daily. 6. Multaq 400 mg twice a day. 7. Zofran 4 mg every 6 hours as needed. 8. Nystatin topical. 9. Lasix 40 mg by mouth twice a day. 10. Lotrimin cream twice a day. 11. Dulcolax as needed. Job ID: [id number]
[2018-03-04] MEDS ORDERED: Potassium Chloride 20 MEQ TAB PO SCH (08:00)
== END 2018-03-03 23:24 | DRG 292 ==
LOC: ERS 15:48 → 2NO 17:56
PROVIDERS: ADMIT Internal Medicine; ATTEND Internal Medicine
DX: I11.0 Hypertensive heart disease with heart failure (principal); D62 Acute posthemorrhagic anemia; E66.2 Morbid (severe) obesity with alveolar hypoventilation; Z68.42 Body mass index [BMI] 45.0-49.9, adult; I48.0 Paroxysmal atrial fibrillation; I50.33 Acute on chronic diastolic (congestive) heart failure; E03.9 Hypothyroidism, unspecified; E11.9 Type 2 diabetes mellitus without complications; E78.5 Hyperlipidemia, unspecified; I35.0 Nonrheumatic aortic (valve) stenosis; L89.892 Pressure ulcer of other site, stage 2; E87.6 Hypokalemia; Z79.82 Long term (current) use of aspirin
CPT/HCPCS: 36415; 36416; 71045; 80048; 80053; 81001; 83880; 84484; 85014; 85018; 85025; 90471; 90662; 93005; 93798; 96374; G0008; G8978-GP-CL; G8979-GP-CI; J1940; Q0162

== ENCOUNTER 2018-03-30 12:25 | Inpatient (IN) | payer MEDICARE ==
[2018-03-30 13:10] LABS: #Eosinphils 0.1 thou/uL (0.0-0.7); #Lymphocytes 0.9 thou/uL (1.20-3.40); #Monocytes 0.4 thou/uL (0.11-0.59); #Neutrophils 1.8 thou/uL (1.40-6.50); %Eosinophils 3.3 % (0.0-10.0); %Neutrophils 54.6 % (42.0-75.0); Mean Corpuscular HGB CONC 29.6 g/dL (32.0-36.0); Mean Corpuscular Hemoglobin 23.5 pg (27.0-31.0); Mean Corpuscular Volume 79.4 fL (78.0-98.0); Mean Platelet Volume 10.8 fL (7.4-10.4); Platelet Count 116 thou/uL (130-400); RBC Distribution Width 17.9 % (11.5-14.5); Red Blood Cell (RBC) Count 3.41 mill/uL (4.20-5.40); White Blood Cell (WBC) Count 3.3 thou/uL (4.8-10.8)
[2018-03-30 13:20] LABS: ALT (SGPT) 17 U/L (8-55); AST (SGOT) 21 U/L (5-34); Albumin 3.7 g/dL (3.4-4.8); Alkaline Phosphatase 78 U/L (40-150); Anion Gap 12 mmol/L (10-20); Anisocytosis SLIGHT = 6-15 cells (100X) (0-5/hpf); BUN (Urea Nitrogen) 16 mg/dL (9.8-20.1); Bilirubin, Total 1.3 mg/dL (0.2-1.2); Burr Cells SLIGHT = 2-5 cells (100X) (0-1/hpf); CK (CPK) 15 U/L (29-168); Calc. Creatinine Clearance 0 mL/min (70-130); Calcium 9.3 mg/dL (7.8-10.44); Carbon Dioxide 23 mmol/L (23-31); Chloride 109 mmol/L (98-107); Estimated GFR-MDRD 67; Globulin 2.4 g/dL (2.4-3.5); Glucose 88 mg/dL (83-110); Hypochromia SLIGHT = 6-15 cells (100X) (0-5/hpf); MDiff Complete? YES; Microcytosis SLIGHT = 6-15 cells (100X) (0-5/hpf); Ovalocytes SLIGHT = 2-5 cells (100X) (0-1/hpf); Platelet Morphology Comment Appears Decreased; Poikilocytosis SLIGHT = 6-15 cells (100X) (0-5/hpf); Polychromasia SLIGHT = 2-3 cells (100X) (0-2/hpf); Potassium 4.2 mmol/L (3.5-5.1); Protein, Total 6.1 g/dL (6.0-8.3); Schistocytes SLIGHT = 2-5 cells (100X) (0-1/hpf); Sodium 140 mmol/L (136-145); Target Cells SLIGHT = 2-5 cells (100X) (0-1/hpf)
--- NOTE | 2018-03-30 13:55 | RAD ---
PORTABLE CHEST: HISTORY: Difficulty breathing. COMPARISON: 02/25/2018 FINDINGS: Heart size is enlarged. Pulmonary vessels appear mildly engorged. Interstitial markings are increas ed, but this appears to be more of a chronic interstitial fibrotic lung change. Some element of william a could be present. IMPRESSION: Cardiomegaly with some increased interstitial markings. I believe these changes are largely chronic in nature. Overall, fairly stable examination. POS: JORDAN
[2018-03-30] MEDS ORDERED: Aspirin Chewable 81 MG TAB ONE ×2 (15:21→15:26)
[2018-03-30] MEDS ORDERED: Furosemide 100 MG/10 ML VIAL ONE (15:21)
[2018-03-30] MEDS ORDERED: Aspirin 325 MG TAB ONE (15:23)
[2018-03-30] MEDS ORDERED: Ondansetron PF 4 MG/2 ML Vial IVP PRN (15:55)
[2018-03-30 16:47] LABS: Troponin I Less than 0.010 ng/mL (< 0.028)
[2018-03-30 20:15] LABS: Iron 21 ug/dL (50-170); Iron Binding Capacity, Total 520 mcg/dL (265-497)
[2018-03-30 20:20] LABS: Troponin I Less than 0.010 ng/mL (< 0.028)
[2018-03-30 21:46] VITALS: BMI 45.3
[2018-03-30] MEDS: Potassium Chloride 20 MEQ TAB PO SCH (21:52)
[2018-03-30] MEDS: Atorvastatin Calcium 40 MG TAB PO SCH (21:53)
[2018-03-30] MEDS: Dronedarone HCl 400 MG TAB PO SCH (21:53)
[2018-03-30] MEDS: Carvedilol 6.25 MG TAB PO SCH (21:53)
--- NOTE | 2018-03-30 22:47 | HP ---
CHIEF COMPLAINT: Shortness of breath. HISTORY OF PRESENT ILLNESS: The patient is an 87-year-old female, who is getting admitted 3rd time since . She was just here in February with the same complaints of increased shortness of breath. Apparently, she was tried on apixaban and had internal bleeding during one of those latest admissions and since then she is not on any anticoagulant. She denies any chest pain. She did quite well after the February admission when she went to the rehab and went home and she was doing quite well until few days ago, she started having shortness of breath again. She denied any cough, no fever, no chills. Her primary care physician is Dr. Babin and salvage worker is Dr. Rider. PAST MEDICAL HISTORY: 1. Hypertension. 2. Congestive heart failure. 3. Paroxysmal atrial fibrillation. 4. Lymphedema, which is chronic. 5. Hypothyroidism. 6. Diabetes mellitus type 2. 7. Hyperlipidemia. PAST SURGICAL HISTORY: 1. Hysterectomy. 2. Appendectomy. SOCIAL HISTORY: She denies any alcohol, drug, or cigarette smoking history. ALLERGIES: NONE. THE PATIENT CAN NOT TOLERATE ELIQUIS, BECAUSE OF THE INTERNAL BLEEDING. REVIEW OF SYSTEMS: CONSTITUTIONAL: No fever or chills. Positive for lymphedema. EYES: No eye pain or eye discharge. ENT: No nasal congestion. No epistaxis. CARDIOVASCULAR: No chest pain. No palpitations. RESPIRATORY: Negative for a cough. Positive for shortness of breath. NEUROLOGIC: Negative for neurological deficits and sensory deficits. PSYCHIATRIC: Negative for suicidal, homicidal ideations. : Negative for hematuria and dysuria. PHYSICAL EXAMINATION: VITAL SIGNS: Blood pressure is 140/60, pulse is 94, respiratory rate is 20. GENERAL: She is afebrile. HEAD: Atraumatic and normocephalic. EYES: PERRLA. Sclerae are nonicteric. MOUTH: Oral mucosa is a moist. NECK: Supple. JVD positive more than 5 cm. LUNGS: Breath sounds diminished at both bases. HEART: S1, S2, somewhat irregular. No S3. No S4. ABDOMEN: Soft, nontender, obese. Bowel sounds present. No organomegaly. EXTREMITIES: Lymphedema, 2 to 3+ peripheral edema. Feet are swollen. I am not able to palpate any pulses on her feet. NEUROLOGIC: She is alert and oriented x4. There is no any sensory or motor deficits present. Cranial nerves are intact. LABORATORY DATA: Labs showed white count of 3.3, hemoglobin 8.0, hematocrit 27.1, platelet count is 116. Sodium of 140, potassium 4.2, chloride 109, CO2 of 23, BUN 16, creatinine 0.81, total bilirubin 1.3, creatine kinase 15. BNP 252.3. Troponin I less than 0.010. The rest of chemistry within normal limits. EKG showed normal sinus rhythm, no ischemic changes. Some Q-waves in V3 and V4, suggestive of previous infarction. Chest x-ray showed megaly with increased interstitial markings. This was personally reviewed by me. IMPRESSION: 1. Increased shortness of breath, probably multifactorial, partially related to her congestive heart failure plus anemia although deconditioning. 2. Massive lymphedema, chronic. 3. Anemia. 4. Pancytopenia. This is relatively new since in January her platelets and white cell count were within normal limits. 5. Atrial fibrillation per history. Currently in sinus rhythm. 6. Hypothyroidism. 7. Hyperlipidemia. 8. Hypertension. PLAN: Plan is to admit her to telemetry floor for full admission. Condition is fair. Activity is bedrest and bathroom privileges with assistance. We will have the walking program since she has massive lymphedema and this should help with her lower extremity swelling. We will keep her on high dose of IV Lasix. She received 80 mg IV push of Lasix in the emergency room. We will keep on 40 every 12 hours. We will see how this helps. We will consider evaluation by biochemistry technician for her current pancytopenia of somewhat unclear etiology. We will obtain echocardiogram to evaluate her LVEF since she did not have 1 done in this hospital. We are not going to do SCDs, because of her lymphedema and she will be on 40 mg of Lovenox for DVT prophylaxis. Job ID: [id number]
[2018-03-31 05:29] LABS: Eosinophils 4 % (0-10); Hemoglobin 7.5 g/dL (12.0-16.0); Lymphocytes 49 % (21-51); MDiff Complete? YES; Mean Corpuscular HGB CONC 30.3 g/dL (32.0-36.0); Mean Corpuscular Hemoglobin 24.4 pg (27.0-31.0); Mean Corpuscular Volume 80.6 fL (78.0-98.0); Monocytes 10 % (0-10); Neutrophil 37 % (42-75); Platelet Count 99 thou/uL (130-400); Platelet Morphology Comment Appears Decreased; RBC Distribution Width 17.8 % (11.5-14.5); Red Blood Cell (RBC) Count 3.06 mill/uL (4.20-5.40); White Blood Cell (WBC) Count 2.9 thou/uL (4.8-10.8)
[2018-03-31] MEDS: Furosemide 40 MG/4 ML VIAL SLOW IVP SCH ×2 (05:40→14:07)
[2018-03-31] MEDS: Levothyroxine Sodium 100 MCG TAB PO SCH (05:41)
[2018-03-31 05:46] LABS: Anion Gap 14 mmol/L (10-20); BUN (Urea Nitrogen) 16 mg/dL (9.8-20.1); Calc. Creatinine Clearance 97 mL/min (70-130); Calcium 9.5 mg/dL (7.8-10.44); Carbon Dioxide 23 mmol/L (23-31); Chloride 107 mmol/L (98-107); Estimated GFR-MDRD 69; Glucose 93 mg/dL (83-110); Potassium 3.9 mmol/L (3.5-5.1); Sodium 140 mmol/L (136-145)
[2018-03-31] MEDS: Carvedilol 6.25 MG TAB PO SCH ×2 (08:51→21:03)
[2018-03-31] MEDS: Dronedarone HCl 400 MG TAB PO SCH ×2 (08:51→21:03)
[2018-03-31] MEDS: Aspirin 81 mg Enteric Coated Tablet PO SCH (08:51)
[2018-03-31] MEDS: Potassium Chloride 20 MEQ TAB PO SCH ×2 (08:51→21:04)
[2018-03-31] MEDS ORDERED: Enoxaparin Sodium 40 MG/0.4 ML SYRINGE SC SCH (09:00)
[2018-03-31] MEDS ORDERED: Metolazone 5 MG TAB PO SCH ×2 (11:45)
[2018-03-31 12:02] LABS: Reticulocyte Count 2.2 % (0.5-1.5)
--- NOTE | 2018-03-31 12:03 | PRG ---
DATE OF SERVICE: 03/31/2018 SUBJECTIVE: The patient is seen and examined at the bedside. She complains about some shortness of breath. She is not in any pain. She ate her breakfast. OBJECTIVE: VITAL SIGNS: Blood pressure is 129/57, pulse is 65, temperature is 97.6, respirations 17, O2 saturation is 93% on room air. HEENT: Head is atraumatic and normocephalic. Eyes are PERRLA. Sclerae is nonicteric. Oral mucosa is moist. NECK: Supple. JVD plus. LUNGS: Breath sounds diminished at both bases with few crackles bilaterally at both bases. No wheezing. HEART: S1, S2, somewhat irregular. No S3. No S4. ABDOMEN: Obese, nontender. Bowel sounds are present. No organomegaly. EXTREMITIES: Lymphedema approximately 3+ peripheral edema. NEUROLOGICAL: She is alert and oriented x4. There is no any motor or sensory deficits present. Cranial nerves are intact. LABORATORY DATA: Labs showed white count of 2.9, hemoglobin 7.5, hematocrit 24.7, platelet count is 99. Chemistry within normal limits. Iron 21, total iron binding capacity of 520, ferritin 50.7. Microbiology, none. IMPRESSION: 1. Shortness of breath, multifactorial. We will start her on 2 L of oxygen by nasal cannula since she is symptomatic at rest. We will start her on metolazone to improve her diuresis. We will continue Lasix 40 mg IV push every 12 hours. Monitor her BMP and kidney function. 2. Massive lymphedema, chronic. 3. Pancytopenia on repeated CBC this morning. We will obtain consultation with Dr. Mayen. We will get retic count. 4. Atrial fibrillation per history, currently in sinus rhythm. 5. Hypothyroidism. 6. Hyperlipidemia. 7. Congestive heart failure. 8. Hypertension. PLAN: Echocardiogram is still pending. We will continue diuresis with loop diuretic plus metolazone. We will get consultation with Dr. Mayen for Hematology evaluation on her pancytopenia and we will obtain a retic count. We will consider transfusion of 1 unit of packed red blood cells. If the placement on O2 does not change her shortness of breath at rest, continue her levothyroxine, Vasotec, Multaq, carvedilol, atorvastatin, aspirin, and potassium. Job ID: [id number]
[2018-03-31] MEDS: Atorvastatin Calcium 40 MG TAB PO SCH (21:03)
[2018-03-31] MEDS: Iron, Sodium Ferric Gluconate 250 MG in Sodium Chloride 0.9% 100 ML IVPB SCH (21:04)
[2018-04-01] MEDS: Furosemide 40 MG/4 ML VIAL SLOW IVP SCH ×2 (05:58→15:02)
[2018-04-01] MEDS: Levothyroxine Sodium 100 MCG TAB PO SCH (05:58)
[2018-04-01 06:10] LABS: Anion Gap 17 mmol/L (10-20); BUN (Urea Nitrogen) 19 mg/dL (9.8-20.1); Calc. Creatinine Clearance 77 mL/min (70-130); Calcium 9.2 mg/dL (7.8-10.44); Carbon Dioxide 23 mmol/L (23-31); Chloride 105 mmol/L (98-107); Estimated GFR-MDRD 54; Glucose 94 mg/dL (83-110); Sodium 141 mmol/L (136-145)
[2018-04-01] MEDS: Potassium Chloride 20 MEQ TAB PO SCH ×2 (08:57→21:26)
[2018-04-01] MEDS: Aspirin 81 mg Enteric Coated Tablet PO SCH (08:57)
[2018-04-01] MEDS: Dronedarone HCl 400 MG TAB PO SCH ×2 (08:57→21:26)
[2018-04-01] MEDS: Metolazone 5 MG TAB PO SCH (08:57)
[2018-04-01] MEDS: Iron, Sodium Ferric Gluconate 250 MG in Sodium Chloride 0.9% 100 ML IVPB SCH (08:58)
[2018-04-01] MEDS: Carvedilol 6.25 MG TAB PO SCH ×2 (08:58→21:26)
[2018-04-01 11:27] LABS: #Eosinphils 0.1 thou/uL (0.0-0.7); #Lymphocytes 1.3 thou/uL (1.20-3.40); #Monocytes 0.7 thou/uL (0.11-0.59); #Neutrophils 3.3 thou/uL (1.40-6.50); %Basophils 0.4 % (0.0-1.0); %Eosinophils 1.6 % (0.0-10.0); %Lymphocytes 23.7 % (21.0-51.0); %Monocytes 12.9 % (0.0-10.0); %Neutrophils 61.5 % (42.0-75.0); Hemoglobin 7.9 g/dL (12.0-16.0); Mean Corpuscular HGB CONC 30.5 g/dL (32.0-36.0); Mean Corpuscular Hemoglobin 24.3 pg (27.0-31.0); Mean Corpuscular Volume 79.8 fL (78.0-98.0); Mean Platelet Volume 11.3 fL (7.4-10.4); Platelet Count 101 thou/uL (130-400); RBC Distribution Width 17.8 % (11.5-14.5); Red Blood Cell (RBC) Count 3.25 mill/uL (4.20-5.40); White Blood Cell (WBC) Count 5.4 thou/uL (4.8-10.8)
--- NOTE | 2018-04-01 15:09 | PRG ---
DATE OF SERVICE: 04/01/2018 SUBJECTIVE: The patient is seen and examined at the bedside. She is feeling better. Her shortness of breath improved. OBJECTIVE: VITAL SIGNS: Blood pressure is 110/52, pulse is 63, temperature is 98.2, respirations 17, O2 saturation is 98% on 2 L by nasal cannula. HEENT: Her head is atraumatic and normocephalic. Eyes are PERRLA. Sclerae are nonicteric. Conjunctivae palish. Oral mucosa is moist. NECK: Supple. LUNGS: Breath sounds diminished at both bases. HEART: S1 and S2 normal. No S3. No S4. ABDOMEN: Obese, soft, nontender. EXTREMITIES: Lymphedema bilaterally, 2 to 3+ peripheral swelling present. NEUROLOGIC: She is alert and oriented x4. There is no any motor deficit. Cranial nerves are intact. LABORATORY DATA: Labs showed white count of 5.4, hemoglobin 7.9, hematocrit 25.9, and platelet count 101. Chemistry within normal limits. Input and output balance -880. Echocardiogram showed ejection fraction of the left ventricle visually estimated at 60% to 65%, grade 2 diastolic dysfunction, mildly enlarged right atrium size, mitral annular calcification, mild to moderate mitral regurgitation, moderate tricuspid regurgitation, right ventricular systolic pressure estimated at 41 mmHg, aortic valve sclerosis with decreased cusp opening, mild aortic regurgitation, and moderate aortic valve stenosis. IMPRESSION: 1. Congestive heart failure, diastolic dysfunction with preserved LVEF. 2. Pancytopenia felt as iron deficiency. 3. Massive lymphedema, chronic. 4. Atrial fibrillation per history, currently in sinus rhythm. 5. Hypothyroidism. 6. Hyperlipidemia. 7. Hypertension. 8. Pulmonary hypertension. 9. Moderate aortic stenosis. PLAN: The patient was seen by Dr. Mayen for hematology evaluation. She was started on iron transfusion. I am going to increase her Lasix dose to 80 mg q.12 plus metolazone since she is not putting out much. Start her on PT. We will continue O2. We will continue levothyroxine, Vasotec, Multaq, carvedilol, atorvastatin, aspirin, and potassium. Job ID: [id number]
[2018-04-01] MEDS: Atorvastatin Calcium 40 MG TAB PO SCH (21:26)
--- NOTE | 2018-04-02 01:33 | CON ---
DATE OF CONSULTATION: 03/31/2018 REASON FOR CONSULTATION: Pancytopenia. HISTORY OF PRESENT ILLNESS: The patient is an elderly 87-year-old woman with a known history of hypertension, congestive heart failure, diabetes mellitus, paroxysmal atrial fibrillation, and bilateral lower extremity stasis edema. She was admitted for repetitive complaints of increasing shortness of breath and is currently being diuresed and treated for heart failure. She was placed on apixaban within the last 1-2 months and suffered a rectus hematoma resulting in discontinuation of the anticoagulant. On this admission, she was noted to have a white blood cell count of 3.3, hemoglobin 8, MCV 79.4, RDW 17.9%, and platelet count 116,000. The white blood cell count is slightly lower than past white blood cell counts, but the differential is essentially normal. The platelet count has been variable with counts in the past around 100,000. She has been anemic over the past 1-2 months. Chemistries are normal including a creatinine of 0.79. However, the iron is 21 and TIBC 520 corresponding to iron saturation of less than 5%. The ferritin is 50.79. I am asked to see the patient at this time to provide further management and recommendations regarding the abnormal blood count. ALLERGIES: NONE. MEDICATIONS: Include aspirin, Lipitor, Coreg, Multaq, Vasotec, Lasix, Zaroxolyn, levothyroxine, potassium, and Zofran as needed. PAST MEDICAL HISTORY: Includes hypertension, congestive heart failure, atrial fibrillation, bilateral lower extremity stasis edema, hypothyroidism, diabetes mellitus, and hyperlipidemia. PAST SURGICAL HISTORY: She has undergone hysterectomy and appendectomy in the past. SOCIAL HISTORY: She has no history of tobacco or alcohol. REVIEW OF SYSTEMS: She has shortness of breath with no chest pain. She has chronic lower extremity discomfort secondary to edema. Otherwise, she has no cardiopulmonary, GI, , musculoskeletal, or neurological complaints. PHYSICAL EXAMINATION: VITAL SIGNS: Temperature 97.4, pulse 69 and regular, respirations 17, blood pressure 118/60, O2 saturations 95% on 2 L nasal cannula GENERAL: The patient is a well-developed and elderly woman, in no acute distress. She is appropriate in conversation. HEENT: The extraocular movements are intact and the pupils are equal, round, and reactive to light. NECK: Supple. LUNGS: Bilateral rhonchi and rales. CARDIOVASCULAR: Regular rate and rhythm with a 2/6 systolic ejection murmur at the lower left sternal border. ABDOMEN: No tenderness, organomegaly, masses, bruits, or ascites. EXTREMITIES: There is brawny edema in the lower extremities bilaterally to the knees. SKIN: Normal. LYMPH: No adenopathy. MUSCULOSKELETAL: No active arthritis. NEUROLOGICAL: No focal findings. LABORATORY DATA: See history of present illness. IMAGING: A chest x-ray on admission shows cardiomegaly with increased interstitial markings which appeared reasonably stable. IMPRESSION: 1. Iron deficiency anemia. 2. Congestive heart failure. 3. History of paroxysmal atrial fibrillation. 4. Diabetes mellitus. 5. Hypertension. 6. Chronic lower extremity stasis changes. RECOMMENDATIONS: I discussed these findings with the patient and I also discussed the findings with the hospitalist. I think the prominent problem is iron deficiency secondary to recent acute on chronic bleeding. Although the ferritin is about 50, this is likely an acute-phase reactant and the iron saturation and history certainly is compatible with iron deficiency. Her hemoglobin is 7.5 today and, therefore, I do feel intravenous iron is warranted. We will plan on about 500 mg IV and then reassess. At this point, there is little evidence of a serious primary hematologic problem. Given my low index of suspicion and her advanced age, we will remain conservative regarding further evaluation. Thank you very much for allowing me to provide my recommendations. I will follow with you. Job ID: [id number]
[2018-04-02 05:29] LABS: Anion Gap 14 mmol/L (10-20); BUN (Urea Nitrogen) 22 mg/dL (9.8-20.1); Calc. Creatinine Clearance 68 mL/min (70-130); Calcium 9.3 mg/dL (7.8-10.44); Carbon Dioxide 24 mmol/L (23-31); Chloride 104 mmol/L (98-107); Estimated GFR-MDRD 47; Glucose 92 mg/dL (83-110); Potassium 3.9 mmol/L (3.5-5.1); Sodium 138 mmol/L (136-145)
[2018-04-02] MEDS: Furosemide 40 MG/4 ML VIAL SLOW IVP SCH ×2 (05:41→15:11)
[2018-04-02] MEDS: Levothyroxine Sodium 100 MCG TAB PO SCH (05:41)
[2018-04-02] MEDS: Dronedarone HCl 400 MG TAB PO SCH ×2 (09:01→20:11)
[2018-04-02] MEDS: Carvedilol 6.25 MG TAB PO SCH ×2 (09:01→20:11)
[2018-04-02] MEDS: Aspirin 81 mg Enteric Coated Tablet PO SCH (09:01)
[2018-04-02] MEDS: Metolazone 5 MG TAB PO SCH (09:01)
[2018-04-02] MEDS: Potassium Chloride 20 MEQ TAB PO SCH ×2 (09:02→20:11)
[2018-04-02 12:11] LABS: Hemoglobin 7.6 g/dL (12.0-16.0); Mean Corpuscular HGB CONC 30.5 g/dL (32.0-36.0); Mean Corpuscular Hemoglobin 24.1 pg (27.0-31.0); Mean Corpuscular Volume 78.8 fL (78.0-98.0); Mean Platelet Volume 11.2 fL (7.4-10.4); Platelet Count 109 thou/uL (130-400); RBC Distribution Width 17.9 % (11.5-14.5); Red Blood Cell (RBC) Count 3.15 mill/uL (4.20-5.40); White Blood Cell (WBC) Count 4.2 thou/uL (4.8-10.8)
[2018-04-02 13:01] LABS: Burr Cells SLIGHT = 2-5 cells (100X) (0-1/hpf); Eosinophils 2 % (0-10); Hypochromia SLIGHT = 6-15 cells (100X) (0-5/hpf); Lymphocytes 39 % (21-51); MDiff Complete? YES; Microcytosis SLIGHT = 6-15 cells (100X) (0-5/hpf); Monocytes 14 % (0-10); Neutrophil 45 % (42-75); Platelet Morphology Comment Appears Decreased; Polychromasia SLIGHT = 2-3 cells (100X) (0-2/hpf); Schistocytes SLIGHT = 2-5 cells (100X) (0-1/hpf)
--- NOTE | 2018-04-02 13:58 | PRG ---
DATE OF SERVICE: 04/02/2018 SUBJECTIVE: The patient is seen and examined at the bedside. She went to atrial fibrillation with controlled ventricular rate. OBJECTIVE: VITAL SIGNS: Blood pressure is 109/47, temperature is 97.8, O2 saturation is 96% on 2 L by nasal cannula, and pulse is 62. HEENT: Head is atraumatic and normocephalic. Eyes are PERRLA. Sclerae are nonicteric. Oral mucosa is moist. Conjunctivae are palish. NECK: Supple. LUNGS: Breath sounds diminished at both bases with few crackles bilaterally at both bases. HEART: S1 and S2, irregularly irregular. No S3. No S4. ABDOMEN: Soft, obese, and nontender. Bowel sounds are present. No organomegaly. EXTREMITIES: Chronic lymphedema, approximately 3+ swelling bilaterally similar. NEUROLOGICAL: She is alert and oriented x4. There is no any sensory or motor deficit present. Cranial nerves are intact. LABORATORY DATA: Labs showed white count of 4.2, hemoglobin of 7.6, hematocrit 24.8, platelet count is 109. Chemistry within normal limits except for BUN which is 22. IMPRESSION: 1. Congestive heart failure, diastolic dysfunction with preserved LVEF. 2. Pancytopenia. 3. Massive lymphedema, chronic. 4. Recurrent atrial fibrillation. The patient went to atrial fibrillation with controlled ventricular rate. The patient is on Multaq twice a day. 5. Hypothyroidism. 6. Hyperlipidemia. 7. Hypertension. 8. Pulmonary hypertension. 9. Moderate aortic stenosis per recent echocardiogram. PLAN: The patient is on increased dose of Lasix since she was not putting out much urine. The dose of Lasix was increased to 80 mg every 12 hours along with metolazone 5 mg. Since her BUN is up, I am going to decrease the dose of metolazone to 2.5 mg once a day. I am going to continue her potassium 20 twice a day. Her potassium today is 3.9. If she is still in atrial fibrillation despite of taking Multaq, the doctor who is taking over her care tomorrow morning might consider consulting her retort fireman, Dr. Rider. For now, we will continue her diuresis. As I mentioned above, we are going to decrease the dose of metolazone to 2.5 and no PT. Did receive one dose of IV iron yesterday per Dr. Mayen. Job ID: [id number]
--- NOTE | 2018-04-02 16:37 | PQF ---
STEPHANIE AMARO ZBIGNIEW A MD/LILLY MEDEL MD [id number] CLINICAL DOCUMENTATION IMPROVEMENT CLARIFICATION FORM: ICD-10 Updated PLEASE DO AN ADDENDUM TO THE PROGRESS NOTE WITH ANY DOCUMENTATION UPDATES OR ADDITIONS AND CARRY THROUGH TO DC SUMMARY. THANK YOU. DATE: 04/02/2018 ATTN: DR. MEDEL/BARI Please exercise your independent, professional judgment in responding to the clarification form. Clinical indicators are provided on the bottom of this form for your review Please check appropriate box(s): BMI > 40 with associated diagnosis of: (check one) [ X] Morbid (Severe) Obesity [ ] Due to excess calories [ ] with Alveolar Hypoventilation (Pickwickian syndrome) [ ] Overweight [ ] Obesity [ ] Other diagnosis [ ] Unable to determine For continuity of documentation, please document condition throughout progress notes and discharge summary. Thank You. BMI < 19 Under weight 19 - 24.9 Healthy 25.0 - 29.9 Slightly Overweight 30.0 - 34.9 Obese 35.0 - 39.9 Severely Obese 40.0 and Over Morbidly Obese CLINICAL INDICATORS - SIGNS / SYMPTOMS / LABS BMI of: __45.3 HEIGHT 5FT 5IN; WEIGHT 276 LBS. BMI-45.3 Additional staff for transfers, positioning, ADLs RISK FACTORS Hypothyroid TREATMENTS: Calorie counts Thank you, Brenda (This form is maintained as a part of the permanent medical record) 2014 [employer], [employer]. All Rights Reserved Brenda Wing RN, CDIS [phone] [facility]
[2018-04-02] MEDS: Atorvastatin Calcium 40 MG TAB PO SCH (20:11)
[2018-04-03 05:44] LABS: Anion Gap 16 mmol/L (10-20); BUN (Urea Nitrogen) 30 mg/dL (9.8-20.1); Calc. Creatinine Clearance 56 mL/min (70-130); Calcium 9.2 mg/dL (7.8-10.44); Carbon Dioxide 28 mmol/L (23-31); Chloride 100 mmol/L (98-107); Estimated GFR-MDRD 38; Glucose 101 mg/dL (83-110); Potassium 3.7 mmol/L (3.5-5.1); Sodium 140 mmol/L (136-145)
[2018-04-03] MEDS: Furosemide 40 MG/4 ML VIAL SLOW IVP SCH ×2 (05:50→15:10)
[2018-04-03] MEDS: Levothyroxine Sodium 100 MCG TAB PO SCH (05:51)
[2018-04-03 08:21] LABS: Hemoglobin 7.3 g/dL (12.0-16.0); Mean Corpuscular HGB CONC 30.1 g/dL (32.0-36.0); Mean Corpuscular Hemoglobin 23.9 pg (27.0-31.0); Mean Corpuscular Volume 79.2 fL (78.0-98.0); Mean Platelet Volume 11.7 fL (7.4-10.4); Platelet Count 109 thou/uL (130-400); Red Blood Cell (RBC) Count 3.05 mill/uL (4.20-5.40); White Blood Cell (WBC) Count 4.3 thou/uL (4.8-10.8)
[2018-04-03] MEDS: Potassium Chloride 20 MEQ TAB PO SCH ×2 (09:35→20:12)
[2018-04-03] MEDS: Aspirin 81 mg Enteric Coated Tablet PO SCH (09:35)
[2018-04-03] MEDS: Metolazone 5 MG TAB PO SCH (09:35)
[2018-04-03] MEDS: Dronedarone HCl 400 MG TAB PO SCH ×2 (09:35→20:12)
[2018-04-03 09:42] LABS: Acanthocytes SLIGHT = 1-5 cells (100X) (None Seen); Elliptocytes SLIGHT = 2-5 cells (100X) (0-1/hpf); Eosinophils 5 % (0-10); Hypochromia MODERATE=16-30 cells (100X) (0-5/hpf); Lymphocytes 25 % (21-51); MDiff Complete? YES; Microcytosis SLIGHT = 6-15 cells (100X) (0-5/hpf); Monocytes 16 % (0-10); Neutrophil 54 % (42-75); Ovalocytes SLIGHT = 2-5 cells (100X) (0-1/hpf); Platelet Morphology Comment Appears Decreased; Polychromasia SLIGHT = 2-3 cells (100X) (0-2/hpf); Schistocytes SLIGHT = 2-5 cells (100X) (0-1/hpf)
[2018-04-03] MEDS ORDERED: Carvedilol 6.25 MG TAB PO SCH (10:30)
--- NOTE | 2018-04-03 10:58 | PDOC.PN ---
- Subjective Encounter Start Date: 04/03/18 Encounter Start Time: 10:57 Ms. Gamble was seen today in follow-up of CHF exacerbation and severe anemia. She is breathing better today. She does not have any new complaints. - Objective Resuscitation Status - Order Detail: 03/30/18 15:55 Resuscitation Status Routine Resuscitation Status: FULL: Full Resuscitation MAR Reviewed: Yes Vital Signs & Weight: Vital Signs (12 hours) Temp Pulse Resp BP Pulse Ox 04/03/18 09:36 64 04/03/18 08:00 97.9 F 64 18 104/50 L 96 04/03/18 04:22 98.3 F 62 18 106/51 L 96 Weight Weight 267 lb 8 oz I&O: 04/02/18 04/03/18 04/04/18 06:59 06:59 06:59 Intake Total 840 640 Output Total 1900 2100 Balance -1060 -1460 Result Diagrams: 04/03/18 05:00 04/03/18 05:00 Phys Exam - Physical Examination HEENT: PERRLA Respiratory: no wheezing, no rales, no rhonchi, clear to auscultation bilateral Cardiovascular: RRR, no significant murmur, no rub Gastrointestinal: soft, non-tender, no distention, positive bowel sounds Musculoskeletal: edema present 2+ pitting edema in both lower extremities Neurological: non-focal Psychiatric: normal affect, A&O x 3 Dx/Plan (1) Acute on chronic diastolic congestive heart failure, NYHA class 3 Code(s): I50.33 - ACUTE ON CHRONIC DIASTOLIC (CONGESTIVE) HEART FAILURE Status : Acute (2) Hypertension Code(s): I10 - ESSENTIAL (PRIMARY) HYPERTENSION Status: Chronic Qualifiers: Hypertension type: essential hypertension Qualified Code(s): I10 - Essential (primary) hypertension Comment: on the low side, monitor closely with diuresis (3) Hypothyroid Code(s): E03.9 - HYPOTHYROIDISM, UNSPECIFIED Status: Chronic Qualifiers: Hypothyroidism type: unspecified Qualified Code(s): E03.9 - Hypothyroidism , unspecified Comment: Continue Levothyroxine 100mcg daily (4) Morbid obesity Code(s): E66.01 - MORBID (SEVERE) OBESITY DUE TO EXCESS CALORIES Status: Chronic (5) Acute kidney injury Code(s): N17.9 - ACUTE KIDNEY FAILURE, UNSPECIFIED Status: Acute (6) Pancytopenia Code(s): D61.818 - OTHER PANCYTOPENIA Status: Chronic (7) Paroxysmal atrial fibrillation Code(s): I48.0 - PAROXYSMAL ATRIAL FIBRILLATION Status: Chronic - Plan * Acute on chronic diastolic heart failure- continue to diurese * Acute kidney injury- likely from diuresing- agree with cutting back on Metolazone dose * Pancytopenia- related to iron deficiency- she received IV iron yesterday- will continue to monitor * Hypothyroidism- will check thyroid function tests . * HTN- blood pressure is low normal
[2018-04-03 12:06] LABS: Free T4 (Free Thyroxine) 1.1 ng/dL (0.70-1.48); Thyroid Stimulating Hormone 3.6263 uIU/mL (0.35-4.94)
[2018-04-03] MEDS: Carvedilol 6.25 MG TAB PO SCH ×2 (12:30→20:12)
[2018-04-03] MEDS: Atorvastatin Calcium 40 MG TAB PO SCH (20:11)
[2018-04-04 05:32] LABS: Anion Gap 18 mmol/L (10-20); BUN (Urea Nitrogen) 34 mg/dL (9.8-20.1); Calc. Creatinine Clearance 52 mL/min (70-130); Calcium 9.4 mg/dL (7.8-10.44); Carbon Dioxide 28 mmol/L (23-31); Chloride 97 mmol/L (98-107); Estimated GFR-MDRD 34; Glucose 99 mg/dL (83-110); Potassium 3.7 mmol/L (3.5-5.1); Sodium 139 mmol/L (136-145)
[2018-04-04] MEDS: Levothyroxine Sodium 100 MCG TAB PO SCH (05:35)
[2018-04-04] MEDS: Furosemide 40 MG/4 ML VIAL SLOW IVP SCH (05:35)
[2018-04-04] MEDS: Aspirin 81 mg Enteric Coated Tablet PO SCH (09:00)
[2018-04-04] MEDS: Carvedilol 6.25 MG TAB PO SCH ×2 (09:00→21:38)
[2018-04-04] MEDS: Metolazone 5 MG TAB PO SCH (09:00)
[2018-04-04] MEDS ORDERED: Furosemide 20 MG TAB PO SCH (09:00)
[2018-04-04] MEDS: Dronedarone HCl 400 MG TAB PO SCH ×2 (09:00→21:38)
[2018-04-04] MEDS: Potassium Chloride 20 MEQ TAB PO SCH ×2 (09:00→21:38)
[2018-04-04] MEDS: Furosemide 40 MG TAB PO SCH ×2 (09:01→14:42)
[2018-04-04 11:06] LABS: #Eosinphils 0.1 thou/uL (0.0-0.7); #Lymphocytes 1.1 thou/uL (1.20-3.40); #Monocytes 0.7 thou/uL (0.11-0.59); %Basophils 0.8 % (0.0-1.0); %Eosinophils 2.7 % (0.0-10.0); %Lymphocytes 21.6 % (21.0-51.0); %Monocytes 13.7 % (0.0-10.0); %Neutrophils 61.1 % (42.0-75.0); Mean Corpuscular HGB CONC 30.7 g/dL (32.0-36.0); Mean Corpuscular Hemoglobin 24.3 pg (27.0-31.0); Mean Corpuscular Volume 79.2 fL (78.0-98.0); Mean Platelet Volume 11.4 fL (7.4-10.4); Platelet Count 106 thou/uL (130-400); RBC Distribution Width 18.2 % (11.5-14.5); White Blood Cell (WBC) Count 4.9 thou/uL (4.8-10.8)
[2018-04-04 11:07] LABS: Hypochromia SLIGHT = 6-15 cells (100X) (0-5/hpf); Microcytosis SLIGHT = 6-15 cells (100X) (0-5/hpf); Polychromasia SLIGHT = 2-3 cells (100X) (0-2/hpf)
--- NOTE | 2018-04-04 16:57 | PDOC.PN ---
- Subjective Encounter Start Date: 04/04/18 Encounter Start Time: 13:00 Ms. Gmable was seen today in follow-up of CHF exacerbation. She says she is breathing a little better today. She notes some decrease in lower extremity edema. She has been up a few times with PT. - Objective Resuscitation Status - Order Detail: 03/30/18 15:55 Resuscitation Status Routine Resuscitation Status: FULL: Full Resuscitation MAR Reviewed: Yes Vital Signs & Weight: Vital Signs (12 hours) Temp Pulse Resp BP BP Pulse Ox 04/04/18 16:00 97.5 F L 58 L 16 105/46 L 95 04/04/18 12:00 97.4 F L 60 18 126/70 97 04/04/18 08:59 63 04/04/18 07:05 97.5 F L 63 16 119/56 L 97 Weight Weight 260 lb 3.2 oz I&O: 04/03/18 04/04/18 04/05/18 06:59 06:59 06:59 Intake Total 640 1450 480 Output Total 2100 2150 Balance -1460 -700 480 Result Diagrams: 04/04/18 10:21 04/04/18 04:48 Phys Exam - Physical Examination HEENT: PERRLA Respiratory: no wheezing, no rales, no rhonchi, clear to auscultation bilateral Cardiovascular: RRR, no rub 2/6 systolic murmur Gastrointestinal: soft, non-tender, positive bowel sounds Musculoskeletal: pulses present, edema present 2+ pitting edema bilaterally no erythema or warmth Neurological: non-focal Dx/Plan (1) Acute on chronic diastolic congestive heart failure, NYHA class 3 Code(s): I50.33 - ACUTE ON CHRONIC DIASTOLIC (CONGESTIVE) HEART FAILURE Status : Acute (2) Hypertension Code(s): I10 - ESSENTIAL (PRIMARY) HYPERTENSION Status: Chronic Qualifiers: Hypertension type: essential hypertension Qualified Code(s): I10 - Essential (primary) hypertension Comment: on the low side, monitor closely with diuresis (3) Hypothyroid Code(s): E03.9 - HYPOTHYROIDISM, UNSPECIFIED Status: Chronic Qualifiers: Hypothyroidism type: unspecified Qualified Code(s): E03.9 - Hypothyroidism , unspecified Comment: Continue Levothyroxine 100mcg daily (4) Morbid obesity Code(s): E66.01 - MORBID (SEVERE) OBESITY DUE TO EXCESS CALORIES Status: Chronic (5) Acute kidney injury Code(s): N17.9 - ACUTE KIDNEY FAILURE, UNSPECIFIED Status: Acute (6) Pancytopenia Code(s): D61.818 - OTHER PANCYTOPENIA Status: Chronic (7) Paroxysmal atrial fibrillation Code(s): I48.0 - PAROXYSMAL ATRIAL FIBRILLATION Status: Chronic - Plan * Acute on chronic diastolic heart failure- improving- She is down to 260 pounds from 276 on admission * Will change Lasix to p.o. * DANIEL- creatinine is higher, but beginning to level off * HTN- blood pressure is stable * Hypothyroidism- clinically stable * Hopefully home in 1-2 days.
[2018-04-04] MEDS: Atorvastatin Calcium 40 MG TAB PO SCH (21:38)
[2018-04-05 05:01] LABS: #Eosinphils 0.2 thou/uL (0.0-0.7); #Lymphocytes 1.3 thou/uL (1.20-3.40); #Monocytes 0.6 thou/uL (0.11-0.59); #Neutrophils 2.5 thou/uL (1.40-6.50); %Basophils 0.7 % (0.0-1.0); %Eosinophils 3.9 % (0.0-10.0); %Lymphocytes 27.8 % (21.0-51.0); %Monocytes 12.6 % (0.0-10.0); Mean Corpuscular HGB CONC 31.1 g/dL (32.0-36.0); Mean Corpuscular Hemoglobin 24.5 pg (27.0-31.0); Mean Corpuscular Volume 78.8 fL (78.0-98.0); Mean Platelet Volume 11.1 fL (7.4-10.4); Platelet Count 102 thou/uL (130-400); RBC Distribution Width 18.2 % (11.5-14.5); Red Blood Cell (RBC) Count 3.24 mill/uL (4.20-5.40); White Blood Cell (WBC) Count 4.5 thou/uL (4.8-10.8)
[2018-04-05 05:14] LABS: Anion Gap 16 mmol/L (10-20); BUN (Urea Nitrogen) 32 mg/dL (9.8-20.1); Calc. Creatinine Clearance 63 mL/min (70-130); Calcium 9.4 mg/dL (7.8-10.44); Carbon Dioxide 29 mmol/L (23-31); Chloride 95 mmol/L (98-107); Estimated GFR-MDRD 45; Glucose 98 mg/dL (83-110); Potassium 3.3 mmol/L (3.5-5.1); Sodium 137 mmol/L (136-145)
[2018-04-05] MEDS: Levothyroxine Sodium 100 MCG TAB PO SCH (05:48)
[2018-04-05] MEDS ORDERED: Potassium Chloride 20 MEQ TAB PO SCH (07:45)
[2018-04-05 07:46] VITALS: TEMP 97.9
--- NOTE | 2018-04-05 09:40 | PDOC.PN ---
- Subjective Encounter Start Date: 04/05/18 Encounter Start Time: 09:38 Ms. Gamble was seen today in follow-up of CHF exacerbation. She says she is feeling better. she has been up with the walking program, and walked without oxygen. She feels ready to go home. - Objective Resuscitation Status - Order Detail: 03/30/18 15:55 Resuscitation Status Routine Resuscitation Status: FULL: Full Resuscitation MAR Reviewed: Yes Vital Signs & Weight: Vital Signs (12 hours) Temp Pulse Resp BP Pulse Ox 04/05/18 07:15 97.9 F 63 18 119/54 L 94 L 04/05/18 04:00 97.7 F 87 15 111/54 L 04/05/18 00:00 20 Weight Weight 256 lb I&O: 04/04/18 04/05/18 04/06/18 06:59 06:59 06:59 Intake Total 1450 840 Output Total 2150 550 Balance -700 290 Result Diagrams: 04/05/18 04:29 04/05/18 04:29 Phys Exam - Physical Examination HEENT: PERRLA Respiratory: no wheezing, no rales, no rhonchi, clear to auscultation bilateral Cardiovascular: RRR, no significant murmur, no rub Gastrointestinal: soft, non-tender, no distention, positive bowel sounds Musculoskeletal: pulses present, edema present Dx/Plan (1) Acute on chronic diastolic congestive heart failure, NYHA class 3 Code(s): I50.33 - ACUTE ON CHRONIC DIASTOLIC (CONGESTIVE) HEART FAILURE Status : Acute (2) Hypertension Code(s): I10 - ESSENTIAL (PRIMARY) HYPERTENSION Status: Chronic Qualifiers: Hypertension type: essential hypertension Qualified Code(s): I10 - Essential (primary) hypertension Comment: on the low side, monitor closely with diuresis (3) Hypothyroid Code(s): E03.9 - HYPOTHYROIDISM, UNSPECIFIED Status: Chronic Qualifiers: Hypothyroidism type: unspecified Qualified Code(s): E03.9 - Hypothyroidism , unspecified Comment: Continue Levothyroxine 100mcg daily (4) Morbid obesity Code(s): E66.01 - MORBID (SEVERE) OBESITY DUE TO EXCESS CALORIES Status: Chronic (5) Acute kidney injury Code(s): N17.9 - ACUTE KIDNEY FAILURE, UNSPECIFIED Status: Acute (6) Pancytopenia Code(s): D61.818 - OTHER PANCYTOPENIA Status: Chronic (7) Paroxysmal atrial fibrillation Code(s): I48.0 - PAROXYSMAL ATRIAL FIBRILLATION Status: Chronic - Plan * Acute on chronic diastolic heart failure- compensated * Paroxysmal AFIB- she has been in sinus rhythm * Acute kidney injury- improved * She is stable for discharge home.
[2018-04-05] MEDS: Metolazone 5 MG TAB PO SCH (09:51)
[2018-04-05] MEDS: Aspirin 81 mg Enteric Coated Tablet PO SCH (09:51)
[2018-04-05] MEDS: Carvedilol 6.25 MG TAB PO SCH (09:51)
[2018-04-05] MEDS: Furosemide 40 MG TAB PO SCH (09:51)
[2018-04-05] MEDS: Dronedarone HCl 400 MG TAB PO SCH (09:51)
[2018-04-05] MEDS: Potassium Chloride 20 MEQ TAB PO SCH (09:52)
[2018-04-05 09:53] VITALS: BP 120/53
--- NOTE | 2018-04-06 04:30 | DIS ---
DATE OF ADMISSION: 03/30/2018 DATE OF DISCHARGE: 04/05/2018 PRIMARY CARE PHYSICIAN: Ace Babin MD DISCHARGE DISPOSITION: Home. PRIMARY DISCHARGE DIAGNOSIS: 1. [id number] diastolic heart failure exacerbation. 2. Hypertension. 3. Paroxysmal atrial fibrillation. 4. Hypothyroidism. 5. Diabetes mellitus type 2. 6. Hyperlipidemia. DISCHARGE MEDICATIONS: Include; 1. Lasix 40 mg twice daily. 2. Zaroxolyn 5 mg once a week. 3. K-Dur 40 mEq daily. 4. Multaq 400 mg twice a day. 5. Levothyroxine 100 mcg daily. 6. Enalapril 5 mg daily. 7. Carvedilol 6.25 mg twice a day. 8. Lipitor 40 mg at bedtime. 9. Aspirin 81 mg daily. PROCEDURES DONE DURING ADMISSION: The patient had an echocardiogram revealing an ejection fraction of 60% to 65% with grade 2/3 diastolic dysfunction. Moderate tricuspid regurgitation. CODE STATUS: Full code. ALLERGIES: TO ELIQUIS. HOSPITAL COURSE: Ms. Gamble is a very pleasant 87-year-old female, who presented to the emergency room complaining of shortness of breath. She was found to be in [id number] diastolic heart failure. She was admitted and diuresed and improved over the next few days. She was able to be weaned off supplemental oxygen. She was ambulatory without oxygen and improved. We did offer to place her in either rehab or senior living, but she refused. She said that she would prefer to go home. I also offered home physical therapy and she did not seem too excited about that either, but we will be resuming her usual home health. Her primary care physician can decide if she needs any home physical therapy, therefore, she will be discharged home today, follow up with Dr. Babin in 1 week. Job ID: [id number]
== END 2018-04-05 13:37 | disposition home or self-care (01) | DRG 292 ==
LOC: ERS 12:25 → ERHOLD 15:10 → 2NO 19:13
PROVIDERS: ADMIT Internal Medicine; ATTEND Internal Medicine
DX: I11.0 Hypertensive heart disease with heart failure (principal); D61.818 Other pancytopenia; Z68.42 Body mass index [BMI] 45.0-49.9, adult; N17.9 Acute kidney failure, unspecified; I50.33 Acute on chronic diastolic (congestive) heart failure; I48.0 Paroxysmal atrial fibrillation; E03.9 Hypothyroidism, unspecified; E11.9 Type 2 diabetes mellitus without complications; E78.5 Hyperlipidemia, unspecified; D64.9 Anemia, unspecified; I89.0 Lymphedema, not elsewhere classified; E66.01 Morbid (severe) obesity due to excess calories; I35.0 Nonrheumatic aortic (valve) stenosis
CPT/HCPCS: 36415; 71045; 80048; 80053; 82550; 82728; 83540; 83550; 83880; 84439; 84443; 84484; 85007; 85025; 85027; 85046; 93005; 93306; 93798; 96374; J1650; J1940; J2916; J7050

== ENCOUNTER 2018-07-22 12:43 | Inpatient (IN) | payer MEDICARE ==
--- NOTE | 2018-07-22 13:28 | RAD ---
EXAM: 2 view chest: INDICATIONS: Cough. Wheezing COMPARISON: 06/15/2018 FINDINGS: 1 cardiomegaly. Mild vascular congestion. Small bilateral effusions. Early interstitial claire ma. IMPRESSION: Mild congestive change with small bilateral effusions.
[2018-07-22 14:37] LABS: Mean Corpuscular Hemoglobin 29.4 pg (27.0-31.0); Mean Corpuscular Volume 92.1 fL (78.0-98.0); Mean Platelet Volume 9.7 fL (7.4-10.4); Platelet Count 131 thou/uL (130-400); RBC Distribution Width 18.6 % (11.5-14.5); Red Blood Cell (RBC) Count 3.38 mill/uL (4.20-5.40); White Blood Cell (WBC) Count 2.9 thou/uL (4.8-10.8)
[2018-07-22 14:59] LABS: ALT (SGPT) 11 U/L (8-55); AST (SGOT) 21 U/L (5-34); Albumin 3.6 g/dL (3.4-4.8); Alkaline Phosphatase 83 U/L (40-150); Anion Gap 15 mmol/L (10-20); BUN (Urea Nitrogen) 15 mg/dL (9.8-20.1); Bilirubin, Total 1.9 mg/dL (0.2-1.2); Calc. Creatinine Clearance 0 mL/min (70-130); Calcium 9.4 mg/dL (7.8-10.44); Carbon Dioxide 26 mmol/L (23-31); Chloride 105 mmol/L (98-107); Estimated GFR-MDRD 58; Globulin 2.1 g/dL (2.4-3.5); Glucose 89 mg/dL (83-110); Potassium 3.8 mmol/L (3.5-5.1); Protein, Total 5.7 g/dL (6.0-8.3); Sodium 142 mmol/L (136-145)
[2018-07-22 15:00] LABS: Band 5 % (5-11); Eosinophils 3 % (0-10); Hypochromia SLIGHT = 6-15 cells (100X) (0-5/hpf); Lymphocytes 27 % (21-51); MDiff Complete? YES; Monocytes 13 % (0-10); Neutrophil 52 % (42-75); Ovalocytes SLIGHT = 2-5 cells (100X) (0-1/hpf); Platelet Morphology Comment Appears Adequate; Polychromasia SLIGHT = 2-3 cells (100X) (0-2/hpf)
[2018-07-22] MEDS ORDERED: Furosemide 40 MG/4 ML VIAL ONE (15:54)
[2018-07-22] MEDS ORDERED: Guaifenesin DM 100-10/5 ML UDCUP PO PRN (18:16)
[2018-07-22] MEDS ORDERED: Acetaminophen 325 MG TAB PO PRN (18:16)
[2018-07-22] MEDS ORDERED: Ondansetron ODT 4 MG TAB PO PRN (18:16)
[2018-07-22] MEDS ORDERED: Dextrose 5% in Water 1,000 ML IV PRN (18:16)
[2018-07-22] MEDS ORDERED: Dextrose 50% Abboject 50 ML SYRINGE SLOW IVP PRN (18:16)
[2018-07-22] MEDS ORDERED: HumaLOG 300 UNITS/3 ML VIAL SC PRN ×2 (18:16)
[2018-07-22 18:20] LABS: Actual Bicarbonate (HCO3a) 24.1 mEq/L (22-28); Analyzer IN Cardio ER; Base Excess (BEa) 0.2 mEq/L (-2.0 to +3.0); CO2 Tension 36.4 mmHg (35.0-45.0); Calcium, Ionized 1.24 mmol/L (1.12-1.30); Carboxyhemoglobin (COHb) 0.5 gm% (0.0-3.0); Hemoglobin (Hb) 11.3 g/dL (12.0-16.0); O2 Tension (PaO2) 72.5 mmHg (> 60.0); pH, Arterial 7.44 (7.35-7.45)
[2018-07-22 18:31] LABS: Puncture Site RBA
[2018-07-22 20:57] VITALS: BMI 38.6
[2018-07-22] MEDS ORDERED: Carvedilol 6.25 MG TAB PO SCH (21:00)
--- NOTE | 2018-07-22 21:38 | HP ---
PRIMARY CARE PHYSICIAN: Dr. Ace Babin. CHIEF COMPLAINT: Cough and shortness of breath. HISTORY OF PRESENT ILLNESS: Ms. Gamble is a pleasant 87-year-old female with past medical history of hypertension; hyperlipidemia; diabetes mellitus type 2; hypothyroidism; lymphedema, which is chronic; chronic diastolic heart failure with a preserved EF and paroxysmal atrial fibrillation, who had presented to [facility] earlier today after she experienced worsening cough and shortness of breath that had started late Monday night. She states that she saw Dr. Ace Babin on the of this month and had felt fine, however, when she had returned home and later that night she started to develop a mild cough, she states when she woke up on Monday morning, she had felt that she got hit by a truck and she had noticed some generalized weakness, cough, and worsening shortness of breath. She reports being admitted for this several times in the past with the last time being in March of 2017, where she underwent an echocardiogram, which displayed an ejection fraction of 60% to 65% with grade 2 diastolic dysfunction with moderate tricuspid regurgitation. She reports her primary criminal investigative agent is Dr. Rider, she states that she used to be on Eliquis for her atrial fibrillation, however, due to a history of bleeding, she was taken off this. She states that she also has a history of a low platelet count and therefore, she was taken off her aspirin, however, she remains on the baby aspirin daily. Currently, she denies any fever, chills, any headache, blurred vision, dizziness, any chest pain, palpitations. She denies any complaints of shortness of breath at home, abdominal pain, nausea, or vomiting. She had denied any change in her stool or any numbness, weakness, tingling down her upper or lower extremities. She does report some chronic lymphedema which gives her some mild pain down her legs; however, she states this is stable at the moment. She underwent a chest x-ray which revealed mild congestion with small bilateral effusions. Her initial troponin was found to be normal at 0.018 with an elevated BNP of 620.3, and it was determined at that time the patient be admitted under observation, be placed on telemetry overnight and be treated with IV Lasix for further diuresis. REVIEW OF SYSTEMS: All other systems reviewed and found to be negative unless mentioned in the HPI. PAST MEDICAL HISTORY: Hypertension, hyperlipidemia, diabetes mellitus type 2, hypothyroidism, chronic lymphedema, paroxysmal atrial fibrillation, which she appears to be in sinus rhythm on the monitor and some chronic diastolic heart failure with a preserved EF of 60% to 65%. SURGICAL HISTORY: Hysterectomy and appendectomy. PSYCHIATRIC HISTORY: None. SOCIAL HISTORY: The patient denies alcohol, tobacco, or illicit drug use. KNOWN ALLERGIES: Eliquis. CURRENT HOME MEDICATIONS: 1. Aspirin 81 mg daily. 2. Enalapril 5 mg p.o. daily. 3. Multaq 400 mg twice daily. 4. Carvedilol 6.25 mg twice daily. 5. Potassium chloride 40 mEq p.o. daily. 6. Atorvastatin 40 mg p.o. at bedtime. 7. Levothyroxine 125 mcg p.o. daily. 8. Furosemide 80 mg p.o. twice daily. 9. Metolazone 5 mg p.o. daily. PHYSICAL EXAMINATION: VITAL SIGNS: BP 129/90, pulse 89, respirations 20, temperature 98.4 degrees Fahrenheit, O2 saturations 96% on 2 L of oxygen via nasal cannula. GENERAL: The patient is awake, alert, and oriented x3. She is currently sitting up in bed, resting comfortably, and in no acute distress. Family members at bedside. HEENT: Atraumatic, normocephalic. Pupils are round and reactive to light. Extraocular muscles intact. Moist mucous membranes noted. CARDIOVASCULAR: Positive S1 and S2. Regular rate and rhythm. No murmur auscultated. RESPIRATORY: Coarse breath sounds heard bilaterally with diminished breath sounds at the bases bilaterally. ABDOMEN: Soft, nontender. Bowel sounds present. MUSCULOSKELETAL: Strength 5+ in bilateral upper and lower extremities. Pedal pulses palpable 2+ bilaterally. Chronic lymphedema noted, right leg worse than the left. NEUROLOGIC: Cranial nerves 2 through 12 grossly intact. No focal deficits noted. Speech intact and normal. Gait not assessed. SKIN: Warm, dry, and intact. No rashes. No ulceration noted. PSYCHIATRIC: Good mood and affect. LABORATORY DATA: WBC 2.9, RBC 3.38, hemoglobin 10.0, and MCV 92.1, platelets 131. Sodium 142, potassium 3.8, anion gap 15, BUN 15, creatinine 0.92. Estimated GFR 58. Glucose 89. Lactic acid 1.2. Troponin 0.018. BNP 620.3. DIAGNOSTIC IMAGING: PA and lateral chest x-ray displayed mild congestion with small bilateral effusions. ASSESSMENT AND PLAN: 1. Acute on chronic diastolic heart failure with a preserved ejection fraction. The patient will be treated with furosemide 40 mg IV b.i.d. She will be resumed on all other home medications and she will be monitored on telemetry. Her recent echocardiogram was back in March and showed an ejection fraction of 60% to 65% with grade 2 diastolic dysfunction with moderate tricuspid regurgitation. 2. History of paroxysmal atrial fibrillation, currently in sinus rhythm on the monitor. We will continue to follow. She is not on any anticoagulation at this time due to her risk of bleeding in the past. 3. Hypertension, currently stable. Resume home regimen. 4. History of hyperlipidemia. Continue on statin. 5. History of hypothyroidism. Continue on home Synthroid and we will check a TSH. 6. History of chronic edema, currently stable at this time. 7. History of diabetes mellitus type 2. She will be started on insulin sliding scale with frequent Accu-Cheks. 8. Deep venous thrombosis and gastrointestinal prophylaxis. CODE STATUS: Full code. Surrogate decision maker is patient's niece, Balbina Jaramillo. FINAL DISPOSITION: Pending. The patient will be placed on the observation unit on telemetry for further monitoring. She will be treated with IV furosemide for further diuresis. She will be re-evaluated by the day team in the morning to assess further disposition needs. Job ID: [id number]
[2018-07-22] MEDS ORDERED: Furosemide 40 MG/4 ML VIAL SLOW IVP SCH (21:45)
[2018-07-22] MEDS: Famotidine 20 MG TAB PO SCH (21:51)
[2018-07-22] MEDS: Atorvastatin Calcium 40 MG TAB PO SCH (21:51)
[2018-07-22] MEDS: Carvedilol 3.125 MG TAB PO SCH (21:52)
[2018-07-23 04:55] LABS: #Eosinphils 0.2 thou/uL (0.0-0.7); #Monocytes 0.5 thou/uL (0.11-0.59); %Basophils 0.2 % (0.0-1.0); %Eosinophils 4.6 % (0.0-10.0); %Lymphocytes 28.3 % (21.0-51.0); %Monocytes 12.4 % (0.0-10.0); %Neutrophils 54.5 % (42.0-75.0); Hemoglobin 9.8 g/dL (12.0-16.0); Mean Corpuscular HGB CONC 31.7 g/dL (32.0-36.0); Mean Corpuscular Volume 91.4 fL (78.0-98.0); Mean Platelet Volume 9.4 fL (7.4-10.4); Platelet Count 148 thou/uL (130-400); RBC Distribution Width 18.6 % (11.5-14.5); Red Blood Cell (RBC) Count 3.39 mill/uL (4.20-5.40); White Blood Cell (WBC) Count 3.6 thou/uL (4.8-10.8)
[2018-07-23 05:17] LABS: Anion Gap 12 mmol/L (10-20); BUN (Urea Nitrogen) 15 mg/dL (9.8-20.1); Calc. Creatinine Clearance 69 mL/min (70-130); Calcium 9.7 mg/dL (7.8-10.44); Carbon Dioxide 29 mmol/L (23-31); Chloride 103 mmol/L (98-107); Estimated GFR-MDRD 56; Glucose 90 mg/dL (83-110); Potassium 3.2 mmol/L (3.5-5.1); Sodium 141 mmol/L (136-145)
[2018-07-23] MEDS ORDERED: Furosemide 100 MG/10 ML VIAL SLOW IVP SCH (06:00)
[2018-07-23] MEDS ORDERED: Furosemide 40 MG/4 ML VIAL SLOW IVP SCH (06:00)
[2018-07-23] MEDS ORDERED: Levothyroxine Sodium 100 MCG TAB PO SCH (06:00)
[2018-07-23] MEDS: Levothyroxine Sodium 125 MCG TAB PO SCH (06:35)
[2018-07-23] MEDS: Famotidine 20 MG TAB PO SCH ×2 (08:59→20:30)
[2018-07-23] MEDS: Metolazone 5 MG TAB PO SCH (08:59)
[2018-07-23] MEDS: Potassium Chloride 20 MEQ TAB PO SCH (09:00)
[2018-07-23] MEDS: Aspirin 81 mg Enteric Coated Tablet PO SCH (09:00)
[2018-07-23] MEDS: Dronedarone HCl 400 MG TAB PO SCH ×2 (09:00→17:34)
[2018-07-23] MEDS: Carvedilol 3.125 MG TAB PO SCH ×2 (09:00→20:30)
[2018-07-23] MEDS: Enoxaparin Sodium 40 MG/0.4 ML SYRINGE SC SCH (09:00)
[2018-07-23] MEDS ORDERED: Potassium Chloride 20 MEQ TAB PO SCH (13:00)
[2018-07-23] MEDS ORDERED: Bacteriostatic Water 30 ML VIAL FS PRN (13:16)
[2018-07-23] MEDS ORDERED: Azithromycin 500 MG in Sodium Chloride 0.9% 250 ML 250 ML IVPB SCH (14:00)
[2018-07-23] MEDS: Furosemide 20 MG/2 ML VIAL SLOW IVP SCH (14:26)
[2018-07-23] MEDS: methylPREDNISolone Sod Succ 40 MG VIAL IVP SCH ×2 (17:34→23:54)
--- NOTE | 2018-07-23 19:56 | PRG ---
DATE OF SERVICE: 07/23/2018 SUBJECTIVE: Ms. Gamble is a very pleasant 87-year-old female with past medical history significant for paroxysmal atrial fibrillation, chronic diastolic heart failure, and moderate aortic stenosis, who presented to the hospital with a 3-day history of progressive productive cough, generalized weakness, and shortness of breath. The patient has been admitted with acute diastolic heart failure exacerbation. She continues to complain of wheeze, productive cough, and feeling generally weak, which she is not back to herself. She denies any chest pain or palpitations. She denies any nausea or vomiting. No other complaints. OBJECTIVE: VITAL SIGNS: Blood pressure 110/56, O2 saturation is 98% on 2 L oxygen via nasal cannula. The patient is afebrile at 97.8, pulse is 96. GENERAL: The patient is a moderately obese female, sitting up in bed, eating lunch, in no acute distress. HEENT: Head is atraumatic and normocephalic. Mucous membranes are moist. Extraocular movements intact. NECK: No lymphadenopathy. Trachea is midline. No JVD. CV: S1 and S2, regular rate and rhythm. Soft systolic murmur, grade 2/6. LUNGS: Regular respiratory rate and pattern, diffuse expiratory wheezes and rhonchi noted. ABDOMEN: Positive bowel sounds. Soft, nontender. EXTREMITIES: Chronic lymphedema noted, no pitting edema present. Extremities are warm and well perfused. SKIN: Warm and dry. No obvious rashes or abrasions. LABORATORY DATA: WBC 3.6, RBC 3.39, hemoglobin 9.8, hematocrit 31, platelets are 148. Sodium 141, potassium 3.2, chloride 103, carbon dioxide 29, BUN 15, creatinine 0.95, calcium 9.7. ASSESSMENT: 1. Shortness of breath, multifactorial secondary to acute on chronic diastolic heart failure exacerbation, and also suspecting underlying pulmonary cause such as acute bronchitis or upper respiratory infection that may be contributing, given the patient's productive cough. 2. Grade 2 diastolic heart failure. 3. Atrial fibrillation, currently in normal sinus rhythm, CHADS-VASc equals 4, no anticoagulation secondary to anemia and bleeding risk. 4. Moderate aortic stenosis. 5. Mild hypokalemia. 6. Hx chronic pancytopenia, nL Platelets this hospitalization PLAN: We will add IV Solu-Medrol, empiric antibiotic coverage, and breathing treatments, given the patient's continued productive cough and wheezing. We will continue IV diuresis. We will follow kidney function and electrolytes closely. Given the patient's advanced age, she is at high risk for complications. Care of this patient has been discussed with Dr. Espino, who agrees with the above. Job ID: [id number] MTDD
[2018-07-23] MEDS: Atorvastatin Calcium 40 MG TAB PO SCH (20:30)
[2018-07-24 05:32] LABS: #Lymphocytes 0.6 thou/uL (1.20-3.40); #Neutrophils 1.5 thou/uL (1.40-6.50); %Eosinophils 0.5 % (0.0-10.0); %Lymphocytes 27.6 % (21.0-51.0); %Monocytes 0.6 % (0.0-10.0); %Neutrophils 71.3 % (42.0-75.0); Hemoglobin 9.9 g/dL (12.0-16.0); Mean Corpuscular HGB CONC 31.8 g/dL (32.0-36.0); Mean Corpuscular Hemoglobin 28.9 pg (27.0-31.0); Mean Corpuscular Volume 90.9 fL (78.0-98.0); Mean Platelet Volume 9.8 fL (7.4-10.4); Platelet Count 140 thou/uL (130-400); RBC Distribution Width 18.3 % (11.5-14.5); Red Blood Cell (RBC) Count 3.44 mill/uL (4.20-5.40); White Blood Cell (WBC) Count 2.1 thou/uL (4.8-10.8)
[2018-07-24 05:52] LABS: Anion Gap 16 mmol/L (10-20); BUN (Urea Nitrogen) 19 mg/dL (9.8-20.1); Calc. Creatinine Clearance 54 mL/min (70-130); Calcium 9.7 mg/dL (7.8-10.44); Carbon Dioxide 27 mmol/L (23-31); Chloride 100 mmol/L (98-107); Estimated GFR-MDRD 42; Glucose 142 mg/dL (83-110); Potassium 3.9 mmol/L (3.5-5.1); Sodium 139 mmol/L (136-145)
[2018-07-24] MEDS: methylPREDNISolone Sod Succ 40 MG VIAL IVP SCH ×2 (06:43→12:53)
[2018-07-24] MEDS: Furosemide 20 MG/2 ML VIAL SLOW IVP SCH (06:45)
[2018-07-24] MEDS: Levothyroxine Sodium 125 MCG TAB PO SCH (06:47)
[2018-07-24 08:34] VITALS: TEMP 97.5
[2018-07-24] MEDS: Carvedilol 3.125 MG TAB PO SCH (09:11)
[2018-07-24] MEDS: Aspirin 81 mg Enteric Coated Tablet PO SCH (09:11)
[2018-07-24] MEDS: Potassium Chloride 20 MEQ TAB PO SCH (09:11)
[2018-07-24] MEDS: Dronedarone HCl 400 MG TAB PO SCH (09:11)
[2018-07-24] MEDS: Metolazone 5 MG TAB PO SCH (09:12)
[2018-07-24] MEDS: Famotidine 20 MG TAB PO SCH (09:12)
[2018-07-24] MEDS: Enoxaparin Sodium 40 MG/0.4 ML SYRINGE SC SCH (09:12)
[2018-07-24 14:42] VITALS: BP 121/56
--- NOTE | 2018-07-25 06:07 | DIS ---
DATE OF ADMISSION: 07/22/2018 DATE OF DISCHARGE: 07/24/2018 ADMITTING DIAGNOSES: Shortness of breath, generalized weakness, and productive cough. FINAL DIAGNOSES: 1. Shortness of breath secondary to combined acute on chronic diastolic congestive heart failure exacerbation along with upper respiratory infection/acute bronchitis. 2. Grade 2/3 chronic diastolic heart failure. 3. Chronic lower extremity lymphedema. 4. Paroxysmal atrial fibrillation, currently in normal sinus rhythm, not a candidate for anticoagulation secondary to advanced age and bleeding. 5. Hyperlipidemia. BRIEF HOSPITAL COURSE: The patient is a very pleasant 87-year-old female, with past medical history as outlined above, who presented to the hospital with a 2-3 day history of worsening productive cough, generalized fatigue and shortness of breath. On arrival, her BNP was noted to be elevated over 600, and chest x-ray showed small bilateral pleural effusions along with findings consistent with pulmonary edema. The patient was treated with IV diuresis, but continued to complain of productive cough of green yellow sputum along with shortness of breath and wheezing. Her 2nd day of admission, she was given IV Solu-Medrol along with breathing treatments, and azithromycin. After another 24 hours, all of her presenting symptoms resolved. She stated she felt "great." She denied any further shortness of breath. She stated her cough was very much improved. CONDITION AT DISCHARGE: Stable. DISCHARGE DISPOSITION: Home with home health and caregiver. DISCHARGE INSTRUCTIONS/DISCHARGE MEDICATIONS: The patient will continue her home medication regimen including her oral Lasix 80 mg b.i.d. and metolazone 5 mg daily. She will continue carvedilol, RUSSELL inhibitor, and statin. New medications for the patient will be to continue her antibiotic course of azithromycin, which is 250 mg p.o. daily for the next 3 days and a tapering steroid Medrol Dosepak. The patient has been counseled extensively on the importance of continuing these medications. She does have home oxygen to use as needed. FOLLOWUP: The patient will follow up with her primary care physician, Dr. Babin. She will return to the hospital for any recurrence of symptoms. The patient will be discharged back home today in good condition. Care of this patient has been discussed with Dr. Espino, who agrees with discharge as outlined above. Job ID: [id number]
== END 2018-07-24 15:04 | disposition home or self-care (01) | DRG 202 ==
LOC: ERS 12:43 → 2SW 17:16 → OBSVTOIN 17:16
PROVIDERS: ADMIT Family Medicine; ATTEND Family Medicine
DX: J20.9 Acute bronchitis, unspecified (principal); I50.33 Acute on chronic diastolic (congestive) heart failure; I11.0 Hypertensive heart disease with heart failure; E03.9 Hypothyroidism, unspecified; E78.5 Hyperlipidemia, unspecified; E11.9 Type 2 diabetes mellitus without complications; I48.0 Paroxysmal atrial fibrillation; E66.9 Obesity, unspecified; I89.0 Lymphedema, not elsewhere classified; I35.0 Nonrheumatic aortic (valve) stenosis; E87.6 Hypokalemia; Z68.37 Body mass index [BMI] 37.0-37.9, adult; Z90.49 Acquired absence of other specified parts of digestive tract; Z90.710 Acquired absence of both cervix and uterus; Z88.8 Allergy status to other drugs, medicaments and biological substances; Z79.82 Long term (current) use of aspirin; Z79.899 Other long term (current) drug therapy
CPT/HCPCS: 36415; 36416; 71046; 80048; 80053; 82805; 83605; 83880; 84484; 85025; 93005; 93798; 94640; 94760; 96374; J0456; J1650; J1940; J2920; J7050; J7620

== ENCOUNTER 2018-10-06 14:04 | Inpatient (IN) | payer MEDICARE ==
[2018-10-06 14:48] LABS: #Lymphocytes 0.8 thou/uL (1.20-3.40); #Monocytes 0.3 thou/uL (0.11-0.59); #Neutrophils 2.5 thou/uL (1.40-6.50); %Basophils 0.3 % (0.0-1.0); %Eosinophils 1.3 % (0.0-10.0); %Monocytes 8.1 % (0.0-10.0); %Neutrophils 68.2 % (42.0-75.0); Mean Corpuscular HGB CONC 32.5 g/dL (32.0-36.0); Mean Corpuscular Hemoglobin 30.9 pg (27.0-31.0); Mean Corpuscular Volume 94.9 fL (78.0-98.0); Mean Platelet Volume 10.8 fL (7.4-10.4); Platelet Count 71 thou/uL (130-400); RBC Distribution Width 17.7 % (11.5-14.5); White Blood Cell (WBC) Count 3.6 thou/uL (4.8-10.8)
[2018-10-06 15:04] LABS: ALT (SGPT) 63 U/L (8-55); AST (SGOT) 87 U/L (5-34); Alkaline Phosphatase 149 U/L (40-150); Anion Gap 17 mmol/L (10-20); BUN (Urea Nitrogen) 88 mg/dL (9.8-20.1); Bilirubin, Total 1.1 mg/dL (0.2-1.2); Calc. Creatinine Clearance 0 mL/min (70-130); Calcium 10.4 mg/dL (7.8-10.44); Carbon Dioxide 21 mmol/L (23-31); Chloride 109 mmol/L (98-107); Estimated GFR-MDRD 10; Globulin 2.6 g/dL (2.4-3.5); Glucose 93 mg/dL (83-110); Potassium 5.3 mmol/L (3.5-5.1); Protein, Total 6.6 g/dL (6.0-8.3); Sodium 142 mmol/L (136-145)
[2018-10-06 15:15] LABS: Troponin I 0.012 ng/mL (< 0.028)
--- NOTE | 2018-10-06 15:21 | RAD ---
Exam: Chest one view HISTORY:Altered mental status Comparison: 03/30/2018 FINDINGS: Cardiac silhouette:Cardiomegaly. Atherosclerosis of the aortic knob Pulmonary vessels: Normal Costophrenic angles: Clear LUNGS: Hyperinflation with chronic changes. No masses or consolidation. Pneumothorax: None Osseous abnormalities: None IMPRESSION: 1. Cardiomegaly. 2. Hyperinflation with chronic changes. 3. Atherosclerosis.
[2018-10-06] MEDS ORDERED: Sodium Chloride 0.9% 1,000 ML IV SCH ×2 (15:30→18:14)
[2018-10-06 15:36] LABS: Lactate 0.75 mmol/L (0.50-2.20)
--- NOTE | 2018-10-06 15:47 | CT ---
BRAIN CT WITHOUT IV CONTRAST: 10/06/18 HISTORY: Slow speech, drainage and redness around eyes, slow moving. FINDINGS: No focal mass or midline shift. Atrophy and chronic white matter ischemic changes. Sinuses demonstrat e mild mucosal thickening and congestion. The mastoids are clear. IMPRESSION: No mass, bleed or other acute process. Atrophy and chronic white matter ischemic changes. POS: [facility]
[2018-10-06] MEDS ORDERED: Piperacillin/Tazobactam 3.375 GM VIAL ONE (16:12)
[2018-10-06 17:09] LABS: Bilirubin Negative (Negative); Blood, Urine Negative (Negative); Clarity Clear (Clear); Glucose, Urine (Dipstick) Normal (Negative); Leukocyte Negative Leu/uL (Negative); Nitrite Negative (Negative); Protein, Urine (Dipstick) Negative (Neg-Trace); Urobilinogen Normal mg/dL (Less than 2)
[2018-10-06 18:11] LABS: Troponin I Less than 0.010 ng/mL (< 0.028)
[2018-10-06] MEDS ORDERED: Bisacodyl 10 MG SUPP PR PRN (18:14)
[2018-10-06] MEDS ORDERED: Guaifenesin DM 100-10/5 ML UDCUP PO PRN (18:14)
[2018-10-06] MEDS ORDERED: Acetaminophen 325 MG TAB PO PRN (18:14)
[2018-10-06] MEDS ORDERED: Vancomycin HCl 750 MG in Sodium Chloride 0.9% 250 ML 250 ML IVPB SCH (19:30)
[2018-10-06 20:55] LABS: Hemoglobin 8.1 g/dL (12.0-16.0)
[2018-10-06] MEDS ORDERED: Carvedilol 6.25 MG TAB PO SCH (21:00)
[2018-10-06 21:01] LABS: Fibrinogen 396 mg/dL (253-463)
[2018-10-06 21:02] LABS: INR-International Normal Ratio 1.1; PTT 36.3 SEC (22.9-36.1); Prothrombin Time 14.1 SEC (12.0-14.7)
[2018-10-06 21:03] LABS: D-Dimer Test 0.77 *mcg/mL (0.27-0.43)
--- NOTE | 2018-10-06 21:12 | HP ---
REASON FOR ADMISSION: Severe dehydration, acute kidney injury, metabolic acidosis, hyperkalemia, possible sepsis with hypothermia. HISTORY OF PRESENTING ILLNESS: The patient gives history of not being able to eat or drink for last 1 week. She has loss of appetite as well and is eating only 25% of food. The patient's niece, whom she lives with is also here at bedside and adds that the patient is not being herself and she looks pale. She is also not walking much due to weakness. Her eyes started to develop redness. No complaints of loose stools, cough, or expectoration. No fever at home. On arrival here, the patient had a temperature of 90 degrees. She normally ambulates inside the house with a walker and does all her activities of daily living by herself. No complaints of chest pain or palpitation. No complaints of shortness of breath. PAST MEDICAL AND SURGICAL HISTORY: History of CHF with diastolic dysfunction, chronic atrial fibrillation, hypertension, dyslipidemia, diabetes mellitus type 2, hypothyroidism, chronic lymphedema in lower extremities, hysterectomy, appendectomy, left wrist and left ankle surgeries. Intraabdominal bleeding while being on Eliquis, [facility], and her anticoagulation has been discontinued from then on. Prior to that, she was on Eliquis. CURRENT MEDICATIONS: The patient is on; 1. Lipitor 40 mg p.o. at bedtime. 2. Aspirin 81 mg p.o. daily. 3. K-Dur 20 mEq p.o. daily. 4. Enalapril 5 mg daily. 5. Levothyroxine 125 mcg p.o. daily. 6. Coreg 3.125 mg p.o. twice daily. 7. Multaq 400 mg p.o. twice daily. 8. Lasix 80 mg twice daily. 9. Metolazone 5 mg p.o. daily. ALLERGIES: NO KNOWN DRUG ALLERGIES. PERSONAL HISTORY: Does not abuse alcohol or drugs. No history of smoking. FAMILY HISTORY: Mother of CHF and its complications at the age of 76 years. Father lived up to 104 years and of natural causes. CODE STATUS: Full. I have discussed this with the patient and her power of ip attorney and niece, Ms. Kathleen Jaramillo. REVIEW OF SYSTEMS: CONSTITUTIONAL: Negative for weight loss or gain, ability to conduct usual activities. SKIN: Negative for rash, itching. EYES: Negative for double vision, pain. ENT/MOUTH: Negative for nose bleeding, neck stiffness, pain, tenderness. CARDIOVASCULAR: Negative for palpitations, dyspnea on exertion, orthopnea. RESPIRATORY: Negative for shortness of breath, wheezing, cough, hemoptysis, fever or night sweats. GASTROINTESTINAL: Negative for poor appetite, abdominal pain, heartburn, nausea , vomiting, constipation, or diarrhea. GENITOURINARY: Negative for urgency, frequency, dysuria, nocturia. MUSCULOSKELETAL: Negative for pain, swelling. NEUROLOGIC/PSYCHIATRIC: Negative for anxiety, depression. ALLERGY/IMMUNOLOGIC: Negative for skin rash, bleeding tendency. PHYSICAL EXAMINATION: GENERAL: The patient is an 87-year-old female, who is currently lethargic, but responds well to verbal questions. VITAL SIGNS: Blood pressure 118/50 and dropped down to 90 systolic. She has received 1 L of fluid and is receiving her second liter of IV fluid bolus. Temperature on arrival was 90.6 degrees rectal, pulse 50 per minute, respiratory rate 14 per minute, saturating 93% on room air. HEENT: Eyes; extraocular muscles are intact. Pupils are reacting to light. There is congestion of her conjunctivae and ectropion of lower eyelids. Oral cavity; mucous membranes are dry, no exudates or congestion. NECK: No JVD. Neck is supple. CARDIOVASCULAR: S1 and S2 heard, regular rhythm. RESPIRATORY: Air entry 1+ bilateral. No rales or rhonchi. ABDOMEN: Soft. Bowel sounds heard. No tenderness, rigidity, or guarding. EXTREMITIES: The patient has chronic lymphedema, more so on the left lower extremity than right. Peripheral pulses are 1+ bilateral. No ischemic ulcerations or gangrene. CENTRAL NERVOUS SYSTEM: No gross focal deficits noted. The patient is lethargic, but oriented well. PSYCHIATRIC: The patient's mood is euthymic. No hallucinations or delusions. LABORATORY DATA: EKG done shows sinus bradycardia at 51 beats per minute. White count of 3.6, hemoglobin and hematocrit of 9 and 27, platelet count 71, MCV is 94, with 68% neutrophils, 22% lymphocytes, 8% monocytes. Potassium 5.3, serum bicarb 21, BUN 88, creatinine 4.2, serum glucose 93. Lactic acid is 0.75. AST 87, ALT 63, alkaline phosphatase 149. Troponin-I x2 is negative. Albumin is 4.0. UA shows no evidence of infection. Chest x-ray done shows cardiomegaly, no acute infiltrate. CT brain without contrast done shows no mass, bleed, or acute process. There is atrophy and chronic white matter ischemic changes. CLINICAL IMPRESSION AND PLAN: The patient will be admitted to telemetry if her temperature comes up to 96 degrees or above. If not, she will be moved to ICU if her blood pressure drops or to IMCU. The patient appears to be severely dehydrated with her being on Lasix 80 mg twice daily and metolazone. She has acute kidney injury with metabolic acidosis. Her enalapril will be held for now. We will also hold her Coreg in view of her bradycardia at present. The patient will be getting her second liter of normal saline bolus at present. From then on, she will be on half NS at 80 mL per hour. We will continue on Multaq, aspirin, Lipitor, Synthroid as before. Empiric cefepime and vancomycin based on renal dosing will be placed. Blood and urine cultures have been obtained in the ER. She is on a Demetria Hugger at present. We will obtain a cortisol level stat, ultrasound venous Doppler of lower extremities, and a BNP level as well. The patient has multiple comorbid conditions. I have discussed code status with the patient and her niece at bedside. Both have expressed wanting to be a full code. I have consulted Dr. Cunningham for Nephrology consultation as well. We will closely monitor her. Job ID: [id number] MTDD
[2018-10-06] MEDS ORDERED: Cefepime 1 GM in Sodium Chloride 0.9% 100 ML IVPB SCH (21:15)
[2018-10-06 21:27] LABS: Troponin I Less than 0.010 ng/mL (< 0.028)
[2018-10-06] MEDS ORDERED: Vancomycin HCl 1.5 GM in Sodium Chloride 0.9% 250 ML 300 ML IVPB SCH (21:30)
[2018-10-06 21:45] LABS: FSP-Qualitative Normal (Normal)
[2018-10-06 22:07] LABS: Platelet Count 52 thou/uL (130-400)
--- NOTE | 2018-10-06 22:11 | RAD ---
EXAM: CHEST ONE VIEW: 10/06/18 HISTORY: Altered mental status. Slow speech. COMPARISON: 10/06/18 earlier study. Left central line is placed with the tip at the level of the upper superior vena cava, left brachioc ephalic vein junction. Minimal cardiomegaly. Increased retrocardiac density probably a large hiatal hernia but stable. No pneumothorax or pleural effusion. IMPRESSION: Left central line placement without pneumothorax. Otherwise stable chest. POS: [facility]
[2018-10-06] MEDS: Dextrose 5% in Water 1,000 ML IV SCH (23:11)
[2018-10-06] MEDS: Atorvastatin Calcium 40 MG TAB PO SCH (23:36)
[2018-10-07 02:32] LABS: Creatinine, Urine 75.67 mg/dL (47-110)
[2018-10-07 05:13] LABS: Albumin 3.3 g/dL (3.4-4.8); Anion Gap 12 mmol/L (10-20); BUN (Urea Nitrogen) 80 mg/dL (9.8-20.1); BUN/Creatinine Ratio 21.68; Calc. Creatinine Clearance 18 mL/min (70-130); Calcium 9.1 mg/dL (7.8-10.44); Carbon Dioxide 23 mmol/L (23-31); Chloride 113 mmol/L (98-107); Estimated GFR-MDRD 12; Glucose 83 mg/dL (83-110); Sodium 143 mmol/L (136-145)
[2018-10-07 06:04] LABS: #Lymphocytes 0.7 thou/uL (1.20-3.40); #Monocytes 0.2 thou/uL (0.11-0.59); #Neutrophils 1.4 thou/uL (1.40-6.50); %Basophils 0.3 % (0.0-1.0); %Eosinophils 1.2 % (0.0-10.0); %Monocytes 6.4 % (0.0-10.0); Anisocytosis SLIGHT = 6-15 cells (100X) (0-5/hpf); Burr Cells SLIGHT = 2-5 cells (100X) (0-1/hpf); Hemoglobin 7.3 g/dL (12.0-16.0); MDiff Complete? YES; Mean Corpuscular HGB CONC 33.3 g/dL (32.0-36.0); Mean Corpuscular Hemoglobin 31.8 pg (27.0-31.0); Mean Corpuscular Volume 95.5 fL (78.0-98.0); Mean Platelet Volume 11.3 fL (7.4-10.4); Platelet Count 53 thou/uL (130-400); Platelet Morphology Comment Appears Decreased; RBC Distribution Width 17.8 % (11.5-14.5); Red Blood Cell (RBC) Count 2.31 mill/uL (4.20-5.40); White Blood Cell (WBC) Count 2.3 thou/uL (4.8-10.8)
--- NOTE | 2018-10-07 07:37 | ULT ---
BILATERAL LOWER EXTREMITY VENOUS DUPLEX DOPPLER ULTRASOUND: CPT: 61687 ICD-10-PCS: B54D INDICATIONS: Lower extremity edema. TECHNIQUE: Color-flow Doppler, spectral wave-form analysis of pulsed Doppler, and aguilar-scale imaging with compre ssion and augmentation were used to evaluate the bilateral common femoral, femoral, popliteal, shirt maker ior tibial, and superficial femoral veins, and the proximal portions of the profunda femoral and grea ter saphenous veins. FINDINGS: There is appropriate compressibility and flow within the imaged deep venous system of each lower extr emity. IMPRESSION: No deep venous thrombosis. POS: [facility]
[2018-10-07] MEDS: Dextrose 5% in Water 1,000 ML IV SCH ×2 (08:15→10:15)
[2018-10-07] MEDS: Levothyroxine Sodium 100 MCG TAB PO SCH (08:46)
[2018-10-07] MEDS: Dronedarone HCl 400 MG TAB PO SCH ×2 (08:47→18:19)
[2018-10-07] MEDS: Aspirin 81 mg Enteric Coated Tablet PO SCH (08:47)
[2018-10-07] MEDS: Enoxaparin Sodium 30 MG/0.3 ML SYRINGE SC SCH (08:48)
--- NOTE | 2018-10-07 12:13 | PDOC.HOSPP ---
- Subjective Subjective: awake, not in distress no sob or chest pain moves all extremities - Objective Vital Signs & Weight: Vital Signs (12 hours) Temp 10/07/18 10:00 96.1 F L 10/07/18 07:00 95.5 F L Weight Weight 245 lb 9.519 oz Most Recent Monitor Data Heart Rate from ECG 62 NIBP 115/65 NIBP BP-Mean 81 Respiration from ECG 14 SpO2 95 I&O: 10/06/18 10/07/18 10/08/18 06:59 06:59 06:59 Intake Total 1121 360 Output Total 660 440 Balance 461 -80 Result Diagrams: 10/07/18 04:05 10/07/18 04:05 ROS - Review of Systems All systems: All other ROS were reviewed and found negative. - Medication Medications: Active Medications Generic Name Dose Route Start Last Admin Trade Name Freq PRN Reason Stop Dose Admin Aspirin 81 mg 10/07/18 09:00 10/07/18 08:47 Ecotrin PO 81 mg DAILY JERMAN Administration Atorvastatin Calcium 40 mg 10/06/18 21:00 10/06/18 23:36 Lipitor PO 40 mg HS JERMAN Administration Dronedarone 400 mg 10/07/18 08:00 10/07/18 08:47 Multaq PO 400 mg BID-WM JERMAN Administration Enoxaparin Sodium 30 mg 10/07/18 09:00 10/07/18 08:48 Lovenox SC 30 mg 0900 JERMAN Administration Dextrose/Water 1,000 mls @ 100 mls/hr 10/06/18 20:45 10/07/18 10:15 D5w IV 1,000 mls .Q10H JERMAN Administration Levothyroxine Sodium 125 mcg 10/07/18 09:00 10/07/18 08:46 Synthroid PO 125 mcg DAILY JERMAN Administration Pantoprazole Sodium 40 mg 10/07/18 09:00 10/07/18 08:47 Protonix PO 40 mg DAILY JERMAN Administration - Exam NAD, awake alert Eye: PERRL, anicteric sclera ENT: no oropharyngeal lesions, dry oral mucosa Neck: supple, no JVD Heart: RRR, no murmur Respiratory: no wheezes, no rales Gastrointestinal: soft, non-tender, non-distended, normal bowel sounds Extremities: no cyanosis, 2+ LE edema Neurological: CN's grossly intact, no focal deficits Psychiatric: normal affect Hosp A/P (1) Hypothermia Code(s): T68.XXXA - HYPOTHERMIA, INITIAL ENCOUNTER Status: Acute Qualifiers: Encounter type: subsequent encounter Qualified Code(s): T68.XXXD - Hypothermia, subsequent encounter Plan: still temp around 93 (2) Sepsis Code(s): A41.9 - SEPSIS, UNSPECIFIED ORGANISM Status: Suspected Qualifiers: Sepsis type: sepsis due to unspecified organism (3) Metabolic acidosis Code(s): E87.2 - ACIDOSIS Status: Acute (4) Acute kidney injury Code(s): N17.9 - ACUTE KIDNEY FAILURE, UNSPECIFIED Status: Acute (5) Anemia Code(s): D64.9 - ANEMIA, UNSPECIFIED Status: Chronic Qualifiers: (6) Atrial fibrillation Code(s): I48.91 - UNSPECIFIED ATRIAL FIBRILLATION Status: Chronic Qualifiers: Atrial fibrillation type: paroxysmal Qualified Code(s): I48.0 - Paroxysmal atrial fibrillation (7) Diastolic heart failure Code(s): I50.30 - UNSPECIFIED DIASTOLIC (CONGESTIVE) HEART FAILURE Status: Chronic Qualifiers: Heart failure chronicity: chronic Qualified Code(s): I50.32 - Chronic diastolic (congestive) heart failure (8) Hyperlipidemia Code(s): E78.5 - HYPERLIPIDEMIA, UNSPECIFIED Status: Chronic Qualifiers: (9) Hypertension Code(s): I10 - ESSENTIAL (PRIMARY) HYPERTENSION Status: Chronic Qualifiers: (10) Hypothyroid Code(s): E03.9 - HYPOTHYROIDISM, UNSPECIFIED Status: Chronic Qualifiers: (11) Severe dehydration Code(s): E86.0 - DEHYDRATION Status: Acute - Plan except for temp she is hemodynamically stable continue cefepime, vanc based on renal function creatinine around 3.6, bco3 is 23 continue gentle iv hydration, multaq, asp, lipitor, synthroid and protonix Pt wants to be DNAR, d/w poa as well.
[2018-10-07] MEDS: Sodium Bicarbonate 75 MEQ in Sodium Chloride 0.45% 1,000 ML IV SCH ×2 (12:19→23:31)
[2018-10-07 12:37] LABS: Hemoglobin 7.7 g/dL (12.0-16.0)
--- NOTE | 2018-10-07 14:30 | CON ---
DATE OF CONSULTATION: 10/07/2018 REASON FOR CONSULTATION: Acute renal failure. REQUESTING PHYSICIAN: Mialgro Whitley MD. CHIEF COMPLAINT: Generalized weakness and poor intake. HISTORY OF PRESENT ILLNESS: An 87-year-old female with known history of morbid obesity, hypothyroidism, chronic diastolic heart failure on diuretics as well as lisinopril, brought in by relatives due to worsening weakness associated with poor oral intake and some confusion. The patient reportedly has not been eating for several weeks. She also was noted to be acting out of place and was unusually slow both in ambulation and in speech with some confusion. Home Health nurse had seen the patient three days ago and had recommended presentation to the ER, but the patient declined. However, with pressure from the relatives, she accepted to been seen in the hospital. On presentation to the emergency room, the patient was found to be hypothermic with temperature of 90 degrees Fahrenheit. She also was noted to be hypotensive and further evaluation revealed acute renal failure with creatinine of 4.21. The patient was started on IV fluid and subsequently admitted to the ICU for rewarming and other supportive care. Of note, above history is from review of medical record and talking with relatives. The patient has memory lapses and was unable to provide any significant history. PAST MEDICAL HISTORY: 1. Chronic diastolic heart failure. 2. Chronic atrial fibrillation. 3. Hypertension. 4. Hyperlipidemia. 5. Type 2 diabetes mellitus. 6. Hypothyroidism. 7. Chronic lymphedema of both lower extremities. 8. Prior GI bleeding. 9. Morbid obesity. PAST SURGICAL HISTORY: 1. Hysterectomy. 2. Appendectomy. 3. Left ankle and wrist surgery. FAMILY HISTORY: Obtained from review of medical records showed that mother of CHF and its complications while father lived to [facility] and of natural causes. SOCIAL HISTORY: The patient lives alone with some help from Home Health and relatives. Denied smoking, alcohol use, or recreational drug use. ALLERGIES: NO KNOWN DRUG ALLERGIES REPORTED. HOWEVER, IT IS LISTED THE PATIENT HAS ADVERSE REACTION TO APIXABAN BECAUSE OF PRIOR GI BLEEDING WHILE ON THAT. MEDICATIONS: Prior to hospital medications, 1. Aspirin 81 mg p.o. daily. 2. Lipitor 40 mg p.o. daily at bedtime. 3. Coreg 3.125 mg p.o. b.i.d. 4. Enalapril 5 mg p.o. daily. 5. Lasix 80 mg p.o. b.i.d. 6. Levothyroxine 125 mcg p.o. daily. 7. Metolazone 5 mg p.o. daily. 8. Potassium chloride 20 mEq daily. 9. Multaq 400 mg p.o. b.i.d. 10. Methylprednisolone taper. The patient may have completed this. Current hospital medications, 1. Cefepime 1 g daily at bedtime. 2. 5% dextrose at 100 mL/h. 3. Vancomycin as per pharmacy. 4. Aspirin 81 mg p.o. daily. 5. Lipitor 40 mg p.o. daily at bedtime. 6. Multaq 400 mg p.o. b.i.d. 7. Lovenox 30 mg subcutaneously daily. 8. Levothyroxine 125 mcg p.o. daily. 9. Protonix 40 mg daily. REVIEW OF SYSTEMS: This is grossly limited due to the patient's condition. She, however, denied chest pain, palpitation, or shortness of breath. Other components of 12-point review of system were negative other than pertinent positives and negatives included in the history of present illness. PHYSICAL EXAMINATION: VITAL SIGNS: Temperature 96.1, pulse 56, blood pressure 96/51, respiratory rate 14, and SpO2 of 95% on room air. GENERAL: Morbidly obese female, in no obvious distress. Afebrile. Anicteric. Acyanotic. HEENT: Normocephalic and atraumatic. Conjunctivae are mildly injected. Left pupil is oblong about 3 mm. Right is 2 mm and reacting to light. NECK: Short, thick neck noted. No obvious JVD or masses appreciated. CARDIOVASCULAR: Regular rhythm and rate with normal heart sounds one and two. 3/6 systolic murmur heard maximal at the mitral area noted. RESPIRATORY: Fair air entry bilateral with some transmitted sounds. No obvious crackle or rhonchi or use of accessory muscles appreciated. GI: Morbidly obese, soft, nontender, nondistended with normal bowel sounds. EXTREMITIES: Huge lower extremities with trace feet edema. No erythema appreciated. NEUROLOGIC: Conscious and alert. Oriented x3. Speech and responses are slow. Some memory lapse is noted. Cranial nerves 2 through 12 are grossly intact. The patient moves all extremities. UROGENITAL: Estes catheter is in place draining some clear urine. DIAGNOSTIC DATA: CBC today showed WBC count of 2.3, hemoglobin of 7.3, MCV of 95.5, platelet of 53. Renal function panel today showed sodium 143, potassium 5.0, chloride 113, CO2 of 23, BUN 80, creatinine 3.69, glucose 83, calcium 9.1, phosphorus 4.0, albumin 3.3. Of note creatinine was 4.21 and BUN 88 on presentation. Review of medical records, however, showed that the patient had creatinine of 1.20 in July 2018. Urinalysis performed on October 06 showed clear colorless urine with pH of 5.0, specific gravity of 1.007, negative protein, glucose, ketone, blood, nitrite, bilirubin, and leukocyte esterase. Urine electrolytes and protein showed protein 56, creatinine 75.67. Urine sodium of 67 and urine urea nitrogen of 284. Calculated fractional excretion of urea is 17%. Chest x-ray on presentation showed hyperinflated lungs with chronic changes. No masses or consolidation or pneumothorax was noted. Lower extremity Doppler of both legs showed no deep vein thrombosis. CT scan of the brain performed on presentation showed no masses, bleed or other acute pathology, however, atrophy and chronic white matter ischemic changes were noted. ASSESSMENT AND PLAN: 1. Acute renal failure: This is felt to be due to hemodynamic factors related to volume depletion from diuretics and poor oral intake in a patient on lisinopril. Acute tubular necrosis seems unlikely as creatinine already is trending down, worse with IV fluid therapy. We will hold antihypertensives and diuretics as well as all oral nephrotoxic agent. We will start the patient on bicarb-containing infusion and monitor renal function. 2. Metabolic acidosis: Both anion and hyperchloremic. The patient received normal saline in the ER. We will start bicarb-containing fluids and monitor electrolytes. 3. Acute metabolic encephalopathy: This is felt to be related to uremia. On presentation, the patient had BUN of 88. She was noted to be slow with poor oral intake. Lutz oral intake encouraged. Appetite is expected to improve with improvement in renal function. 4. Dehydration with volume depletion: We will start crystalloid and monitor. 5. Chronic diastolic heart failure: No acute issues. 6. Morbid obesity. No acute issues. 7. Hypothermia: Rewarming as per primary attending and Critical Care physician. 8. Acute drop in hemoglobin: The patient has chronic anemia. Acute drop most likely is related to correction of hemoconcentration. We will, however, get iron studies to rule out iron deficiency. We defer transfusion to primary attending. The patient may benefit from electrolyte stimulating agent if eventually she has chronic kidney disease. She also has prior history of GI bleeding. Occult GI bleeding needs to be ruled out given persistent anemia. 9. Hypertension: Blood pressure currently is soft. We will monitor the patient with crystalloid while holding antihypertensives. Many thanks for involving us in the care of this patient. We will follow along with you. Job ID: [id number]
[2018-10-07] MEDS: methylPREDNISolone Sod Succ 40 MG VIAL IVP SCH ×2 (14:52→21:05)
[2018-10-07] MEDS: Atorvastatin Calcium 40 MG TAB PO SCH (20:15)
[2018-10-07] MEDS: Cefepime 1 GM in Sodium Chloride 0.9% 100 ML IVPB SCH (20:15)
[2018-10-07 21:58] LABS: Vancomycin, Random 14.4 ug/mL (See Comment)
[2018-10-07] MEDS ORDERED: Vancomycin HCl 1.5 GM in Sodium Chloride 0.9% 250 ML 300 ML IVPB SCH (22:00)
[2018-10-07] MEDS ORDERED: Vancomycin HCl 1 GM in Premix Bag 1 BAG IVPB SCH (23:00)
--- NOTE | 2018-10-08 01:11 | CON ---
DATE OF CONSULTATION: 10/07/2018 HISTORY OF PRESENT ILLNESS: Ms. Gamble is an 87-year-old female, who presented hypothermic and hypotensive. She has had over 2 L of volume replacement. She is in a Demetria Hugger now to warm her up. She does not like this as she says it is too hot. Temperature at the time of my exam was 96 degrees. She was hospitalized here in July of 2018 with diastolic heart failure and bronchitis. PAST MEDICAL HISTORY: Remarkable for; 1. Hypothyroidism. Her last TSH was approximately 4. 2. History of hypertension. 3. History of lipid disorder. 4. History of diabetes. 5. History of atrial fibrillation. 6. History of bleeding with anticoagulation in the past. 7. History of thrombocytopenia. 8. Status post hysterectomy. 9. History of an appendectomy. SOCIAL HISTORY: She is nonsmoker, nondrinker, nondrug user. FAMILY HISTORY: Non contributory. She reports intolerance to Eliquis. MEDICATIONS: Reviewed. REVIEW OF SYSTEMS: Ten point review of systems completed, otherwise negative. PHYSICAL EXAMINATION: GENERAL: Ms. Gamble is an 87-year-old female. VITAL SIGNS: She is afebrile. Heart rate is 69, blood pressure 145/78, respiratory rate 18. Her last temp this afternoon is 97.8. HEENT: Pupils are equal. Sclerae are anicteric. NECK: Supple. LUNGS: Clear. HEART: Regular rhythm. S1 and S2 normal. ABDOMEN: Soft and nontender. EXTREMITIES: Without clubbing, cyanosis, or edema. LABORATORY DATA: White count is 2.3, hemoglobin 7.3, platelets 53,000, MCV is 95. Sodium 143, potassium 5, chloride 113, bicarb 23, BUN 80, creatinine 3.69. Creatinine in July was 0.95. IMPRESSION: 1. Intravascular volume depletion. 2. Hypothermia. 3. Relative adrenal insufficiency with a cortisol level of 8 in the setting of hypotension. 4. Advanced age. 5. Pancytopenia? Myelodysplasia. PLAN: Hydration, serial exams, supportive care, empiric antibiotics are reasonable. She has one blood culture positive for coag-negative staph. Second blood cultures negative. She has Escherichia coli in her urine. I doubt this is E coli sepsis. I suspect staph is a contaminant. TIME SPENT: This is a 70-minute consult, with greater than 50% of the time spent on the unit coordinating care. Job ID: [id number] MTDD
[2018-10-08] MEDS: methylPREDNISolone Sod Succ 40 MG VIAL IVP SCH (05:17)
[2018-10-08 05:43] LABS: #Lymphocytes 0.5 thou/uL (1.20-3.40); #Neutrophils 1.9 thou/uL (1.40-6.50); %Eosinophils 0.2 % (0.0-10.0); %Lymphocytes 21.9 % (21.0-51.0); %Monocytes 1.4 % (0.0-10.0); %Neutrophils 76.5 % (42.0-75.0); Hemoglobin 8.9 g/dL (12.0-16.0); Mean Corpuscular HGB CONC 32.5 g/dL (32.0-36.0); Mean Corpuscular Hemoglobin 30.8 pg (27.0-31.0); Mean Corpuscular Volume 94.8 fL (78.0-98.0); Platelet Count 65 thou/uL (130-400); RBC Distribution Width 17.5 % (11.5-14.5); Red Blood Cell (RBC) Count 2.88 mill/uL (4.20-5.40); White Blood Cell (WBC) Count 2.4 thou/uL (4.8-10.8)
[2018-10-08 06:02] LABS: Albumin 3.6 g/dL (3.4-4.8); Anion Gap 12 mmol/L (10-20); BUN (Urea Nitrogen) 66 mg/dL (9.8-20.1); BUN/Creatinine Ratio 23.32; Calc. Creatinine Clearance 24 mL/min (70-130); Calcium 9.8 mg/dL (7.8-10.44); Carbon Dioxide 24 mmol/L (23-31); Chloride 110 mmol/L (98-107); Estimated GFR-MDRD 16; Glucose 113 mg/dL (83-110); Iron 100 ug/dL (50-170); Iron Binding Capacity, Total 408 mcg/dL (265-497); Magnesium 2.4 mg/dL (1.6-2.6); Potassium 4.2 mmol/L (3.5-5.1); Sodium 142 mmol/L (136-145)
[2018-10-08 06:20] LABS: Ferritin 112.3 ng/mL (10-291); Thyroid Stimulating Hormone 1.922 uIU/mL (0.35-4.94)
[2018-10-08] MEDS: Levothyroxine Sodium 100 MCG TAB PO SCH (08:46)
[2018-10-08] MEDS: Dronedarone HCl 400 MG TAB PO SCH ×2 (08:46→17:30)
[2018-10-08] MEDS: Aspirin 81 mg Enteric Coated Tablet PO SCH (08:46)
[2018-10-08] MEDS: Enoxaparin Sodium 30 MG/0.3 ML SYRINGE SC SCH (08:47)
--- NOTE | 2018-10-08 09:52 | PRG ---
DATE OF SERVICE: 10/08/2018 SUBJECTIVE: Ms. Gamble is better this morning. She has no acute complaints. OBJECTIVE: VITAL SIGNS: Temperature 95.9, pulse 82, blood pressure 124/70. Intake for 24 hours 3715, output 3440. HEENT: Unremarkable. She has a central line, left IJ area. CARDIOVASCULAR: S1 and S2. Regular with 2/6 systolic murmur at the right sternal border. LUNGS: Clear to auscultation. ABDOMEN: Soft, obese, nontender, and nondistended. EXTREMITIES: No clubbing, cyanosis, or edema. LABORATORY DATA: White blood cell count 2.4, hemoglobin 8.9, hematocrit 27.3, and platelet count 65,000. Sodium 142, potassium 4.2, chloride 100, CO2 of 24, BUN 66, creatinine 2.8, glucose 113. Cultures E. coli is growing out of the urine, which is sensitive to everything, except for Unasyn and ampicillin. She had coag-negative Staph, grew out of 1 blood culture bottle. It is my assumption, that is probably a contaminant. ASSESSMENT: 1. Urosepsis. 2. Volume depletion. 3. Hypothermia. 4. Relative adrenal insufficiency. 5. Pancytopenia with depressed white blood cell count and thrombocytopenia. PLAN: The patient can be transferred out to the medical floor. I believe her bicarbonate drip could be stopped. Continue current IV antibiotics. We would decrease steroid dose. Job ID: [id number]
[2018-10-08] MEDS: Sodium Chloride 0.45% 1,000 ML IV SCH (11:00)
--- NOTE | 2018-10-08 13:59 | PDOC.HOSPP ---
- Subjective Subjective: awake, no sob or abd pain ate her breakfast, is moving all extremities - Objective Vital Signs & Weight: Vital Signs (12 hours) Temp Pulse Ox 10/08/18 13:00 97.6 F 10/08/18 08:00 99 10/08/18 05:00 96.4 F L Weight Admit Weight 241 lb 10.026 oz Weight 246 lb 7.629 oz Most Recent Monitor Data Heart Rate from ECG 80 NIBP 111/57 NIBP BP-Mean 75 Respiration from ECG 15 SpO2 98 I&O: 10/07/18 10/08/18 10/09/18 06:59 06:59 06:59 Intake Total 1121 3715 883 Output Total 660 3440 550 Balance 461 275 333 Result Diagrams: 10/08/18 05:22 10/08/18 05:22 ROS - Review of Systems All systems: All other ROS were reviewed and found negative. - Medication Medications: Active Medications Generic Name Dose Route Start Last Admin Trade Name Freq PRN Reason Stop Dose Admin Aspirin 81 mg 10/07/18 09:00 10/08/18 08:46 Ecotrin PO 81 mg DAILY JERMAN Administration Atorvastatin Calcium 40 mg 10/06/18 21:00 10/07/18 20:15 Lipitor PO 40 mg HS JERMAN Administration Dronedarone 400 mg 10/07/18 08:00 10/08/18 08:46 Multaq PO 400 mg BID-WM JERMAN Administration Enoxaparin Sodium 30 mg 10/07/18 09:00 10/08/18 08:47 Lovenox SC 30 mg 0900 JERMAN Administration Cefepime HCl 1 gm/ Sodium 100 mls @ 200 mls/hr 10/07/18 21:00 10/07/18 20:15 Chloride IVPB 100 mls 2100 JERMAN Administration Sodium Chloride 1,000 mls @ 75 mls/hr 10/08/18 09:15 10/08/18 11:00 1/2 Normal Saline IV 1,000 mls .[id number] JERMAN Administration Levothyroxine Sodium 125 mcg 10/07/18 09:00 10/08/18 08:46 Synthroid PO 125 mcg DAILY JERMAN Administration Pantoprazole Sodium 40 mg 10/07/18 09:00 10/08/18 08:46 Protonix PO 40 mg DAILY JERMAN Administration - Exam NAD, awake alert Eye: PERRL, anicteric sclera ENT: normocephalic atraumatic, moist mucosa Neck: supple, no JVD Heart: RRR, no gallops, murmur present Respiratory: no wheezes, no rales Gastrointestinal: soft, non-tender, normal bowel sounds Extremities: no cyanosis, no clubbing Neurological: CN's grossly intact, no focal deficits Musculoskeletal: normal tone, no muscle wasting Psychiatric: normal affect, A&O x 3 Hosp A/P (1) Hypothermia Code(s): T68.XXXA - HYPOTHERMIA, INITIAL ENCOUNTER Status: Acute Qualifiers: Encounter type: subsequent encounter Qualified Code(s): T68.XXXD - Hypothermia, subsequent encounter (2) Sepsis Code(s): A41.9 - SEPSIS, UNSPECIFIED ORGANISM Status: Acute Qualifiers: Sepsis type: Escherichia coli Sepsis acute organ dysfunction status: with acute organ dysfunction (3) Metabolic acidosis Code(s): E87.2 - ACIDOSIS Status: Resolved (4) Acute kidney injury Code(s): N17.9 - ACUTE KIDNEY FAILURE, UNSPECIFIED Status: Acute (5) Anemia Code(s): D64.9 - ANEMIA, UNSPECIFIED Status: Chronic Qualifiers: (6) Atrial fibrillation Code(s): I48.91 - UNSPECIFIED ATRIAL FIBRILLATION Status: Chronic Qualifiers: Atrial fibrillation type: paroxysmal Qualified Code(s): I48.0 - Paroxysmal atrial fibrillation (7) Diastolic heart failure Code(s): I50.30 - UNSPECIFIED DIASTOLIC (CONGESTIVE) HEART FAILURE Status: Chronic Qualifiers: Heart failure chronicity: chronic Qualified Code(s): I50.32 - Chronic diastolic (congestive) heart failure (8) Hyperlipidemia Code(s): E78.5 - HYPERLIPIDEMIA, UNSPECIFIED Status: Chronic Qualifiers: (9) Hypertension Code(s): I10 - ESSENTIAL (PRIMARY) HYPERTENSION Status: Chronic Qualifiers: (10) Hypothyroid Code(s): E03.9 - HYPOTHYROIDISM, UNSPECIFIED Status: Chronic Qualifiers: (11) Severe dehydration Code(s): E86.0 - DEHYDRATION Status: Resolved - Plan is on cefepime, dc vanc still her temp runs around 96 but is hemostable tx to medical floor PT to mobilize as tolerated continue multaq, iv fluids, asp, lipitor, synthroid and prednisone
--- NOTE | 2018-10-08 15:04 | PDOC.PALCO ---
Palliative Care Consult - Consult Details Requesting Physician: Dr Whitley Reason for Consult: goals of care, advance directives assistance, other Family Members Present: None at time of assessment - Pertinent HPI Presented to the emergency room with decrease in appetite, temp of 90degrees, increase in weakness. Patient lives with her niece who was present on admission and confirmed. Patient was admitted with hoes on increasing core body temperature. Concern arose in that patient has fluctuated in code status. - Pertinent PMH CHF, Chronic Atrial Fib, Hypertension, diabetes mellitus 2, hypothyroid, chronic lymphedema to lower extremities. Anticoag therapy discontinued last secondary to intraabdominal bleed. - Social History Smoking Status: Never smoker Smoking: no tobacco exposure Alcohol Use: none Drug Use History: none Living Situation: other (Patient lives with her niece) - Medications MAR Reviewed: Yes - Allergies Allergies/Adverse Reactions: Allergies Allergy/AdvReac Type Severity Reaction Status Date / Time apixaban [From Eliquis] AdvReac Intermediate bleeding Verified 03/30/18 21:43 - Subjective Patient awake, alert and oriented. Cheerful, was able to give short life review. She has lived in [place], raised her children in [place]. Her ( who has ) was a cemetery keeper and they came to [place] to serve in a adventism. ROS: Denies headache, any pain to back or extremities, shortness of breath, nausea, vomiting, blurry vision, or increased weakness. - Objective Vital Signs: Vital Signs - Most Recent Temp Pulse Resp BP Pulse Ox 97.6 F 69 16 123/58 L 99 10/08/18 13:00 10/07/18 17:47 10/07/18 17:47 10/08/18 13:24 10/08/18 08:00 Palliative Performance Scale: 40 - Physical Exam Constitutional: NAD HEENT: PERRLA, moist MMs, EOMI Respiratory: unlabored breathing Cardiovascular: no significant murmur Gastrointestinal: soft, non-tender, positive bowel sounds Musculoskeletal: edema present Deviation from normal: lower extremitiy edema, pitting Psychiatric: normal affect Deviation from normal: fair turgor, brusing - Problem List (1) Palliative care encounter Code(s): Z51.5 - ENCOUNTER FOR PALLIATIVE CARE Current Visit: Yes Status: Acute (2) Acute on chronic diastolic congestive heart failure, NYHA class 3 Code(s): I50.33 - ACUTE ON CHRONIC DIASTOLIC (CONGESTIVE) HEART FAILURE Current Visit: No Status: Acute (3) Chronic respiratory failure with hypoxia Code(s): J96.11 - CHRONIC RESPIRATORY FAILURE WITH HYPOXIA Current Visit: No Status: Acute (4) 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 Yuri Chase RNhandkerchief maker coordinated with family a meeting tomorrow with patient, son, and neice tomorrow for a meeting at 11am to further discuss DNAR status and OOHDNAR and goals of care for patient. [60] minutes spent on this encounter with >50% of the time in counseling and coordination of care. Thank you for this very appropriate consult.
--- NOTE | 2018-10-08 16:03 | PRG ---
DATE OF SERVICE: 10/08/2018 SUBJECTIVE: An 87-year-old obese female with chronic diastolic heart failure, on lisinopril and diuretics, admitted due to worsening generalized weakness and poor oral intake as well as some confusion. Found to have acute kidney injury. Started on IV fluids with improvement. The patient reports feeling better. Appetite is back and oral intake has improved. She feels stronger. Denied fever, nausea, vomiting, or change in bowel habit. OBJECTIVE: VITAL SIGNS: Temperature 96.6, pulse 74, respiratory rate 12, SpO2 of 95%, and blood pressure 104/53. GENERAL: Morbidly obese female, in no obvious distress. Afebrile. Anicteric. Acyanotic. HEENT: Normocephalic and atraumatic. CARDIOVASCULAR: Regular rhythm and rate with normal heart sounds 1 and 2. Blowing systolic murmur heard over the precordium. RESPIRATORY: Fair air entry bilaterally with no obvious crackle or rhonchi or use of accessory muscles. GI: Morbidly obese, soft, nontender, nondistended with normal bowel sounds. EXTREMITIES: Mild bilateral leg edema noted. No erythema appreciated. NEUROLOGIC: Conscious, alert, and oriented x3 with appropriate mental status. The patient is conversational. Cranial nerves 2 through 12 are grossly intact. DIAGNOSTIC DATA: CBC today showed WBC count of 2.4, hemoglobin of 8.9, platelet of 65. CMP showed sodium 142, potassium 4.2, chloride 110, CO2 of 24, BUN 66, creatinine 2.83, glucose 113, calcium 9.8, phosphorus 4, magnesium 2.4. Albumin 3.6. Iron chemistry showed iron 100, TIBC 408, saturation 25, and ferritin 112.3. ASSESSMENT: 1. Acute renal failure: Due to hemodynamic factors related to volume depletion from diuretics as well as RAAS tracey. We will continue IV fluids. Creatinine is trending down. We will continue to hold antihypertensives and diuretics. 2. Metabolic acidosis: Improved. 3. Acute metabolic encephalopathy: Irving to be due to uremia, improved. The patient is more awake and conversational. 4. Volume depletion/dehydration. 5. Chronic diastolic heart failure: No acute issues compensated. 6. Morbid obesity. PLAN: 1. Continue crystalloid. Continue to hold nephrotoxic agents including diuretics and RAAS tracey. 2. [place] oral intake. 3. Repeat renal function in the morning. Further recommendation to follow depending on hospital course. Job ID: [id number]
[2018-10-08] MEDS: Cefepime 1 GM in Sodium Chloride 0.9% 100 ML IVPB SCH (19:36)
[2018-10-08] MEDS: Atorvastatin Calcium 40 MG TAB PO SCH (19:37)
[2018-10-09] MEDS: Sodium Chloride 0.45% 1,000 ML IV SCH ×2 (03:16→16:48)
[2018-10-09 06:09] LABS: Anion Gap 13 mmol/L (10-20); BUN (Urea Nitrogen) 58 mg/dL (9.8-20.1); Calc. Creatinine Clearance 33 mL/min (70-130); Calcium 9.4 mg/dL (7.8-10.44); Carbon Dioxide 22 mmol/L (23-31); Chloride 109 mmol/L (98-107); Estimated GFR-MDRD 22; Glucose 98 mg/dL (83-110); Potassium 3.7 mmol/L (3.5-5.1); Sodium 140 mmol/L (136-145)
[2018-10-09] MEDS: Dronedarone HCl 400 MG TAB PO SCH ×2 (08:09→16:48)
[2018-10-09] MEDS: Levothyroxine Sodium 100 MCG TAB PO SCH (08:09)
[2018-10-09] MEDS: Aspirin 81 mg Enteric Coated Tablet PO SCH (08:09)
[2018-10-09] MEDS: predniSONE 20 MG TAB PO SCH (08:09)
[2018-10-09] MEDS: Enoxaparin Sodium 30 MG/0.3 ML SYRINGE SC SCH (08:10)
--- NOTE | 2018-10-09 10:08 | PRG ---
DATE OF SERVICE: 10/09/2018 SUBJECTIVE: The patient is doing reasonably well. Has no acute complaints. OBJECTIVE: VITAL SIGNS: On exam, temperature is 97.4, pulse 67, respirations 20, O2 saturation 92%, and blood pressure 106/66. HEENT: Unremarkable. NECK: No adenopathy or JVD. CHEST: Clear to auscultation anteriorly. CARDIAC: S1 and S2. Regular. ABDOMEN: Soft. EXTREMITIES: No edema. LABORATORY DATA: White blood cell count 2.4, hematocrit 27.3, and platelet count 65. Sodium 140, potassium 3.7, chloride 109, CO2 of 22, BUN 58, creatinine 2.1, and glucose 98. ASSESSMENT: 1. Urosepsis, resolving. 2. Relative adrenal insufficiency. PLAN: We would continue steroids in another couple of days and then stop. Should be okay to transition to oral antibiotics and discharged as early as tomorrow. Job ID: [id number]
--- NOTE | 2018-10-09 10:29 | PRG ---
DATE OF SERVICE: 10/09/2018 SUBJECTIVE: Obese, elderly female with chronic atrial fibrillation, chronic diastolic heart failure, and CKD, being followed up for acute kidney injury. The patient is feeling better and is conversational. Denied nausea, vomiting, or abdominal pain. Oral intake and appetite are better. OBJECTIVE: VITAL SIGNS: Temperature 97.4, pulse 67, respiratory rate 20, SpO2 of 92 on room air, and blood pressure is 106/66. GENERAL: Obese elderly female, in no distress. Afebrile. Anicteric. Acyanotic. HEENT: Normocephalic and atraumatic. Oral mucosa is moist. CARDIOVASCULAR: Regular rhythm and rate with normal heart sounds one and two. Systolic murmur noted. RESPIRATORY: Fair air entry bilaterally with no crackle or rhonchi or use of accessory muscles. GI: Morbidly obese, soft, nontender, and nondistended with normal bowel sounds. EXTREMITIES: Trace bilateral feet edema noted. No erythema or cyanosis appreciated. NEUROLOGIC: Conscious, alert, and oriented x3 with appropriate mental status. DIAGNOSTIC DATA: BMP today showed sodium 140, potassium 3.7, chloride 109, CO2 of 22, BUN 58, creatinine 2.1, glucose 98, and calcium 9.4. ASSESSMENT AND PLAN: 1. Acute kidney injury: The patient has baseline chronic kidney disease stage 3. This is felt to be due to volume depletion due to diuretic therapy as well as effect of punkd-onqsoqdzegm-sbnpcajxmdm system tracey. Creatinine is trending down with IV fluids while antihypertensives and diuretics are held. 2. Metabolic acidosis: Improved with bicarb infusion. We will monitor serum bicarb now. The patient is on normal saline. 3. Acute metabolic encephalopathy: Resolving felt to be due to acute renal failure. 4. Volume status: The patient seems close to euvolemia. We will continue gentle IV hydration and monitor closely. 5. Chronic diastolic heart failure. No acute issues. The patient seems compensated. 6. Heart murmur: Further evaluation by the primary attending. 7. Anemia: Etiology is unclear. Deferred to primary attending. Job ID: [id number]
--- NOTE | 2018-10-09 10:54 | PDOC.HOSPP ---
- Subjective Subjective: Pt seen for followup re: DANIEL. Says she feels better. - Objective Vital Signs & Weight: Vital Signs (12 hours) Temp Pulse Resp BP Pulse Ox 10/09/18 08:06 97.4 F L 67 20 106/66 92 L 10/09/18 02:55 96.2 F L 66 18 112/70 94 L 10/09/18 00:00 66 16 116/60 92 L Weight Admit Weight 241 lb 10.026 oz Weight 257 lb 6 oz Most Recent Monitor Data Heart Rate from ECG 74 NIBP 104/53 NIBP BP-Mean 70 Respiration from ECG 12 SpO2 95 I&O: 10/08/18 10/09/18 10/10/18 06:59 06:59 06:59 Intake Total 3715 1383 Output Total 3440 1360 Balance 275 23 Result Diagrams: 10/08/18 05:22 10/09/18 05:28 Additional Labs: Accuchecks 10/06/18 22:09 POC Glucose 80 labs and MARs reviewed by me. ROS - Review of Systems All systems: All other ROS were reviewed and found negative. Cardiovascular: denies: chest pain, palpitations, orthopnea, paroxysmal noc. dyspnea, edema, light headedness Gastrointestinal: denies: nausea, vomitting, abdominal pain, diarrhea, constipation, melena, hematochezia - Medication Medications: Active Medications Generic Name Dose Route Start Last Admin Trade Name Freq PRN Reason Stop Dose Admin Aspirin 81 mg 10/07/18 09:00 10/09/18 08:09 Ecotrin PO 81 mg DAILY JERMAN Administration Atorvastatin Calcium 40 mg 10/06/18 21:00 10/08/18 19:37 Lipitor PO 40 mg HS JERMAN Administration Dronedarone 400 mg 10/07/18 08:00 10/09/18 08:09 Multaq PO 400 mg BID-WM JERMAN Administration Enoxaparin Sodium 30 mg 10/07/18 09:00 10/09/18 08:10 Lovenox SC 30 mg 0900 JERMAN Administration Cefepime HCl 1 gm/ Sodium 100 mls @ 200 mls/hr 10/07/18 21:00 10/08/18 19:36 Chloride IVPB 100 mls 2100 JERMAN Administration Sodium Chloride 1,000 mls @ 75 mls/hr 10/08/18 09:15 10/09/18 03:16 1/2 Normal Saline IV 1,000 mls .[id number] JERMAN Administration Levothyroxine Sodium 125 mcg 10/07/18 09:00 10/09/18 08:09 Synthroid PO 125 mcg DAILY JERMAN Administration Pantoprazole Sodium 40 mg 10/07/18 09:00 10/09/18 08:09 Protonix PO 40 mg DAILY JERMAN Administration Prednisone 20 mg 10/09/18 09:00 10/09/18 08:09 Prednisone PO 20 mg DAILY JERMAN Administration - Exam NAD Eye: anicteric sclera ENT: normocephalic atraumatic Neck: supple Heart: RRR Respiratory: CTAB Gastrointestinal: soft Skin: normal turgor Psychiatric: normal affect Hosp A/P (1) Acute kidney injury Code(s): N17.9 - ACUTE KIDNEY FAILURE, UNSPECIFIED Status: Acute (2) Sepsis Code(s): A41.9 - SEPSIS, UNSPECIFIED ORGANISM Status: Acute Qualifiers: Sepsis type: Escherichia coli Sepsis acute organ dysfunction status: with acute organ dysfunction (3) Hypertension Code(s): I10 - ESSENTIAL (PRIMARY) HYPERTENSION Status: Chronic Qualifiers: (4) Hypothyroid Code(s): E03.9 - HYPOTHYROIDISM, UNSPECIFIED Status: Chronic Qualifiers: (5) Paroxysmal atrial fibrillation Code(s): I48.0 - PAROXYSMAL ATRIAL FIBRILLATION Status: Chronic - Plan continue antibiotics, out of bed/ambulate continue IV cefepime and vancomycin. Continue Multaq Creatinine improved to 2.10.
[2018-10-09] MEDS: Atorvastatin Calcium 40 MG TAB PO SCH (20:36)
[2018-10-09] MEDS: Cefepime 1 GM in Sodium Chloride 0.9% 100 ML IVPB SCH (20:37)
[2018-10-10] MEDS: Sodium Chloride 0.45% 1,000 ML IV SCH ×2 (05:09→16:35)
[2018-10-10 07:06] LABS: Hemoglobin 8.4 g/dL (12.0-16.0); Mean Corpuscular HGB CONC 32.5 g/dL (32.0-36.0); Mean Corpuscular Hemoglobin 30.8 pg (27.0-31.0); Mean Platelet Volume 9.6 fL (7.4-10.4); Platelet Count 90 thou/uL (130-400); RBC Distribution Width 17.6 % (11.5-14.5); Red Blood Cell (RBC) Count 2.73 mill/uL (4.20-5.40); White Blood Cell (WBC) Count 4.5 thou/uL (4.8-10.8)
[2018-10-10 07:25] LABS: Albumin 3.3 g/dL (3.4-4.8); Anion Gap 12 mmol/L (10-20); BUN (Urea Nitrogen) 50 mg/dL (9.8-20.1); Calc. Creatinine Clearance 39 mL/min (70-130); Calcium 9.7 mg/dL (7.8-10.44); Carbon Dioxide 22 mmol/L (23-31); Chloride 111 mmol/L (98-107); Estimated GFR-MDRD 28; Glucose 102 mg/dL (83-110); Phosphorus 2.5 mg/dL (2.3-4.7); Potassium 3.6 mmol/L (3.5-5.1); Sodium 141 mmol/L (136-145)
[2018-10-10 08:34] LABS: Burr Cells SLIGHT = 2-5 cells (100X) (0-1/hpf); Lymphocytes 25 % (21-51); MDiff Complete? YES; Monocytes 10 % (0-10); Neutrophil 65 % (42-75); Platelet Morphology Comment Appears Decreased; Polychromasia SLIGHT = 2-3 cells (100X) (0-2/hpf)
[2018-10-10] MEDS: Enoxaparin Sodium 30 MG/0.3 ML SYRINGE SC SCH (08:47)
[2018-10-10] MEDS: Levothyroxine Sodium 100 MCG TAB PO SCH (08:47)
[2018-10-10] MEDS: Dronedarone HCl 400 MG TAB PO SCH ×2 (08:47→16:36)
[2018-10-10] MEDS: predniSONE 20 MG TAB PO SCH (08:47)
[2018-10-10] MEDS: Aspirin 81 mg Enteric Coated Tablet PO SCH (08:47)
[2018-10-10] MEDS ORDERED: Sodium Bicarbonate Tab 325 MG TAB PO SCH (10:15)
[2018-10-10] MEDS: Sodium Bicarbonate Tab 325 MG TAB PO SCH ×2 (16:36→20:08)
--- NOTE | 2018-10-10 16:46 | PRG ---
DATE OF SERVICE: 10/10/2018 SUBJECTIVE: An 87-year-old obese female with multiple comorbidities including chronic diastolic heart failure and CKD, being followed up by Nephrology for acute kidney injury. The patient complains of her bed moving, which seems odd. She otherwise feels good. Denied nausea, vomiting, or abdominal pain. Oral intake is adequate. There is no history of fever or palpitations. OBJECTIVE: VITAL SIGNS: Temperature 97.4, pulse 67, respiratory rate 20, SpO2 of 95% on room air, blood pressure is 126/72. GENERAL: Obese elderly female, in no distress. Afebrile, anicteric, and acyanotic. HEENT: Normocephalic and atraumatic. Oral mucosa is moist. CARDIOVASCULAR SYSTEM: Irregular rhythm and rate with systolic murmur. RESPIRATORY: Fair air entry bilaterally with no obvious crackle or rhonchi or use of accessory muscles. GASTROINTESTINAL: Morbidly obese, soft, nontender, and nondistended with normal bowel sounds. EXTREMITIES: Trace bilateral feet edema noted. Otherwise, no erythema or cyanosis. CENTRAL NERVOUS SYSTEM: Conscious, alert, and oriented x3 with appropriate mental status. DIAGNOSTIC DATA: CBC showed WBC count of 4.5, hemoglobin of 8.4, MCV of 95, platelet of 90. Renal function panel shows sodium 141, potassium 3.6, chloride 111, CO2 of 22, BUN 50, creatinine 1.73, glucose 102, calcium 9.7, phosphorus 2.5, albumin 3.3. ASSESSMENT AND PLAN: 1. Acute kidney injury: This is superimposed on baseline chronic kidney disease 3. Due to volume depletion from diuretic therapy as well as the effect of bdbru-rztvbofymiy-ijigehwpxiz system tracey. Creatinine continues to trend down from above 2.4 to 1.7. We will continue to hold nephrotoxic agent and diuretics. 2. Metabolic acidosis: Improved with sodium bicarb infusion. We will start alkali therapy. 3. Acute metabolic encephalopathy: [place] to be related to acute renal failure. We will monitor closely. 4. Volume status: The patient remains euvolemic or close to it. We will continue IV fluid hydration and monitor closely for fluid overload. 5. Chronic diastolic heart failure: No acute issues. Seems compensated. 6. Chronic atrial fibrillation: The patient is not on anticoagulation for unclear reason. We will defer to primary attending. 7. Anemia: Chronic. Very contribution from anemia of chronic kidney disease. Deferred to primary attending for evaluation and treatment for now. Job ID: [id number]
--- NOTE | 2018-10-10 18:50 | PDOC.HOSPP ---
- Subjective Encounter Date: 10/10/18 Encounter Time: 08:20 Subjective: Pt seen for followup re: DANIEL. Feels better. Ambulated to the door. - Objective Vital Signs & Weight: Vital Signs (12 hours) Temp Pulse Resp BP Pulse Ox 10/10/18 11:12 97.4 F L 67 20 126/72 95 10/10/18 08:00 93 L 10/10/18 07:48 97.7 F 93 22 H 125/84 93 L Weight Admit Weight 241 lb 10.026 oz Weight 243 lb 1 oz Most Recent Monitor Data Heart Rate from ECG 74 NIBP 104/53 NIBP BP-Mean 70 Respiration from ECG 12 SpO2 95 I&O: 10/09/18 10/10/18 10/11/18 06:59 06:59 06:59 Intake Total 1383 400 Output Total 1360 1850 1225 Balance 23 -1850 -825 Result Diagrams: 10/10/18 06:12 10/10/18 06:12 ROS - Review of Systems Respiratory: denies: cough, dry, shortness of breath, hemoptysis, SOB with excertion, pleuritic pain, sputum, wheezing Cardiovascular: denies: chest pain, palpitations, orthopnea, paroxysmal noc. dyspnea, edema, light headedness - Medication Medications: Active Medications Generic Name Dose Route Start Last Admin Trade Name Freq PRN Reason Stop Dose Admin Aspirin 81 mg 10/07/18 09:00 10/10/18 08:47 Ecotrin PO 81 mg DAILY JERMAN Administration Atorvastatin Calcium 40 mg 10/06/18 21:00 10/09/18 20:36 Lipitor PO 40 mg HS JERMAN Administration Dronedarone 400 mg 10/07/18 08:00 10/10/18 16:36 Multaq PO 400 mg BID-WM JERMAN Administration Enoxaparin Sodium 30 mg 10/07/18 09:00 10/10/18 08:47 Lovenox SC 30 mg 0900 JERMAN Administration Cefepime HCl 1 gm/ Sodium 100 mls @ 200 mls/hr 10/07/18 21:00 10/09/18 20:37 Chloride IVPB 100 mls 2100 JERMAN Administration Sodium Chloride 1,000 mls @ 75 mls/hr 10/08/18 09:15 10/10/18 16:35 1/2 Normal Saline IV 1,000 mls .[id number] JERMAN Administration Levothyroxine Sodium 125 mcg 10/07/18 09:00 10/10/18 08:47 Synthroid PO 125 mcg DAILY JERMAN Administration Pantoprazole Sodium 40 mg 10/07/18 09:00 10/10/18 08:47 Protonix PO 40 mg DAILY JERMAN Administration Prednisone 20 mg 10/09/18 09:00 10/10/18 08:47 Prednisone PO 20 mg DAILY JERMAN Administration Sodium Bicarbonate 650 mg 10/10/18 15:00 10/10/18 16:36 Bicarbonate, Sodium PO 650 mg TID JERMAN Administration - Exam General - other findings: Morbid obesity Eye: anicteric sclera ENT: normocephalic atraumatic Neck: supple Heart: RRR Respiratory: CTAB Gastrointestinal: soft Skin: normal turgor Psychiatric: normal affect, normal behavior Hosp A/P (1) Acute kidney injury Code(s): N17.9 - ACUTE KIDNEY FAILURE, UNSPECIFIED Status: Acute (2) Sepsis Code(s): A41.9 - SEPSIS, UNSPECIFIED ORGANISM Status: Acute Qualifiers: Sepsis type: Escherichia coli Sepsis acute organ dysfunction status: with acute organ dysfunction (3) Hypertension Code(s): I10 - ESSENTIAL (PRIMARY) HYPERTENSION Status: Chronic Qualifiers: (4) Hypothyroid Code(s): E03.9 - HYPOTHYROIDISM, UNSPECIFIED Status: Chronic Qualifiers: (5) Paroxysmal atrial fibrillation Code(s): I48.0 - PAROXYSMAL ATRIAL FIBRILLATION Status: Chronic (6) Morbid obesity Code(s): E66.01 - MORBID (SEVERE) OBESITY DUE TO EXCESS CALORIES Status: Chronic - Plan PT/OT, out of bed/ambulate Creatinine improved to 1.73. Discharge plan it to Rehab vs Home with HH. Continue synthroid. Transition to oral antibiotics.
[2018-10-10] MEDS: Atorvastatin Calcium 40 MG TAB PO SCH (20:08)
[2018-10-10] MEDS: Cefdinir 300 MG CAP PO SCH (20:08)
[2018-10-11] MEDS: Sodium Chloride 0.45% 1,000 ML IV SCH ×2 (05:59→08:07)
[2018-10-11] MEDS: Sodium Bicarbonate Tab 325 MG TAB PO SCH ×3 (08:06→20:09)
[2018-10-11] MEDS: Aspirin 81 mg Enteric Coated Tablet PO SCH (08:06)
[2018-10-11] MEDS: Cefdinir 300 MG CAP PO SCH ×2 (08:06→20:09)
[2018-10-11] MEDS: Dronedarone HCl 400 MG TAB PO SCH ×2 (08:06→16:46)
[2018-10-11] MEDS: predniSONE 20 MG TAB PO SCH (08:06)
[2018-10-11] MEDS: Levothyroxine Sodium 100 MCG TAB PO SCH (08:06)
[2018-10-11] MEDS: Enoxaparin Sodium 30 MG/0.3 ML SYRINGE SC SCH (08:07)
[2018-10-11 10:34] LABS: #Eosinphils 0.1 thou/uL (0.0-0.7); #Monocytes 0.4 thou/uL (0.11-0.59); %Basophils 0.2 % (0.0-1.0); %Eosinophils 0.9 % (0.0-10.0); %Neutrophils 76.9 % (42.0-75.0); Hemoglobin 8.9 g/dL (12.0-16.0); Mean Corpuscular HGB CONC 33.7 g/dL (32.0-36.0); Mean Corpuscular Hemoglobin 31.8 pg (27.0-31.0); Mean Corpuscular Volume 94.4 fL (78.0-98.0); Mean Platelet Volume 9.5 fL (7.4-10.4); Platelet Count 120 thou/uL (130-400); RBC Distribution Width 17.4 % (11.5-14.5); Red Blood Cell (RBC) Count 2.78 mill/uL (4.20-5.40); White Blood Cell (WBC) Count 6.5 thou/uL (4.8-10.8)
[2018-10-11 10:52] LABS: Anion Gap 10 mmol/L (10-20); BUN (Urea Nitrogen) 38 mg/dL (9.8-20.1); Calc. Creatinine Clearance 49 mL/min (70-130); Calcium 9.6 mg/dL (7.8-10.44); Carbon Dioxide 24 mmol/L (23-31); Chloride 110 mmol/L (98-107); Estimated GFR-MDRD 34; Glucose 114 mg/dL (83-110); Potassium 3.7 mmol/L (3.5-5.1); Sodium 140 mmol/L (136-145)
--- NOTE | 2018-10-11 11:20 | PDOC.HOSPP ---
- Subjective Encounter Date: 10/11/18 Encounter Time: 07:40 Subjective: Pt seen for followup re: DANIEL. Feels better, no complaints. - Objective Vital Signs & Weight: Vital Signs (12 hours) Temp Pulse Resp BP Pulse Ox 10/11/18 11:07 97.4 F L 86 18 114/57 L 92 L 10/11/18 08:05 92 L 10/11/18 07:09 97.4 F L 72 20 112/52 L 92 L Weight Admit Weight 241 lb 10.026 oz Weight 250 lb 14.4 oz Most Recent Monitor Data Heart Rate from ECG 74 NIBP 104/53 NIBP BP-Mean 70 Respiration from ECG 12 SpO2 95 I&O: 10/10/18 10/11/18 10/12/18 06:59 06:59 06:59 Intake Total 400 Output Total 5993 1077 Balance -1849 Result Diagrams: 10/12/18 04:17 10/12/18 04:17 Additional Labs: Labs and MARs reviewed by me ROS - Review of Systems Respiratory: denies: cough, shortness of breath, SOB with excertion, pleuritic pain, wheezing Cardiovascular: denies: chest pain, palpitations, orthopnea, paroxysmal noc. dyspnea, edema, light headedness - Medication Medications: Active Medications Generic Name Dose Route Start Last Admin Trade Name Mirna PRN Reason Stop Dose Admin Aspirin 81 mg 10/07/18 09:00 10/11/18 08:06 Ecotrin PO 81 mg DAILY JERMAN Administration Atorvastatin Calcium 40 mg 10/06/18 21:00 10/10/18 20:08 Lipitor PO 40 mg HS JERMAN Administration Cefdinir 300 mg 10/10/18 21:00 10/11/18 08:06 Omnicef PO 300 mg BID JERMAN Administration Dronedarone 400 mg 10/07/18 08:00 10/11/18 08:06 Multaq PO 400 mg BID-WM JERMAN Administration Enoxaparin Sodium 30 mg 10/07/18 09:00 10/11/18 08:07 Lovenox SC Not Given 0900 JERMAN Sodium Chloride 1,000 mls @ 75 mls/hr 10/08/18 09:15 10/11/18 08:07 1/2 Normal Saline IV 1,000 mls .[id number] JERMAN Administration Levothyroxine Sodium 125 mcg 10/07/18 09:00 08/08/19 08:06 Synthroid PO 125 mcg DAILY JERMAN Administration Pantoprazole Sodium 40 mg 10/07/18 09:00 10/11/18 08:06 Protonix PO 40 mg DAILY JERMAN Administration Prednisone 20 mg 10/09/18 09:00 10/11/18 08:06 Prednisone PO 20 mg DAILY JERMAN Administration Sodium Bicarbonate 650 mg 10/10/18 15:00 10/11/18 08:06 Bicarbonate, Sodium PO 650 mg TID JERMAN Administration - Exam NAD Eye: anicteric sclera ENT: normocephalic atraumatic Neck: supple Heart: RRR Respiratory: CTAB Gastrointestinal: soft Skin: normal turgor Musculoskeletal: normal strength Psychiatric: normal affect Hosp A/P (1) Acute kidney injury Code(s): N17.9 - ACUTE KIDNEY FAILURE, UNSPECIFIED Status: Acute (2) Sepsis Code(s): A41.9 - SEPSIS, UNSPECIFIED ORGANISM Status: Acute Qualifiers: Sepsis type: Escherichia coli Sepsis acute organ dysfunction status: with acute organ dysfunction (3) Hypertension Code(s): I10 - ESSENTIAL (PRIMARY) HYPERTENSION Status: Chronic Qualifiers: (4) Hypothyroid Code(s): E03.9 - HYPOTHYROIDISM, UNSPECIFIED Status: Chronic Qualifiers: (5) Paroxysmal atrial fibrillation Code(s): I48.0 - PAROXYSMAL ATRIAL FIBRILLATION Status: Chronic (6) Morbid obesity Code(s): E66.01 - MORBID (SEVERE) OBESITY DUE TO EXCESS CALORIES Status: Chronic - Plan Creatinine improved to 1.44. Rehab screen. Continue cefdinir. Continue thyroid replacement therapy.
[2018-10-11 11:50] VITALS: BMI 41.8
[2018-10-11] MEDS: Senokot S 8.6-50 MG TAB PO PRN (12:36)
--- NOTE | 2018-10-11 13:08 | PRG ---
DATE OF SERVICE: 10/11/2018 SUBJECTIVE: An 87-year-old obese female with known history of CKD, diabetes, and others, being followed up for acute on chronic renal failure. The patient reports feeling better. Denied nausea, vomiting, chest pain, or dysuria. Discharge to acute rehab is contemplated for further restorative therapy. OBJECTIVE: VITAL SIGNS: Temperature 97.4, pulse 86, respiratory rate 18, SpO2 of 92% on room air, blood pressure is 114/57. GENERAL: Obese elderly female, in no distress. Afebrile. Anicteric. Acyanotic. HEENT: Normocephalic and atraumatic. Oral mucosa is moist. CVS: Irregular rhythm and rate with systolic murmur. RESPIRATORY: Fair air entry bilaterally with some transmitted sounds. No obvious rhonchi or use of accessory muscles was appreciated. GI: Morbidly obese, soft, nontender, nondistended with normal bowel sounds. EXTREMITIES: Dyshy-ne-skmf bilateral leg edema noted. Chronic venous stasis changes noted as well. 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 DIAGNOSTIC DATA: CBC showed WBC count of 6.5, hemoglobin of 8.9, and platelets of 120. BMP showed sodium 140, potassium 3.7, chloride 110, CO2 of 24, BUN 38, creatinine 1.44, glucose 114, and calcium 9.6. Of note, peak creatinine on presentation was 4.21. The patient's baseline creatinine seems to be around 0.95. ASSESSMENT AND PLAN: 1. Acute kidney injury: Improving with progressive decline in creatinine to 1.45 currently from a peak of 4.2. We will continue to hold RAAS tracey and diuretics. We will, however, discontinue IV fluids. [place] oral intake advised. We will monitor renal function with discontinuation of IV fluids. 2. Metabolic acidosis: Continue alkali therapy. 3. Heart murmur: Etiology is unclear. Deferred to primary attending. 4. Bilateral leg edema, chronic. 5. Chronic diastolic heart failure. Valvular heart disease cannot be ruled out. Echocardiogram of March 2018 showed moderate tricuspid regurgitation as well as chke-[id number]-cgkmuqfl mitral regurgitation and aortic regurgitation with moderate aortic stenosis. 6. Chronic anemia: Hemoglobin is stable. 7. Disposition: The patient can be discharged to acute rehabilitation for further restorative therapy. Need to follow up renal function reiterated. We will follow the patient up in the outpatient in 2 to 3 week's time with repeat renal function tests. Job ID: [id number]
[2018-10-11] MEDS: Atorvastatin Calcium 40 MG TAB PO SCH (20:09)
[2018-10-12 04:58] LABS: #Lymphocytes 1.2 thou/uL (1.20-3.40); #Monocytes 0.5 thou/uL (0.11-0.59); #Neutrophils 3.1 thou/uL (1.40-6.50); %Basophils 0.2 % (0.0-1.0); %Eosinophils 0.6 % (0.0-10.0); %Lymphocytes 25.1 % (21.0-51.0); %Neutrophils 64.1 % (42.0-75.0); Hemoglobin 8.3 g/dL (12.0-16.0); Mean Corpuscular HGB CONC 32.2 g/dL (32.0-36.0); Mean Corpuscular Hemoglobin 31.1 pg (27.0-31.0); Mean Corpuscular Volume 96.5 fL (78.0-98.0); Mean Platelet Volume 9.4 fL (7.4-10.4); Platelet Count 99 thou/uL (130-400); RBC Distribution Width 17.8 % (11.5-14.5); Red Blood Cell (RBC) Count 2.67 mill/uL (4.20-5.40); White Blood Cell (WBC) Count 4.8 thou/uL (4.8-10.8)
[2018-10-12 05:13] LABS: Anion Gap 10 mmol/L (10-20); BUN (Urea Nitrogen) 34 mg/dL (9.8-20.1); Calc. Creatinine Clearance 59 mL/min (70-130); Calcium 9.8 mg/dL (7.8-10.44); Carbon Dioxide 25 mmol/L (23-31); Chloride 112 mmol/L (98-107); Estimated GFR-MDRD 43; Glucose 98 mg/dL (83-110); Potassium 3.5 mmol/L (3.5-5.1); Sodium 143 mmol/L (136-145)
[2018-10-12] MEDS ORDERED: Potassium Chloride 20 MEQ TAB PO SCH (08:00)
[2018-10-12] MEDS: Levothyroxine Sodium 100 MCG TAB PO SCH (08:38)
[2018-10-12] MEDS: Dronedarone HCl 400 MG TAB PO SCH ×2 (08:38→16:42)
[2018-10-12] MEDS: Senokot S 8.6-50 MG TAB PO PRN (08:38)
[2018-10-12] MEDS: predniSONE 20 MG TAB PO SCH (08:38)
[2018-10-12] MEDS: Aspirin 81 mg Enteric Coated Tablet PO SCH (08:40)
[2018-10-12] MEDS: Cefdinir 300 MG CAP PO SCH ×2 (08:40→20:04)
[2018-10-12] MEDS: Enoxaparin Sodium 30 MG/0.3 ML SYRINGE SC SCH (08:41)
--- NOTE | 2018-10-12 15:24 | PDOC.HOSPP ---
- Subjective Encounter Date: 10/12/18 Encounter Time: 15:22 Subjective: Pt seen for followup re: DANIEL. Feels better. No shortness of breath. - Objective Vital Signs & Weight: Vital Signs (12 hours) Temp Pulse Resp BP Pulse Ox 10/12/18 11:31 98.8 F 73 18 128/70 93 L 10/12/18 08:50 93 L 10/12/18 07:19 97.4 F L 94 20 128/74 93 L 10/12/18 03:54 97.5 F L 76 18 104/59 L 93 L Weight Admit Weight 241 lb 10.026 oz Weight 254 lb 3 oz Most Recent Monitor Data Heart Rate from ECG 74 NIBP 104/53 NIBP BP-Mean 70 Respiration from ECG 12 SpO2 95 I&O: 10/11/18 10/12/18 10/13/18 06:59 06:59 06:59 Intake Total 400 1200 Output Total 2429 1750 Balance -2024 Result Diagrams: 10/12/18 04:17 10/12/18 04:17 Additional Labs: Labs and MARs reviewed by ROS - Review of Systems Respiratory: denies: cough, shortness of breath, SOB with excertion, pleuritic pain, wheezing, other Cardiovascular: denies: chest pain, palpitations, orthopnea, paroxysmal noc. dyspnea, edema, light headedness - Medication Medications: Active Medications Generic Name Dose Route Start Last Admin Trade Name Freq PRN Reason Stop Dose Admin Aspirin 81 mg 10/07/18 09:00 10/12/18 08:40 Ecotrin PO 81 mg DAILY JERMAN Administration Atorvastatin Calcium 40 mg 10/06/18 21:00 10/11/18 20:09 Lipitor PO 40 mg HS JERMAN Administration Cefdinir 300 mg 10/10/18 21:00 10/12/18 08:40 Omnicef PO 300 mg BID JERMAN Administration Dronedarone 400 mg 10/07/18 08:00 10/12/18 08:38 Multaq PO 400 mg BID-WM JERMAN Administration Enoxaparin Sodium 30 mg 10/07/18 09:00 10/12/18 08:41 Lovenox SC Not Given 0900 JERMAN Levothyroxine Sodium 125 mcg 10/07/18 09:00 10/12/18 08:38 Synthroid PO 125 mcg DAILY JERMAN Administration Pantoprazole Sodium 40 mg 10/07/18 09:00 10/12/18 08:40 Protonix PO 40 mg DAILY JERMAN Administration Prednisone 20 mg 10/09/18 09:00 10/12/18 08:38 Prednisone PO 20 mg DAILY JERMAN Administration Senna/Docusate Sodium 2 tab 10/06/18 18:14 10/12/18 08:38 Senokot S PO 2 tab BID PRN Administration Constipation - Exam General - other findings: Morbid obesity Eye: PERRL ENT: normocephalic atraumatic Neck: supple Heart: RRR Respiratory: CTAB Gastrointestinal: soft Extremities: no cyanosis Musculoskeletal: normal tone Psychiatric: normal affect (Oriented to person and place, not to time) Hosp A/P (1) Acute kidney injury Code(s): N17.9 - ACUTE KIDNEY FAILURE, UNSPECIFIED Status: Acute (2) Hypertension Code(s): I10 - ESSENTIAL (PRIMARY) HYPERTENSION Status: Chronic Qualifiers: (3) Hypothyroid Code(s): E03.9 - HYPOTHYROIDISM, UNSPECIFIED Status: Chronic Qualifiers: (4) Paroxysmal atrial fibrillation Code(s): I48.0 - PAROXYSMAL ATRIAL FIBRILLATION Status: Chronic (5) Morbid obesity Code(s): E66.01 - MORBID (SEVERE) OBESITY DUE TO EXCESS CALORIES Status: Chronic (6) Sepsis Code(s): A41.9 - SEPSIS, UNSPECIFIED ORGANISM Status: Resolved Qualifiers: Sepsis type: Escherichia coli Sepsis acute organ dysfunction status: with acute organ dysfunction - Plan Creatinine improved to 1.18. Continue cefdinir. Continue synthroid. To Inpt rehab when accepted.
[2018-10-12] MEDS ORDERED: Spironolactone 25 MG TAB PO SCH (15:45)
[2018-10-12] MEDS ORDERED: Furosemide 20 MG TAB PO SCH (15:45)
[2018-10-12] MEDS ORDERED: Ondansetron PF 4 MG/2 ML Vial SLOW IVP PRN (18:02)
--- NOTE | 2018-10-12 18:14 | PRG ---
DATE OF SERVICE: 10/12/2018 SUBJECTIVE: Obese female with chronic diastolic heart failure and CKD, being followed up for [id number]-[id number]-fcphboh renal failure. The patient is clinically improved. Complains of some leg edema. Denied nausea, vomiting, or dysuria. OBJECTIVE: VITAL SIGNS: Temperature 98.8, pulse 73, respiratory rate 18, SpO2 of 93 on room air, and blood pressure is 128/70. GENERAL: Morbidly obese female, in no distress. Afebrile. Anicteric. Acyanotic. HEENT: Normocephalic and atraumatic. Oral mucosa is moist. CVS: Irregular rhythm and rate with normal heart sounds 1 and 2. A 3/6 systolic murmur noted. RESPIRATORY: Fair air entry bilaterally with some transmitted sounds. GI: Morbidly obese, soft, nontender, and nondistended with normal bowel sounds. EXTREMITIES: Moderate bilateral leg edema noted. 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 There seems to be some memory lapses. DIAGNOSTIC DATA: CBC showed WBC count of 4.8, hemoglobin of 8.3, MCV of 96.5, and platelet of 99. BMP showed sodium of 143, potassium 3.5, chloride 112, CO2 of 25, BUN 34, creatinine 1.18, glucose 98, and calcium 9.8. ASSESSMENT AND PLAN: 1. Acute kidney injury on chronic kidney disease, stage 3: Improved significantly. Creatinine is down to 1.1 from above 4. This was felt to be due to hemodynamic factors related to volume depletion from diuretics and poor oral intake in a patient taking RAAS tracey. IV fluid has been discontinued. 2. Metabolic acidosis: Resolved. We will discontinue alkali therapy. 3. Volume overload, given bilateral leg edema. This felt to be related to chronic diastolic heart failure as well as valvular heart disease. We will start low-dose diuretics. 4. Hypokalemia: We will give oral potassium supplementation, especially in the face of commencement of diuretics. 5. Physical deconditioning, chronic diastolic heart failure, valvular heart disease: Treatment as per primary attending. 6. Disposition: The patient can be discharged from Nephrology point of view to follow up in 2 weeks with repeat renal function test. Discharge to acute rehab is contemplated, in which case we will follow the patient over there. Job ID: [id number]
[2018-10-12 19:58] VITALS: BP 145/65; TEMP 97.5
[2018-10-12] MEDS: Atorvastatin Calcium 40 MG TAB PO SCH (20:04)
[2018-10-13] MEDS ORDERED: Furosemide 40 MG TAB PO SCH (07:30)
[2018-10-13] MEDS ORDERED: Spironolactone 25 MG TAB PO SCH (08:00)
[2018-10-13] MEDS ORDERED: Furosemide 20 MG TAB PO SCH (09:00)
--- NOTE | 2018-10-13 18:38 | DIS ---
DATE OF ADMISSION: 10/06/2018 DATE OF DISCHARGE: 10/12/2018 PRIMARY CARE PROVIDER: Dr. Babin. DISCHARGE DIAGNOSES: 1. Acute kidney injury. 2. Sepsis secondary to escherichia coli urinary tract infection. 3. Metabolic acidosis. 4. Physical deconditioning. CONSULTATIONS DURING THIS HOSPITALIZATION: Pulmonary and Critical Care Medicine , Dr. Gonzalez and Nephrology, Dr. Cunningham. DISCHARGE MEDICATIONS: 1. Aspirin 81 mg daily. 2. Lipitor 40 mg at bedtime. 3. Levothyroxine 125 mcg daily. 4. Omnicef 300 mg 2 times a day for 5 days. 5. Multaq 400 mg 2 times a day. 6. Lasix 40 mg daily. 7. Spironolactone 25 mg daily. CONDITION OF PATIENT ON THE DAY OF DISCHARGE: I assessed Ms. Gamble on the day of discharge. Please refer to my daily hospitalist progress note for further details regarding this [id number]-hk-[id number] encounter. HOSPITAL COURSE: Ms. Gamble is a pleasant 87-year-old lady, who was admitted to [facility] on October 06, 2018 for sepsis. Please refer to Dr. Whitley's history and physical note dated October 06, 2018 for further details. She was seen by Pulmonary and Critical Care Medicine, as well as Nephrology Service for acute kidney injury. She was treated with intravenous antibiotics. She gradually improved. She was seen by Palliative Care Service as well. Her creatinine improved to 1.18 on the day of discharge, down from 4.21 at the time of admission. Her furosemide dose was decreased. She has been started on Aldactone. Therefore, her potassium supplements were discontinued as well. She became physically deconditioned and was seen by Therapy Services. She is being discharged to [facility]. Urine cultures grew Escherichia coli that was resistant to ampicillin, but was otherwise pansensitive. On the day of discharge, she has sodium of 143, potassium 3.5, blood urea nitrogen 34, creatinine 1.18, white count 4800, hemoglobin 8.3, and platelet count 99,000. Many thanks for allowing me to participate in your patient's care. Please feel free to contact me with any questions or concerns. DISCHARGE DESTINATION: [facility]. FOLLOW UP: With primary care provider in 7-10 days. Total amount of time spent coordinating this discharge: 33 minutes. Job ID: [id number] [facility]
== END 2018-10-12 20:45 | DRG 871 ==
LOC: ERS 14:04 → CCU 20:53 → T4-A 10-08 16:02
PROVIDERS: ADMIT Internal Medicine; ATTEND Internal Medicine
DX: A41.51 Sepsis due to Escherichia coli [E. coli] (principal); G93.41 Metabolic encephalopathy; I33.9 Acute and subacute endocarditis, unspecified; N17.9 Acute kidney failure, unspecified; N39.0 Urinary tract infection, site not specified; E87.2 Acidosis; I13.0 Hypertensive heart and chronic kidney disease with heart failure and stage 1 through stage 4 chronic kidney disease, or unspecified chronic kidney disease; Z68.41 Body mass index [BMI] 40.0-44.9, adult; I50.32 Chronic diastolic (congestive) heart failure; Z51.5 Encounter for palliative care; R53.81 Other malaise; E86.0 Dehydration; E66.01 Morbid (severe) obesity due to excess calories; E86.9 Volume depletion, unspecified; N18.9 Chronic kidney disease, unspecified; E11.22 Type 2 diabetes mellitus with diabetic chronic kidney disease; D63.1 Anemia in chronic kidney disease; E87.5 Hyperkalemia; D69.6 Thrombocytopenia, unspecified; E78.5 Hyperlipidemia, unspecified; E03.9 Hypothyroidism, unspecified; I48.0 Paroxysmal atrial fibrillation; I89.0 Lymphedema, not elsewhere classified; D46.9 Myelodysplastic syndrome, unspecified; I48.2 Chronic atrial fibrillation; Z79.4 Long term (current) use of insulin; Z79.01 Long term (current) use of anticoagulants; Z90.710 Acquired absence of both cervix and uterus; Z90.49 Acquired absence of other specified parts of digestive tract
CPT/HCPCS: 36415; 36416; 36430; 36556; 51702; 70450; 71045; 80048; 80053; 80069; 80202; 81003; 82533; 82570; 82728; 83540; 83550; 83605; 83735; 83880; 84156; 84300; 84443; 84484; 84540; 85025; 85049; 85300; 85362; 85379; 85384; 85610; 85730; 86850; 86900; 86901; 87040; 87077; 87086; 87149; 87186; 93005; 93970; 96361; 96365; A4353; J0692; J1650; J2405; J2543; J2920; J3370; J3490; J7050; J7512; P9016

== ENCOUNTER 2018-11-22 02:13 | Inpatient (IN) | payer MEDICARE ==
[2018-11-22] MEDS ORDERED: Atropine Sulfate 1 mg/10 ml Syringe ONE (02:27)
[2018-11-22] MEDS ORDERED: Calcium Chloride 1 GM/10 ML Abboject SYRINGE ONE (02:50)
[2018-11-22] MEDS ORDERED: Dextrose 50% Abboject 50 ML SYRINGE ONE ×2 (02:50→06:44)
[2018-11-22 02:51] LABS: Bicarbonate (HCO3v) 14.4 mmol/L (22.0-28.0); CO2 Tension (PvCO2) 37.8 mmHg (40.0-50.0); Calcium, Ionized 1.29 mmol/L (See Comments:); Chloride 118 mmol/L (98-107); Potassium 6.3 mmol/L (3.5-5.1); Sodium 144 mmol/L (138-145); T. Carbon Dioxide 15.5 mmol/L (22.0-28.0)
[2018-11-22] MEDS ORDERED: Insulin Regular 300 UNITS/3 ML VIAL ONE ×2 (02:51→02:52)
[2018-11-22] MEDS ORDERED: Sodium Bicarb 50 MEQ/50 ML VIAL ONE ×2 (02:54→05:56)
[2018-11-22 03:01] LABS: INR-International Normal Ratio 1.3; PTT 38.6 SEC (22.9-36.1); Prothrombin Time 16.5 SEC (12.0-14.7)
[2018-11-22 03:05] LABS: Hemoglobin 9.3 g/dL (12.0-16.0); Mean Corpuscular HGB CONC 31.4 g/dL (32.0-36.0); Mean Corpuscular Hemoglobin 31.3 pg (27.0-31.0); Mean Corpuscular Volume 99.7 fL (78.0-98.0); Red Blood Cell (RBC) Count 2.97 mill/uL (4.20-5.40); White Blood Cell (WBC) Count 4.1 thou/uL (4.8-10.8)
[2018-11-22 03:21] LABS: Eosinophils 1 % (0-10); Lymphocytes 22 % (21-51); MDiff Complete? YES; Mean Platelet Volume 11.8 fL (7.4-10.4); Monocytes 4 % (0-10); Neutrophil 73 % (42-75); Nucleated RBC 4 % (0); Platelet Count 86 thou/uL (130-400); Platelet Morphology Comment Appears Decreased
[2018-11-22 03:56] LABS: ALT (SGPT) 82 U/L (8-55); AST (SGOT) 143 U/L (5-34); Albumin 3.9 g/dL (3.4-4.8); Alkaline Phosphatase 174 U/L (40-150); Anion Gap 24 mmol/L (10-20); BUN (Urea Nitrogen) 41 mg/dL (9.8-20.1); Bilirubin, Total 3.1 mg/dL (0.2-1.2); Calc. Creatinine Clearance 0 mL/min (70-130); Calcium 10.2 mg/dL (7.8-10.44); Carbon Dioxide 12 mmol/L (23-31); Chloride 114 mmol/L (98-107); Estimated GFR-MDRD 12; Globulin 2.6 g/dL (2.4-3.5); Glucose 95 mg/dL (83-110); Potassium 6.5 mmol/L (3.5-5.1); Protein, Total 6.5 g/dL (6.0-8.3); Sodium 143 mmol/L (136-145)
[2018-11-22] MEDS ORDERED: Fentanyl 100 MCG/2 ML VIAL ONE (04:06)
[2018-11-22] MEDS ORDERED: DOBUTamine 500 mg/250 ml 250 ML ONE (04:15)
[2018-11-22] MEDS ORDERED: Ondansetron PF 4 MG/2 ML Vial IVP PRN (04:49)
[2018-11-22] MEDS ORDERED: Ondansetron ODT 4 MG TAB PO PRN (04:49)
[2018-11-22] MEDS ORDERED: DOBUTamine 500 mg/250 ml 250 ML IVPB SCH (05:00)
[2018-11-22] MEDS ORDERED: Sodium Bicarb 50 MEQ/50 ML Abboject 8.4% SYRINGE IVP SCH (05:30)
[2018-11-22 05:44] LABS: Bilirubin Large (Negative); Blood, Urine Negative (Negative); Clarity Cloudy (Clear); Glucose, Urine (Dipstick) 100 mg/dL (Negative); Leukocyte Negative Leu/uL (Negative); Nitrite Negative (Negative); Protein, Urine (Dipstick) 100 mg/dL (Neg-Trace); RBC/HPF 0-3 HPF (0-3); WBC/HPF 0-3 HPF (0-3)
[2018-11-22 05:45] LABS: Bacteria/HPF Rare-Few HPF (None Seen); Squamous Epithelial 0-3 HPF (0-3); Transitional Epithelial 0-3 HPF (None Seen); Trichomonas/HPF None Seen HPF (None Seen); Yeast-Budding None Seen HPF (None Seen); Yeast-Hyphae None Seen HPF (None Seen)
[2018-11-22] MEDS: Levothyroxine Sodium 125 MCG TAB PO SCH (05:57)
[2018-11-22] MEDS: Sodium Bicarbonate 150 MEQ in Dextrose 5% in Water 1,000 ML IV SCH ×2 (06:30→21:27)
[2018-11-22 06:38] LABS: Anion Gap 13 mmol/L (10-20); BUN (Urea Nitrogen) 39 mg/dL (9.8-20.1); Calc. Creatinine Clearance 22 mL/min (70-130); Calcium 10.4 mg/dL (7.8-10.44); Carbon Dioxide 18 mmol/L (23-31); Chloride 116 mmol/L (98-107); Estimated GFR-MDRD 13; Lipase 44 U/L (8-78); Magnesium 2.7 mg/dL (1.6-2.6); Potassium 5.6 mmol/L (3.5-5.1); Sodium 141 mmol/L (136-145)
[2018-11-22 06:42] LABS: Glucose 31 mg/dL (83-110)
[2018-11-22] MEDS ORDERED: Dextrose 50% Abboject 50 ML SYRINGE SLOW IVP PRN (06:50)
[2018-11-22] MEDS ORDERED: Vancomycin HCl 0.75 GM in Premix Bag 1 BAG IVPB ONE (07:02)
--- NOTE | 2018-11-22 07:04 | RAD ---
CHEST 1 VIEW: Date: 11/22/18 INDICATION: Mechanical fall with history of dementia. COMPARISON: Prior exam dated 10/24/18. FINDINGS: There is cardiomegaly and pulmonary vascular congestion with small bilateral pleural effusions. No pn eumothorax is evident. Pacer pad localized over right chest wall. No definite acute osseous abnormali ty is noted. IMPRESSION: Findings of mild CHF. POS: BH
--- NOTE | 2018-11-22 07:26 | HP ---
PRIMARY CARE DOCTOR: Dr. Ace Babin. CODE STATUS: DNR/DNI. CHIEF COMPLAINT: Evaluation of fall. HISTORY OF PRESENT ILLNESS: This is an 87-year-old female patient with past medical history of dementia, came to the hospital after having a fall x3. The niece lives with her and she noted that the episode was coming back very quickly and she was unable to stand up, so they called 911. Her blood pressure was in the low side. The heart rate was in the 40s and she was found to be in junctional rhythm. For that reason, she was brought in. She responded initially to atropine x2, and after the heart rate dropped again, then she was placed in dobutamine and external pacer. Dr. Rider had been consulted for recommendation who will see the patient in the morning. The patient will go to ICU for that reason. REVIEW OF SYSTEMS: Unable to obtain as the patient has dementia, unable to give a good history. PAST MEDICAL HISTORY: The patient has a history of congestive heart failure, atrial fibrillation, lymphedema, hypothyroidism, hyperlipidemia, and hypertension. KNOWN ALLERGIES: To Eliquis. REPORTED MEDICATIONS: 1. Potassium chloride. 2. Levothyroxine. 3. Multaq. 4. Atorvastatin. PHYSICAL EXAMINATION: VITAL SIGNS: On presentation, respiratory rate was 18, pain 0/10, heart rate 34, oxygen saturation 95% on room air, and blood pressure is 72/44. The blood pressure and heart rate improved after external pacing and the patient being placed in a drip. GENERAL APPEARANCE: The patient is confused, has underlying dementia, but she is alert. HEENT: Eyes; normal conjunctivae. Moist oral mucosa. Anicteric. No JVD. RESPIRATORY: Bilateral air entry. No rales. No wheezes. Symmetric expansion. CARDIOVASCULAR: Normal rate, regular rhythm. No gallop. No edema. The patient has a systolic high-pitched murmur that is mostly heard on the aortic valve projection. ABDOMEN: Soft. Normal bowel sounds. MUSCULOSKELETAL: Baseline range of motion and strength. SKIN: Warm and intact. No pallor. No rash. No redness. Capillary refill seems to be intact. NEUROLOGIC: No evidence of any new focal weakness. Cranial nerves seem to be intact. LABORATORY AND DIAGNOSTIC FINDINGS: EKG showed junctional rhythm at the rate of 49. No evidence of any other acute events. Labs were reviewed. The patient has a white count 4.1, hemoglobin 9.3, MCV 99.7, platelet count 86. Coagulation; PT 16.5, INR 1.3, PTT 38.6. Blood gas, VBG pH 7.189, pCO2 37.8. Chemistry; sodium 143, potassium 6.5, chloride 114, carbon dioxide was 12, anion gap 24, BUN 41, creatinine 3.53, lactic acid 5.1, total bilirubin 3.1, AST 143, ALT 82, alkaline phosphatase 174. Troponin 0.026. Beta-natriuretic peptide 1001. Serum total protein 6.5, albumin 3.9, globulin 2.6, albumin-globulin ratio 1.5. ASSESSMENT AND PLAN: The patient will be placed in the hospital with the following medical problems: 1. Symptomatic bradycardia. The patient presented with junctional rhythm with a heart rate in the 40s and she started having hypotension. The patient initially responded to atropine, but she continued to come back to bradycardia and hypotension. For that reason, she was placed on external pacer. Dr. Rider was consulted and recommendation was to start the patient on dobutamine. By the time of my examination, the symptoms have been resolving and we have been able to wean her off the external pacemaker. Dr. Rider will see the patient in the morning. As of now, the patient remains DNR. Niece is willing to discuss any further decision regarding need for pacemaker if that is the case. We will continue to monitor in the ICU. 2. Critical care time 37 minutes was spent in family counseling and coordination of care, bedside assessment, stabilization of the patient, discussion with the ER physician. 3. Pancytopenia, unclear etiology. We will continue to monitor the CBC. When compared with previous values, these are the same approximate values, so it is chronic. 4. Severe metabolic acidosis likely secondary to lactic acidosis, likely secondary to persistent hypotension. The patient has been placed on a bicarb. We will repeat BMP and we will monitor carbon dioxide; if above 15, this treatment can be changed. 5. Lactic acidosis, likely secondary to persistent hypotension. There is no evidence of infection at this point. We will continue to monitor. We will start antibiotics if any sign of infection appears. 6. Mildly elevated LFTs. They are increased when compared with previous values. This could be secondary to persistent hypotension and shock liver. There is another possibility for patient having some biliary pathology. We will do right upper quadrant ultrasound. Treatment depending on the findings. 7. History of dementia. The patient will need supportive care as inpatient. 8. Hyperkalemia with potassium of 6.3. The patient has received treatment for potassium already. So, this might be related also to severe metabolic acidosis. We will correct the acidosis and monitor potassium and treat accordingly. 9. History of diastolic grade II/III heart failure. This problem is chronic, seems to be stable, though beta-natriuretic peptide is 1001. Once hypotension is resolved, the patient will be restarted on diuresis. 10. Hypothyroidism. We will check TSH given hypothermia, bradycardia, and shock on presentation. 11. Deep venous thrombosis prophylaxis. 12. Hypothermia, could be related to the patient being hypotensive for so long. The patient is getting now better. However, we will continue to monitor and treat accordingly. Job ID: [id number]
[2018-11-22] MEDS ORDERED: Furosemide 40 MG TAB PO SCH (07:30)
--- NOTE | 2018-11-22 07:31 | ULT ---
RIGHT UPPER QUADRANT ULTRASOUND: INDICATION: History of elevated LFTs. COMPARISON: CT of the abdomen and pelvis dated 02/05/2018. FINDINGS: The gallbladder is mildly underdistended with gallbladder wall thickening. No pericholecystic fluid is grossly evident. No sonographic Viera's sign is reported. No intraluminal stones are noted. Th ere are some internal echogenic reflectors which may be related to a mild amount of gallbladder sludg e. Common bile duct measured 3 mm. Main portal vein appears within normal limits. Visualized aspects o f the pancreas are unremarkable. The right kidney measured 9.9 x 4.4 x 4.4 cm with renal cortical thickness of 1 cm. No hydronephrosi s is evident. Liver was normal in size measuring 14.95 cm. No focal hepatic lesion is evident. IMPRESSION: 1. Mildly contracted gallbladder with mild gallbladder sludge and mild gallbladder wall thickening, but no pericholecystic fluid or sonographic Viera's sign reported to suggest changes of acute cholec ystitis. 2. Mild diffuse renal cortical thinning of the right kidney. POS: BH
[2018-11-22] MEDS ORDERED: [UNRECOGNIZED DRUG - OTHER] IVPB PRN (07:34)
[2018-11-22] MEDS ORDERED: VANC IVPB PRN (07:34)
[2018-11-22] MEDS ORDERED: Piperacillin/Tazobactam 2.25 GM in Sodium Chloride 0.9% 100 ML IVPB SCH (08:00)
[2018-11-22] MEDS ORDERED: Vancomycin HCl 1.75 GM in Sodium Chloride 0.9% 500 ML IVPB SCH (08:00)
[2018-11-22 08:05] LABS: Lactic Acid 2.3 mmol/L (0.5-2.2)
[2018-11-22] MEDS: Piperacillin/Tazobactam 2.25 GM in Sodium Chloride 0.9% 100 ML IVPB SCH ×2 (08:33→17:48)
[2018-11-22 09:51] LABS: Anion Gap 12 mmol/L (10-20); BUN (Urea Nitrogen) 40 mg/dL (9.8-20.1); Calc. Creatinine Clearance 22 mL/min (70-130); Calcium 10.1 mg/dL (7.8-10.44); Carbon Dioxide 21 mmol/L (23-31); Chloride 115 mmol/L (98-107); Estimated GFR-MDRD 13; Glucose 92 mg/dL (83-110); Potassium 5.8 mmol/L (3.5-5.1); Sodium 142 mmol/L (136-145)
[2018-11-22 09:57] LABS: Troponin I 0.016 ng/mL (< 0.028)
--- NOTE | 2018-11-22 10:27 | PDOC.PULCN ---
Pulmonology Consult: HPI - Date of Consult Date: 11/22/18 Time: 10:25 - Consult Details Reason for Consult: symptomatic bradycardia requiring external pacing, persistent hypotension on dobutamine gtt CCU level care Requesting Physician: Dr. Dey - History of Present Illness HPI: STEPHANIE AMARO is a 87 year-old F with dementia who presented to the hospital after fall x3. After last fall niece stated she was not able to stand or ambulate on own so EMS was called. In the ED she had symptomatic bradycardia with HR in the 40s in junctional rhythm. She was given atropine x2 with great initial response but then became bradycardic. Cardiology consulted and was started on external pacing. In addition she was found to have hyperkalemia and was given insulin and calcium chloride. She also had profound hypoglycemia in 30s, given a few amps of d50. She also had low blood pressures, likely from cardiogenic shock, was started on dobutamine. Pulmonology Consult: ROS - Review of Systems All systems: reviewed and no additional remarkable complaints except as stated Constitutional: weakness Cardiovascular: negative: palpitations Respiratory: non-productive cough, short of breath. negative: bloody sputum, chest soreness Pulmonology Consult: PMH Source: patient Past Medical History: 1. HFpEF 2. Afib 3. Lymphedema 4. Dementia. 5. HTN 6. HLD 7. Hypothyroidism - Family History Family history: reviewed and not pertinent - Social History Smoking Status: Never smoker Alcohol Use: none Drug Use History: none Pulmonology Consult: Meds - Medications Medications: Current Medications Atorvastatin Calcium (Lipitor) 40 mg PO HS [facility] Dextrose/Water (Dextrose 50%) 25 gm SLOW IVP PRN PRN PRN Reason: Hypoglycemia Dobutamine HCl/Dextrose (Dobutamine 500 Mg/250 Ml) 250 mls @ 0 mls/hr IVPB INF [facility]; Protocol Sodium Bicarbonate 150 meq/ (Dextrose/Water) 1,150 mls @ 75 mls/hr IV .[id number] [facility] Last Admin: 11/22/18 06:30 Dose: 1,150 mls Dopamine HCl/Dextrose (Dopamine 400 Mg/D5w 250 Ml) 250 mls @ 11.034 mls/hr IVPB INF [facility]; Protocol Piperacillin Sod/Tazobactam (Sod 2.25 gm/ Sodium Chloride) 100 mls @ 200 mls/ hr IVPB 0800,1600,2359 [facility] Last Admin: 11/22/18 08:33 Dose: 100 mls Vancomycin HCl 1.75 gm/ Sodium (Chloride) 500 mls @ 250 mls/hr IVPB NOW [facility] Stop: 11/22/18 12:00 Last Admin: 11/22/18 09:57 Dose: 500 mls Vancomycin HCl 1.75 gm/ Sodium (Chloride) 500 mls @ 250 mls/hr IVPB .PENDING LEVEL [facility] Levothyroxine Sodium (Synthroid) 125 mcg PO 0600 [facility] Last Admin: 11/22/18 05:57 Dose: Not Given Miscellaneous Medication (Pharmacy To Dose) 0 each IVPB PRN PRN PRN Reason: VANC/ABX RENAL DOSE Ondansetron HCl (Zofran Odt) 4 mg PO Q6H PRN PRN Reason: Nausea/Vomiting Ondansetron HCl (Zofran) 4 mg IVP Q6H PRN PRN Reason: Nausea/Vomiting - Allergies Allergies/Adverse Reactions: Allergies Allergy/AdvReac Type Severity Reaction Status Date / Time apixaban [From Eliquis] AdvReac Intermediate bleeding Verified 11/22/18 07:20 Pulmonology Consult: PE - Physical Exam Constitutional: NAD HEENT: moist MMs, sclera anicteric Neck: no JVD, full ROM Cardiovascular: RRR, no significant murmur Respiratory: decreased breath sounds. negative: prolonged expiratory phase Deviation from normal: bibasilar crackles Gastrointestinal: soft, non-tender Musculoskeletal: pulses present Neurological: non-focal, moves all 4 limbs Psychiatric: normal affect Skin: no rash, normal turgor Pulmonology Consult: Results - Labs Result Diagrams: 11/23/18 04:38 11/23/18 04:38 - ABG Interpretation Attestation: I reviewed and interpreted this ABG. ABG Results: POC Bicarbonate Calc 14.4 mmol/L (22.0-28.0) L* 11/22/18 02:49 Interpretation: metabolic acidosis - EKG Data EKG Interpreted by Myself (junctional arrhythmia) - Radiology Interpretation Chest x-ray Status: image reviewed by me, report reviewed by me Additional comments: cardiomegaly pleural effusions Pulmonology Consult: A/P - Problem (1) Symptomatic bradycardia Current Visit: Yes Code(s): R00.1 - BRADYCARDIA, UNSPECIFIED Status: Acute (2) Metabolic acidosis Current Visit: Yes Code(s): E87.2 - ACIDOSIS Status: Acute (3) Lactic acidosis Current Visit: Yes Code(s): E87.2 - ACIDOSIS Status: Acute (4) Hyperkalemia Current Visit: Yes Code(s): E87.5 - HYPERKALEMIA Status: Acute (5) Atrial fibrillation Current Visit: No Code(s): I48.91 - UNSPECIFIED ATRIAL FIBRILLATION Status: Chronic Qualifiers: Atrial fibrillation type: paroxysmal Qualified Code(s): I48.0 - Paroxysmal atrial fibrillation (6) Diastolic heart failure Current Visit: No Code(s): I50.30 - UNSPECIFIED DIASTOLIC (CONGESTIVE) HEART FAILURE Status: Chronic Qualifiers: Heart failure chronicity: chronic Qualified Code(s): I50.32 - Chronic diastolic (congestive) heart failure (7) Hypertension Current Visit: No Code(s): I10 - ESSENTIAL (PRIMARY) HYPERTENSION Status: Chronic Qualifiers: (8) Morbid obesity Current Visit: No Code(s): E66.01 - MORBID (SEVERE) OBESITY DUE TO EXCESS CALORIES Status: Chronic (9) Pancytopenia Current Visit: No Code(s): D61.818 - OTHER PANCYTOPENIA Status: Chronic (10) Paroxysmal atrial fibrillation Current Visit: No Code(s): I48.0 - PAROXYSMAL ATRIAL FIBRILLATION Status: Chronic (11) Junctional cardiac arrhythmia Current Visit: Yes Code(s): I49.8 - OTHER SPECIFIED CARDIAC ARRHYTHMIAS Status: Acute (12) Cardiogenic shock Current Visit: Yes Code(s): R57.0 - CARDIOGENIC SHOCK Status: Acute - Time Time: 50% of the time was spent in coordination of care (as documented) at patient's floor/unit and/or counseling patient. Time with Patient: greater than 70 minutes - Plan Plan: 1. Junctional cardiac arrythmia : Junctional rhythm. Resulted in bradycardia down to 40s. In ER was eternally paced, s/p atropine x2 in ER. Cardiology plans for pacemaker. On dopamine gtt, currently improved HR in 60s, patient asx. 2. Cardiogenic shock: Likely 2/2 heart failure. On dobumatine and dopamine gtt. MAPs still low in 60s. Consider central line/peripheral line placement and addition of pressor. Could be infectious source since hypothermic. No elevated WBC but patient with chronic pancytopenia. Obtain procal. Started on empiric vanc/zosyn. 2. Metabolic acidosis likely 2/2 DANIEL and lactic acidosis: DANIEL likely causing dec potassium excretion. Lactic acid 2.3. VBG with pH 7.189, bicarb 14.4. s/p 2 amp bicarb, continue bicarb drip. Rpt base met shows improving met. acidosis. Receving fluids with dextrose. Rpt lactic acid & base met later this afternoon 3. Lactic acidosis: see above 4. Hypoglycemia: 30s in ER, asx. receiveing dextrose. Continue accuchecks. Had received insulin for hyperkalemia likely contributing to this condition. 5. 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 Prerenal vs. intrnisic. Likely from hypotension. 7. Hyperkalemia: Likely from metablic acidosis. s/p insulin & calcium chloride. No hyperacute T waves. Expect to correct with improvement of metabolic acidosis. In meantime can give insulin to lower potassium, but make sure to supplement with dextrose to prevent hypoglycemia. 8. Pancytopenia: Prior record review shows this is chronic. 9. Sacral ulcer: Unstaged. Will consult wound care 10. Fluid overload 2/2 worsening ESRD/diastolic heart failure: BNP elevated in 1000s. CXR with pulm vasc. congestion & b/l pleural effusions. Currently patient nonhypoxic on RA. Hold off on diuresis due to low BPs. 11. Hyperkalemia: s/p inulin and calcium chloride. Already trending donw. Likely 2/2 metabolic acidosis. Expect improvement with correction of met. acidosis. continue IV dextrose and insulin as needed with rpt BMP Plan to discuss with Dr. Han Addendum - Attending - Attending Attestation Date/Time: 11/22/18 190 I personally evaluated the patient and discussed the management with Dr. Schroeder. I agree with the History, Examination, Assessment and Plan documented above with any addition or exceptions noted below. 70 minutes have been devoted to this patient in various activities. I personally reviewed all imaging studies and laboratory data noted within this document. For fifty percent of this time, I was interacting with the patient at the bedside or coordinating care with the care team. For the remainder of the time I was immediately available to the patient in the hospital unit.
[2018-11-22] MEDS: DOPamine 400 MG/D5W 250 ML 250 ML IVPB SCH (10:45)
--- NOTE | 2018-11-22 11:31 | HP ---
HISTORY OF PRESENT ILLNESS: Pia Gamble is an 87-year-old white female admitted after two falls at home. I initially evaluated her in August 1996 for left scapular pain, which was felt to be musculoskeletal in nature. In August 2013, she had a normal Lexiscan Cardiolite test. She also has aortic stenosis, diastolic heart failure and has been followed for those. In January 2018, she was admitted with pneumonia and atrial fibrillation with fast ventricular response. Echocardiogram during that admission revealed ejection fraction of 60% to 65% with evidence for diastolic dysfunction and ahyv-bs-urnbdyfc aortic stenosis. She was placed on Multaq and Eliquis and converted to sinus rhythm, but then atrial fibrillation recurred. She was discharged on Multaq and the next time she was seen in the office she was back in sinus rhythm in May 2018. She then returned one day after discharge with complaints of abdominal pain and CT of the abdomen and pelvis showed evidence of left rectus sheath hematoma and Eliquis was discontinued. She was managed conservatively. She was again admitted later in February 2018 with diastolic heart failure. She apparently was in sinus rhythm during that admission. She was again admitted in March 2018 with acute on chronic diastolic heart failure, ejection fraction of 60% to 65% on echo and evidence for diastolic dysfunction. In July 2018, she was again admitted with diastolic heart failure and bronchitis and was diuresed. She was seen in the office on July 27, 2018 and she was in atrial fibrillation; however, the rate was controlled at that time. She had no specific complaints of shortness of breath during that office followup. She recently was admitted in October 2018 for acute kidney injury and sepsis from E. coli UTI. Creatinine was 4.21 at the time of admission, but fell to 1.18 at time of discharge. Her furosemide dose was decreased. She then this morning presented to the emergency room at 2:20 a.m. after two falls at home over 3 hours. Ms. Gamble denies any chest discomfort or shortness of breath. She was found to be very bradycardic with junctional rhythm with heart rate of approximately 30 per minute. She was given atropine 0.5 mg IV, calcium chloride, sodium bicarbonate 1:00 a.m., another atropine 0.5 mg IV, fentanyl 50 mcg push. The emergency room contacted me. At that time, the patient had a transcutaneous pacemaker on and I suggested that dobutamine be started and since then she has sustained a heart rate in the 60s and 70s. The transcutaneous pacemaker has been able to not be used. At the present time, other than weakness she has no specific complaints. PAST MEDICAL HISTORY: Diastolic heart failure, paroxysmal atrial fibrillation although when she was seen in the office in July 2018 was in atrial fibrillation, lymphedema, hypothyroidism, diabetes, rectus sheath hematoma while on Eliquis, hypothyroidism, hypercholesterolemia, morbid obesity, aortic stenosis, dementia. PAST SURGICAL HISTORY: Appendectomy, hysterectomy, left wrist surgery, left ankle surgery, right greater saphenous vein radiofrequency ablation. MEDICATIONS: 1. Atorvastatin 40 mg at bedtime. 2. Multaq 400 b.i.d. 3. Ferrous sulfate 325 daily. 4. Levothyroxine 125 mcg daily. 5. KCl 20 mEq daily. 6. She apparently is no longer on the furosemide 40 daily. ALLERGIES: ELIQUIS CAUSES RECTUS SHEATH HEMATOMA. SOCIAL HISTORY: She does not smoke or drink. REVIEW OF SYSTEMS: A 10-point review of systems is otherwise unremarkable. PHYSICAL EXAMINATION: VITAL SIGNS: Temperature 94/36, pulse of 64, junctional rhythm on the monitor. HEENT: PERRL. NECK: Supple. CHEST: Clear. CARDIAC: S1 and S2 normal without any S3 or S4. There is a 2/6 harsh systolic ejection murmur. ABDOMEN: Obese. Normal bowel sounds. No tenderness. EXTREMITIES: Revealed 2+ pretibial edema with ulcer on the right medial calf. NEUROLOGIC: Grossly intact. SKIN: Warm and dry. LABORATORY DATA: Admission EKG revealed junctional bradycardia with heart rates of 47 and 49. There is evidence for anteroseptal infarction, old. Hemoglobin 9.3, hematocrit 29.6, white count 4100, platelets 86,000. INR 1.3. Sodium 141, potassium 6.5 on admission and is down to 5.6. Chloride 114, carbon dioxide 12 , BUN 41, creatinine 3.51. AST 143, ALT 82. BNP 407.9. Troponin I is normal. Urinalysis is unremarkable except for large bilirubin. Chest x-ray reveals cardiomegaly with small left effusion, somewhat increased pulmonary vascularity. IMPRESSION: 1. Two falls at home. 2. Extreme bradycardia with heart rates in the low 30s at times junctional bradycardia. This probably is exacerbated by the hyperkalemia and Multaq. 3. Paroxysmal atrial fibrillation, although last time she was seen in July 2017, she was in atrial fibrillation. When she was hospitalized in October 2018, admission EKG showed normal sinus rhythm. 4. Inability to anticoagulate due to rectus sheath hematoma when on Eliquis. 5. Acute kidney injury on chronic kidney disease, probably secondary to hypoperfusion. 6. Hyperkalemia secondary to renal insufficiency as well as taking potassium chloride 20 mEq daily. 7. Qxgctpug-bq-hqlrty aortic stenosis. 8. Moderate mitral regurgitation. 9. History of diastolic heart failure. 10. Hypercholesterolemia. 11. Hypothyroidism. 12. Obesity. 13. Dementia. PLAN: At the present time, the patient appears to be hemodynamically stable with junctional rhythm in the 60s to 70s on IV dobutamine. I will start dopamine due to her low blood pressure. Renal consultation will be obtained. She certainly may ultimately need a pacemaker; however, I would prefer to wait until her potassium has normalized and Multaq has been discontinued for 2 to 3 days prior to making the final decision because she may not need a pacemaker at all. Job ID: [id number] [facility]ITAL[facility]i
[2018-11-22 13:04] LABS: Creatinine, Urine 202.74 mg/dL (47-110)
--- NOTE | 2018-11-22 14:56 | PDOC.HOSPP ---
- Subjective Encounter Date: 11/22/18 Encounter Time: 13:00 Subjective: pt up in bed no complains - Objective Vital Signs & Weight: Vital Signs (12 hours) Pulse Ox 11/22/18 12:33 93 L 11/22/18 08:00 95 Weight Weight 259 lb 7.745 oz Most Recent Monitor Data Heart Rate from ECG 73 NIBP 82/39 NIBP BP-Mean 53 Respiration from ECG 20 SpO2 97 I&O: 11/21/18 11/22/18 11/23/18 06:59 06:59 06:59 Output Total 0 15 Balance 0 -15 Result Diagrams: 11/22/18 02:45 11/22/18 09:15 Additional Labs: Accuchecks 11/22/18 11/22/18 11/22/18 10:39 09:34 07:46 POC Glucose 90 94 83 11/22/18 06:53 POC Glucose 50 L* Hospitalist ROS - Review of Systems Cardiovascular: denies: chest pain, palpitations, orthopnea, paroxysmal noc. dyspnea, edema, light headedness, other Gastrointestinal: denies: nausea, vomiting, abdominal pain, diarrhea, constipation, melena, hematochezia, other Genitourinary: denies: dysuria, frequency, incontinence, hematuria, retention, other - Medication Medications: Active Medications Generic Name Dose Route Start Last Admin Trade Name Freq PRN Reason Stop Dose Admin Sodium Bicarbonate 150 meq/ 1,150 mls @ 75 mls/hr 11/22/18 05:45 11/22/18 06: 30 Dextrose/Water IV 1,150 mls .[id number] JERMAN Administration Dopamine HCl/Dextrose 250 mls @ 11.034 mls/hr 11/22/18 07:30 11/22/18 10:45 Dopamine 400 Mg/D5w 250 Ml IVPB 250 mls INF JERMAN Administration Protocol 2.5 MCG/KG/MIN Piperacillin Sod/Tazobactam 100 mls @ 200 mls/hr 11/22/18 08:00 11/22/18 08: 33 Sod 2.25 gm/ Sodium Chloride IVPB 100 mls 0800,1600,2359 JERMAN Administration Levothyroxine Sodium 125 mcg 11/22/18 06:00 11/22/18 05:57 Synthroid PO Not Given 0600 JERMAN - Exam Neck: negative: supple, symmetric, no JVD, no thyromegaly, no lymphadenopathy, no carotid bruit, JVD Heart: negative: RRR, no murmur, no gallops, no rubs, normal peripheral pulses, irregular, diminshed peripheral pulses, murmur present, II/IV, III/IV Respiratory: negative: CTAB, no wheezes, no rales, no ronchi, normal chest expansion, no tachypnea, normal percussion, rales, rhonchi, tachypneic, wheezes Hosp A/P (1) Bradycardia Code(s): R00.1 - BRADYCARDIA, UNSPECIFIED Status: Acute (2) Hyperkalemia Code(s): E87.5 - HYPERKALEMIA Status: Acute (3) Metabolic acidosis Code(s): E87.2 - ACIDOSIS Status: Acute (4) Acute kidney injury Code(s): N17.9 - ACUTE KIDNEY FAILURE, UNSPECIFIED Status: Acute (5) Atrial fibrillation Code(s): I48.91 - UNSPECIFIED ATRIAL FIBRILLATION Status: Chronic Qualifiers: Atrial fibrillation type: paroxysmal Qualified Code(s): I48.0 - Paroxysmal atrial fibrillation - Plan cardiology consulted pt on dobutamine and dopamine. pt doing well, will hold multaq. pt on bicarb drip. will change accucheck to q4h. will put her on a diet. nephrology consulted.
[2018-11-22] MEDS: Atorvastatin Calcium 40 MG TAB PO SCH (21:27)
[2018-11-23] MEDS: Piperacillin/Tazobactam 2.25 GM in Sodium Chloride 0.9% 100 ML IVPB SCH ×3 (00:26→16:48)
--- NOTE | 2018-11-23 01:43 | CON ---
DATE OF CONSULTATION: 11/22/2018 CONSULTING PHYSICIAN: Haley Coats MD REASON FOR CONSULT: Acute kidney injury. REASON FOR ADMISSION: Fall. HISTORY OF PRESENT ILLNESS: This is an 87-year-old female with history of CHF, atrial fibrillation, hypothyroidism, hyperlipidemia, came to the hospital after a fall and was found to have elevated creatinine. Her creatinine was found to be 3.36 with a baseline of 1.8 and Nephrology was consulted. The patient's potassium was also elevated at 6.3 and down to 5.6. The patient is very weak and having trouble with breathing. She was also found to have bradycardia, pancytopenia, and severe metabolic acidosis. PAST MEDICAL HISTORY: Positive for CHF, atrial fibrillation, lymphedema, hypothyroidism, hyperlipidemia, hypertension. PAST SURGICAL HISTORY: Appendectomy, hysterectomy, left wrist surgery, and left ankle surgery. HOME MEDICATIONS: Include, 1. Levothyroxine. 2. Multaq. 3. Lipitor. 4. Iron. 5. Potassium. ALLERGIES: TO APIXABAN. SOCIAL HISTORY: No smoking, alcohol, or illicit drug abuse. FAMILY HISTORY: No history of kidney disease. REVIEW OF SYSTEMS: Could not be obtained due to dementia. PHYSICAL EXAMINATION: GENERAL: This is an elderly female, in no apparent distress. VITAL SIGNS: Temperature 98.6, pulse 78, respiratory rate 18, blood pressure 103/39. HEENT: Atraumatic, normocephalic. Oral mucosa moist. NECK: Supple. CV: S1 and S2. Rate and rhythm regular RESPIRATORY: Clear. MUSCULOSKELETAL: No tenderness. No edema. DERMATOLOGIC: No skin rash. NEUROLOGIC: Alert and awake. PSYCHIATRIC: Mood and affect normal. LABORATORY DATA: Hemoglobin is 9.3, potassium 5.6, BUN is 39, creatinine 3.3. ASSESSMENT AND PLAN: 1. Acute kidney injury. Renal function seems to be stable, but her urine output is dropping, which is concerning. No acute indication for dialysis. 2. Hyperkalemia. Potassium level is better. 3. Metabolic acidosis, was given bicarb and level was better. 4. Edema, controlled. 5. History of hypertension. 6. History of anemia. 7. Lactic acidosis better. 8. Overall prognosis is poor. We will continue to monitor. No acute indication for dialysis. Continue discussion with the family. Consider palliative care. We will follow. Job ID: [id number]
[2018-11-23] MEDS: DOPamine 400 MG/D5W 250 ML 250 ML IVPB SCH (04:49)
[2018-11-23 05:15] LABS: #Lymphocytes 0.6 thou/uL (1.20-3.40); #Monocytes 0.8 thou/uL (0.11-0.59); #Neutrophils 4.2 thou/uL (1.40-6.50); %Basophils 0.6 % (0.0-1.0); %Eosinophils 0.7 % (0.0-10.0); %Lymphocytes 11.2 % (21.0-51.0); %Monocytes 13.8 % (0.0-10.0); %Neutrophils 73.7 % (42.0-75.0); Mean Corpuscular HGB CONC 31.9 g/dL (32.0-36.0); Mean Corpuscular Hemoglobin 31.5 pg (27.0-31.0); Mean Corpuscular Volume 98.7 fL (78.0-98.0); Mean Platelet Volume 11.4 fL (7.4-10.4); Platelet Count 64 thou/uL (130-400); Red Blood Cell (RBC) Count 2.53 mill/uL (4.20-5.40); White Blood Cell (WBC) Count 5.8 thou/uL (4.8-10.8)
[2018-11-23 05:26] LABS: ALT (SGPT) 93 U/L (8-55); AST (SGOT) 130 U/L (5-34); Albumin 3.4 g/dL (3.4-4.8); Alkaline Phosphatase 146 U/L (40-150); Anion Gap 12 mmol/L (10-20); BUN (Urea Nitrogen) 38 mg/dL (9.8-20.1); Bilirubin, Total 2.5 mg/dL (0.2-1.2); Calc. Creatinine Clearance 20 mL/min (70-130); Calcium 9.8 mg/dL (7.8-10.44); Carbon Dioxide 22 mmol/L (23-31); Chloride 111 mmol/L (98-107); Estimated GFR-MDRD 12; Globulin 2.1 g/dL (2.4-3.5); Glucose 98 mg/dL (83-110); Potassium 5.8 mmol/L (3.5-5.1); Protein, Total 5.5 g/dL (6.0-8.3); Sodium 139 mmol/L (136-145)
[2018-11-23] MEDS: Levothyroxine Sodium 125 MCG TAB PO SCH (06:20)
[2018-11-23] MEDS ORDERED: Phentolamine Mesylate 5 MG in Sodium Chloride 0.9% 9 ML SC SCH (07:45)
[2018-11-23] MEDS ORDERED: Vancomycin HCl 1.75 GM in Sodium Chloride 0.9% 500 ML IVPB SCH (08:00)
--- NOTE | 2018-11-23 08:22 | PRG ---
DATE OF SERVICE: 11/23/2018 TIME SPENT: 35 minutes critical care time. SUBJECTIVE: The patient remains in the ICU on dopamine and dobutamine. Her heart block has corrected. OBJECTIVE: VITAL SIGNS: Her temperature is 95.6, pulse 74, blood pressure 108/40, and O2 saturation 97%. She continues on dobutamine at 2 mcg/kg per minute. Her intake for 24 hours is 2576, output 144 mL. HEENT: Unremarkable. NECK: No JVD. CARDIAC: S1 and S2 obscured by a 3/6 holosystolic murmur. LUNGS: Clear. ABDOMEN: Soft, edematous. EXTREMITIES: Edematous throughout. LABORATORY DATA: White blood cell count 5.8, hemoglobin 8, hematocrit 25, and platelet count 64. INR 1.3. Sodium 139, potassium 5.8, chloride 111, CO2 of 22, BUN 38, creatinine 3.5, and glucose 98. ASSESSMENT: 1. Acute on chronic renal failure. 2. Hyperkalemia. 3. Bradycardia at admission. 4. Recent episode of hypotension with relative adrenal insufficiency. PLAN: 1. The patient continues to be oliguric and hyperkalemic on the bicarb drip. 2. For her relative renal insufficiency, I am going to put her back on Solu-Cortef and that may help with the hypotension. 3. I will leave the decision whether or not to continue the bicarb drip up to Nephrology. Unfortunately, this lady's kidney function has deteriorated grossly. Given advanced age, I would not wake up on dialysis favorably. The patient has a do not attempt resuscitation order on the chart. Her medications need to be adjusted to renal function as needed. Job ID: [id number]
[2018-11-23] MEDS: Hydrocortisone Sod Succ/PF 100 mg/2 ml Vial IVP SCH ×2 (08:42→18:03)
[2018-11-23 10:19] LABS: Vancomycin, Random 15.1 ug/mL (See Comment)
[2018-11-23 10:37] LABS: Folate (Folic Acid) 5.7 ng/mL (7.0-31.4)
--- NOTE | 2018-11-23 10:55 | ULT ---
EXAM: US Renal Bilateral STANDARD PROVIDED CLINICAL HISTORY: Acute kidney injury COMPARISON: None FINDINGS: The right kidney measures about 8.3 x 4.3 x 5.6 cm and demonstrates no evidence for hydronephrosis or mass. The left kidney measures about 10.9 x 5.7 x 5.5 cm and demonstrates no evidence for hydronephrosis or mass. The urinary bladder is not visualized. Right pleural fluid is partially seen. IMPRESSION: 1. No evidence for hydronephrosis. 2. Partially visualized right pleural fluid.
--- NOTE | 2018-11-23 11:08 | PRG ---
DATE OF SERVICE: 11/23/2018 SUBJECTIVE: Patient was seen and examined at bedside and overnight events noted. Patient denies any shortness of breath or chest pain or palpitation. No history of nausea or vomiting or diarrhea or fever or chills or cramps. OBJECTIVE: GENERAL: This is an obese female, in no apparent distress. VITAL SIGNS: Temperature 97.5. Heart rate 72. Respiratory rate 18. Blood pressure 109/47. HEENT: Atraumatic, normocephalic. Oral mucosa is moist NECK: Supple. CARDIOVASCULAR: S1, S2 heard. Rate and rhythm regular. RESPIRATORY: Clear to auscultation. GASTROINTESTINAL: Abdomen is soft. MUSCULOSKELETAL: No tenderness. No edema. DERMATOLOGIC: No skin rash. NEUROLOGIC: Alert and awake and oriented X3. No focal neurologic deficits. Moving all the extremities. PSYCHIATRIC: Mood and affect normal. LABORATORY DATA: Potassium is 5.8, BUN is 38, and creatinine is 3.5. ASSESSMENT AND PLAN: 1. Acute kidney injury on chronic kidney stage 4. Renal function is stable with no significant urinary output concerning. 2. Cardiorenal syndrome. 3. Hyperkalemia. Continue medical management. 4. Metabolic acidosis. 5. History of hypertension. 6. History of anemia. 7. Lactic acidosis. We will plan to check the renal ultrasound and avoid nephrotoxins and continue supportive care. Continue inotropes. We will follow. Job ID: [id number]
[2018-11-23] MEDS ORDERED: [UNRECOGNIZED DRUG - OTHER] IVPB PRN (11:38)
--- NOTE | 2018-11-23 13:09 | PDOC.HOSPP ---
- Subjective Encounter Date: 11/23/18 Encounter Time: 09:30 Subjective: pt up in bed no complains, per nursing not eating much. Her urine output is minimal. - Objective Vital Signs & Weight: Vital Signs (12 hours) Temp Pulse Ox 11/23/18 12:00 94.4 F L 11/23/18 08:00 97.5 F L 97 Weight Weight 260 lb 2.327 oz Most Recent Monitor Data Heart Rate from ECG 78 NIBP 112/68 NIBP BP-Mean 82 Respiration from ECG 21 SpO2 95 I&O: 11/22/18 11/23/18 11/24/18 06:59 06:59 06:59 Intake Total 3276.1 399.4 Output Total 0 144 140 Balance 0 3132.1 259.4 Result Diagrams: 11/23/18 04:38 11/23/18 04:38 Additional Labs: Accuchecks 11/23/18 11/23/18 11/22/18 09:38 03:07 21:04 POC Glucose 82 102 108 11/22/18 11/22/18 17:09 03:02 POC Glucose 97 307 H Hospitalist ROS - Review of Systems Cardiovascular: denies: chest pain, palpitations, orthopnea, paroxysmal noc. dyspnea, edema, light headedness, other Gastrointestinal: denies: nausea, vomiting, abdominal pain, diarrhea, constipation, melena, hematochezia, other Genitourinary: denies: dysuria, frequency, incontinence, hematuria, retention, other - Medication Medications: Active Medications Generic Name Dose Route Start Last Admin Trade Name Freq PRN Reason Stop Dose Admin Atorvastatin Calcium 40 mg 11/22/18 21:00 11/22/18 21:27 Lipitor PO 40 mg HS JERMAN Administration Hydrocortisone Sodium Succinate 100 mg 11/23/18 12:00 11/23/18 08:42 Solu-Cortef IVP 100 mg Q6HR JERMAN Administration Piperacillin Sod/Tazobactam 100 mls @ 200 mls/hr 11/22/18 08:00 11/23/18 08: 40 Sod 2.25 gm/ Sodium Chloride IVPB 100 mls 0800,1600,2359 JERMAN Administration Levothyroxine Sodium 125 mcg 11/22/18 06:00 11/23/18 06:20 Synthroid PO 125 mcg 0600 JERMAN Administration - Exam Neck: negative: supple, symmetric, no JVD, no thyromegaly, no lymphadenopathy, no carotid bruit, JVD Heart: negative: RRR, no murmur, no gallops, no rubs, normal peripheral pulses, irregular, diminshed peripheral pulses, murmur present, II/IV, III/IV Respiratory: negative: CTAB, no wheezes, no rales, no ronchi, normal chest expansion, no tachypnea, normal percussion, rales, rhonchi, tachypneic, wheezes Extremities: 2+ LE edema Extremities - other findings: anasarca Hosp A/P (1) Bradycardia Code(s): R00.1 - BRADYCARDIA, UNSPECIFIED Status: Acute (2) Hyperkalemia Code(s): E87.5 - HYPERKALEMIA Status: Acute (3) Metabolic acidosis Code(s): E87.2 - ACIDOSIS Status: Acute (4) Acute kidney injury Code(s): N17.9 - ACUTE KIDNEY FAILURE, UNSPECIFIED Status: Acute (5) Atrial fibrillation Code(s): I48.91 - UNSPECIFIED ATRIAL FIBRILLATION Status: Chronic Qualifiers: Atrial fibrillation type: paroxysmal Qualified Code(s): I48.0 - Paroxysmal atrial fibrillation - Plan cardiology consulted pt on dobutamine and dopamine. pt doing well, will hold multaq. pt on bicarb drip. will change accucheck to q4h. will put her on a diet. nephrology consulted. 11/23 will get renal ultrasound, possible ATN per nursing her urine output is improving. she is on dobutamine with borerline bp. will order ensure clear
[2018-11-23] MEDS: Atorvastatin Calcium 40 MG TAB PO SCH (21:17)
[2018-11-24] MEDS: Hydrocortisone Sod Succ/PF 100 mg/2 ml Vial IVP SCH ×4 (01:40→17:49)
[2018-11-24] MEDS: Piperacillin/Tazobactam 2.25 GM in Sodium Chloride 0.9% 100 ML IVPB SCH ×2 (01:40→19:30)
[2018-11-24 03:53] LABS: #Lymphocytes 0.4 thou/uL (1.20-3.40); #Monocytes 0.1 thou/uL (0.11-0.59); %Eosinophils 0.1 % (0.0-10.0); %Lymphocytes 16.1 % (21.0-51.0); %Monocytes 5.1 % (0.0-10.0); %Neutrophils 78.7 % (42.0-75.0); Hemoglobin 7.7 g/dL (12.0-16.0); Mean Corpuscular HGB CONC 33.2 g/dL (32.0-36.0); Mean Corpuscular Hemoglobin 32.2 pg (27.0-31.0); Mean Corpuscular Volume 97.2 fL (78.0-98.0); Mean Platelet Volume 11.5 fL (7.4-10.4); Platelet Count 48 thou/uL (130-400); RBC Distribution Width 19.9 % (11.5-14.5); White Blood Cell (WBC) Count 2.6 thou/uL (4.8-10.8)
[2018-11-24 03:57] LABS: ALT (SGPT) 80 U/L (8-55); AST (SGOT) 94 U/L (5-34); Albumin 3.2 g/dL (3.4-4.8); Alkaline Phosphatase 133 U/L (40-150); Anion Gap 15 mmol/L (10-20); BUN (Urea Nitrogen) 40 mg/dL (9.8-20.1); Bilirubin, Total 2.3 mg/dL (0.2-1.2); Calc. Creatinine Clearance 22 mL/min (70-130); Carbon Dioxide 20 mmol/L (23-31); Chloride 110 mmol/L (98-107); Estimated GFR-MDRD 13; Globulin 2.1 g/dL (2.4-3.5); Glucose 99 mg/dL (83-110); Potassium 4.6 mmol/L (3.5-5.1); Protein, Total 5.3 g/dL (6.0-8.3); Sodium 140 mmol/L (136-145)
[2018-11-24] MEDS: Levothyroxine Sodium 125 MCG TAB PO SCH (06:31)
[2018-11-24] MEDS ORDERED: Albumin 25% 25 GM/100 ML BOT IVPB SCH (08:26)
--- NOTE | 2018-11-24 08:38 | PRG ---
DATE OF SERVICE: 11/24/2018 SUBJECTIVE: An 87-year-old female on Dobutrex . OBJECTIVE: VITAL SIGNS: Pulse 89, blood pressure 101/60, saturations 90%. GENERAL: This morning, she is awake, alert, and responsive. Denies any shortness of breath. I's and O's have been consistently negative. CHEST: Decreased breath sounds. No wheezing. CARDIAC: Normal S1 and S2. No gallops. ABDOMEN: No mass. LABORATORY DATA: Creatinine is 3.32, stable. IMPRESSION: 1. Congestive heart failure on Dobutrex. 2. Renal failure. 3. Severe deconditioning. 4. Do not resuscitate. PLAN: Continue present treatment, PT supportive care, empiric antibiotics. We will follow while in the ICU. Job ID: [id number]
[2018-11-24] MEDS: Albumin 25% 25 GM/100 ML BOT IVPB SCH ×3 (09:13→21:18)
[2018-11-24] MEDS ORDERED: Acetaminophen 650 MG Suppository PR PRN (09:48)
[2018-11-24] MEDS ORDERED: Artificial Tears 18 DROP/0.9 ML EA EYE PRN (09:48)
[2018-11-24] MEDS ORDERED: Bisacodyl 10 MG SUPP PR PRN (09:48)
[2018-11-24] MEDS ORDERED: Loperamide HCl 2 MG CAP PO PRN (09:48)
[2018-11-24] MEDS ORDERED: Loratadine 10 MG TAB PO PRN (09:48)
[2018-11-24] MEDS ORDERED: Senokot S 8.6-50 MG TAB PO PRN (09:48)
[2018-11-24] MEDS ORDERED: Calcium Carbonate 500 MG ChewTAB PO PRN (09:48)
[2018-11-24] MEDS ORDERED: Diabetic Tussin 200 MG/10 ML UDCUP PO PRN (09:48)
[2018-11-24] MEDS ORDERED: Acetaminophen 325 MG TAB PO PRN (09:48)
[2018-11-24] MEDS ORDERED: Cepastat Lozenges 1 LOZ PO PRN (09:48)
[2018-11-24] MEDS ORDERED: Sodium Chloride 0.65% Nasal 44 ML BOT EA NARE PRN (09:48)
--- NOTE | 2018-11-24 11:10 | PDOC.HOSPP ---
- Subjective Encounter Date: 11/24/18 Encounter Time: 08:50 Subjective: pt is lethargic, her BP is still low, she is on dobutamine drip, Patient seen and examined. No overnight events - Objective Vital Signs & Weight: Vital Signs (12 hours) Temp Pulse Ox 11/24/18 08:00 95.0 F L 98 11/24/18 07:56 96 11/24/18 06:00 96.1 F L Weight Admit Weight 260 lb Weight 268 lb 15.423 oz Most Recent Monitor Data Heart Rate from ECG 80 NIBP 87/47 NIBP BP-Mean 60 Respiration from ECG 10 SpO2 96 I&O: 11/23/18 11/24/18 11/25/18 06:59 06:59 06:59 Intake Total 3276.1 899.3 457 Output Total 144 587 39 Balance 3132.1 312.3 418 Result Diagrams: 11/24/18 03:25 11/24/18 03:24 Additional Labs: Accuchecks 11/23/18 16:48 POC Glucose 103 EKG Reviewed by me: Yes Hospitalist ROS - Review of Systems ROS unobtainable: due to mental status (due to her lethargy) - Medication Medications: Active Medications Generic Name Dose Route Start Last Admin Trade Name Freq PRN Reason Stop Dose Admin Albumin Human 25 gm 11/24/18 09:00 11/24/18 09:13 Albumin 25% IVPB 11/24/18 21:01 25 gm 0300,0900,1500,2100 JERMAN Administration Atorvastatin Calcium 40 mg 11/22/18 21:00 11/23/18 21:17 Lipitor PO 40 mg HS JERMAN Administration Hydrocortisone Sodium Succinate 100 mg 11/23/18 12:00 11/24/18 06:31 Solu-Cortef IVP 100 mg Q6HR JERMAN Administration Levothyroxine Sodium 125 mcg 11/22/18 06:00 11/24/18 06:31 Synthroid PO 125 mcg 0600 JERMAN Administration - Exam General Appearance: NAD, ill appearing Eye: PERRL, anicteric sclera ENT: normocephalic atraumatic, no oropharyngeal lesions Neck: supple, no JVD Heart: no gallops, irregular, murmur present, III/IV Respiratory - other findings: reduced air entry both side Gastrointestinal: soft, non-tender, non-distended, normal bowel sounds Extremities: 2+ LE edema Skin - other findings: skin lesion noted Neurological: no focal deficits Musculoskeletal: generalized weakness Psychiatric: lethargic Hosp A/P (1) Cardiogenic shock Code(s): R57.0 - CARDIOGENIC SHOCK Status: Acute Plan: on dobutamine drip (2) Acute on chronic diastolic ACC/AHA stage C congestive heart failure Code(s): I50.33 - ACUTE ON CHRONIC DIASTOLIC (CONGESTIVE) HEART FAILURE Status : Acute (3) Acute worsening of stage 4 chronic kidney disease Code(s): N18.4 - CHRONIC KIDNEY DISEASE, STAGE 4 (SEVERE) Status: Acute Plan: cardiorenal syndrome (4) Metabolic acidosis Code(s): E87.2 - ACIDOSIS Status: Acute (5) Acute metabolic encephalopathy Code(s): G93.41 - METABOLIC ENCEPHALOPATHY Status: Acute (6) Chronic respiratory failure with hypoxia Code(s): J96.11 - CHRONIC RESPIRATORY FAILURE WITH HYPOXIA Status: Acute (7) Hyperlipidemia Code(s): E78.5 - HYPERLIPIDEMIA, UNSPECIFIED Status: Chronic Qualifiers: (8) Hypertension Code(s): I10 - ESSENTIAL (PRIMARY) HYPERTENSION Status: Chronic Qualifiers: (9) Moderate aortic stenosis Code(s): I35.0 - NONRHEUMATIC AORTIC (VALVE) STENOSIS Status: Chronic (10) Morbid obesity Code(s): E66.01 - MORBID (SEVERE) OBESITY DUE TO EXCESS CALORIES Status: Chronic (11) Paroxysmal atrial fibrillation Code(s): I48.0 - PAROXYSMAL ATRIAL FIBRILLATION Status: Chronic (12) Anemia Code(s): D64.9 - ANEMIA, UNSPECIFIED Status: Chronic Qualifiers: Anemia type: due to chronic kidney disease (13) Folate deficiency Code(s): E53.8 - DEFICIENCY OF OTHER SPECIFIED B GROUP VITAMINS Status: Chronic (14) Pancytopenia Code(s): D61.818 - OTHER PANCYTOPENIA Status: Chronic (15) Hypothyroidism Code(s): E03.9 - HYPOTHYROIDISM, UNSPECIFIED Status: Chronic - Plan old records reviewed/req 11/24/18- agree with albumin today to improve intravascular volume, continue dobutamine drip, renal function still high, cardiology and nephrology recommendation noted and appreciated, add folic acid and vitamin B12, ferrous sulfate, not on any anticoagulant due to very low platelet count
--- NOTE | 2018-11-24 12:20 | EKG ---
Test Reason : Blood Pressure : / mmHG Vent. Rate : 049 BPM Atrial Rate : 055 BPM P-R Int : 000 ms QRS Dur : 084 ms QT Int : 464 ms P-R-T Axes : 000 033 050 degrees QTc Int : 419 ms Junctional rhythm Low voltage QRS Septal infarct , age undetermined Abnormal ECG Confirmed by JAMIE LILLY M.D. ([id number]), editor publications VERONIQUE FORD ([id number]) on 11/24/2018 12:20:16 PM Referred By: Confirmed By:JAMIE LILLY M.D.
--- NOTE | 2018-11-24 12:20 | EKG ---
Test Reason : Blood Pressure : / mmHG Vent. Rate : 047 BPM Atrial Rate : 340 BPM P-R Int : 000 ms QRS Dur : 072 ms QT Int : 554 ms P-R-T Axes : 000 070 082 degrees QTc Int : 490 ms Junctional rhythm with occasional , and consecutive Premature ventricular complexes Low voltage QRS Septal infarct , age undetermined Inferior injury pattern Consider right ventricular involvement in acute inferior infarct Abnormal ECG No ST elevation/[place] Confirmed by JAMIE LILLY M.D. ([id number]), video effects editor VERONIQUE FORD ([id number]) on 11/24/2018 12:20:05 PM Referred By: Confirmed By:JAMIE LILLY M.D.
--- NOTE | 2018-11-24 12:20 | EKG ---
Test Reason : Blood Pressure : / mmHG Vent. Rate : 049 BPM Atrial Rate : 241 BPM P-R Int : 000 ms QRS Dur : 098 ms QT Int : 496 ms P-R-T Axes : 000 038 023 degrees QTc Int : 448 ms Junctional rhythm Low voltage QRS Abnormal ECG Confirmed by JAMIE LILLY M.D. ([id number]), electronic news gathering editor VERONIQUE FORD ([id number]) on 11/24/2018 12:20:21 PM Referred By: Confirmed By:JAMIE LILLY M.D.
--- NOTE | 2018-11-24 15:17 | PRG ---
DATE OF SERVICE: 11/24/2018 SUBJECTIVE: Patient was seen and examined at bedside and overnight events noted. Patient denies any shortness of breath or chest pain or palpitation. No history of nausea or vomiting or diarrhea or fever or chills or cramps. OBJECTIVE: GENERAL: This is an obese female, in no acute distress. VITAL SIGNS: Temperature 95.4. Heart rate 80. Respiratory rate 18. Blood pressure 120/64. HEENT: Atraumatic, normocephalic. Oral mucosa is moist. NECK: Supple. CARDIOVASCULAR: S1, S2 heard. Rate and rhythm regular. RESPIRATORY: Clear to auscultation. GASTROINTESTINAL: Abdomen is soft. MUSCULOSKELETAL: No tenderness. No edema. DERMATOLOGIC: No skin rash. NEUROLOGIC: Alert and awake and oriented x3. No focal neurologic deficits. Moving all the extremities. PSYCHIATRIC: Mood and affect normal. LABORATORY DATA: Potassium 4.6, BUN is 40, and creatinine is 3.3. ASSESSMENT AND PLAN: 1. Acute kidney injury. Creatinine is slightly better. 2. Chronic kidney disease, stage 3. 3. Cardiorenal syndrome. 4. Hyperkalemia, better. 5. Metabolic acidosis. 6. Hypertension. 7. Anemia. 8. Lactic acidosis. Renal function is slightly better. Potassium level is better. We will continue to monitor. Continue supportive care. Urine output seems to be better. Job ID: [id number]
[2018-11-24] MEDS: DOBUTamine 500 mg/250 ml 250 ML IVPB SCH (17:10)
[2018-11-24] MEDS: Atorvastatin Calcium 40 MG TAB PO SCH (21:18)
[2018-11-25] MEDS: Hydrocortisone Sod Succ/PF 100 mg/2 ml Vial IVP SCH ×5 (01:37→23:58)
[2018-11-25 05:15] LABS: #Lymphocytes 0.4 thou/uL (1.20-3.40); #Monocytes 0.3 thou/uL (0.11-0.59); #Neutrophils 2.6 thou/uL (1.40-6.50); %Eosinophils 0.3 % (0.0-10.0); %Lymphocytes 12.4 % (21.0-51.0); %Monocytes 8.4 % (0.0-10.0); %Neutrophils 78.9 % (42.0-75.0); Hemoglobin 7.8 g/dL (12.0-16.0); Mean Corpuscular HGB CONC 32.4 g/dL (32.0-36.0); Mean Corpuscular Hemoglobin 31.9 pg (27.0-31.0); Mean Corpuscular Volume 98.2 fL (78.0-98.0); Mean Platelet Volume 11.9 fL (7.4-10.4); Platelet Count 53 thou/uL (130-400); RBC Distribution Width 19.9 % (11.5-14.5); Red Blood Cell (RBC) Count 2.45 mill/uL (4.20-5.40); White Blood Cell (WBC) Count 3.2 thou/uL (4.8-10.8)
[2018-11-25 05:35] LABS: ALT (SGPT) 65 U/L (8-55); AST (SGOT) 65 U/L (5-34); Albumin 4.1 g/dL (3.4-4.8); Alkaline Phosphatase 142 U/L (40-150); Anion Gap 15 mmol/L (10-20); BUN (Urea Nitrogen) 45 mg/dL (9.8-20.1); Bilirubin, Total 2.1 mg/dL (0.2-1.2); Calc. Creatinine Clearance 22 mL/min (70-130); Carbon Dioxide 22 mmol/L (23-31); Chloride 108 mmol/L (98-107); Estimated GFR-MDRD 12; Globulin 2.1 g/dL (2.4-3.5); Glucose 113 mg/dL (83-110); Potassium 3.8 mmol/L (3.5-5.1); Protein, Total 6.2 g/dL (6.0-8.3); Sodium 141 mmol/L (136-145)
[2018-11-25] MEDS: Levothyroxine Sodium 125 MCG TAB PO SCH (06:37)
[2018-11-25] MEDS: Ferrous Sulfate 325 MG TAB PO SCH (07:59)
[2018-11-25] MEDS: Cyanocobalamin (Vitamin B-12) 1,000 MCG TAB PO SCH (07:59)
[2018-11-25] MEDS: Folic Acid 1 MG TAB PO SCH (07:59)
--- NOTE | 2018-11-25 09:22 | PRG ---
DATE OF SERVICE: 11/25/2018 SUBJECTIVE: An 87-year-old female, who is still on Dobutrex low-dose. OBJECTIVE: VITAL SIGNS: Saturations are 97% on 2 L, blood pressure 106/52, pulse 70, respiratory rate 18. GENERAL: Awake, alert, and responsive. CHEST: No wheezing, crackles. CARDIAC: Normal S1, S2. No gallops. ABDOMEN: No masses. LABORATORY DATA: Creatinine is still 3.48. Liver function mildly elevated. Albumin is 4.1. White count 3000, H and H is 7 and 24. ASSESSMENT: 1. Renal failure, on Dobutrex. 2. Cardiomyopathy. 3. Severe deconditioning. 4. Obesity. PLAN: At this stage, we are trying to wean off Dobutrex slowly. Continue PT. Supportive care. She will remain in the ICU until the Dobutrex was weaned off. Job ID: [id number]
--- NOTE | 2018-11-25 10:11 | PDOC.HOSPP ---
- Subjective Encounter Date: 11/25/18 Encounter Time: 09:30 Subjective: pt is more alert today, still on dobutamine drip Patient seen and examined. No new complaints. No overnight events - Objective Vital Signs & Weight: Vital Signs (12 hours) Pulse Ox 11/25/18 08:00 97 11/25/18 07:52 98 Weight Admit Weight 260 lb Weight 270 lb 1.06 oz Most Recent Monitor Data Heart Rate from ECG 89 NIBP 106/52 NIBP BP-Mean 70 Respiration from ECG 21 SpO2 97 I&O: 11/24/18 11/25/18 11/26/18 06:59 06:59 06:59 Intake Total 899.3 1171.1 Output Total 587 342 33 Balance 312.3 829.1 -33 Result Diagrams: 11/25/18 04:28 11/25/18 04:28 Additional Labs: Accuchecks 11/24/18 11/24/18 17:10 11:42 POC Glucose 128 H 140 H EKG Reviewed by me: Yes Hospitalist ROS - Review of Systems ROS unobtainable: due to mental status - Medication Medications: Active Medications Generic Name Dose Route Start Last Admin Trade Name Freq PRN Reason Stop Dose Admin Atorvastatin Calcium 40 mg 11/22/18 21:00 11/24/18 21:18 Lipitor PO 40 mg HS JERMAN Administration Cyanocobalamin 1,000 mcg 11/25/18 09:00 11/25/18 07:59 Vitamin B-12 PO 1,000 mcg DAILY JERMAN Administration Ferrous Sulfate 325 mg 11/25/18 09:00 11/25/18 07:59 Feosol PO 325 mg DAILY JERMAN Administration Folic Acid 1 mg 11/25/18 09:00 11/25/18 07:59 Folvite PO 1 mg DAILY JERMAN Administration Hydrocortisone Sodium Succinate 100 mg 11/23/18 12:00 11/25/18 06:37 Solu-Cortef IVP 100 mg Q6HR JERMAN Administration Dobutamine HCl/Dextrose 250 mls @ 0 mls/hr 11/23/18 08:05 11/24/18 17:10 Dobutamine 500 Mg/250 Ml IVPB 250 mls INF JERMAN Administration Protocol Titrate Levothyroxine Sodium 125 mcg 11/22/18 06:00 11/25/18 06:37 Synthroid PO 125 mcg 0600 JERMAN Administration - Exam General Appearance: NAD Eye: PERRL, anicteric sclera ENT: normocephalic atraumatic, no oropharyngeal lesions Neck: supple, symmetric Heart: RRR, no murmur, no gallops Respiratory - other findings: reduced air entry both side Gastrointestinal: soft, non-tender, non-distended Extremities: 2+ LE edema Skin: normal turgor Skin - other findings: skin lesion noted Neurological: no focal deficits Musculoskeletal: normal tone, normal strength Psychiatric: normal affect, normal behavior Hosp A/P (1) Cardiogenic shock Code(s): R57.0 - CARDIOGENIC SHOCK Status: Acute (2) Acute on chronic diastolic ACC/AHA stage C congestive heart failure Code(s): I50.33 - ACUTE ON CHRONIC DIASTOLIC (CONGESTIVE) HEART FAILURE Status : Acute (3) Acute worsening of stage 4 chronic kidney disease Code(s): N18.4 - CHRONIC KIDNEY DISEASE, STAGE 4 (SEVERE) Status: Acute (4) Metabolic acidosis Code(s): E87.2 - ACIDOSIS Status: Acute (5) Acute metabolic encephalopathy Code(s): G93.41 - METABOLIC ENCEPHALOPATHY Status: Acute (6) Chronic respiratory failure with hypoxia Code(s): J96.11 - CHRONIC RESPIRATORY FAILURE WITH HYPOXIA Status: Acute (7) Hyperlipidemia Code(s): E78.5 - HYPERLIPIDEMIA, UNSPECIFIED Status: Chronic Qualifiers: (8) Hypertension Code(s): I10 - ESSENTIAL (PRIMARY) HYPERTENSION Status: Chronic Qualifiers: (9) Moderate aortic stenosis Code(s): I35.0 - NONRHEUMATIC AORTIC (VALVE) STENOSIS Status: Chronic (10) Morbid obesity Code(s): E66.01 - MORBID (SEVERE) OBESITY DUE TO EXCESS CALORIES Status: Chronic (11) Paroxysmal atrial fibrillation Code(s): I48.0 - PAROXYSMAL ATRIAL FIBRILLATION Status: Chronic (12) Anemia Code(s): D64.9 - ANEMIA, UNSPECIFIED Status: Chronic Qualifiers: Anemia type: due to chronic kidney disease (13) Folate deficiency Code(s): E53.8 - DEFICIENCY OF OTHER SPECIFIED B GROUP VITAMINS Status: Chronic (14) Pancytopenia Code(s): D61.818 - OTHER PANCYTOPENIA Status: Chronic (15) Hypothyroidism Code(s): E03.9 - HYPOTHYROIDISM, UNSPECIFIED Status: Chronic - Plan old records reviewed/req 09/21/19- agree with albumin today to improve intravascular volume, continue dobutamine drip, renal function still high, cardiology and nephrology recommendation noted and appreciated, add folic acid and vitamin B12, ferrous sulfate, not on any anticoagulant due to very low platelet count 11/25/18: renal function still getting worse, still on dobutaime drip, continue current medical management, medication reviewed as above, symptomatic treatment , repeat labs tomorrow
[2018-11-25] MEDS ORDERED: Furosemide 40 MG/4 ML VIAL ONE (10:21)
[2018-11-25] MEDS ORDERED: Furosemide 40 MG/4 ML VIAL SLOW IVP SCH (10:30)
--- NOTE | 2018-11-25 14:26 | PRG ---
DATE OF SERVICE: 11/25/2018 SUBJECTIVE: Patient was seen and examined at bedside and overnight events noted. Patient denies any shortness of breath or chest pain or palpitation. No history of nausea or vomiting or diarrhea or fever or chills or cramps. OBJECTIVE: GENERAL: This is an elderly female, in no apparent distress. VITAL SIGNS: Temperature 96.7. Pulse 95. Respiratory rate 18. Blood pressure 120/72. HEENT: Atraumatic, normocephalic. Oral mucosa is moist NECK: Supple. CARDIOVASCULAR: S1, S2 heard. Rate and rhythm regular. RESPIRATORY: Clear to auscultation. GASTROINTESTINAL: Abdomen is soft. MUSCULOSKELETAL: No tenderness. No edema. DERMATOLOGIC: No skin rash. NEUROLOGIC: Alert and awake and oriented X3. No focal neurologic deficits. Moving all the extremities. PSYCHIATRIC: Mood and affect normal. LABORATORY DATA: Potassium 3.8, BUN is 45, and creatinine is 3.4. ASSESSMENT AND PLAN: 1. Acute kidney injury on chronic kidney disease, stage 3, stable creatinine. 2. Cardiorenal syndrome . 3. Hyperkalemia. 4. Metabolic acidosis. 5. Hypertension. 6. Lactic acidosis. Labs are stable. Avoid nephrotoxins. We will follow. Job ID: [id number]
[2018-11-25] MEDS: DOBUTamine 500 mg/250 ml 250 ML IVPB SCH (17:11)
[2018-11-25] MEDS: Atorvastatin Calcium 40 MG TAB PO SCH (20:03)
[2018-11-26] MEDS: Levothyroxine Sodium 125 MCG TAB PO SCH (05:04)
[2018-11-26] MEDS: Hydrocortisone Sod Succ/PF 100 mg/2 ml Vial IVP SCH (05:05)
[2018-11-26 05:25] LABS: #Lymphocytes 0.4 thou/uL (1.20-3.40); #Monocytes 0.3 thou/uL (0.11-0.59); #Neutrophils 2.9 thou/uL (1.40-6.50); %Eosinophils 0.2 % (0.0-10.0); %Lymphocytes 12.2 % (21.0-51.0); %Monocytes 7.2 % (0.0-10.0); %Neutrophils 80.4 % (42.0-75.0); ALT (SGPT) 56 U/L (8-55); AST (SGOT) 49 U/L (5-34); Albumin 4.1 g/dL (3.4-4.8); Alkaline Phosphatase 136 U/L (40-150); Anion Gap 16 mmol/L (10-20); BUN (Urea Nitrogen) 50 mg/dL (9.8-20.1); Bilirubin, Total 2.3 mg/dL (0.2-1.2); Calc. Creatinine Clearance 22 mL/min (70-130); Calcium 9.9 mg/dL (7.8-10.44); Carbon Dioxide 20 mmol/L (23-31); Chloride 106 mmol/L (98-107); Estimated GFR-MDRD 12; Globulin 2.1 g/dL (2.4-3.5); Glucose 116 mg/dL (83-110); Hemoglobin 7.9 g/dL (12.0-16.0); Mean Corpuscular HGB CONC 32.5 g/dL (32.0-36.0); Mean Corpuscular Hemoglobin 31.8 pg (27.0-31.0); Mean Corpuscular Volume 97.8 fL (78.0-98.0); Mean Platelet Volume 11.2 fL (7.4-10.4); Platelet Count 62 thou/uL (130-400); Potassium 3.9 mmol/L (3.5-5.1); Protein, Total 6.2 g/dL (6.0-8.3); RBC Distribution Width 19.6 % (11.5-14.5); Red Blood Cell (RBC) Count 2.47 mill/uL (4.20-5.40); Sodium 138 mmol/L (136-145); White Blood Cell (WBC) Count 3.6 thou/uL (4.8-10.8)
[2018-11-26] MEDS: Cyanocobalamin (Vitamin B-12) 1,000 MCG TAB PO SCH (08:34)
[2018-11-26] MEDS: Ferrous Sulfate 325 MG TAB PO SCH (08:34)
[2018-11-26] MEDS: predniSONE 5 MG TAB PO SCH (08:35)
[2018-11-26] MEDS: Folic Acid 1 MG TAB PO SCH (08:35)
--- NOTE | 2018-11-26 08:48 | PRG ---
DATE OF SERVICE: 11/26/2018 SUBJECTIVE: The patient remains in the CCU, being tapered off a dobutamine drip. She is somewhat confused according to nursing staff. OBJECTIVE: VITAL SIGNS: Temperature is 98.7, pulse 82, blood pressure 140/76, respiratory rate 15. She was on dobutamine at 1 mcg/kg/minute when I walked in the room, but that was turned off. HEENT: Unremarkable. NECK: No adenopathy or JVD. CARDIAC: S1, S2 irregular with 2/6 systolic murmur. LUNGS: Clear. ABDOMEN: Soft, nontender. EXTREMITIES: Edematous. LABORATORY: Sodium 138, potassium 3.9, chloride 106, CO2 of 20, BUN 50, creatinine 3.5, and glucose 116. White blood cell count 3.6, hematocrit 24.2, and platelet count 62. ASSESSMENT: 1. Cardiomyopathy. 2. Renal failure. 3. Severe deconditioning. 4. Relative adrenal insufficiency. PLAN: 1. I tapered steroids down. 2. She can maintain off the dobutamine that she can be sent to the floor. I think that she has more or less in a palliative care type situation and that should be our goals of treatment. Job ID: [id number]
--- NOTE | 2018-11-26 11:46 | PRG ---
DATE OF SERVICE: 11/26/2018 SUBJECTIVE: This is an 87-year-old female being seen for acute kidney injury. The patient denies any nausea, vomiting, or chest pain. OBJECTIVE: See above. The patient is awake and alert, in no acute distress. VITAL SIGNS: Pulse 75, breathing 16, blood pressure 126/78. GENERAL APPEARANCE AND MENTAL STATUS: Fair. HEAD/NECK: Normocephalic. Atraumatic. EYES: EOMI. No deformity. EARS: Clear. No ulcers. NOSE: Intact. No lesions. MOUTH: Clear. No discharge. THROAT: Clear. No exudate. LUNGS: Clear. No crackles. CARDIAC: S1, S2. No rub. ABDOMEN: Benign. Bowel sounds positive. GENITALIA/RECTUM: Estes absent. BACK/EXTREMITIES: Edema 0+. NEUROLOGICAL: Alert and motor intact. SKIN: LYMPHATICS: LABORATORY DATA: Labs show creatinine 3.5. ASSESSMENT AND PLAN: 1. Acute kidney injury with chronic kidney disease stage 5, stable. 2. Acute tubular necrosis, stable. 3. Hypertension, stable. No urgent indication for dialysis yet. Job ID: [id number]
--- NOTE | 2018-11-26 16:36 | PDOC.HOSPP ---
- Subjective Encounter Date: 11/26/18 Encounter Time: 10:45 Subjective: Ms. Gamble was seen today in follow-up of severe bradycardia, and syncope. She has dementia, and therefore the ROS is unreliable. She denies having any problems. - Objective Vital Signs & Weight: Vital Signs (12 hours) Temp Pulse Pulse BP BP Pulse Ox Pulse Ox 11/26/18 16:00 98.5 F 11/26/18 11:58 98.4 F 11/26/18 09:20 82 88 117/79 118/78 96 11/26/18 07:14 94 L 11/26/18 07:00 98.7 F Weight Admit Weight 260 lb Weight 274 lb 11.135 oz Most Recent Monitor Data Heart Rate from ECG 67 NIBP 106/92 NIBP BP-Mean 96 Respiration from ECG 27 SpO2 92 I&O: 11/25/18 11/26/18 11/27/18 06:59 06:59 06:59 Intake Total 1171.1 453.9 480 Output Total 342 397 205 Balance 829.1 56.9 275 Result Diagrams: 11/26/18 04:45 11/26/18 04:45 Additional Labs: Accuchecks 11/26/18 11/25/18 10:34 16:44 POC Glucose 137 H 127 H Hospitalist ROS - Medication Medications: Active Medications Generic Name Dose Route Start Last Admin Trade Name Mirna PRN Reason Stop Dose Admin Atorvastatin Calcium 40 mg 11/22/18 21:00 11/25/18 20:03 Lipitor PO 40 mg HS JERMAN Administration Cyanocobalamin 1,000 mcg 11/25/18 09:00 11/26/18 08:34 Vitamin B-12 PO 1,000 mcg DAILY JERMAN Administration Ferrous Sulfate 325 mg 11/25/18 09:00 11/26/18 08:34 Feosol PO 325 mg DAILY JERMAN Administration Folic Acid 1 mg 11/25/18 09:00 11/26/18 08:35 Folvite PO 1 mg DAILY JERMAN Administration Dobutamine HCl/Dextrose 250 mls @ 0 mls/hr 11/23/18 08:05 11/25/18 17:11 Dobutamine 500 Mg/250 Ml IVPB 250 mls INF JERMAN Administration Protocol Titrate Levothyroxine Sodium 125 mcg 11/22/18 06:00 11/26/18 05:04 Synthroid PO 125 mcg 0600 JERMAN Administration Prednisone 15 mg 11/26/18 08:00 11/26/18 08:35 Prednisone PO 11/29/18 10:00 15 mg QAM-WM JERMAN Administration - Exam Eye: PERRL, anicteric sclera Heart: RRR, no gallops, no rubs, normal peripheral pulses, murmur present, II/IV Respiratory: CTAB, no wheezes, no rales, no ronchi, normal chest expansion, no tachypnea, normal percussion Gastrointestinal: soft, non-tender, non-distended, normal bowel sounds, no palpable masses, no hepatomegaly, no splenomegaly, no bruit, no guarding Extremities: no cyanosis, no clubbing, no edema Hosp A/P (1) Bradycardia Code(s): R00.1 - BRADYCARDIA, UNSPECIFIED Status: Acute (2) Junctional cardiac arrhythmia Code(s): I49.8 - OTHER SPECIFIED CARDIAC ARRHYTHMIAS Status: Acute (3) Atrial fibrillation Code(s): I48.91 - UNSPECIFIED ATRIAL FIBRILLATION Status: Chronic Qualifiers: Atrial fibrillation type: paroxysmal Qualified Code(s): I48.0 - Paroxysmal atrial fibrillation (4) Diastolic heart failure Code(s): I50.30 - UNSPECIFIED DIASTOLIC (CONGESTIVE) HEART FAILURE Status: Chronic Qualifiers: Heart failure chronicity: chronic Qualified Code(s): I50.32 - Chronic diastolic (congestive) heart failure (5) Hypertension Code(s): I10 - ESSENTIAL (PRIMARY) HYPERTENSION Status: Chronic Qualifiers: (6) Hypothyroid Code(s): E03.9 - HYPOTHYROIDISM, UNSPECIFIED Status: Chronic Qualifiers: - Plan * Bradycardia and Junctional rhythm- improved * She has been weaned off the Dobutamine drip and Multaq is has been discontinued * HTN- blood pressure is stable * Chronic diastolic heart failure- compensated * Hypothyroidism- stable
[2018-11-26] MEDS: Atorvastatin Calcium 40 MG TAB PO SCH (20:01)
[2018-11-27] MEDS: Levothyroxine Sodium 125 MCG TAB PO SCH (05:16)
[2018-11-27 06:21] LABS: Band 1 % (5-11); Hemoglobin 8.4 g/dL (12.0-16.0); Lymphocytes 17 % (21-51); MDiff Complete? YES; Mean Corpuscular HGB CONC 32.3 g/dL (32.0-36.0); Mean Corpuscular Hemoglobin 31.3 pg (27.0-31.0); Mean Corpuscular Volume 96.8 fL (78.0-98.0); Mean Platelet Volume 10.7 fL (7.4-10.4); Monocytes 8 % (0-10); Neutrophil 74 % (42-75); Platelet Count 55 thou/uL (130-400); Platelet Morphology Comment Appears Decreased; RBC Distribution Width 19.5 % (11.5-14.5); Red Blood Cell (RBC) Count 2.69 mill/uL (4.20-5.40); White Blood Cell (WBC) Count 3.7 thou/uL (4.8-10.8)
[2018-11-27 06:24] LABS: ALT (SGPT) 49 U/L (8-55); AST (SGOT) 41 U/L (5-34); Albumin 3.8 g/dL (3.4-4.8); Alkaline Phosphatase 148 U/L (40-150); Anion Gap 15 mmol/L (10-20); BUN (Urea Nitrogen) 57 mg/dL (9.8-20.1); Bilirubin, Total 2.5 mg/dL (0.2-1.2); Calc. Creatinine Clearance 23 mL/min (70-130); Calcium 9.6 mg/dL (7.8-10.44); Carbon Dioxide 18 mmol/L (23-31); Chloride 105 mmol/L (98-107); Estimated GFR-MDRD 13; Glucose 101 mg/dL (83-110); Potassium 3.7 mmol/L (3.5-5.1); Protein, Total 5.8 g/dL (6.0-8.3); Sodium 134 mmol/L (136-145)
[2018-11-27] MEDS: predniSONE 5 MG TAB PO SCH (08:57)
[2018-11-27] MEDS: Ferrous Sulfate 325 MG TAB PO SCH (08:58)
[2018-11-27] MEDS: Cyanocobalamin (Vitamin B-12) 1,000 MCG TAB PO SCH (08:58)
[2018-11-27] MEDS: Folic Acid 1 MG TAB PO SCH (08:58)
--- NOTE | 2018-11-27 09:22 | PDOC.HOSPP ---
- Subjective Encounter Date: 11/27/18 Encounter Time: 09:18 Subjective: Ms. Gamble was seen today in follow-up of Bradycardia. She is a bit confused. She does not have any complaints. - Objective Vital Signs & Weight: Vital Signs (12 hours) Temp Pulse Resp BP Pulse Ox 11/27/18 08:03 95.5 F L 11/27/18 07:23 93.4 F L 68 20 123/58 L 93 L 11/27/18 06:15 94.5 F L 11/27/18 05:25 93.8 F L 11/27/18 04:00 63 20 132/65 92 L 11/27/18 00:00 93.9 F L 63 18 129/83 93 L 11/26/18 22:05 94.8 F L 67 20 126/67 94 L Weight Admit Weight 260 lb Weight 274 lb 11.135 oz Most Recent Monitor Data Heart Rate from ECG 61 NIBP 113/76 NIBP BP-Mean 88 Respiration from ECG 12 SpO2 85 I&O: 11/26/18 11/27/18 11/28/18 06:59 06:59 06:59 Intake Total 453.9 813 Output Total 397 495 Balance 56.9 318 Result Diagrams: 11/27/18 05:03 11/27/18 05:03 Additional Labs: Accuchecks 11/27/18 11/26/18 11/26/18 05:45 23:54 16:16 POC Glucose 103 118 H 118 H 11/26/18 10:34 POC Glucose 137 H Hospitalist ROS - Medication Medications: Active Medications Generic Name Dose Route Start Last Admin Trade Name Mirna PRN Reason Stop Dose Admin Atorvastatin Calcium 40 mg 11/22/18 21:00 11/26/18 20:01 Lipitor PO 40 mg HS JERMAN Administration Cyanocobalamin 1,000 mcg 11/25/18 09:00 11/27/18 08:58 Vitamin B-12 PO 1,000 mcg DAILY JERMAN Administration Ferrous Sulfate 325 mg 11/25/18 09:00 11/27/18 08:58 Feosol PO 325 mg DAILY JERMAN Administration Folic Acid 1 mg 11/25/18 09:00 11/27/18 08:58 Folvite PO 1 mg DAILY JERMAN Administration Dobutamine HCl/Dextrose 250 mls @ 0 mls/hr 11/23/18 08:05 11/25/18 17:11 Dobutamine 500 Mg/250 Ml IVPB 250 mls INF JERMAN Administration Protocol Titrate Levothyroxine Sodium 125 mcg 11/22/18 06:00 11/27/18 05:16 Synthroid PO 125 mcg 0600 JERMAN Administration Prednisone 15 mg 11/26/18 08:00 11/27/18 08:57 Prednisone PO 11/29/18 10:00 15 mg QAM-WM JERMAN Administration - Exam Eye: PERRL, anicteric sclera Heart: RRR, no murmur, no gallops, no rubs, normal peripheral pulses Respiratory: CTAB, no wheezes, no rales, no ronchi, normal chest expansion, no tachypnea, normal percussion Gastrointestinal: soft, non-tender, non-distended, normal bowel sounds, no palpable masses, no hepatomegaly, no splenomegaly Extremities: no cyanosis, no clubbing, 2+ LE edema Hosp A/P (1) Bradycardia Code(s): R00.1 - BRADYCARDIA, UNSPECIFIED Status: Acute (2) Junctional cardiac arrhythmia Code(s): I49.8 - OTHER SPECIFIED CARDIAC ARRHYTHMIAS Status: Acute (3) Atrial fibrillation Code(s): I48.91 - UNSPECIFIED ATRIAL FIBRILLATION Status: Chronic Qualifiers: Atrial fibrillation type: paroxysmal Qualified Code(s): I48.0 - Paroxysmal atrial fibrillation (4) Diastolic heart failure Code(s): I50.30 - UNSPECIFIED DIASTOLIC (CONGESTIVE) HEART FAILURE Status: Chronic Qualifiers: Heart failure chronicity: chronic Qualified Code(s): I50.32 - Chronic diastolic (congestive) heart failure (5) Hypertension Code(s): I10 - ESSENTIAL (PRIMARY) HYPERTENSION Status: Chronic Qualifiers: (6) Hypothyroid Code(s): E03.9 - HYPOTHYROIDISM, UNSPECIFIED Status: Chronic Qualifiers: (7) Hypothermia Code(s): T68.XXXA - HYPOTHERMIA, INITIAL ENCOUNTER Status: Acute Qualifiers: Encounter type: subsequent encounter Qualified Code(s): T68.XXXD - Hypothermia, subsequent encounter (8) Valvular heart disease Status: Chronic - Plan * Bradycardia and Junctional rhythm- improved * Hypothermia- ? etiology- will check her free T4 to see if she is adequately replaced * HTN- blood pressure is stable * Chronic diastolic heart failure- compensated
--- NOTE | 2018-11-27 10:44 | PRG ---
DATE OF SERVICE: 11/27/2018 SUBJECTIVE: The patient is somnolent. I had a hard time waking her up. She looks comfortable. OBJECTIVE: VITAL SIGNS: Temperature 95.5, pulse 68, respirations 20, O2 saturation 93%, and blood pressure 123/58. HEENT: Unremarkable. NECK: No adenopathy or JVD. LUNGS: Clear. CARDIAC: S1 and S2, regular with 3/6 systolic murmur. ABDOMEN: Soft. EXTREMITIES: Edematous. LABORATORY DATA: White blood cell count 3.7, hematocrit 26.1, platelet count 55. Sodium 134, potassium 3.7, BUN 57, creatinine 3.3, and glucose 101. ASSESSMENT: 1. The patient has advanced heart failure with cardiorenal syndrome. 2. Deconditioning. 3. Relative adrenal insufficiency. PLAN: I really think her odds of improving are slim to none. I would focus more on palliative care. Job ID: [id number]
--- NOTE | 2018-11-27 15:44 | PRG ---
DATE OF SERVICE: 11/27/2018 SUBJECTIVE: This is an 87-year-old female, being seen for acute kidney injury. The patient denies nausea, vomiting, or chest pain. OBJECTIVE: GENERAL: The patient is awake and alert. VITAL SIGNS: Afebrile, pulse 78, breathing 16, and blood pressure 125/70. GENERAL APPEARANCE AND MENTAL STATUS: Fair. HEAD/NECK: Normocephalic. Atraumatic. EYES: EOMI. No deformity. EARS: Clear. No ulcers. NOSE: Intact. No lesions. MOUTH: Clear. No discharge. THROAT: Clear. No exudate. LUNGS: Clear. No crackles. CARDIAC: S1, S2. No rub. ABDOMEN: Benign. Bowel sounds positive. GENITALIA/RECTUM: Estes absent. BACK/EXTREMITIES: Edema 0+. NEUROLOGICAL: Alert and motor intact. SKIN: LYMPHATICS: LABORATORY DATA: Hemoglobin 8.4. Creatinine 3.3. ASSESSMENT AND PLAN: 1. Acute kidney injury, chronic kidney disease stage 5, improved. 2. Hypertension, stable. 3. Anemia, stable. No indication for dialysis. We will follow closely. Job ID: [id number]
--- NOTE | 2018-11-27 18:24 | PDOC.FMACP ---
Advance Care Planning - Problem (1) Bradycardia Status: Acute Code(s): R00.1 - BRADYCARDIA, UNSPECIFIED (2) Junctional cardiac arrhythmia Status: Acute Code(s): I49.8 - OTHER SPECIFIED CARDIAC ARRHYTHMIAS (3) Atrial fibrillation Status: Chronic Code(s): I48.91 - UNSPECIFIED ATRIAL FIBRILLATION Qualifiers: Atrial fibrillation type: paroxysmal Qualified Code(s): I48.0 - Paroxysmal atrial fibrillation (4) Diastolic heart failure Status: Chronic Code(s): I50.30 - UNSPECIFIED DIASTOLIC (CONGESTIVE) HEART FAILURE Qualifiers: Heart failure chronicity: chronic Qualified Code(s): I50.32 - Chronic diastolic (congestive) heart failure (5) Hypertension Status: Chronic Code(s): I10 - ESSENTIAL (PRIMARY) HYPERTENSION Qualifiers: (6) Hypothyroid Status: Chronic Code(s): E03.9 - HYPOTHYROIDISM, UNSPECIFIED Qualifiers: (7) Hypothermia Status: Acute Code(s): T68.XXXA - HYPOTHERMIA, INITIAL ENCOUNTER Qualifiers: Encounter type: subsequent encounter Qualified Code(s): T68.XXXD - Hypothermia, subsequent encounter (8) Valvular heart disease Status: Chronic - Note Summary: Advanced Care Planning was discussed. The diagnosis, prognosis and goals of care were discussed. I spoke with the patient's son, Ace, who agrees that hospice care is appropriate, based on the advanced kidney disease, and bradycardia. He is unsure if her niece will be able to care for her in the patient's new condition. He will speak with her tonight. He has given permission to start the process for Hospice referral. Time Spent (mins): 20
[2018-11-27] MEDS: Atorvastatin Calcium 40 MG TAB PO SCH (20:48)
[2018-11-28 05:09] LABS: #Lymphocytes 0.9 thou/uL (1.20-3.40); #Monocytes 0.6 thou/uL (0.11-0.59); #Neutrophils 3.2 thou/uL (1.40-6.50); %Basophils 0.3 % (0.0-1.0); %Eosinophils 0.4 % (0.0-10.0); %Lymphocytes 19.8 % (21.0-51.0); %Monocytes 12.9 % (0.0-10.0); %Neutrophils 66.6 % (42.0-75.0); Hemoglobin 8.9 g/dL (12.0-16.0); Mean Corpuscular HGB CONC 32.5 g/dL (32.0-36.0); Mean Corpuscular Hemoglobin 32.4 pg (27.0-31.0); Mean Corpuscular Volume 99.7 fL (78.0-98.0); Mean Platelet Volume 11.3 fL (7.4-10.4); Platelet Count 66 thou/uL (130-400); RBC Distribution Width 19.4 % (11.5-14.5); Red Blood Cell (RBC) Count 2.76 mill/uL (4.20-5.40); White Blood Cell (WBC) Count 4.8 thou/uL (4.8-10.8)
[2018-11-28 05:31] LABS: ALT (SGPT) 42 U/L (8-55); AST (SGOT) 35 U/L (5-34); Albumin 3.6 g/dL (3.4-4.8); Alkaline Phosphatase 170 U/L (40-110); Anion Gap 17 mmol/L (10-20); BUN (Urea Nitrogen) 60 mg/dL (9.8-20.1); Bilirubin, Total 2.5 mg/dL (0.2-1.2); Calc. Creatinine Clearance 26 mL/min (70-130); Calcium 9.3 mg/dL (7.8-10.44); Carbon Dioxide 18 mmol/L (23-31); Chloride 106 mmol/L (98-107); Estimated GFR-MDRD 15; Globulin 2.1 g/dL (2.4-3.5); Glucose 78 mg/dL (83-110); Potassium 3.8 mmol/L (3.5-5.1); Protein, Total 5.7 g/dL (6.0-8.3); Sodium 137 mmol/L (136-145)
[2018-11-28] MEDS: Levothyroxine Sodium 125 MCG TAB PO SCH (05:39)
[2018-11-28] MEDS: Cyanocobalamin (Vitamin B-12) 1,000 MCG TAB PO SCH (09:14)
[2018-11-28] MEDS: Ferrous Sulfate 325 MG TAB PO SCH (09:21)
[2018-11-28] MEDS: predniSONE 5 MG TAB PO SCH (09:21)
[2018-11-28] MEDS: Folic Acid 1 MG TAB PO SCH (09:21)
--- NOTE | 2018-11-28 10:40 | PRG ---
DATE OF SERVICE: 11/28/2018 The patient is doing poorly and has been referred for hospice care. There are no further Pulmonary/Critical Care recommendations. We will sign off. Please recall if needed. Job ID: [id number]
--- NOTE | 2018-11-28 13:01 | PRG ---
DATE OF SERVICE: 11/28/2018 SUBJECTIVE: This is an 87-year-old female, being seen for acute kidney injury. The patient denies any nausea, vomiting, or chest pain. OBJECTIVE: VITAL SIGNS: Pulse 78, breathing 16, blood pressure 129/85. HEAD/NECK: Normocephalic. Atraumatic. EYES: EOMI. No deformity. EARS: Clear. No ulcers. NOSE: Intact. No lesions. MOUTH: Clear. No discharge. THROAT: Clear. No exudate. LUNGS: Clear. No crackles. CARDIAC: S1, S2. No rub. ABDOMEN: Benign. Bowel sounds positive. GENITALIA/RECTUM: Estes absent. BACK/EXTREMITIES: Edema 0+. NEUROLOGICAL: Alert and motor intact. LABORATORY DATA: Reviewed. ASSESSMENT: 1. Chronic kidney disease, stable 3. 2. Hypertension, stable. 3. Anemia, stable. 4. Medication based on GFR appropriate. 5. Acute kidney injury, improving. Job ID: [id number] MTDD
[2018-11-28 15:27] VITALS: BMI 45.9
--- NOTE | 2018-11-28 16:43 | PDOC.HOSPP ---
- Subjective Encounter Date: 11/28/18 Encounter Time: 16:41 Subjective: Ms. Gamble was seen today in follow-up of bradycardia. She does not have any complaints. - Objective Vital Signs & Weight: Vital Signs (12 hours) Temp Pulse Resp BP Pulse Ox 11/28/18 15:28 97.2 F L 72 17 118/78 97 11/28/18 12:00 97.1 F L 70 17 124/72 95 11/28/18 08:00 96 11/28/18 07:53 97.4 F L 78 18 115/71 96 Weight Admit Weight 260 lb Weight 276 lb 4 oz Most Recent Monitor Data Heart Rate from ECG 61 NIBP 113/76 NIBP BP-Mean 88 Respiration from ECG 12 SpO2 85 I&O: 11/27/18 11/28/18 11/29/18 06:59 06:59 06:59 Intake Total 813 120 Output Total 495 600 Balance 318 -480 Result Diagrams: 11/28/18 04:51 11/28/18 04:51 Additional Labs: Accuchecks 11/28/18 11/28/18 11/27/18 10:39 06:04 20:34 POC Glucose 83 83 98 11/27/18 16:49 POC Glucose 97 Hospitalist ROS - Medication Medications: Active Medications Generic Name Dose Route Start Last Admin Trade Name Mirna PRN Reason Stop Dose Admin Atorvastatin Calcium 40 mg 11/22/18 21:00 11/27/18 20:48 Lipitor PO 40 mg HS JERMAN Administration Cyanocobalamin 1,000 mcg 11/25/18 09:00 11/28/18 09:14 Vitamin B-12 PO 1,000 mcg DAILY JERMAN Administration Ferrous Sulfate 325 mg 11/25/18 09:00 11/28/18 09:21 Feosol PO 325 mg DAILY JERMAN Administration Folic Acid 1 mg 11/25/18 09:00 11/28/18 09:21 Folvite PO 1 mg DAILY JERMAN Administration Dobutamine HCl/Dextrose 250 mls @ 0 mls/hr 11/23/18 08:05 11/25/18 17:11 Dobutamine 500 Mg/250 Ml IVPB 250 mls INF JERMAN Administration Protocol Titrate Levothyroxine Sodium 125 mcg 11/22/18 06:00 11/28/18 05:39 Synthroid PO 125 mcg 0600 JERMAN Administration Prednisone 15 mg 11/26/18 08:00 11/28/18 09:21 Prednisone PO 11/29/18 10:00 15 mg QAM-WM JERMAN Administration - Exam Eye: PERRL, anicteric sclera Heart: RRR, no gallops, no rubs, normal peripheral pulses, murmur present, II/ IV (systolic) Respiratory: CTAB, no wheezes, no rales, no ronchi, normal chest expansion, no tachypnea Gastrointestinal: soft, non-tender, non-distended, normal bowel sounds, no palpable masses, no hepatomegaly, no splenomegaly, no bruit Extremities: 1+ LE edema (+ edema in both lower extemities) Hosp A/P (1) Bradycardia Code(s): R00.1 - BRADYCARDIA, UNSPECIFIED Status: Acute (2) Junctional cardiac arrhythmia Code(s): I49.8 - OTHER SPECIFIED CARDIAC ARRHYTHMIAS Status: Acute (3) Atrial fibrillation Code(s): I48.91 - UNSPECIFIED ATRIAL FIBRILLATION Status: Chronic Qualifiers: Atrial fibrillation type: paroxysmal Qualified Code(s): I48.0 - Paroxysmal atrial fibrillation (4) Diastolic heart failure Code(s): I50.30 - UNSPECIFIED DIASTOLIC (CONGESTIVE) HEART FAILURE Status: Chronic Qualifiers: Heart failure chronicity: chronic Qualified Code(s): I50.32 - Chronic diastolic (congestive) heart failure (5) Hypertension Code(s): I10 - ESSENTIAL (PRIMARY) HYPERTENSION Status: Chronic Qualifiers: (6) Hypothyroid Code(s): E03.9 - HYPOTHYROIDISM, UNSPECIFIED Status: Chronic Qualifiers: (7) Hypothermia Code(s): T68.XXXA - HYPOTHERMIA, INITIAL ENCOUNTER Status: Acute Qualifiers: Encounter type: subsequent encounter Qualified Code(s): T68.XXXD - Hypothermia, subsequent encounter (8) Valvular heart disease Status: Chronic (9) Acute worsening of stage 4 chronic kidney disease Code(s): N18.4 - CHRONIC KIDNEY DISEASE, STAGE 4 (SEVERE) Status: Acute - Plan * Bradycardia and Junctional rhythm- improved * Hypothermia- improved * HTN- blood pressure is stable * Chronic diastolic heart failure- compensated * Hypothyroidism- she is adequately replaced * Discharge plans are in progress
[2018-11-28] MEDS: Atorvastatin Calcium 40 MG TAB PO SCH (20:43)
[2018-11-29 04:51] LABS: #Lymphocytes 0.5 thou/uL (1.20-3.40); #Monocytes 0.5 thou/uL (0.11-0.59); #Neutrophils 2.4 thou/uL (1.40-6.50); %Eosinophils 0.5 % (0.0-10.0); %Lymphocytes 14.2 % (21.0-51.0); %Monocytes 14.7 % (0.0-10.0); %Neutrophils 70.6 % (42.0-75.0); Mean Corpuscular HGB CONC 31.5 g/dL (32.0-36.0); Mean Corpuscular Hemoglobin 31.7 pg (27.0-31.0); Mean Platelet Volume 11.3 fL (7.4-10.4); Platelet Count 55 thou/uL (130-400); RBC Distribution Width 19.6 % (11.5-14.5); Red Blood Cell (RBC) Count 2.85 mill/uL (4.20-5.40); White Blood Cell (WBC) Count 3.3 thou/uL (4.8-10.8)
[2018-11-29 05:11] LABS: ALT (SGPT) 36 U/L (8-55); AST (SGOT) 31 U/L (5-34); Albumin 3.4 g/dL (3.4-4.8); Alkaline Phosphatase 157 U/L (40-110); Anion Gap 16 mmol/L (10-20); BUN (Urea Nitrogen) 56 mg/dL (9.8-20.1); Bilirubin, Total 2.3 mg/dL (0.2-1.2); Calc. Creatinine Clearance 33 mL/min (70-130); Calcium 9.3 mg/dL (7.8-10.44); Carbon Dioxide 19 mmol/L (23-31); Chloride 110 mmol/L (98-107); Estimated GFR-MDRD 20; Globulin 2.2 g/dL (2.4-3.5); Glucose 80 mg/dL (83-110); Protein, Total 5.6 g/dL (6.0-8.3); Sodium 141 mmol/L (136-145)
[2018-11-29] MEDS: Levothyroxine Sodium 125 MCG TAB PO SCH (05:48)
[2018-11-29] MEDS: Folic Acid 1 MG TAB PO SCH (08:45)
[2018-11-29] MEDS: predniSONE 5 MG TAB PO SCH (08:45)
[2018-11-29] MEDS: Cyanocobalamin (Vitamin B-12) 1,000 MCG TAB PO SCH (08:45)
[2018-11-29] MEDS: Ferrous Sulfate 325 MG TAB PO SCH (08:45)
--- NOTE | 2018-11-29 11:38 | PRG ---
DATE OF SERVICE: 11/29/2018 SUBJECTIVE: An 87-year-old female being seen for acute kidney injury. The patient denies nausea, vomiting, or chest pain. OBJECTIVE: CONSTITUTIONAL: The patient is awake and alert. VITAL SIGNS: Pulse 70, breathing 16, and blood pressure 125/79. GENERAL APPEARANCE AND MENTAL STATUS: Fair. HEAD/NECK: Normocephalic. Atraumatic. EYES: EOMI. No deformity. EARS: Clear. No ulcers. NOSE: Intact. No lesions. MOUTH: Clear. No discharge. THROAT: Clear. No exudate. LUNGS: Clear. No crackles. CARDIAC: S1, S2. No rub. ABDOMEN: Benign. Bowel sounds positive. GENITALIA/RECTUM: Estes absent. BACK/EXTREMITIES: Edema 0+. NEUROLOGICAL: Alert and motor intact. SKIN: LYMPHATICS: LABORATORY DATA: Hemoglobin 9. Creatinine is 2.3. ASSESSMENT AND PLAN: Chronic kidney disease stage 4, stable. Acute kidney injury, acute tubular necrosis improved. Hypertension, stable. Anemia, stable. No indication for dialysis. Renal function has been improving. Job ID: [id number]
--- NOTE | 2018-11-29 14:35 | PDOC.HOSPP ---
- Subjective Encounter Date: 11/29/18 Encounter Time: 14:33 Subjective: Ms. Gamble was seen today in follow-up of syncope and bradycardia. She is resting comfortably, and does not have any complaints. - Objective Vital Signs & Weight: Vital Signs (12 hours) Temp Pulse Resp BP Pulse Ox 11/29/18 08:23 96.1 F L 70 20 125/79 93 L 11/29/18 05:23 97.4 F L 11/29/18 04:00 95.5 F L 66 14 114/73 100 Weight Admit Weight 260 lb Weight 268 lb 14.4 oz Most Recent Monitor Data Heart Rate from ECG 61 NIBP 113/76 NIBP BP-Mean 88 Respiration from ECG 12 SpO2 85 I&O: 11/28/18 11/29/18 11/30/18 06:59 06:59 06:59 Intake Total 120 630 Output Total 600 1600 Balance -480 -090 Result Diagrams: 11/29/18 03:50 11/29/18 03:50 Additional Labs: Accuchecks 11/29/18 11/29/18 11/28/18 10:38 05:23 20:20 POC Glucose 100 90 115 H 11/28/18 17:09 POC Glucose 112 H Hospitalist ROS - Medication Medications: Active Medications Generic Name Dose Route Start Last Admin Trade Name Mirna PRN Reason Stop Dose Admin Atorvastatin Calcium 40 mg 11/22/18 21:00 11/28/18 20:43 Lipitor PO 40 mg HS JERMAN Administration Cyanocobalamin 1,000 mcg 11/25/18 09:00 11/29/18 08:45 Vitamin B-12 PO 1,000 mcg DAILY JERMAN Administration Ferrous Sulfate 325 mg 11/25/18 09:00 11/29/18 08:45 Feosol PO 325 mg DAILY JERMAN Administration Folic Acid 1 mg 11/25/18 09:00 11/29/18 08:45 Folvite PO 1 mg DAILY JERMAN Administration Levothyroxine Sodium 125 mcg 11/22/18 06:00 11/29/18 05:48 Synthroid PO 125 mcg 0600 JERMAN Administration - Exam Eye: PERRL Heart: RRR, no murmur, no gallops, no rubs, normal peripheral pulses Respiratory: CTAB, no wheezes, no rales, no ronchi, normal chest expansion, no tachypnea, normal percussion Gastrointestinal: soft, non-tender, non-distended, normal bowel sounds, no palpable masses, no hepatomegaly, no splenomegaly, no bruit Extremities: 2+ LE edema Hosp A/P (1) Bradycardia Code(s): R00.1 - BRADYCARDIA, UNSPECIFIED Status: Acute (2) Junctional cardiac arrhythmia Code(s): I49.8 - OTHER SPECIFIED CARDIAC ARRHYTHMIAS Status: Acute (3) Atrial fibrillation Code(s): I48.91 - UNSPECIFIED ATRIAL FIBRILLATION Status: Chronic Qualifiers: Atrial fibrillation type: paroxysmal Qualified Code(s): I48.0 - Paroxysmal atrial fibrillation (4) Diastolic heart failure Code(s): I50.30 - UNSPECIFIED DIASTOLIC (CONGESTIVE) HEART FAILURE Status: Chronic Qualifiers: Heart failure chronicity: chronic Qualified Code(s): I50.32 - Chronic diastolic (congestive) heart failure (5) Hypertension Code(s): I10 - ESSENTIAL (PRIMARY) HYPERTENSION Status: Chronic Qualifiers: (6) Hypothyroid Code(s): E03.9 - HYPOTHYROIDISM, UNSPECIFIED Status: Chronic Qualifiers: (7) Hypothermia Code(s): T68.XXXA - HYPOTHERMIA, INITIAL ENCOUNTER Status: Acute Qualifiers: Encounter type: subsequent encounter Qualified Code(s): T68.XXXD - Hypothermia, subsequent encounter (8) Valvular heart disease Status: Chronic (9) Acute worsening of stage 4 chronic kidney disease Code(s): N18.4 - CHRONIC KIDNEY DISEASE, STAGE 4 (SEVERE) Status: Acute - Plan * Bradycardia- patient is returning home with Hospice
[2018-11-29 16:22] VITALS: BP 120/83; TEMP 97.5
--- NOTE | 2018-11-30 02:32 | DIS ---
DATE OF ADMISSION: 11/22/2018 DATE OF DISCHARGE: 11/29/2018 PRIMARY CARE PHYSICIAN: Ace Babin MD DISCHARGE DISPOSITION: Home with home hospice and that is [facility]. DISCHARGE DIAGNOSES: 1. Symptomatic bradycardia. 2. Syncope. 3. Metabolic acidosis. 4. Acute kidney injury. 5. Atrial fibrillation. DISCHARGE MEDICATIONS: Include; 1. Folic acid 1 mg daily. 2. Multaq 400 mg twice a day. 3. Calcium carbonate 1000 mg q.4 hours as needed. 4. Potassium chloride 20 mEq daily. 5. Levothyroxine 125 mcg p.o. daily. 6. Iron 325 mg p.o. daily. 7. Lipitor 40 mg at bedtime. IMAGING: During the hospital stay, the patient had an abdominal ultrasound showing mildly contracted gallbladder with mild gallbladder sludge, but no pericholecystic fluid. Negative Viera sign. The patient also had an echocardiogram showing evidence of an ejection fraction of 50% to 55%, it was technically difficult. Severe mitral regurgitation was present. Severe aortic stenosis and severe tricuspid regurgitation. CODE STATUS: DNAR. ALLERGIES: APIXABAN. HOSPITAL COURSE: Ms. Gamble is a very pleasant 87-year-old female, who was admitted to the hospital after suffering a fall. She was found to have severe bradycardia with heart rates in the 30s and 40s. She was admitted to the ICU and it was noted that she was on Multaq. This was discontinued to see if this would improve her heart rate. Her heart rate did respond to this and she did have to be placed on a dobutamine drip temporarily. Discussions were made with regard to possible placement of a pacemaker. However, the patient was also noted to have acute on chronic kidney injury with an elevated creatinine and a GFR ranging anywhere from 13 to 15. Nephrology was consulted. She decided on not having any dialysis and therefore, did not want a pacemaker either and preferred to go home on hospice. These arrangements were made and the patient was discharged home on [facility]. Job ID: [id number]
--- NOTE | 2018-11-30 10:34 | PQF ---
STEPHANIE AMARO TUAN PEPE [id number] CLINICAL DOCUMENTATION CLARIFICATION FORM: POST DISCHARGE Addendum to original discharge summary date: ____ Late entry note date: __ DATE: 11-30-2018 ATTN: Dexter Troncoso Please exercise your independent, professional judgment in responding to the clarification form. Clinical indicators are provided on the bottom of this form for your review Based on your clinical judgment, can you please specify the known or suspected condition being treated, evaluated or monitored? Please check appropriate box(s): [ ] bradycardia due to adverse effect of Multaq [ X ] bradycardia not due to adverse effect of Mutaq [ ] bradycardia unspecified [ ] Other diagnosis please specify: [ ] Unable to determine For continuity of documentation, please document condition throughout progress notes and discharge summary. Thank You. CLINICAL INDICATOR: HP 11/[address] Rider Extreme bradycardia with HR in the low 30s DS 11/[address] Lara she has severe bradycardia with HR 30s and 40s she was noted that she was in multaq DS 11/[address] Lara This was discontinued to see if this would improve her heart rate, heart rate did respond to this. RISK FACTORS HP- Paroxysmal Afib HP- Hyperkalemia HP- Mitral regurgatation HP- CHF TREATMENTS: HP 11/22- Dobutamine started Imaging- Echocardiogram Stop multaq medication (This form is maintained as a part of the permanent medical record) 2014 [employer]. All Rights Reserved Celine [email or web address] [not provided] MTDD
--- NOTE | 2018-12-05 12:20 | EKG ---
Test Reason : Blood Pressure : / mmHG Vent. Rate : 062 BPM Atrial Rate : 133 BPM P-R Int : 000 ms QRS Dur : 084 ms QT Int : 402 ms P-R-T Axes : 000 057 045 degrees QTc Int : 408 ms Junctional rhythm Low voltage QRS Cannot rule out Anterior infarct , age undetermined Abnormal ECG Confirmed by DR. Stas DYKES ([id number]) on 12/05/2018 12:19:59 PM Referred By: LORI Confirmed By:DR. Stas DYKES
== END 2018-11-29 16:20 | disposition hospice, home (50) | DRG 308 ==
LOC: ERS 02:13 → CCU 05:33 → 2NO 11-26 22:05
PROVIDERS: ADMIT Hospitalist; ATTEND Hospitalist
PROC: 3E033XZ Introduction of Vasopressor into Peripheral Vein, Percutaneous Approach (ICD-10-PCS; principal; 2018-11-22)
DX: R00.1 Bradycardia, unspecified (principal); R57.0 Cardiogenic shock; I50.33 Acute on chronic diastolic (congestive) heart failure; G93.41 Metabolic encephalopathy; N17.0 Acute kidney failure with tubular necrosis; E27.40 Unspecified adrenocortical insufficiency; I13.0 Hypertensive heart and chronic kidney disease with heart failure and stage 1 through stage 4 chronic kidney disease, or unspecified chronic kidney disease; D61.818 Other pancytopenia; E87.2 Acidosis; N18.4 Chronic kidney disease, stage 4 (severe); J96.11 Chronic respiratory failure with hypoxia; Z68.41 Body mass index [BMI] 40.0-44.9, adult; I95.9 Hypotension, unspecified; I42.9 Cardiomyopathy, unspecified; F03.90 Unspecified dementia, unspecified severity, without behavioral disturbance, psychotic disturbance, mood disturbance, and anxiety; Z66 Do not resuscitate; E03.9 Hypothyroidism, unspecified; E78.5 Hyperlipidemia, unspecified; E87.5 Hyperkalemia; I48.0 Paroxysmal atrial fibrillation; E78.00 Pure hypercholesterolemia, unspecified; E66.01 Morbid (severe) obesity due to excess calories; R29.6 Repeated falls; I08.0 Rheumatic disorders of both mitral and aortic valves; E87.70 Fluid overload, unspecified; E53.8 Deficiency of other specified B group vitamins; T68.XXXA Hypothermia, initial encounter; E16.2 Hypoglycemia, unspecified; Z90.710 Acquired absence of both cervix and uterus; Z88.8 Allergy status to other drugs, medicaments and biological substances; Z79.899 Other long term (current) drug therapy
CPT/HCPCS: 36415; 36416; 51702; 71045; 76705; 76770; 80053; 80202; 81003; 81015; 82274; 82330; 82570; 82607; 82746; 82803; 83605; 83690; 83735; 83880; 84300; 84439; 84443; 84484; 85025; 85610; 85730; 87086; 93005; 93010; 93306; 96365; 96375; 96376; 99292; J0461; J1250; J1265; J1720; J1815; J1940; J2543; J2760; J3010; J3370; J3490; J7050; J7070; J7512; P9047